=== PATIENT | female | born 1945 | race Caucasian/White ===

== ENCOUNTER → 2020-08-23 13:27 | Outpatient (REF) | payer MEDICARE, SELFPAY ==
--- NOTE | 2020-08-23 13:30 | ECG_ITS ---
Hook-up date: 2020-08-23 13:48:00 Duration: 40:28:00 Test Indications: sinus bradycardia, PAF Medications: 28601 QRS complexes 32 Ventricular ectopics which represent <1 % of total QRS comp. 39 Supraventricular ectopics which represent <1 % of total QRS comp. * Paced QRS complexs which represent % of total QRS comp. VENTRICULAR ECTOPY 32 Isolated 0 Bigeminal Cycles 0 Couplets 0 Runs 0 Beats in Runs * Beats LONGEST at * BPM at :: -- * Beats FASTEST at * BPM at :: -- SUPRAVENTRICULAR ECTOPY 33 Isolated 3 Couplets 0 Runs 0 Beats in Runs * Beats LONGEST at * BPM at :: -- * Beats FASTEST at * BPM at :: -- HEART RATES 42 MIN at 06:53:42 2020-08-24 65 AVG 106 MAX at 13:50:13 2020-08-23 LONGEST RR 1.6560 secs at 05:41:45 2020-08-24 S-T LEVELS Channel 1 - 128 mm at 13:48:00 2020-08-23 - 128 mm at 13:48:00 2020-08-23 Channel 2 - 128 mm at 13:48:00 2020-08-23 - 128 mm at 13:48:00 2020-08-23 Channel 3 - 128 mm at 03:30:71 -- - 128 mm at 03:30:71 Underlying rhythm is sinus; Average ventricular rate 65/min; range 42-106/min; About 43% of the time, ventricular rate <60/min; Rare supraventricular and ventricular ectopy; Chest pressure noted in patient diary correlates with sinus rhythm. Referred By: Ba Calabrese Overread By: ARUNA CROSS
== END ==
LOC: HO.CARD 13:27
PROVIDERS: PCP Internal Medicine; Visit Provider Internal Medicine Cardiovascular Disease
DX: R00.1 Bradycardia, unspecified (principal); I48.0 Paroxysmal atrial fibrillation
CPT/HCPCS: 93225; 93226

== ENCOUNTER → 2020-08-28 07:52 | Outpatient (REF) | payer MEDICARE, SELFPAY ==
--- NOTE | 2020-08-28 08:00 | CA_ITS ---
Acquisition Time: 2020-08-28 08:08:06 Total Exercise Time: 00:02:01 Test Indications: Dyspnea Medications: PANTOPRAZOLE XARELTO Protocol: SHARAD Max HR: 133 BPM 91% of Pred: 145 BPM Max BP: 152/078 mmHG Max Work Load: 3.9 METS Exercis estress test using Sharad protocol, total of 2 min 1 sec. Pt unable to complete the test, became SOB and felt chest pressure and burning. EKG with mild ST depression in leads 2, 3 and aVF. Normotensive response to test. No arrhythmias. Test verified with Dr. Ministerio marquez order pharm stress test Referred By: Ba Calabrese Overread By: Denise Motta
== END ==
LOC: HO.CARD 07:52
PROVIDERS: PCP Internal Medicine; Visit Provider Internal Medicine Cardiovascular Disease
DX: R00.1 Bradycardia, unspecified (principal); I48.0 Paroxysmal atrial fibrillation
CPT/HCPCS: 93017

== ENCOUNTER → 2020-09-11 07:48 | Outpatient (REF) | payer MEDICARE, SELFPAY ==
--- NOTE | 2020-09-11 | NM_ITS ---
Myocardial perfusion study Indication: Chest discomfort and shortness of breath evaluate for myocardial ischemia Technique: The patient was brought in for a Lexiscan perfusion study on 09/11/2020. Patient performed low-level exercise and was injected 0.4 mg of Lexiscan intravenously. Within a minute of injection, 40 mCi of sestamibi was given intravenously. Images were obtained using the SPECT gamma camera interlaced with the gating device. Images were obtained in supine position. Resting perfusion study was performed on 09/12/2020. Patient was administered 40 mCi of sestamibi intravenously at rest. Images were then obtained in supine position. Images obtained with and without CT attenuation. Total DLP 121 MGY-CM. Images were processed with the software and compared side to side in short axis, horizontal long axis and vertical long axis views. Findings: The stress perfusion study showed non attenuated images show minimal thinning of the inferoapical wall of the LV myocardium. Remainder of the LV myocardium is normally perfused. Attenuation corrected images show minimally reduced uptake in the apex of the LV myocardium.. The gated study shows normal LV systolic function with calculated LVEF of 72%. LV cavity is normal in size. The gated study shows normal systolic wall thickening and contraction of segments. Resting study shows attenuation corrected images show minimally reduced uptake in the apex of the LV myocardium. Gating at rest reveals normal systolic wall motion with ejection fraction at 73%. The findings are consistent with likely normal myocardial perfusion. NM/NM christa perf SPECT rest & str Impression: 1. Myocardial perfusion imaging study shows likely normal myocardial perfusion 2. Gated LVEF is 72% 3. Transient ischemic dilatation not present EKG is nondiagnostic for ischemia
--- NOTE | 2020-09-11 07:55 | CA_ITS ---
Acquisition Time: 2020-09-11 08:00:12 Total Exercise Time: 00:02:00 Test Indications: Dyspnea Medications: PANTOPRAZOLE METOPROLOL XARELTO Protocol: LEXISCAN Max HR: 104 BPM 71% of Pred: 145 BPM Max BP: 122/072 mmHG Max Work Load: 1.0 METS Pharmacological stress test using Lexiscan while sitting and kicking her feet, Pt tolerated well, reports to have mild chest pressure, Aminophyline 75 mg IV given and sx resolve. EKG with no arrhythmias, non-diagnostic for ischemia. Nuclear images to follow. Normotensive response to test. Test reviewed with Dr. Scott Referred By: Ángela Hernandez Overread By: Denise Motta
== END ==
LOC: HO.CARD 07:48
PROVIDERS: PCP Internal Medicine; Visit Provider Nurse Practitioner Family
DX: R06.02 Shortness of breath (principal)
CPT/HCPCS: 78452; 93017; A9500; J0280; J2785

== ENCOUNTER → 2020-09-19 13:20 | Outpatient (BNVA) | payer MEDICARE, SELFPAY | PROVIDERS: PCP Internal Medicine; Visit Provider Internal Medicine Cardiovascular Disease | DX: I48.0 Paroxysmal atrial fibrillation (principal); I49.5 Sick sinus syndrome; R06.02 Shortness of breath; Z79.01 Long term (current) use of anticoagulants; Z79.899 Other long term (current) drug therapy | CPT/HCPCS: 93005; 99212 ==

== ENCOUNTER 2020-10-13 12:46 | Outpatient (REF) | payer MEDICARE, SELFPAY ==
--- NOTE | 2020-10-13 13:40 | XR_ITS ---
EXAMINATION: XR CHEST CLINICAL INFORMATION: Dyspnea COMPARISON: January 03, 2020 and April 24, 2019 TECHNIQUE: 2 views of the chest were obtained. FINDINGS: There is no evidence of acute parenchymal disease, pneumothorax, or pleural effusion. Heart normal size. No evidence of pulmonary edema. Patient status post previous left breast surgery. There is scoliosis with spurring seen involving the thoracic spine convex right. There is bilateral shoulder degenerative change. XR/XR chest 2V IMPRESSION: No acute disease
== END 2020-10-13 12:47 | disposition home or self-care (01) ==
LOC: HO.XRAY 12:46
PROVIDERS: PCP Internal Medicine; Visit Provider Internal Medicine Pulmonary Disease
DX: R06.00 Dyspnea, unspecified (principal)
CPT/HCPCS: 71046; 99202

== ENCOUNTER 2020-10-20 09:02 | Outpatient (REF) | payer MEDICARE, SELFPAY ==
--- NOTE | 2020-10-20 13:23 | PFT_ITS ---
Forced vital capacity, slightly decreased. FEV1, [id number], and MVV are normal. Post bronchodilator therapy, no change noted. Total lung capacity and residual volume normal. Diffusion capacity slightly decreased. CONCLUSION: Normal pulmonary function test. Slight decrease in FVC, is probably effort related. Slight decrease in diffusion capacity is a nonspecific finding, probably due to technical reason. Clinical correlation recommended. MD NADIR Fowler/MODL / [id number]
== END 2020-10-20 09:03 | disposition home or self-care (01) ==
LOC: HO.RESP 09:02
PROVIDERS: PCP Internal Medicine; Visit Provider Internal Medicine Pulmonary Disease
DX: R06.00 Dyspnea, unspecified (principal); R06.02 Shortness of breath
CPT/HCPCS: 94060; 94727; 94729; 99212

== ENCOUNTER 2020-11-22 14:21 | Outpatient (REF) | payer MEDICARE, SELFPAY ==
[2020-11-22 17:04] LABS: B Type Natriuretic Peptide 57 pg/mL (<100)
== END 2020-11-22 14:22 | disposition home or self-care (01) ==
LOC: HO.HMGCLDS 14:21
PROVIDERS: PCP Internal Medicine; Visit Provider Internal Medicine Cardiovascular Disease
DX: R06.02 Shortness of breath (principal); R06.00 Dyspnea, unspecified
CPT/HCPCS: 36415; 83880

== ENCOUNTER 2021-02-02 13:43 | Outpatient (REF) | payer MEDICARE, SELFPAY ==
--- NOTE | ~2021-02-02 | US_ITS ---
EXAMINATION: ULTRASOUND EXTREMITY NONVASCULAR CLINICAL INFORMATION: Right lower leg mass. COMPARISON: None TECHNIQUE: Limited ultrasound imaging through the right lower leg posterior to medial patellar was performed. FINDINGS: There is no visible echogenic mass, fluid collection or abnormal vascularity seen in the area where patient points to leg mass. The soft tissues are unremarkable. US/US extremity nonvascular IMPRESSION: Unremarkable ultrasound right lower leg where patient complains of mass along the right medial and posterior to patella.
== END 2021-02-02 13:44 | disposition home or self-care (01) ==
LOC: HO.HMGCX 13:43
PROVIDERS: PCP Internal Medicine; Visit Provider Internal Medicine
DX: R22.41 Localized swelling, mass and lump, right lower limb (principal)
CPT/HCPCS: 76882

== ENCOUNTER → 2021-03-19 10:48 | Outpatient (BNVA) | payer MEDICARE, SELFPAY | PROVIDERS: PCP Internal Medicine; Visit Provider Internal Medicine Cardiovascular Disease | DX: I48.0 Paroxysmal atrial fibrillation (principal); I49.5 Sick sinus syndrome; Z79.899 Other long term (current) drug therapy; Z87.891 Personal history of nicotine dependence | CPT/HCPCS: 93005; 99212 ==

== ENCOUNTER → 2021-04-25 12:42 | Outpatient (REF) | payer MEDICARE, SELFPAY ==
--- NOTE | 2021-04-25 12:50 | CA_ITS ---
Transthoracic Echocardiogram Patient (Last, First, Middle): Dolly Diaz L Gender: Female Date of : 1945 Age: 75 Procedure Date: 04/25/2021 Procedure Type: Transthoracic Echocardiogram Location: OP Height: 177.8 cm Weight: 119.75 kg BSA: 2.35 m2 Heart Rate: bpm BP: 140 / 82 mmHg Kitchen Assistant: PHOEBE Referring MD: Ba Calabrese MD Symptoms: I48.0 - Paroxysmal atrial fibrillation Study Quality: Fair ECG Rhythm: Sinus Conclusions: - The left ventricular systolic function is normal. The calculated ejection fraction is 66% by biplane method. - No obvious valvular pathology seen on this study. - Mild pulmonary hypertension is present. Findings Left Ventricle Normal left ventricular cavity size. There is normal left ventricular wall thickness. The left ventricular systolic function is normal. The calculated ejection fraction is 66% by biplane method. There is no evidence of regional wall motion abnormalities. E/E prime ratio is between 8 and 15 consistent with indeterminate filling pressures. Evidence suggests grade I (mild) diastolic dysfunction. Right Ventricle Mildly increased right ventricular cavity size. There is normal right ventricular systolic function. Atria Both atria are normal in size. Aortic Valve There is a normal trileaflet aortic valve. There is no aortic valve stenosis. There is no aortic valve regurgitation. Mitral Valve The mitral valve appears normal. There is mild mitral valve regurgitation. There is no mitral valve stenosis. Pulmonic Valve The pulmonic valve was not well visualized. Tricuspid Valve Normal tricuspid valve structure. There is mild tricuspid valve regurgitation. The right ventricular systolic pressure is 37 mmHg. Mild pulmonary hypertension is present. Great Vessels The aortic annulus, sinuses of valsalva, and asc aorta are normal in size. Venous The inferior vena cava is normal in size and collapses greater than 50% with inspiration. Pericardium/Pleural There is a trivial pericardial effusion. Prior Study Comparison No significant change compared to prior study dated: 01/04/2020. Recommendations, Care & Conclusions No obvious valvular pathology seen on this study. Measurements 2D Linear Measurements IVSd: 0.99 0.6-0.9/0.6-1.0 cm LVIDd: 4.38 3.9-5.3/4.2-5.9 cm LVIDd Index: 1.86 2.4-3.2/2.2-3.1 cm/m2 LVIDs: 2.62 2.0-3.6 cm LVPWd: 0.96 0.7-1.1 cm Ao Root: 2.90 2.1-3.5 cm LA Diam: 3.70 2.7-3.8/3.0-4.0 cm LAIDs Index: 1.57 1.5-2.3 cm/m2 LV Mass: 175.89 67-162/88-224 g LV Mass Index: 74.85 43-95/49-115 g/m2 LVOT Diam: 2.00 3.0+(-)1.3 cm 2D Systolic Function EF 4C: 63.70 >55% EF 2C: 68.90 >55% EF BiP: 66.20 >55% Mitral Valve MV Pk E: 1.02 MV PK A: 0.48 MV Decel Time: 315.00 E/A: 2.10 E'Lateral: 7.40 E'Medial: 7.83 E/E' Med: 13.00 E/E' Lat: 13.80 PHT: 92.00 MVA PHT: 2.39 Decel [place]: 3.24 Aortic Valve AoV Pk Ruiz: 1.51 AoV Mn Ruiz: 1.03 AoV VTI: 0.34 AoV Pk Grad: 9.00 Aov Mn Grad: 5.00 ELIGIO Cont.VTI: 2.51 LVOT LVOT Pk Ruiz: 1.07 LVOT Mn Ruiz: 0.71 LVOT VTI: 0.27 LVOT Pk Grad: 5.00 LVOT Mn Grad: 2.00 LVOT Diam: 2.00 LVOT Area: 3.14 Diastolic Function MV Pk E: 1.02 MV Pk A: 0.48 E/A: 2.10 E'Medial: 7.83 E/E' Med: 13.00 E' Laterial: 7.40 E/E' Lat: 13.80 Tricuspid Valve TR Pk Ruiz: 2.91 TR Pk Grad: 34.00 RA Press: 3.00 RVSP: 37.00 Great Vessels Aorta Ao Root-2D: 2.90 2.0-3.7 cm Ao Asc: 3.20 2.1-3.4 cm Ao Arch: 3.20 Updated in Other Vendor System with Status of Final Oleg Scott MD electronically signed on 04/27/2021 1:38:15 PM with status of Final
== END ==
LOC: HO.CARD 12:42
PROVIDERS: Visit Provider Internal Medicine
DX: R06.00 Dyspnea, unspecified (principal); I48.0 Paroxysmal atrial fibrillation
CPT/HCPCS: 93306

== ENCOUNTER 2021-08-08 09:28 | Inpatient (IN) | payer MEDICARE, SELFPAY ==
--- NOTE | 2021-08-08 | ECG_ITS ---
Test Reason : CP Blood Pressure : / mmHG Vent. Rate : 061 BPM Atrial Rate : 061 BPM P-R Int : 186 ms QRS Dur : 104 ms QT Int : 436 ms P-R-T Axes : 021 019 027 degrees QTc Int : 438 ms Normal sinus rhythm Possible Anterior infarct , age undetermined Nonspecific T wave abnormality Abnormal ECG When compared with ECG of 05-JAN-2020 14:36, Nonspecific T wave abnormality is now Present Referred By: Kt Shaw Electronically Signed By:STANLEY GRANADOS
--- NOTE | ~2021-08-08 | XR_ITS ---
EXAMINATION: XR CHEST CLINICAL INFORMATION: Chest pain. Possible pneumonia. COMPARISON: Chest radiographs 10/13/2020, 01/03/2020, 04/24/2019 TECHNIQUE: 2 views of the chest were obtained. FINDINGS: The lungs are clear. There is no pneumothorax, pleural reaction, infiltrate, effusion, or groundglass opacity. The heart is normal in size. The vascularity is normal. The hilar and mediastinal contours are unremarkable. No acute bony abnormality. 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 There are postsurgical changes left breast with left axillary clips again seen. XR/XR chest 2V IMPRESSION: No acute intrathoracic disease. Lungs clear.
[2021-08-08 09:45] VITALS: BP 148/73; PULSE 58; RESP 16; TEMP 36.7; O2SAT 99; BMI 39.5
--- NOTE | 2021-08-08 10:40 | ED_ITS ---
HPI - Chest Pain General Chief Complaint: Chest Pain Stated Complaint: CHEST PRESSURE Time Seen by Provider: 08/08/21 10:22 Source: patient Mode of arrival: EMS Limitations: no limitations History of Present Illness HPI narrative: 76-year-old female who presents emergency department for evaluation of chest pain, left arm numbness, diaphoresis. 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 She states she had a bowel movement earlier in the morning and felt like she had gas and her abdomen and went into the bathroom. She states that while she was sitting on the toilet she passed gas and urinated but did not feel lightheaded or dizzy. She then had difficulty standing from the toilet secondary to chronic knee pain. She states that she tried to call for help but the door was locked so she got on her knees and crawled to the door and unlocked the door. She states he then sat up on the floor and developed tightness in her chest. She points to her sternum when asked to localize the tightness. She states that the pain was 8/10. She also had numbness from her left elbow down to her hands. She then developed severe diaphoresis. She was able to get help in ambulance was called. Patient states she was given aspirin and nitroglycerin in the ambulance and she believes that these medications result pain. She believes that the pain lasted a total of 20- 30 minutes. is currently pain-free at the time my evaluation. The patient states that over the last 3 weeks she has noticed similar chest tightness and arm pain with exertion. She states that walking 100-200 feet will cause her to have chest tightness and left arm numbness. She states the symptoms resolved with rest. She has seen her horse exerciser who thought that this could be secondary to her lungs or secondary to heart disease and did start the patient on inhalers. She states she did get some relief with inhalers but still continues to have chest pain with exertion. Patient does have history of paroxysmal atrial fibrillation and does the precision lens grinder apprentice, Dr. Calabrese Related Data Home Medications Medication Instructions Recorded Confirmed pantoprazole 40 mg tablet,delayed 40 mg PO DAILY 09/19/20 08/08/21 release albuterol sulfate 90 mcg/actuation 2 puff INHALATION Q4-6H PRN 08/08/21 08/08/21 aerosol inhaler (ProAir HFA) fluticasone furoate 200 1 puff INHALATION DAILY 08/08/21 08/08/21 mcg-vilanterol 25 mcg/dose inhalation powder (Breo Ellipta) Previous Rx's Medication Instructions Recorded rivaroxaban 20 mg tablet (Xarelto) 20 mg PO DAILY #90 tab 04/23/21 propafenone 150 mg tablet 150 mg PO TID #270 tab 05/22/21 Allergies Allergy/AdvReac Type Severity Reaction Status Date / Time bee pollen [BEE STINGS] Allergy Severe ANAPHYLAXIS Verified 10/20/20 10:13 Penicillins [PENICILLINS] Allergy Intermediate HIVES Verified 10/20/20 10:13 chlorhexidine [CHLORAPREP] Allergy Mild RASH Verified 10/20/20 10:13 sulfamethoxazole Allergy Mild DIARRHEA Verified 10/20/20 10:13 [From BACTRIM] codeine [CODEINE] Allergy Unknown NAUSEA Verified 10/20/20 10:13 latex [LATEX] Allergy Unknown rash/itchy Verified 10/20/20 10:13 Review of Systems Review of Systems: Yes all other systems are reviewed and are negative [facility] Past Medical History [facility] Narrative: Social history: The patient is , she is here with her . She denies tobacco use. She states that she did smoke cigarettes in high school. She rarely drinks alcohol. She denies drug use. Medical History Paroxysmal atrial fibrillation Sick sinus syndrome Surgical History History of back surgery History of cholecystectomy Hx of appendectomy Hx of lumpectomy Family History Family History (Updated 08/08/21 @ 14:46 by Kamila Peters NP) Father Emphysema lung Mother Sudden cardiac arrest Social History Social History Alcohol intake: never Smoked in Last 30 Days: No Use of substances other than those prescribed or required for medical reasons: No Advance Directives: Yes Advance Directives Information Provided: No Advance Directives on File: No Physical Exam Vital Signs: Vital Signs: Last Vital Signs Temp 98.0 F 08/08/21 09:45 Pulse 59 08/08/21 12:00 Resp 16 08/08/21 12:00 BP 150/89 H 08/08/21 12:00 Pulse Ox 99 08/08/21 09:45 Body Mass Index 39.5 Const: General: cooperative and no acute distress Ezekiel entation/consciousness: oriented to person and oriented to place Limitations: no limitations HENMT: Head: Yes normal to inspection, Yes normocephalic and Yes atraumatic Ears: external ears normal General nose exam: Normal external nose present Face and sinus: Yes normal facial exam Mouth: Normal oral and palatal mucosa present Throat: Yes posterior oropharynx normal Eyes: General: appearance normal, both eyes and all related structures Pupils: Equal, round and reactive pupils present Neck: Neck: Yes normal visual inspection, Yes no lymphadenopathy, Yes trachea midline and Yes supple Chest: Chest palpation & inspection: normal inspection of the chest and normal palpation of entire chest wall Resp: Effort & Inspection: normal respiratory effort and able to speak in complete sentences Auscultation: clear to auscultation bilaterally Cardio: Rate: regular rate Rhythm: regular rhythm Heart sounds: S1 normal heart sound present, S2 normal heart sound present and no murmurs GI: Inspection: Yes normal to inspection Palpation (GI): Soft to palpation, nontender and no guarding Auscultation: normal bowel sounds : General: Yes no CVA tenderness Back/Spine/Pelvis: Back: no CVA tenderness Skin: General skin exam: no rashes or lesions noted Neuro: General: oriented to person and oriented to place Cranial nerves: Yes CN's II-XII intact bilaterally and Yes Equal, round and reactive pupils present Cognition (Neuro): normal cognition Motor exam (neuro): 5/5 motor strength present throughout Extrem: General: Yes normal to inspection Psych: Appearance: grossly normal Speech and movement: Normal speech and movement present Affect: normal affect Attitude: cooperative Thought process: Normal thought process present Thought content: Normal thought content present Course Course Course Narrative: 76-year-old female who presents emergency department for evaluation of sternal chest tightness, left arm numbness and diaphoresis that occurred this morning when she was unable to get off the toilet and had to crawl to unlock the door. The patient's symptoms lasted approximately 20-30 minutes and were relieved when the patient received nitroglycerin and aspirin EN route to the hospital. The patient has been experiencing similar symptoms several rafat es a day with exertion of about 100-200 feet. The patient was pain-free at the time my evaluation. Vital signs revealed an elevated blood pressure of 140/73 and bradycardia with a pulse of 58 otherwise were unremarkable. Physical examination was unremarkable. Twelve EKG did reveal Q-waves in lead 3 with poor R-wave progression V1 through V3 but no acute ST segment elevation. I did order a cardiac workup, chest x-ray and urinalysis on the patient. The patient will also be tested for COVID-19. 1222: The patient has had some episodes of lightheadedness but no recurrence of her chest pain patient's laboratory evaluation was unremarkable except for an elevated troponin of 71. This will be repeated at 2:00 p.m.. COVID-19 was negative. The patient's presentation with the covering precision lens grinder apprentice, . He recommended that the patient have a repeat troponin in 3 hours however he felt that the patient should be admitted here for further observation and further treatment. He recommended stopping the patient's Xarelto and propafenone for 48 hours I will discuss admission with the covering hospitalist. 1318: The patient was accepted by Dr. Salazar. The patient will be did to the [facility] [place] for further management. Patient did receive aspirin by the paramedics. 1516: Patient's repeat 3 hour high sensitivity troponin I was increased to 213 which is a greater than 50% increase. This suggests that the patient had myocardial injury. I did discuss this with Dr. Zuñiga and he recommends no change in patient's disposition and that the patient can be managed here at this facility. MDM - Chest Pain Lab Data Result diagrams: 08/08/21 10:53 08/08/21 10:53 Labs: Lab Results 08/08/21 08/08/21 08/08/21 Range/Units 10:53 10:53 10:53 WBC 7.7 (4.8-10.8) X10*3/uL RBC 5.21 (4.20-5.50) X10*6/uL Hgb 15.1 (12.0-16.0) g/dl Hct 46.3 (37-47) % MCV 88.9 (80-98) fL MCH 29.0 (27.0-33.0) pg MCHC 32.6 (31.0-35.0) g/dl RDW 13.3 (11.0-16.0) % Plt Count 205 (160-400) X10*3/uL MPV 10.6 (9.4-12.3) fL Immature Gran % (Auto) 0.5 H (0.0-0.4) % Neut % (Auto) 70.7 (45-73) % Lymph % (Auto) 15.7 L (20-40) % [place] % (Auto) 9.9 (2-11) % Eos % (Auto) 2.3 (0-4) % Baso % (Auto) 0.9 (0-2) % Lymph # (Auto) 1.2 (1.2-4.9) X10*3/uL [place] # (Auto) 0.8 (0.1-1.2) X10*3/uL Eos # (Auto) 0.2 (0.0-0.4) X10*3/uL Baso # (Auto) 0.1 (0.0-0.2) X10*3/uL Abs Immat Gran (auto) 0.04 H (0.00-0.03) X10*3/uL Absolute Neuts (auto) 5.5 (2.0-8.3) X10*3/uL Absolute Nucleated RBC 0.000 (0.0-0.012) X10*3/uL Nucleated RBC % (auto) 0.0 (0.0-0.2) /100WBC Sodium 138 (135-145) mmol/L Potassium 4.4 (3.3-5.1) mmol/L Chloride 106 (96-108) mmol/L Carbon Dioxide 23 (22-29) mmol/L Anion Gap 13 (12-20) BUN 13 (9-16) mg/dL Creatinine 0.72 (0.5-1.4) mg/dL Estim Creat Clear Calc 92.7 Estimated GFR > 60 Random Glucose 105 (60-115) mg/dL Calcium 9.1 (8.4-10.2) mg/dL Total Bilirubin 0.6 (0.0-1.0) mg/dL AST 26 (5-31) U/L ALT 30 (0-31) U/L Alkaline Phosphatase 69 (39-117) U/L Troponin I High Sens (<3.5-17.0) ng/L Total Protein 6.5 (6.5-8.0) g/dL Albumin 4.1 (3.5-5.0) g/dL COVID-19 (LUIS M) Negative (Negative) COVID-19 Clin Com See Note 08/08/21 Range/Units 10:53 WBC (4.8-10.8) X10*3/uL RBC (4.20-5.50) X10*6/uL Hgb (12.0-16.0) g/dl Hct (37-47) % MCV (80-98) fL MCH (27.0-33.0) pg MCHC (31.0-35.0) g/dl RDW (11.0-16.0) % Plt Count (160-400) X10*3/uL MPV (9.4-12.3) fL Immature Gran % (Auto) (0.0-0.4) % Neut % (Auto) (45-73) % Lymph % (Auto) (20-40) % [place] % (Auto) (2-11) % Eos % (Auto) (0-4) % Baso % (Auto) (0-2) % Lymph # (Auto) (1.2-4.9) X10*3/uL [place] # (Auto) (0.1-1.2) X10*3/uL Eos # (Auto) (0.0-0.4) X10*3/uL Baso # (Auto) (0.0-0.2) X10*3/uL Abs Immat Gran (auto) (0.00-0.03) X10*3/uL Absolute Neuts (auto) (2.0-8.3) X10*3/uL Absolute Nucleated RBC (0.0-0.012) X10*3/uL Nucleated RBC % (auto) (0.0-0.2) /100WBC Sodium (135-145) mmol/L Potassium (3.3-5.1) mmol/L Chloride (96-108) mmol/L Carbon Dioxide (22-29) mmol/L Anion Gap (12-20) BUN (9-16) mg/dL Creatinine (0.5-1.4) mg/dL Estim Creat Clear Calc Estimated GFR Random Glucose (60-115) mg/dL Calcium (8.4-10.2) mg/dL Total Bilirubin (0.0-1.0) mg/dL AST (5-31) U/L ALT (0-31) U/L Alkaline Phosphatase (39-117) U/L Troponin I High Sens 71.0 H* (<3.5-17.0) ng/L Total Protein (6.5-8.0) g/dL Albumin (3.5-5.0) g/dL COVID-19 (LUIS M) (Negative) COVID-19 Clin Com Critical Care Time Critical Care Time Critical Care Time: Yes Total Critical Care Time: 30 Attestation: Critical Care: The patient was critically ill with a high probability of imminent or life threatening deterioration. I spent greater than 30 minutes of discontinuous time evaluating the patient,delivering critical care at the bedside, discussing and evaluating pertinent data with consultants. Critical care time does not include time spent performing separately billable procedures or teaching. Total time spent performing critical care was 30 minutes. Discharge Plan Discharge Clinical Impression: Angina pectoris, Elevated troponin I level, Myocardial injury Patient Disposition: Admitted As Inpatient
[2021-08-08 10:56] LABS: MANUAL DIFF FLAG NO
[2021-08-08 11:12] LABS: Basophils Absolute Auto 0.1 X10*3/uL (0.0-0.2); Basophils Percent Auto 0.9 % (0-2); Eosinophils Absolute Auto 0.2 X10*3/uL (0.0-0.4); Eosinophils Percent Auto 2.3 % (0-4); Hematocrit 46.3 % (37-47); Hemoglobin 15.1 g/dl (12.0-16.0); Imm Gran Abs Auto 0.04 X10*3/uL (0.00-0.03); Imm Gran Pct Auto 0.5 % (0.0-0.4); Lymphocytes Absolute Auto 1.2 X10*3/uL (1.2-4.9); Lymphocytes Percent Auto 15.7 % (20-40); Mean Corpuscular HGB Conc 32.6 g/dl (31.0-35.0); Mean Corpuscular Volume 88.9 fL (80-98); Mean Platelet Volume 10.6 fL (9.4-12.3); Monocytes Absolute Auto 0.8 X10*3/uL (0.1-1.2); Monocytes Percent Auto 9.9 % (2-11); Neutrophils Absolute Auto 5.5 X10*3/uL (2.0-8.3); Neutrophils Percent Auto 70.7 % (45-73); Platelet Count 205 X10*3/uL (160-400); Red Blood Count 5.21 X10*6/uL (4.20-5.50); Red Cell Distribution Width 13.3 % (11.0-16.0); White Blood Count 7.7 X10*3/uL (4.8-10.8)
[2021-08-08 11:14] LABS: COVID-19 Test Negative (Negative); IDNOW Serial# 9DD0AD1C
[2021-08-08 11:21] LABS: Alanine Aminotransferase 30 U/L (0-31); Albumin Level 4.1 g/dL (3.5-5.0); Alkaline Phosphatase 69 U/L (39-117); Anion Gap 13 (12-20); Aspartate Amino Transferase 26 U/L (5-31); Bilirubin Total 0.6 mg/dL (0.0-1.0); Blood Urea Nitrogen 13 mg/dL (9-16); Calcium 9.1 mg/dL (8.4-10.2); Carbon Dioxide 23 mmol/L (22-29); Chloride 106 mmol/L (96-108); Creatinine Clr Calc Pharmacy 92.7; Estimated Glomerular Filt Rate > 60; Glucose Random 105 mg/dL (60-115); Potassium 4.4 mmol/L (3.3-5.1); Sodium 138 mmol/L (135-145); Total Protein 6.5 g/dL (6.5-8.0)
[2021-08-08 12:00] VITALS: BP 150/89; PULSE 59; RESP 16
--- NOTE | 2021-08-08 12:00 | CA_ITS ---
Transthoracic Echocardiogram Patient (Last, First, Middle): Dolly Diaz L Gender: Female Date of : 1945 Age: 76 Procedure Date: 08/08/2021 Procedure Type: Transthoracic Echocardiogram Location: ER Height: 175.26 cm Weight: 121.56 kg BSA: 2.34 m2 Heart Rate: bpm BP: 150 / 89 mmHg Client Support Analyst: Referring MD: Oleg Scott MD Symptoms: NSTEMI Study Quality: Fair/Contrast ECG Rhythm: Sinus Conclusions: - The left ventricular systolic function is normal. The visually estimated ejection fraction is between 60-65%. - E/E prime ratio is >15, consistent with elevated filling pressures. Evidence suggests grade II (moderate) diastolic dysfunction. - No obvious valvular pathology seen on this study. Findings Procedure Information Contrast agent, definity, is being given per protocol without apparent complications. Left Ventricle Normal left ventricular cavity size. There is normal left ventricular wall thickness. The left ventricular systolic function is normal. The visually estimated ejection fraction is between 60-65%. There is no evidence of regional wall motion abnormalities. E/E prime ratio is >15, consistent with elevated filling pressures. Evidence suggests grade II (moderate) diastolic dysfunction. Right Ventricle Normal right ventricular cavity size and systolic function. Atria Both atria are normal in size. Aortic Valve There is a normal trileaflet aortic valve. There is no aortic valve stenosis. There is no aortic valve regurgitation. Mitral Valve The mitral valve appears normal. There is no mitral valve regurgitation. There is no mitral valve stenosis. Pulmonic Valve The pulmonic valve was not well visualized. There is trace pulmonic valve regurgitation. Tricuspid Valve Normal tricuspid valve structure. There is no tricuspid valve regurgitation. The pulmonary artery systolic pressure is normal. Great Vessels The aortic annulus, sinuses of valsalva, and asc aorta are normal in size. Venous The inferior vena cava is normal in size and collapses greater than 50% with inspiration. Pericardium/Pleural There is a trivial pericardial effusion. Prior Study Comparison No significant change compared to prior study dated: 04/25/2021. Recommendations, Care & Conclusions No obvious valvular pathology seen on this study. Measurements 2D Linear Measurements IVSd: 0.92 0.6-0.9/0.6-1.0 cm LVIDd: 4.17 3.9-5.3/4.2-5.9 cm LVIDd Index: 1.78 2.4-3.2/2.2-3.1 cm/m2 LVIDs: 2.47 2.0-3.6 cm LVPWd: 0.97 0.7-1.1 cm Ao Root: 3.00 2.1-3.5 cm LA Diam: 3.40 2.7-3.8/3.0-4.0 cm LAIDs Index: 1.45 1.5-2.3 cm/m2 LV Mass: 156.49 67-162/88-224 g LV Mass Index: 66.88 43-95/49-115 g/m2 LVOT Diam: 2.10 3.0+(-)1.3 cm Mitral Valve MV Pk E: 1.04 MV PK A: 0.40 MV Decel Time: 259.00 E/A: 2.60 E'Lateral: 7.94 E'Medial: 5.98 E/E' Med: 17.40 E/E' Lat: 13.10 PHT: 76.00 MVA PHT: 2.89 Decel Jewell: 4.03 Aortic Valve AoV Pk Ruiz: 1.35 AoV Mn Ruiz: 0.87 AoV VTI: 0.36 AoV Pk Grad: 7.00 Aov Mn Grad: 4.00 ELIGIO Cont.VTI: 2.50 LVOT LVOT Pk Ruiz: 1.06 LVOT Mn Ruiz: 0.65 LVOT VTI: 0.26 LVOT Pk Grad: 4.00 LVOT Mn Grad: 2.00 LVOT Diam: 2.10 LVOT Area: 3.46 Diastolic Function MV Pk E: 1.04 MV Pk A: 0.40 E/A: 2.60 E'Medial: 5.98 E/E' Med: 17.40 E' Laterial: 7.94 E/E' Lat: 13.10 Right Ventricle TAPSE (mm): 3.13 Tricuspid Valve TR Pk Ruiz: 2.20 TR Pk Grad: 19.00 Great Vessels Aorta Ao Root-2D: 3.00 2.0-3.7 cm Ao Asc: 3.30 2.1-3.4 cm Pulmonary Valve PV Pk Ruiz: 0.88 Peak PV Grad: 3.00 Updated in Other Vendor System with Status of Final Oleg Scott MD electronically signed on 08/08/2021 4:26:55 PM with status of Final
--- NOTE | 2021-08-08 12:29 | PC.NURSE ---
eddy taken this am at [phone]
--- NOTE | 2021-08-08 13:52 | P.CONCA_ITS ---
History of Present Illness History of Present Illness Date of Service: 08/08/21 Chief complaint: CHEST PRESSURE Narrative: This is a cardiology consultation regarding chest pain and elevated troponins. She has a history of paroxysmal atrial fibrillation and follows up with Dr. Calabrese from Cardiology. She is maintained on propafenone and Xarelto for this reason. She states that she was at the emergency room rn office with her . In that context, she apparently went to the bathroom and sat on the commode but had difficulty getting up due to knee and back pain. Subsequently, she started developing a chest discomfort that felt like intense pressure. She started pouring out in the sweat. She also had some numbness in the left forearm. This led to emergency room visit. No clear-cut EKG findings but elevated high sensitivity troponins in the NSTEMI range. However, she does not have any known coronary disease and has undergone prior noninvasive workup in this regard. We have been asked to see her for further management. Review of Systems Review of Systems: Yes all other systems are reviewed and are negative Cardiovascular: Cardiovascular: Reports as per HPI, Reports no additional cardiovascular complaints, Denies acrocyanosis, Denies cool extremities, Denies painful fingertips, Denies chest pain, Denies chest pain at rest, Denies jc phoresis, Denies syncope, Denies irregular heart rhythm, Denies claudication, Denies leg edema, Denies lightheadedness, Denies palpitations and Denies dyspnea Respiratory: Respiratory: Denies dyspnea Neurologic: Denies syncope Endocrine: Endocrine: Denies palpitations PMFSH Past Medical History Medical History Paroxysmal atrial fibrillation Sick sinus syndrome Family History Family History Father No problems noted. Mother No problems noted. Surgical History Surgical History History of back surgery History of cholecystectomy Hx of appendectomy Hx of lumpectomy Social History Social History Alcohol intake: never Smoked in Last 30 Days: No Use of substances other than those prescribed or required for medical reasons: No Advance Directives: Yes Advance Directives Information Provided: No Advance Directives on File: No Meds Allergies Allergy/AdvReac Type Severity Reaction Status Date / Time bee pollen [BEE STINGS] Allergy Severe ANAPHYLAXIS Verified 10/20/20 10:13 Penicillins [PENICILLINS] Allergy Intermediate HIVES Verified 10/20/20 10:13 chlorhexidine [CHLORAPREP] Allergy Mild RASH Verified 10/20/20 10:13 sulfamethoxazole Allergy Mild DIARRHEA Verified 10/20/20 10:13 [From BACTRIM] codeine [CODEINE] Allergy Unknown NAUSEA Verified 10/20/20 10:13 latex [LATEX] Allergy Unknown rash/itchy Verified 10/20/20 10:13 Home Medications Medication Instructions Recorded Confirmed Last Taken Type pantoprazole 40 mg tablet,delayed 40 mg PO DAILY 09/19/20 03/19/21 Unknown History release fluticasone fur. 100 mcg-umeclid 1 inh INHALATION DAILY 03/19/21 03/19/21 Unknown History 62.5 mcg-vilant 25 mcg inhalat.powder (Trelegy Ellipta) Physical Exam Vital Signs: Vital Signs: Last Vital Signs Temp 98.0 F 08/08/21 09:45 Pulse 59 08/08/21 12:00 Resp 16 08/08/21 12:00 BP 150/89 H 08/08/21 12:00 Pulse Ox 99 08/08/21 09:45 Body Mass Index 39.5 Const: General: cooperative and no acute distress HENMT: Other: Unremarkable Neck: Neck: Yes normal visual inspection Chest: Chest palpation & inspection: normal inspection of the chest Resp: Auscultation: clear to auscultation bilaterally, no crackles and no wheezes Cardio: Jugular venous distension: no JVD Palpation: normal PMI Heart sounds: S1 normal heart sound present, S2 normal heart sound present, no gallops, no murmurs and no rubs GI: Palpation (GI): Soft to palpation Back/Spine/Pelvis: Other: unremarkable Skin: General skin exam: no rashes or lesions noted Neuro: Cranial nerves: Yes Other cranial nerve findings present Extrem: General: Yes no clubbing, cyanosis or edema Psych: Mental Status: other Results Labs and Meds Result diagrams: 08/08/21 10:53 08/08/21 10:53 Lab results: Laboratory Results - last 24 hr 08/08/21 08/08/2108/08/21 10:53 10:53 10:53 WBC 7.7 RBC 5.21 Hgb 15.1 Hct 46.3 MCV 88.9 MCH 29.0 MCHC 32.6 RDW 13.3 Plt Count 205 MPV 10.6 Immature Gran % (Auto) 0.5 H Neut % (Auto) 70.7 Lymph % (Auto) 15.7 L [place] % (Auto) 9.9 Eos % (Auto) 2.3 Baso % (Auto) 0.9 Lymph # (Auto) 1.2 [place] # (Auto) 0.8 Eos # (Auto) 0.2 Baso # (Auto) 0.1 Abs Immat Gran (auto) 0.04 H Absolute Neuts (auto) 5.5 Absolute Nucleated RBC 0.000 Nucleated RBC % (auto) 0.0 Sodium 138 Potassium 4.4 Chloride 106 Carbon Dioxide 23 Anion Gap 13 BUN 13 Creatinine 0.72 Estim Creat Clear Calc 92.7 Estimated GFR > 60 Random Glucose 105 Calcium 9.1 Total Bilirubin 0.6 AST 26 ALT 30 Alkaline Phosphatase 69 Troponin I High Sens Total Protein 6.5 Albumin 4.1 COVID-19 (LUIS M) Negative COVID-19 Clin Com See Note 08/08/21 10:53 WBC RBC Hgb Hct MCV MCH MCHC RDW Plt Count MPV Immature Gran % (Auto) Neut % (Auto) Lymph % (Auto) [place] % (Auto) Eos % (Auto) Baso % (Auto) Lymph # (Auto) [place] # (Auto) Eos # (Auto) Baso # (Auto) Abs Immat Gran (auto) Absolute Neuts (auto) Absolute Nucleated RBC Nucleated RBC % (auto) Sodium Potassium Chloride Carbon Dioxide Anion Gap BUN Creatinine Estim Creat Clear Calc Estimated GFR Random Glucose Calcium Total Bilirubin AST ALT Alkaline Phosphatase Troponin I High Sens 71.0 H* Total Protein Albumin COVID-19 (LUIS M) COVID-19 Clin Com ECG Interpretation: EKG today shows sinus rhythm; nonspecific findings in the inferior leads; poor R-wave progression anteriorly; normal ND/QTc; overall, similar to prior. Imaging Radiologist's impression: Impressions Chest X-Ray 08/08/21 10:39 IMPRESSION: No acute intrathoracic disease. Lungs clear. Assessment and Plan (1) NSTEMI (non-ST elevated myocardial infarction): Status: Acute (2) Paroxysmal atrial fibrillation: Status: Acute High sensitivity troponin elevated to 71. Symptoms are concerning for acute coronary syndrome. However, previous noninvasive workup has been unremarkable. She had a stress perfusion imaging study last year which did not show any significant perfusion abnormalities. Another stress perfusion imaging study from 2019 showed possible distal anterior/apical ischemia. She also had a coronary CTA in 2019. That showed no significant coronary calcification. LAD then described to have no significant stenosis. Circumflex was small but not well seen and there was no definite stenosis. Otherwise unremarkable. Overall, she has symptoms that are consistent with ACS including chest pressure, diaphoresis and arm numbness with elevated high sensitivity troponins but negative ischemia workup in the past. She will need a diagnostic catheterization to assess this further. For now, we can admit her. She took the last dose of Xarelto today and hence this will need to be held for about 48 hours or so before we can proceed with catheterization. Also with ACS, propafenone will need to be held. Will review the echocardiogram that is getting completed and follow up with you. Procedures Date of Service Date of Service: 08/08/21
--- NOTE | 2021-08-08 14:22 | P.HPHOSP_ITS ---
History of Present Illness Date of Service: 08/08/21 Chief Complaint: Chest pressure 76 year old women presenting with left arm numbness and chest pressure with activity. She reports that this has been ongoing for about 4-5 weeks and she has increased chest pressure with activity and with rest relieved. She also m entioned numbness from below her left elbow to her hand that has been off and on. She has a history of afib but no CAD as far as she knows. She denied nausea, vomiting, diarrhea, fever, chills, recent illness. Her initial troponin was 71.0, EKG showed no acute ischemic changes. all other labs within acceptable limits. COVID-19 negative. during the interview she is not experiencing any chest pain. But she will be admitted for further management and treatment of NSTEMI. Review of Systems Review of Systems: Denies any recent fever chills or decrease in appetite respiratory denies any shortness of breath coverage production cardiovascular See HPI gastrointestinal denies any dysphagia abdominal pain nausea vomiting or diarrhea genitourinary denies any dysuria frequency or hematuria musculoskeletal denies any joint pain or swelling neuropsych denies any weakness or seizures all other systems reviewed are negative [facility] Medical History Paroxysmal atrial fibrillation Sick sinus syndrome Family History (Updated 08/08/21 @ 14:45 by Kamila Peters NP) Father Emphysema lung Mother Sudden cardiac arrest Pertinent family history: . Surgical History History of back surgery History of cholecystectomy Hx of appendectomy Hx of lumpectomy Social History Alcohol intake: never Smoked in Last 30 Days: No Use of substances other than those prescribed or required for medical reasons: No Advance Directives: Yes Advance Directives Information Provided: No Advance Directives on File: No Meds Allergies Allergy/AdvReac Type Severity Reaction Status Date / Time bee pollen [BEE STINGS] Allergy Severe ANAPHYLAXIS Verified 10/20/20 10:13 Penicillins [PENICILLINS] Allergy Intermediate HIVES Verified 10/20/20 10:13 chlorhexidine [CHLORAPREP] Allergy Mild RASH Verified 10/20/20 10:13 sulfamethoxazole Allergy Mild DIARRHEA Verified 10/20/20 10:13 [From BACTRIM] codeine [CODEINE] Allergy Unknown NAUSEA Verified 10/20/20 10:13 latex [LATEX] Allergy Unknown rash/itchy Verified 10/20/20 10:13 Active Medications: Current Medications Acetaminophen (Acetaminophen 325 Mg Tablet) 650 mg PO Q6H PRN PRN Reason: Pain, Mild (Pain Scale 1-3) Ondansetron HCl (Ondansetron Hcl 4 Mg/2 Ml Vial) 4 mg IVPUSH Q8H PRN PRN Reason: Nausea and Vomiting Pharmacy Consult (Consult Rx Perform Med Rec) 1 each MISCELLANE ONCE PRN PRN Reason: Consult order Sodium Chloride (0.9 % Sodium Chloride Flush 3 Ml Syringe) 3 ml IVFLUSH [facility] Medications Medication Instructions Recorded Confirmed Last Taken Type pantoprazole 40 mg tablet,delayed 40 mg PO DAILY 09/19/20 03/19/21 Unknown History release albuterol sulfate 90 mcg/actuation 2 puff INHALATION Q4-6H PRN 08/08/21 08/08/21 Unknown History aerosol inhaler (ProAir HFA) fluticasone furoate 200 1 puff INHALATION DAILY 08/08/21 Unknown History mcg-vilanterol 25 mcg/dose inhalation powder (Breo Ellipta) Physical Exam Vital Signs and Narrative: Vital Signs: Last Vital Signs Temp 98.0 F 08/08/21 09:45 Pulse 59 08/08/21 12:00 Resp 16 08/08/21 12:00 BP 150/89 H 08/08/21 12:00 Pulse Ox 99 08/08/21 09:45 Body Mass Index 39.5 Appearing in no acute distress head is normocephalic atraumatic eyes pupils are PERRLA sclera is anicteric mouth throat mucous membranes are intact and moist neck is supple no lymphadenopathy, no JVD noted lung sounds are clear to auscultation heart regular rate rhythm, clear S1, S2 positive bowel sounds, abdomen is soft, nontender neuro patient is alert x3, no focal deficits Results Labs CBC and Chem 7: 08/08/21 10:53 08/08/21 10:53 Labs: Laboratory Results - last 24 hr 08/08/21 08/08/21 08/08/21 10:53 10:53 10:53 MCV 88.9 MCH 29.0 MCHC 32.6 RDW 13.3 Plt Count 205 MPV 10.6 Immature Gran % (Auto) 0.5 H Neut % (Auto) 70.7 Lymph % (Auto) 15.7 L [place] % (Auto) 9.9 Eos % (Auto) 2.3 Baso % (Auto) 0.9 Lymph # (Auto) 1.2 [place] # (Auto) 0.8 Eos # (Auto) 0.2 Baso # (Auto) 0.1 Abs Immat Gran (auto) 0.04 H Absolute Neuts (auto) 5.5 Absolute Nucleated RBC 0.000 Nucleated RBC % (auto) 0.0 Anion Gap 13 Estim Creat Clear Calc 92.7 Estimated GFR > 60 Random Glucose 105 Calcium 9.1 Total Bilirubin 0.6 AST 26 ALT 30 Alkaline Phosphatase 69 Troponin I High Sens Total Protein 6.5 Albumin 4.1 COVID-19 (LUIS M) Negative COVID-19 Clin Com See Note 08/08/21 10:53 MCV MCH MCHC RDW Plt Count MPV Immature Gran % (Auto) Neut % (Auto) Lymph % (Auto) [place] % (Auto) Eos % (Auto) Baso % (Auto) Lymph # (Auto) [place] # (Auto) Eos # (Auto) Baso # (Auto) Abs Immat Gran (auto) Absolute Neuts (auto) Absolute Nucleated RBC Nucleated RBC % (auto) Anion Gap Estim Creat Clear Calc Estimated GFR Random Glucose Calcium Total Bilirubin AST ALT Alkaline Phosphatase Troponin I High Sens 71.0 H* Total Protein Albumin COVID-19 (LUIS M) COVID-19 Clin Com Imaging Radiologist's Impressions: Impressions Chest X-Ray 08/08/21 10:39 IMPRESSION: No acute intrathoracic disease. Lungs clear. Assessment and Plan (1) NSTEMI (non-ST elevated myocardial infarction): Status: Acute (2) Paroxysmal atrial fibrillation: Status: Acute 76 year old women admitted with possible NSTEMI that started 4-5 weeks ago. NSTEMI . Typical symptoms with activity of pressure and left arm numbness hold propafenone and xarelto will need diagnostic cath in 48 hours so likely transfer to [facility] when appropriate Cardiology following Atrial fibrillation hold propafenone and xarelto for possible diagnostic cath DVT prophylaxis with mechanical compression boots Attending Dr. Peterson Quality Stroke Does the patient have a stroke diagnosis?: No VTE Prior VTE?: No VTE Risk Level:: Medical - moderate - high VTE Device Contraindication: N/A - Device Ordered VTE Drug Contraindication: Treatment Not Indicated
--- NOTE | 2021-08-08 14:32 | PM.EVENT ---
Event Note Date of Service: 08/08/21 Event Note: Attending Attestation: Patient seen and examined independently and I was present during neumann portion of E/M service. Agree with Mana Peters NP's history, physical, assessment, and plan. 76 yo F presenting with substernal CP with L arm radiation / numbness. HS trop I elevated. Presentation concerning ACS. On Xarelto/Propafenone. Took Xarelto this AM around 7. Will admit for ACS. Will ultimately need invasive testing.
[2021-08-08 14:59] LABS: Troponin-I High Sensitivity 213.5 ng/L (<3.5-17.0)
[2021-08-08 16:00] VITALS: BP 188/80; PULSE 66; RESP 16; TEMP 36.7; O2SAT 98
--- NOTE | 2021-08-08 16:07 | PC.NURSE ---
awaiting call back from [facility] rn
--- NOTE | 2021-08-08 16:28 | PC.NURSE ---
report given to presley
[2021-08-08] MEDS: 0.9 % Sodium Chloride Flush 3 ML SYRINGE IVFLUSH (18:34)
[2021-08-08 20:00] VITALS: BP 150/74; PULSE 56; RESP 18; TEMP 36.1; O2SAT 97
[2021-08-08 21:37] LABS: Appearance Urine CLEAR; Color Urine YELLOW; Glucose Urine UA NEG (NEG); Leukocyte Esterase Urine 1+ (NEG); Nitrite Urine NEG (NEG); UACC Culture Trigger YES; Urine Blood NEG (NEG); Urine Ketones NEG (NEG); Urine Protein NEG (NEG-TRACE)
[2021-08-08 21:44] LABS: Bacteria Urine 1+ /LPF; RBC Urine 0-2 /HPF (0); Squamous Epithelial Cell Urine 2+ /LPF
[2021-08-08 23:47] VITALS: BP 148/66; PULSE 58; RESP 16; TEMP 36.1; O2SAT 98
[2021-08-09] MEDS: 0.9 % Sodium Chloride Flush 3 ML SYRINGE IVFLUSH ×2 (00:19→08:02)
[2021-08-09 04:00] VITALS: PULSE 62; RESP 16
[2021-08-09 07:00] LABS: MANUAL DIFF FLAG NO
[2021-08-09 07:06] LABS: Basophils Absolute Auto 0.1 X10*3/uL (0.0-0.2); Basophils Percent Auto 0.8 % (0-2); Eosinophils Absolute Auto 0.2 X10*3/uL (0.0-0.4); Eosinophils Percent Auto 2.7 % (0-4); Hematocrit 44.6 % (37-47); Hemoglobin 14.5 g/dl (12.0-16.0); Imm Gran Abs Auto 0.03 X10*3/uL (0.00-0.03); Imm Gran Pct Auto 0.4 % (0.0-0.4); Lymphocytes Absolute Auto 1.5 X10*3/uL (1.2-4.9); Lymphocytes Percent Auto 19.6 % (20-40); Mean Corpuscular HGB Conc 32.5 g/dl (31.0-35.0); Mean Corpuscular Hemoglobin 28.7 pg (27.0-33.0); Mean Corpuscular Volume 88.3 fL (80-98); Mean Platelet Volume 10.7 fL (9.4-12.3); Monocytes Absolute Auto 0.7 X10*3/uL (0.1-1.2); Monocytes Percent Auto 8.5 % (2-11); Neutrophils Absolute Auto 5.2 X10*3/uL (2.0-8.3); Platelet Count 232 X10*3/uL (160-400); Red Blood Count 5.05 X10*6/uL (4.20-5.50); Red Cell Distribution Width 13.4 % (11.0-16.0); White Blood Count 7.7 X10*3/uL (4.8-10.8)
[2021-08-09 07:45] LABS: Anion Gap 14 (12-20); Blood Urea Nitrogen 13 mg/dL (9-16); Calcium 9.1 mg/dL (8.4-10.2); Carbon Dioxide 26 mmol/L (22-29); Chloride 105 mmol/L (96-108); Creatinine Clr Calc Pharmacy 87.8; Estimated Glomerular Filt Rate > 60; Glucose Random 112 mg/dL (60-115); Potassium 4.9 mmol/L (3.3-5.1); Sodium 140 mmol/L (135-145)
[2021-08-09 07:56] VITALS: BP 150/61; PULSE 55; RESP 20; TEMP 36.5; O2SAT 96
--- NOTE | 2021-08-09 09:37 | MHC.CM.PN ---
IMM 08/09/21 Female 76 DX NSTEMI Lives w spouse independent DP [place] [facility] for Cardiac cath via ALS, pending bed availability.
[2021-08-09] MEDS: Omeprazole 20 MG CAPSULE.DR PO (10:11)
[2021-08-09 10:29] LABS: Hematocrit 43.5 % (37-47); Hemoglobin 14.7 g/dl (12.0-16.0); Mean Corpuscular HGB Conc 33.8 g/dl (31.0-35.0); Mean Corpuscular Hemoglobin 29.4 pg (27.0-33.0); Mean Platelet Volume 10.5 fL (9.4-12.3); Platelet Count 237 X10*3/uL (160-400); Red Cell Distribution Width 13.5 % (11.0-16.0)
[2021-08-09 10:36] LABS: INTERNATIONAL NORM RATIO 1.1 (0.9-1.1); Prothrombin Time 12.8 SEC (9.9-13.0)
[2021-08-09 10:39] LABS: PTT Heparin Drip 35.7 SEC (53-77.9)
[2021-08-09] MEDS: Heparin Sodium,Porcine 5,000 UNIT/ML VIAL 4000 UNIT IVPUSH (10:57)
[2021-08-09] MEDS: Heparin Sodium,Porcine/1/2NS 25,000 UNIT/250 ML IV.SOLN 14.59 UNIT IVCONT (10:58)
[2021-08-09] MEDS: Aspirin Enteric Coated 81 MG TABLET.DR PO (11:03)
[2021-08-09 11:20] VITALS: BP 123/54; PULSE 60; RESP 20; TEMP 36.6; O2SAT 97
--- NOTE | 2021-08-09 12:01 | P.PNCA_ITS ---
Subjective Subjective Date of Service: 08/09/21 Interval history: Feels OK. No chest pain. Review of Systems Review of Systems Yes all other systems are reviewed and are negative Cardiovascular: Reports as per HPI, Reports no additional cardiovascular complaints, Denies acrocyanosis, Denies cool extremities, Denies painful fingertips, Denies chest pain, Denies chest pain at rest, Denies diaphoresis, Denies syncope, Denies irregular heart rhythm, Denies claudication, Denies leg edema, Denies lightheadedness, Denies palpitations and Denies dyspnea Respiratory: Denies dyspnea Denies syncope Endocrine: Denies palpitations Physical Exam Vital Signs: Last Vital Signs Temp 97.8 F 08/09/21 11:20 Pulse 60 08/09/21 11:20 Resp 20 08/09/21 11:20 BP 123/54 L 08/09/21 11:20 Pulse Ox 97 08/09/21 11:20 Body Mass Index 39.5 Const General: cooperative and no acute distress HENHI Other: Unremarkable Neck Neck: Yes normal visual inspection Chest Chest palpation & inspection: normal inspection of the chest Resp Auscultation: clear to auscultation bilaterally, no crackles and no wheezes Cardio Jugular venous distension: no JVD Palpation: normal PMI Heart sounds: S1 normal heart sound present, S2 normal heart sound present, no gallops, no murmurs and no rubs GI Palpation (GI): Soft to palpation Back/Spine/Pelvis Other: unremarkable Skin General skin exam: no rashes or lesions noted Neuro Cranial nerves: Yes Other cranial nerve findings present Extrem General: Yes no clubbing, cyanosis or edema Psych Mental Status: other Results Labs and Meds Result diagrams: 08/09/21 10:09 08/09/21 06:19 Lab results: Laboratory Results - last 24 hr 08/08/21 08/08/21 08/08/21 14:26 17:22 21:20 WBC RBC Hgb Hct MCV MCH MCHC RDW Plt Count MPV Immature Gran % (Auto) Neut % (Auto) Lymph % (Auto) [place] % (Auto) Eos % (Auto) Baso % (Auto) Lymph # (Auto) [place] # (Auto) Eos # (Auto) Baso # (Auto) Abs Immat Gran (auto) Absolute Neuts (auto) Absolute Nucleated RBC Nucleated RBC % (auto) PT INR PTT (Heparin Protocol) Sodium Potassium Chloride Carbon Dioxide Anion Gap BUN Creatinine Estim Creat Clear Calc Estimated GFR Random Glucose Calcium Troponin I High Sens 213.5 H* D 259.0 H* Urine Color YELLOW Urine Appearance CLEAR Urine pH 6.0 Ur Specific [place] 1.020 Urine Protein NEG Urine Glucose (UA) NEG Urine Ketones NEG Urine Blood NEG Urine Nitrite NEG Ur Leukocyte Esterase 1+ H Urine RBC 0-2 Urine WBC 10-14 H Ur Squamous Epith Cells 2+ Urine Bacteria 1+ 08/09/21 08/09/21 08/09/21 06:19 06:19 10:09 WBC 7.7 8.0 RBC 5.05 5.00 Hgb 14.5 14.7 Hct 44.6 43.5 MCV 88.3 87.0 MCH 28.7 29.4 MCHC 32.5 33.8 RDW 13.4 13.5 Plt Count 232 237 MPV 10.7 10.5 Immature Gran % (Auto) 0.4 Neut % (Auto) 68.0 Lymph % (Auto) 19.6 L [place] % (Auto) 8.5 Eos % (Auto) 2.7 Baso % (Auto) 0.8 Lymph # (Auto) 1.5 [place] # (Auto) 0.7 Eos # (Auto) 0.2 Baso # (Auto) 0.1 Abs Immat Gran (auto) 0.03 Absolute Neuts (auto) 5.2 Absolute Nucleated RBC 0.000 0.000 Nucleated RBC % (auto) 0.0 0.0 PT INR PTT (Heparin Protocol) Sodium 140 Potassium 4.9 Chloride 105 Carbon Dioxide 26 Anion Gap 14 BUN 13 Creatinine 0.76 Estim Creat Clear Calc 87.8 Estimated GFR > 60 Random Glucose 112 Calcium 9.1 Troponin I High Sens Urine Color Urine Appearance Urine pH Ur Specific [place] Urine Protein Urine Glucose (UA) Urine Ketones Urine Blood Urine Nitrite Ur Leukocyte Esterase Urine RBC Urine WBC Ur Squamous Epith Cells Urine Bacteria 08/09/21 10:09 WBC RBC Hgb Hct MCV MCH MCHC RDW Plt Count MPV Immature Gran % (Auto) Neut % (Auto) Lymph % (Auto) [place] % (Auto) Eos % (Auto) Baso % (Auto) Lymph # (Auto) [place] # (Auto) Eos # (Auto) Baso # (Auto) Abs Immat Gran (auto) Absolute Neuts (auto) Absolute Nucleated RBC Nucleated RBC % (auto) PT 12.8 INR 1.1 PTT (Heparin Protocol) 35.7 L Sodium Potassium Chloride Carbon Dioxide Anion Gap BUN Creatinine Estim Creat Clear Calc Estimated GFR Random Glucose Calcium Troponin I High Sens Urine Color Urine Appearance Urine pH Ur Specific [place] Urine Protein Urine Glucose (UA) Urine Ketones Urine Blood Urine Nitrite Ur Leukocyte Esterase Urine RBC Urine WBC Ur Squamous Epith Cells Urine Bacteria Imaging Radiologist's impression: Impressions Chest X-Ray 08/08/21 10:39 IMPRESSION: No acute intrathoracic disease. Lungs clear. Progress Note: A&P Assessment and plan (1) NSTEMI (non-ST elevated myocardial infarction): Status: Acute (2) Paroxysmal atrial fibrillation: Status: Acute Assessment and Plan: High sensitivity troponin elevated to 71. Symptoms are concerning for acute coronary syndrome. However, previous noninvasive workup has been unremarkable. She had a stress perfusion imaging study last year which did not show any significant perfusion abnormalities. Another stress perfusion imaging study from 2019 showed possible distal anterior/apical ischemia. She also had a coronary CTA in 2019. That showed no significant coronary calcification. LAD then described to have no significant stenosis. Circumflex was small but not well seen and there was no definite stenosis. Otherwise unremarkable. Overall, she has symptoms that are consistent with ACS including chest pressure, diaphoresis and arm numbness with elevated high sensitivity troponins but negative ischemia workup in the past. She will need a diagnostic catheterization to assess this further. Start IV heparin. Last dose Xarelto yesterday. Holding Propafenone. [place] [facility] [place]. Fall Risk Details Current Medications: Current Medications Acetaminophen (Acetaminophen 325 Mg Tablet) 650 mg PO Q6H PRN PRN Reason: Pain, Mild (Pain Scale 1-3) Aspirin (Aspirin Enteric Coated 81 Mg Tablet.) 81 mg PO DAILY [facility] Last Admin: 08/09/21 11:03 Dose: 81 mg Documented by: Atorvastatin Calcium (Atorvastatin Calcium 80 Mg Tablet) 80 mg PO BEDTIME [facility] Fluticasone/Vilanterol (Fluticasone/Vilanterol 200/25 Blst.W.Dev) 1 puff INHALE DAILY [facility] Last Admin: 08/09/21 09:22 Dose: Not Given Documented by: Heparin Sodium (Porcine) (Heparin Sodium,Porcine 5,000 Unit/Ml Vial) 4,900 unit 40 unit/kg (4900 unit) IVPUSH PROTOCOL BOLUS PRN; Protocol PRN Reason: 40 unit/kg - Heparin Protocol Heparin Sodium (Porcine) (Heparin Sodium,Porcine 5,000 Unit/Ml Vial) 9,700 unit 80 unit/kg (9700 unit) IVPUSH PROTOCOL BOLUS PRN; Protocol PRN Reason: 80 unit/kg - Heparin Protocol Heparin Sodium/Sodium Chloride () 25,000 unit in 250 mls @ 0 mls/hr IVCONT .Q0M EVANS; Protocol Last Admin: 08/09/21 10:58 Dose: 12 units/kg/hr, 14.59 mls/hr Documented by: Omeprazole (Omeprazole 20 Mg Capsule.Dr) 20 mg PO DAILY@0630 [facility] Last Admin: 08/09/21 10:11 Dose: 20 mg Documented by: Ondansetron HCl (Ondansetron Hcl 4 Mg/2 Ml Vial) 4 mg IVPUSH Q8H PRN PRN Reason: Nausea and Vomiting Pharmacy Consult (Consult Rx Perform Med Rec) 1 each MISCELLANE ONCE PRN PRN Reason: Consult order Sodium Chloride (0.9 % Sodium Chloride Flush 3 Ml Syringe) 3 ml IVFLUSH QSHIFT [facility] Last Admin: 08/09/21 08:02 Dose: 3 ml Documented by: Time Spent With Patient Time: Total time spent is greater than 50% in coordination of care (as documented) at patient's floor/unit and/or counseling patient: Time with patient: less than 15 minutes Progress Note: Quality Stroke Does the patient have a stroke diagnosis?: No Procedures Date of Service Date of Service: 08/09/21
--- NOTE | 2021-08-09 12:22 | PM.DS ---
DS: Providers Provider Date of Service: 08/09/21 Date of admission: 08/08/21 14:16 Primary care physician: Lamont Garber MD Consults: 08/08/21 14:21 Consult to Cardiology Routine Consulting Provider: Oleg Scott Reason for consultation: nstemi Has provider been notified: No Attending physician on discharge: John Peterson Discharging clinician: Terri Palomares DS: Diagnosis Discharge Diagnosis (1) NSTEMI (non-ST elevated myocardial infarction): Status: Acute (2) Paroxysmal atrial fibrillation: Status: Acute DS: Summary Hospital Course Hospital Course: From H&P on day of admission 76 year old women presenting with left arm numbness and chest pressure with activity. She reports that this has been ongoing for about 4-5 weeks and she has increased chest pressure with activity and with rest relieved. She also mentioned numbness from below her left elbow to her hand that has been off and on. She has a history of afib but no CAD as far as she knows. She denied nausea, vomiting, diarrhea, fever, chills, recent illness.? Her initial troponin was 71.0, EKG showed no acute ischemic changes.? all other labs within acceptable limits.? COVID-19 negative.? during the interview she is not experiencing any chest pain.? But she will be admitted for further management and treatment of NSTEMI. NSTEMI: This is a 76-year-old female with history of atrial fibrillation on Xarelto who presented to the emergency department with chest pressure. She was admitted to the telemetry floor for treatment of NSTEMI. Her initial highly sensitive troponin was 71. Repeat troponin increased to 213.5 followed by 259.0. She underwent echocardiogram, results as below. Her Xarelto was placed on hold and she was started on heparin drip 24 hours after her last Xarelto dose. Her last Xarelto dose was August 08 at 07:00. Additionally she was started on low-dose aspirin and statin. She was seen in Consultation by Cardiology who recommended transfer to [facility] for cardiac catheterization. She is currently chest pain free. Vital signs have remained stable. ECHO done 08/08 Conclusions: - The left ventricular systolic function is normal.? The visually estimated ejection fraction is between 60-65%. ? - E/E prime ratio is >15, consistent with elevated filling ? ? ? pressures.? Evidence suggests grade II (moderate) diastolic? ? ? dysfunction. ? - No obvious valvular pathology seen on this study.? Findings Procedure Information Contrast agent, definity, is being given per protocol without apparent complications. Left Ventricle Normal left ventricular cavity size.? There is normal left ventricular wall thickness.? The left ventricular systolic function is normal.? The visually estimated ejection fraction is between 60-65%.? There is no evidence of regional wall motion abnormalities.? E/E prime ratio is >15, consistent with elevated filling pressures.? Evidence suggests grade II (moderate) diastolic dysfunction. Time Spent with Patient Time attestation: Total time spent providing and/or coordinating discharge services: Discharge coordination time: Greater than 30 minutes Quality: Stroke Does the patient have a stroke diagnosis?: No Physical Exam Vital Signs: Vital Signs: Last Vital Signs Temp 97.8 F 08/09/21 11:20 Pulse 60 08/09/21 11:20 Resp 20 08/09/21 11:20 BP 123/54 L 08/09/21 11:20 Pulse Ox 97 08/09/21 11:20 Body Mass Index 39.5 Const: Nutritional Appearance: well nourished Orientation/consciousness: patient oriented x3 HENMT: Head: Yes normocephalic and Yes atraumatic Eyes: Sclerae: sclerae normal Resp: Effort & Inspection: normal respiratory effort and no respiratory distress Cardio: Rate: regular rate Rhythm: regular rhythm GI: Palpation (GI): Soft to palpation and nontender Neuro: General: patient oriented x3 Cranial nerves: Yes CN's II-XII intact bilaterally and Yes Bilaterally intact EOM present DS: Data Data Completed and Pending Labs on day of discharge: Laboratory Results - last 24 hr 08/08/21 08/08/21 08/08/21 14:26 17:22 21:20 WBC RBC Hgb Hct MCV MCH MCHC RDW Plt Count MPV Immature Gran % (Auto) Neut % (Auto) Lymph % (Auto) [place] % (Auto) Eos % (Auto) Baso % (Auto) Lymph # (Auto) [place] # (Auto) Eos # (Auto) Baso # (Auto) Abs Immat Gran (auto) Absolute Neuts (auto) Absolute Nucleated RBC Nucleated RBC % (auto) PT INR PTT (Heparin Protocol) Sodium Potassium Chloride Carbon Dioxide Anion Gap BUN Creatinine Estim Creat Clear Calc Estimated GFR Random Glucose Calcium Troponin I High Sens 213.5 H* D 259.0 H* Urine Color YELLOW Urine Appearance CLEAR Urine pH 6.0 Ur Specific [place] 1.020 Urine Protein NEG Urine Glucose (UA) NEG Urine Ketones NEG Urine Blood NEG Urine Nitrite NEG Ur Leukocyte Esterase 1+ H Urine RBC 0-2 Urine WBC 10-14 H Ur Squamous Epith Cells 2+ Urine Bacteria 1+ 08/09/21 08/09/21 08/09/21 06:19 06:19 10:09 WBC 7.7 8.0 RBC 5.05 5.00 Hgb 14.5 14.7 Hct 44.6 43.5 MCV 88.3 87.0 MCH 28.7 29.4 MCHC 32.5 33.8 RDW 13.4 13.5 Plt Count 232 237 MPV 10.7 10.5 Immature Gran % (Auto) 0.4 Neut % (Auto) 68.0 Lymph % (Auto) 19.6 L [place] % (Auto) 8.5 Eos % (Auto) 2.7 Baso % (Auto) 0.8 Lymph # (Auto) 1.5 [place] # (Auto) 0.7 Eos # (Auto) 0.2 Baso # (Auto) 0.1 Abs Immat Gran (auto) 0.03 Absolute Neuts (auto) 5.2 Absolute Nucleated RBC 0.000 0.000 Nucleated RBC % (auto) 0.0 0.0 PT INR PTT (Heparin Protocol) Sodium 140 Potassium 4.9 Chloride 105 Carbon Dioxide 26 Anion Gap 14 BUN 13 Creatinine 0.76 Estim Creat Clear Calc 87.8 Estimated GFR > 60 Random Glucose 112 Calcium 9.1 Troponin I High Sens Urine Color Urine Appearance Urine pH Ur Specific [place] Urine Protein Urine Glucose (UA) Urine Ketones Urine Blood Urine Nitrite Ur Leukocyte Esterase Urine RBC Urine WBC Ur Squamous Epith Cells Urine Bacteria 08/09/21 10:09 WBC RBC Hgb Hct MCV MCH MCHC RDW Plt Count MPV Immature Gran % (Auto) Neut % (Auto) Lymph % (Auto) [place] % (Auto) Eos % (Auto) Baso % (Auto) Lymph # (Auto) [place] # (Auto) Eos # (Auto) Baso # (Auto) Abs Immat Gran (auto) Absolute Neuts (auto) Absolute Nucleated RBC Nucleated RBC % (auto) PT 12.8 INR 1.1 PTT (Heparin Protocol) 35.7 L Sodium Potassium Chloride Carbon Dioxide Anion Gap BUN Creatinine Estim Creat Clear Calc Estimated GFR Random Glucose Calcium Troponin I High Sens Urine Color Urine Appearance Urine pH Ur Specific [place] Urine Protein Urine Glucose (UA) Urine Ketones Urine Blood Urine Nitrite Ur Leukocyte Esterase Urine RBC Urine WBC Ur Squamous Epith Cells Urine Bacteria Preliminary micro results at discharge 08/08/21 21:39 Urine Culture - Preliminary Urine clean catch - Urine valdez top No growth to date. Discharge Plan Discharge Patient Disposition: Xfer Acute Care Hospital Discharge Diagnosis: NSTEMI Referrals: Lamont Garber MD [Primary Care Provider] - 1 Week Discharge Medications: New heparin(porcine) in 0.45% NaCl 25,000 unit/250 mL Parenteral Solution 25,000 unit continuous IV infusion .Q0M 1 Days RF: 0 aspirin 81 mg Tablet,Delayed Release (Dr/Ec) 81 mg PO DAILY Qty: 1 RF: 0 atorvastatin 80 mg Tablet 80 mg PO BEDTIME Qty: 1 RF: 0 Continued Breo Ellipta 200-25 mcg/dose blister with device 1 puff inhalation DAILY RF: 0 albuterol sulfate [ProAir HFA] 90 mcg/actuation Hfa Aerosol Inhaler 2 puff INHALATION Q4-6H PRN (Reason: Wheezing) RF: 0 pantoprazole 40 mg tablet,delayed release (DR/EC) 40 mg PO DAILY RF: 0 Held Xarelto 20 mg tablet 20 mg PO DAILY Qty: 90 RF: 1 Hold Instructions: hold until instructed to resume propafenone 150 mg tablet 150 mg PO TID Qty: 270 RF: 3 Hold Instructions: hold until instructed to resume Discharge Orders: Discharge Order (Routine); Ordered 08/09/21 Ordered By: Terri Palomares Activity on Discharge: As tolerated Stand Alone Forms: Patient Portal Discharge page Care Plan Goals: see below Health Concerns: NSTEMI Plan of Treatment: Transfer to [facility] for diagnostic angiogram Assessment: Admitted for NSTEMI being transferred to [facility] [place] for angiogram
--- NOTE | 2021-08-09 12:24 | MHC.CM.PN ---
IMM 08/09/21 Transfer to [facility] via ALS.
[2021-08-09 15:38] VITALS: BP 142/67; PULSE 64; RESP 18; TEMP 37; O2SAT 97
[2021-08-09 16:37] LABS: PTT Heparin Drip 118.5 SEC (53-77.9)
[2021-08-09 18:02] LABS: PTT Heparin Drip 63.3 SEC (53-77.9)
== END 2021-08-09 18:40 | disposition short-term general hospital (02) | DRG 282 ==
LOC: HO.ED 13:23 → HO.EDOVER 14:48 → HO.IMC 16:01
PROVIDERS: Family Medicine; Admitting Provider Nurse Practitioner Acute Care; Emergency Provider Emergency Medicine Emergency Medical Services; PCP Internal Medicine; Visit Provider Physician Assistant Medical
DX: I21.4 Non-ST elevation (NSTEMI) myocardial infarction (principal); I48.0 Paroxysmal atrial fibrillation; Z20.822 Contact with and (suspected) exposure to COVID-19; Z88.0 Allergy status to penicillin; Z88.2 Allergy status to sulfonamides; Z88.5 Allergy status to narcotic agent; Z79.01 Long term (current) use of anticoagulants; Z79.82 Long term (current) use of aspirin; Z79.899 Other long term (current) drug therapy
CPT/HCPCS: 36415; 71046; 80048; 80053; 81001; 84484; 85025; 85027; 85610; 85730; 87086; 87635; 90686; 93005; 93306; 99285; Q9957

== ENCOUNTER → 2021-08-28 14:51 | Outpatient (BNVA) | payer MEDICARE, SELFPAY | PROVIDERS: PCP Internal Medicine; Referring Provider Internal Medicine; Visit Provider Nurse Practitioner Family | DX: I21.4 Non-ST elevation (NSTEMI) myocardial infarction (principal); I10 Essential (primary) hypertension; I48.0 Paroxysmal atrial fibrillation; I49.5 Sick sinus syndrome; R77.8 Other specified abnormalities of plasma proteins; R06.02 Shortness of breath | CPT/HCPCS: 99212 ==

== ENCOUNTER 2021-09-11 13:40 | Outpatient (REF) | payer MEDICARE, SELFPAY ==
--- NOTE | ~2021-09-11 | XR_ITS ---
EXAMINATION: XR BILATERAL HIPS WITH AP PELVIS CLINICAL INFORMATION: Bilateral hip pain COMPARISON: 02/12/2019 TECHNIQUE: 2 views of each hip FINDINGS: Right hip: No fracture or dislocation. The femoral head articulates appropriately with its acetabulum. The joint space is narrowed with mild subchondral sclerosis and small osteophytes. The right hemipelvis is intact. Left hip: No fracture or dislocation. The femoral head articulates appropriately with its acetabulum. Mild narrowing of the joint space with subchondral sclerosis and small osteophytes. The left hemipelvis is intact. 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
== END 2021-09-11 13:41 | disposition home or self-care (01) ==
LOC: HO.XRAY 13:40
PROVIDERS: PCP Internal Medicine; Visit Provider Internal Medicine
DX: M25.551 Pain in right hip (principal); M25.552 Pain in left hip
CPT/HCPCS: 73522

== ENCOUNTER → 2021-10-25 14:12 | Outpatient (BNVA) | payer MEDICARE, SELFPAY | PROVIDERS: PCP Internal Medicine; Referring Provider Internal Medicine; Visit Provider Internal Medicine Cardiovascular Disease | DX: I48.0 Paroxysmal atrial fibrillation (principal); I10 Essential (primary) hypertension | CPT/HCPCS: 99212 ==

== ENCOUNTER 2022-05-02 05:20 | Emergency (ER) | payer MEDICARE, SELFPAY ==
[2022-01-29 07:51] VITALS: BP 106/60; BP 132/56; BP 150/74
--- NOTE | ~2022-05-02 | XR_ITS ---
EXAMINATION: XR CHEST CLINICAL INFORMATION: Cough COMPARISON: August 08, 2021 and October 13, 2020 TECHNIQUE: AP portable view of the chest was obtained. FINDINGS: There is no evidence of acute parenchymal disease, pneumothorax, or pleural effusion. Heart normal size. No evidence of pulmonary edema. There are a few scattered calcified granulomas present. There is scoliosis of the thoracic spine convex right with degenerative marginal spurring. There is prominent degenerative spurring about the left shoulder joint. XR/XR chest 1V IMPRESSION: No acute disease.
[2022-05-02 05:34] VITALS: BP 144/59; BP 172/56; PULSE 72; PULSE 76; RESP 20; TEMP 37.1; O2SAT 95; O2SAT 97; BMI 38.7
--- NOTE | 2022-05-02 06:35 | ECG_ITS ---
Test Reason : DIZZINESS Blood Pressure : / mmHG Vent. Rate : 065 BPM Atrial Rate : 065 BPM P-R Int : 162 ms QRS Dur : 104 ms QT Int : 436 ms P-R-T Axes : 023 040 040 degrees QTc Int : 453 ms Normal sinus rhythm Cannot rule out Anterior infarct (cited on or before 08-AUG-2021) Abnormal ECG When compared with ECG of 08-AUG-2021 09:38, No significant change was found Referred By: Guerda Rossi Electronically Signed By:KRISTINE MICHELLE MD
[2022-05-02 06:59] LABS: MANUAL DIFF FLAG NO
[2022-05-02 07:02] LABS: VBG Base Excess -1.8 mmol/L; VBG HCO3 22 mmol/L (22-26); VBG pCO2 35 mmHg; VBG pH 7.39 (7.32-7.43); VBG pO2 57 mmHg
--- NOTE | 2022-05-02 07:02 | ED_ITS ---
HPI - General Adult General Chief complaint: General Medical Stated complaint: dizziness and cough Time Seen by Provider: 05/02/22 06:35 Source: patient Mode of arrival: EMS History of Present Illness HPI narrative: 76-year-old female with paroxysmal atrial fibrillation, asthma, as well as hypertension who presents with feeling nauseous and having a cough since Friday with subjective fevers and then over the past 2 days feeling lightheaded on position change but otherwise denies shortness of breath, recent travel, chest pain/palpitations and is having regular bowel movements and passing flatus. Related Data Home Medications Medication Instructions Recorded Confirmed pantoprazole 40 mg tablet,delayed 40 mg PO DAILY 09/19/20 10/25/21 release albuterol sulfate 90 mcg/actuation 2 puff inhalation Q4-6H PRN 08/08/21 10/25/21 aerosol inhaler (ProAir HFA) Wheezing fluticasone furoate 200 1 puff inhalation DAILY 08/08/21 10/25/21 mcg-vilanterol 25 mcg/dose inhalation powder (Breo Ellipta) Previous Rx's Medication Instructions Recorded rivaroxaban 20 mg tablet (Xarelto) 20 mg PO DAILY #90 tabs 10/22/21 lisinopril 5 mg tablet 5 mg PO DAILY #30 tabs 02/12/22 cefdinir 300 mg capsule 300 mg PO Q12H 5 days #10 caps 05/02/22 Allergies Allergy/AdvReac Type Severity Reaction Status Date / Time bee pollen [BEE STINGS] Allergy Severe ANAPHYLAXIS Verified 08/28/21 15:13 Penicillins [PENICILLINS] Allergy Intermediate HIVES Verified 08/28/21 15:13 chlorhexidine [CHLORAPREP] Allergy Mild RASH Verified 08/28/21 15:13 sulfamethoxazole Allergy Mild DIARRHEA Verified 08/28/21 15:13 [From BACTRIM] codeine [CODEINE] Allergy Unknown NAUSEA Verified 08/28/21 15:13 latex [LATEX] Allergy Unknown rash/itchy Verified 08/28/21 15:13 Review of Systems Review of Systems: Pertinent positives and negatives as stated in HPI 10 point review of systems is otherwise negative. PMFSH Past Medical History Source: nursing notes reviewed Medical History Myocardial injury Surgical History History of back surgery History of cholecystectomy Hx of appendectomy Hx of lumpectomy Family History Family History Father Emphysema lung Mother Sudden cardiac arrest Social History Social History Household Members: Spouse Housing: House Do you presently have visiting nurse or other home services: No Alcohol intake: never Patient Tobacco Use Status: Never used Tobacco e-Cigarette/Vaping Use: Never Used Advance Directives: No Advance Directives Information Provided: Yes service: No Current occupational status: retired Physical Exam ED Vital Signs: Vital Signs - 24 hr 05/02/22 05:34 05/02/22 08:22 05/02/22 08:25 Temperature 98.8 F Pulse Rate 72 70 76 Respiratory Rate 20 Blood Pressure 144/59 H 146/60 H 132/53 L Pulse Oximetry 97 Oxygen Delivery Method Room Air 05/02/22 08:28 Temperature Pulse Rate 80 Respiratory Rate Blood Pressure 143/70 H Pulse Oximetry Oxygen Delivery Method BMI result Body Mass Index 38.7 VITAL SIGNS: Reviewed. GENERAL: Well developed, well nourished, in no acute distress. HEAD: Normocephalic/atraumatic EYES: PERRLA, EOMI EARS: Ext canals without abnormality, TMs non-bulging and non-erythematous NOSE: Nares patent bilateral OROPHARYNX: no oral lesions noted, posterior pharynx clear and non-erythematous without noted tonsillar enlargement/erythema/exudates NECK: Supple, no adenopathy LUNGS: Good inspiratory effort, with crackles in the right lower base but otherwise no wheeze/rales and no tachypnea. SpO2<97> CARDIOVASCULAR: Regular rate and rhythm without noted murmurs, no JVD or lower extremity edema. ABDOMEN: Soft, non-tender, non-distended with bowel sounds. MUSCULOSKELETAL: No tenderness, deformities, or effusions noted on gross inspection. EXTREMITIES: No cyanosis, clubbing or edema. SKIN: Inspection of the skin reveals no rashes NEUROLOGIC: Alert and oriented x 4. Strength and sensation to light touch were grossly intact x 4. Course Course Course Narrative: 76-year-old female with history and clinical presentation consistent with possible viral syndrome, possible pneumonia with the crackles that were noted and the subjective fevers that she reports. Will evaluate for more concerning e tiology is of the dizziness as well. Review of all investigations otherwise negative for acute findings than a UTI that is likely given the patient her mild nausea and positional change associated lightheadedness. Patient was informed of all investigations, provided with initial antibiotics and discharged home in stable condition. Medical Decision Making Lab Data Result diagrams: 05/02/22 06:53 05/02/22 06:53 Labs: Lab Results 05/02/22 05/02/22 05/02/22 Range/Units 06:53 06:53 06:53 WBC 6.7 (4.8-10.8) X10*3/uL RBC 4.83 (4.20-5.50) X10*6/uL Hgb 13.8 (12.0-16.0) g/dl Hct 41.6 (37.0-47.0) % MCV 86.1 (80.0-98.0) fL MCH 28.6 (27.0-33.0) pg MCHC 33.2 (31.0-35.0) g/dl RDW 13.2 (11.0-16.0) % Plt Count 190 (160-400) X10*3/uL MPV 10.3 (9.4-12.3) fL Immature Gran % (Auto) 0.1 (0.0-0.4) % Neut % (Auto) 80.2 H (45-73) % Lymph % (Auto) 10.0 L (20-40) % [place] % (Auto) 8.8 (2-11) % Eos % (Auto) 0.6 (0-4) % Baso % (Auto) 0.3 (0-2) % Lymph # (Auto) 0.7 L (1.2-4.9) X10*3/uL [place] # (Auto) 0.6 (0.1-1.2) X10*3/uL Eos # (Auto) 0.0 (0.0-0.4) X10*3/uL Baso # (Auto) 0.0 (0.0-0.2) X10*3/uL Abs Immat Gran (auto) 0.01 (0.00-0.03) X10*3/uL Absolute Neuts (auto) 5.4 (2.0-8.3) x10*3/uL Absolute Nucleated RBC 0.000 (0.0-0.012) X10*3/uL Nucleated RBC % (auto) 0.0 (0.0-0.2) /100WBC PT (9.9-13.0) SEC INR (0.9-1.1) VBG pH (7.32-7.43) VBG pCO2 mmHg VBG pO2 mmHg VBG HCO3 (22-26) mmol/L VBG O2 Saturation % VBG Base Excess mmol/L Sodium 134 L (135-145) mmol/L Potassium 4.3 (3.3-5.1) mmol/L Chloride 101 (96-108) mmol/L Carbon Dioxide 26 (22-29) mmol/L Anion Gap 11 L (12-20) BUN 11 (9-16) mg/dL Creatinine 0.75 (0.5-1.4) mg/dL Estim Creat Clear Calc 88.0 Estimated GFR > 60 Random Glucose 125 H (60-115) mg/dL Calcium 8.4 D (8.4-10.2) mg/dL Total Bilirubin 0.7 (0.0-1.0) mg/dL AST 25 (5-31) U/L ALT 30 (0-31) U/L Alkaline Phosphatase 62 (39-117) U/L Troponin I High Sens (<3.5-17.0) ng/L B-Natriuretic Peptide 92 (<100) pg/mL Total Protein 6.2 L (6.5-8.0) g/dL Albumin 4.0 (3.5-5.0) g/dL Influenza Type A (TRACEY) (Negative) Influenza Type B (TRACEY) (Negative) Influenza A & B Note 05/02/22 05/02/22 05/02/22 Range/Units 06:53 06:53 06:57 WBC (4.8-10.8) X10*3/uL RBC (4.20-5.50) X10*6/uL Hgb (12.0-16.0) g/dl Hct (37.0-47.0) % MCV (80.0-98.0) fL MCH (27.0-33.0) pg MCHC (31.0-35.0) g/dl RDW (11.0-16.0) % Plt Count (160-400) X10*3/uL MPV (9.4-12.3) fL Immature Gran % (Auto) (0.0-0.4) % Neut % (Auto) (45-73) % Lymph % (Auto) (20-40) % [place] % (Auto) (2-11) % Eos % (Auto) (0-4) % Baso % (Auto) (0-2) % Lymph # (Auto) (1.2-4.9) X10*3/uL [place] # (Auto) (0.1-1.2) X10*3/uL Eos # (Auto) (0.0-0.4) X10*3/uL Baso # (Auto) (0.0-0.2) X10*3/uL Abs Immat Gran (auto) (0.00-0.03) X10*3/uL Absolute Neuts (auto) (2.0-8.3) x10*3/uL Absolute Nucleated RBC (0.0-0.012) X10*3/uL Nucleated RBC % (auto) (0.0-0.2) /100WBC PT 13.4 H (9.9-13.0) SEC INR 1.2 H (0.9-1.1) VBG pH 7.39 (7.32-7.43) VBG pCO2 35 mmHg VBG pO2 57 mmHg VBG HCO3 22 (22-26) mmol/L VBG O2 Saturation 86.0 % VBG Base Excess -1.8 mmol/L Sodium (135-145) mmol/L Potassium (3.3-5.1) mmol/L Chloride (96-108) mmol/L Carbon Dioxide (22-29) mmol/L Anion Gap (12-20) BUN (9-16) mg/dL Creatinine (0.5-1.4) mg/dL Estim Creat Clear Calc Estimated GFR Random Glucose (60-115) mg/dL Calcium (8.4-10.2) mg/dL Total Bilirubin (0.0-1.0) mg/dL AST (5-31) U/L ALT (0-31) U/L Alkaline Phosphatase (39-117) U/L Troponin I High Sens < 3.5 (<3.5-17.0) ng/L B-Natriuretic Peptide (<100) pg/mL Total Protein (6.5-8.0) g/dL Albumin (3.5-5.0) g/dL Influenza Type A (TRACEY) (Negative) Influenza Type B (TRACEY) (Negative) Influenza A & B Note 05/02/22 Range/Units 08:04 WBC (4.8-10.8) X10*3/uL RBC (4.20-5.50) X10*6/uL Hgb (12.0-16.0) g/dl Hct (37.0-47.0) % MCV (80.0-98.0) fL MCH (27.0-33.0) pg MCHC (31.0-35.0) g/dl RDW (11.0-16.0) % Plt Count (160-400) X10*3/uL MPV (9.4-12.3) fL Immature Gran % (Auto) (0.0-0.4) % Neut % (Auto) (45-73) % Lymph % (Auto) (20-40) % [place] % (Auto) (2-11) % Eos % (Auto) (0-4) % Baso % (Auto) (0-2) % Lymph # (Auto) (1.2-4.9) X10*3/uL [place] # (Auto) (0.1-1.2) X10*3/uL Eos # (Auto) (0.0-0.4) X10*3/uL Baso # (Auto) (0.0-0.2) X10*3/uL Abs Immat Gran (auto) (0.00-0.03) X10*3/uL Absolute Neuts (auto) (2.0-8.3) x10*3/uL Absolute Nucleated RBC (0.0-0.012) X10*3/uL Nucleated RBC % (auto) (0.0-0.2) /100WBC PT (9.9-13.0) SEC INR (0.9-1.1) VBG pH (7.32-7.43) VBG pCO2 mmHg VBG pO2 mmHg VBG HCO3 (22-26) mmol/L VBG O2 Saturation % VBG Base Excess mmol/L Sodium (135-145) mmol/L Potassium (3.3-5.1) mmol/L Chloride (96-108) mmol/L Carbon Dioxide (22-29) mmol/L Anion Gap (12-20) BUN (9-16) mg/dL Creatinine (0.5-1.4) mg/dL Estim Creat Clear Calc Estimated GFR Random Glucose (60-115) mg/dL Calcium (8.4-10.2) mg/dL Total Bilirubin (0.0-1.0) mg/dL AST (5-31) U/L ALT (0-31) U/L Alkaline Phosphatase (39-117) U/L Troponin I High Sens (<3.5-17.0) ng/L B-Natriuretic Peptide (<100) pg/mL Total Protein (6.5-8.0) g/dL Albumin (3.5-5.0) g/dL Influenza Type A (TRACEY) Negative (Negative) Influenza Type B (TRACEY) Negative (Negative) Influenza A & B Note See Note ECG Data Attestation: I personally reviewed and interpreted this ECG as follows: Prior ECG tracings: available for review Interpretation: Normal sinus rhythm, HR-65, no STEMI, [place]/QRS/QTC are within normal limits. Discharge Plan Discharge Clinical Impression: Acute UTI, Cough Patient Disposition: Home, Self-Care Instructions: Urinary Tract Infection in Women (ED), Chronic Cough (ED), Urinary Tract Infection in Older Adults (ED) Additional Instructions: 1. Resume all home medications as prescribed. 2. Complete the entire course of antibiotics, increase your fluid intake and follow-up with your primary care provider. Return to the ER for worsening symptoms. Prescriptions: New cefdinir 300 mg capsule 300 mg PO Q12H 5 Days Qty: 10 0RF No Action Xarelto 20 mg tablet 20 mg PO DAILY Qty: 90 2RF Hold Instructions: hold until instructed to resume lisinopril 5 mg tablet 5 mg PO DAILY Qty: 30 5RF Breo Ellipta 200-25 mcg/dose blister with device 1 puff inhalation DAILY albuterol sulfate [ProAir HFA] 90 mcg/actuation Hfa Aerosol Inhaler 2 puff INHALATION Q4-6H PRN (Reason: Wheezing) pantoprazole 40 mg tablet,delayed release (DR/EC) 40 mg PO DAILY
[2022-05-02 07:03] LABS: Basophils Percent Auto 0.3 % (0-2); Eosinophils Percent Auto 0.6 % (0-4); Hematocrit 41.6 % (37.0-47.0); Hemoglobin 13.8 g/dl (12.0-16.0); Imm Gran Abs Auto 0.01 X10*3/uL (0.00-0.03); Imm Gran Pct Auto 0.1 % (0.0-0.4); Lymphocytes Absolute Auto 0.7 X10*3/uL (1.2-4.9); Mean Corpuscular HGB Conc 33.2 g/dl (31.0-35.0); Mean Corpuscular Hemoglobin 28.6 pg (27.0-33.0); Mean Corpuscular Volume 86.1 fL (80.0-98.0); Mean Platelet Volume 10.3 fL (9.4-12.3); Monocytes Absolute Auto 0.6 X10*3/uL (0.1-1.2); Monocytes Percent Auto 8.8 % (2-11); Neutrophils Absolute Auto 5.4 x10*3/uL (2.0-8.3); Neutrophils Percent Auto 80.2 % (45-73); Platelet Count 190 X10*3/uL (160-400); Red Blood Count 4.83 X10*6/uL (4.20-5.50); Red Cell Distribution Width 13.2 % (11.0-16.0); White Blood Count 6.7 X10*3/uL (4.8-10.8)
[2022-05-02 07:05] LABS: Venous Blood Gas Refer to POC result
[2022-05-02 07:05] LABS: INTERNATIONAL NORM RATIO 1.2 (0.9-1.1); Prothrombin Time 13.4 SEC (9.9-13.0)
[2022-05-02] MEDS: Benzonatate 100 MG CAPSULE 200 MG PO (07:15)
[2022-05-02 07:19] LABS: Alanine Aminotransferase 30 U/L (0-31); Alkaline Phosphatase 62 U/L (39-117); Anion Gap 11 (12-20); Aspartate Amino Transferase 25 U/L (5-31); Bilirubin Total 0.7 mg/dL (0.0-1.0); Blood Urea Nitrogen 11 mg/dL (9-16); Calcium 8.4 mg/dL (8.4-10.2); Carbon Dioxide 26 mmol/L (22-29); Chloride 101 mmol/L (96-108); Estimated Glomerular Filt Rate > 60; Glucose Random 125 mg/dL (60-115); Potassium 4.3 mmol/L (3.3-5.1); Sodium 134 mmol/L (135-145); Total Protein 6.2 g/dL (6.5-8.0)
[2022-05-02 07:23] LABS: B Type Natriuretic Peptide 92 pg/mL (<100); Troponin-I High Sensitivity < 3.5 ng/L (<3.5-17.0)
[2022-05-02 08:22] VITALS: BP 146/60; PULSE 70
[2022-05-02 08:25] VITALS: BP 132/53; PULSE 76
[2022-05-02 08:28] VITALS: BP 143/70; PULSE 80
[2022-05-02 08:28] LABS: Influenza A Negative (Negative); Influenza B2 Negative (Negative)
[2022-05-02] MEDS: cefTRIAXone sodium 1 GM in 0.9 % Sodium Chloride 50 ML IV (09:26)
== END 2022-05-02 10:01 | disposition home or self-care (01) ==
PROVIDERS: Emergency Provider Student in an Organized Health Care Education/Training Program
DX: N39.0 Urinary tract infection, site not specified (principal); R05.9 Cough, unspecified; I48.0 Paroxysmal atrial fibrillation; J45.909 Unspecified asthma, uncomplicated; I10 Essential (primary) hypertension
CPT/HCPCS: 36415; 71045; 80053; 82803; 83880; 84484; 85025; 85610; 87502; 93005; 96365; 99284; J0696

== ENCOUNTER → 2022-05-30 14:38 | Outpatient (BNVA) | payer MEDICARE, SELFPAY ==
[2022-01-29 07:51] VITALS: BP 106/60; BP 132/56; BP 150/74
== END ==
PROVIDERS: PCP Internal Medicine; Referring Provider Internal Medicine; Visit Provider Internal Medicine Cardiovascular Disease
DX: I48.0 Paroxysmal atrial fibrillation (principal); I10 Essential (primary) hypertension; Z79.01 Long term (current) use of anticoagulants; Z79.899 Other long term (current) drug therapy
CPT/HCPCS: 93005; 99212

== ENCOUNTER 2022-06-22 20:39 | Emergency (ER) | payer MEDICARE, SELFPAY ==
[2022-01-29 07:51] VITALS: BP 106/60; BP 132/56; BP 150/74
--- NOTE | ~2022-06-22 | XR_ITS ---
EXAMINATION: XR knee LT 2V, XR knee RT 2V CLINICAL INFORMATION: Reason for Exam fall, pain COMPARISON: Knee radiographs 06/30/2019 TECHNIQUE: AP and lateral views both knees FINDINGS: Right knee: Trace joint fluid. No significant joint effusion. No acute fracture or dislocation. Mild medial and lateral compartment joint space narrowing. Tricompartmental marginal osteophytes compatible with osteoarthritis. No osseous lesion. Minimal enthesophyte formation at the superior patellar pole. Left knee: Trace joint effusion. No acute fracture or dislocation. Mild medial compartment joint space with subchondral sclerosis and tricompartmental osteophytes. Enthesophyte formation at the superior patellar pole. No osseous lesion. XR/XR knee LT 2V IMPRESSION: 1. No acute osseous injury identified at either knee. 2. Trace left knee joint effusion. 3. 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
--- NOTE | ~2022-06-22 | XR_ITS ---
EXAMINATION: XR knee LT 2V, XR knee RT 2V CLINICAL INFORMATION: Reason for Exam fall, pain COMPARISON: Knee radiographs 06/30/2019 TECHNIQUE: AP and lateral views both knees FINDINGS: Right knee: Trace joint fluid. No significant joint effusion. No acute fracture or dislocation. Mild medial and lateral compartment joint space narrowing. Tricompartmental marginal osteophytes compatible with osteoarthritis. No osseous lesion. Minimal enthesophyte formation at the superior patellar pole. Left knee: Trace joint effusion. No acute fracture or dislocation. Mild medial compartment joint space with subchondral sclerosis and tricompartmental osteophytes. Enthesophyte formation at the superior patellar pole. No osseous lesion. XR/XR knee RT 2V IMPRESSION: 1. No acute osseous injury identified at either knee. 2. Trace left knee joint effusion. 3. 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
--- NOTE | ~2022-06-22 | CT_ITS ---
EXAMINATION: NONCONTRAST HEAD CT NONCONTRAST CERVICAL SPINE CT INDICATION INFORMATION: Head strike COMPARISON: CT head dated 03/24/2019 TECHNIQUE: Separate noncontrast CT examinations of the head and cervical spine were performed. Coronal and sagittal images were created for each examination at the technologist workstation. This CT examination was performed using dose optimization techniques as appropriate, variously including the following: *Automated exposure control *Adjustment of mA and/or kV according to patient size (this includes techniques or standardized protocols for targeted exams where dose is matched to indication/reason for exam; i.e. extremities or head) *Use of iterative reconstruction technique DLP: 1138 mGy-cm FINDINGS: Head: There is no evidence of acute intracranial hemorrhage or territorial infarction. No abnormal mass effect or midline shift is seen. Gonzalez to white matter differentiation is well preserved. No extra-axial fluid collections are identified. No hydrocephalus. No significant volume loss. There is no abnormal attenuation within the brain parenchyma. No acute osseous or soft tissue abnormality. The mastoid air cells and visualized portions of the paranasal sinuses are well aerated. Cervical spine: There is anatomic alignment of the vertebral bodies and posterior elements. The atlantoaxial and atlantooccipital articulations are intact. Vertebral body heights maintained. Bulky endplate osteophytes present at C4-C5, C5-C6 and C6-C7 with accompanying loss of disc space height. Facet arthropathy throughout cervical spine with ankylosis of the posterior articular pillar bilaterally from C2 through C4. No evidence of acute fracture. No prevertebral soft tissue swelling. Visualized portions of the lung apices are unremarkable. The thyroid gland is unremarkable. CT/CT cervical spine wo con IMPRESSION: No acute intracranial pathology. No cervical spine fracture or traumatic malalignment.
[2022-06-22 21:34] VITALS: BP 124/72; BP 130/52; PULSE 62; PULSE 68; RESP 18; TEMP 36.9; O2SAT 98; BMI 37.1
--- NOTE | 2022-06-22 23:46 | ED_ITS ---
HPI - Fall General Chief Complaint: Fall Stated Complaint: fall on knees Time Seen by Provider: 06/22/22 21:42 Source: patient and family Mode of arrival: ambulatory Limitations: no limitations History of Present Illness HPI Narrative: Patient comes to the emergency room complaining of bilateral knee pain. Earlier today, patient forgot that she left a small fan on the floor, later on the day, patient tripped over it and landed on her knees. Patient takes Xarelto. Patient slightly bumped her head against a wall, did not lose consciousness, denies headache or neck pain. Patient was able to walk afterwards. Patient states it does hurt to walk but is doable. Related Data Home Medications Medication Instructions Recorded Confirmed pantoprazole 40 mg tablet,delayed 40 mg PO DAILY 09/19/20 05/30/22 release albuterol sulfate 90 mcg/actuation 2 puff inhalation Q4-6H PRN 08/08/21 05/30/22 aerosol inhaler (ProAir HFA) Wheezing fluticasone furoate 200 1 puff inhalation DAILY 08/08/21 05/30/22 mcg-vilanterol 25 mcg/dose inhalation powder (Breo Ellipta) pyridoxine (vitamin B6) 25 mg 25 mg PO DAILY 05/30/22 05/30/22 tablet vitamin E (dl, acetate) 45 mg (100 45 mg PO DAILY 05/30/22 05/30/22 unit) capsule Previous Rx's Medication Instructions Recorded rivaroxaban 20 mg tablet (Xarelto) 20 mg PO DAILY #90 tabs 10/22/21 lisinopril 5 mg tablet 5 mg PO DAILY #30 tabs 02/12/22 propafenone 150 mg tablet 150 mg PO TID #270 tabs 05/17/22 Allergies Allergy/AdvReac Type Severity Reaction Status Date / Time bee pollen [BEE STINGS] Allergy Severe ANAPHYLAXIS Verified 08/28/21 15:13 Penicillins [PENICILLINS] Allergy Intermediate HIVES Verified 08/28/21 15:13 chlorhexidine [CHLORAPREP] Allergy Mild RASH Verified 08/28/21 15:13 sulfamethoxazole Allergy Mild DIARRHEA Verified 08/28/21 15:13 [From BACTRIM] codeine [CODEINE] Allergy Unknown NAUSEA Verified 08/28/21 15:13 latex [LATEX] Allergy Unknown rash/itchy Verified 10/19/21 15:13 Review of Systems Review of Systems: Constitutional : No Weight loss, No Fever, No Chills, No Night Sweats, No Fatigue, No Malaise ENT/Mouth : No Hearing loss, No Ear Pain, No Nasal Congestion, No Sinus Pain, No Hoarseness, No sore throat, No Rhinorrhea, No Swallowing Difficulty Eyes: No Eye Pain, No Swelling, No Redness, No Foreign Body, No Discharge, No Vision Changes Cardiovascular : No Chest Pain, No SOB, No Dyspnea on Exertion, No Orthopnea, No Edema, No Palpitations Respiratory : No Cough, No Sputum, No Wheezing, No Smoke Exposure, No Dyspnea Gastrointestinal : No Nausea, No Vomiting, No Diarrhea, No Constipation, No abdominal Pain, No Hematochezia, No Melena Genitourinary : no irregular bleeding, No Dysuria, No Urinary Frequency, No Hematuria, No Urinary Incontinence, No Urgency, No Flank Pain, No Urinary Flow Changes, No Hesitancy Musculoskeletal : Complaining of bilateral knee pain, mostly on the left. No Myalgias, No Joint Swelling Skin : No Skin Lesions, No rash Neuro : No Weakness, No Numbness, No Paresthesias, No Loss of Consciousness, No Dizziness, No Headache Psych : No Anxiety/Panic, No Depression, No SI/HI/AH/VH, No Social Issues, Heme/Lymph: No Bruising, No Bleeding,No Lymphadenopathy Endocrine : No Polyuria, No Polydipsia, No Temperature Intolerance [facility] Past Medical History Medical History Myocardial injury Paroxysmal atrial fibrillation Sick sinus syndrome Surgical History History of back surgery History of cholecystectomy Hx of appendectomy Hx of lumpectomy Family History Family History Father Emphysema lung Mother Sudden cardiac arrest Social History Social History Household Members: Spouse Housing: House Do you presently have visiting nurse or other home services: No Alcohol intake: never Patient Tobacco Use Status: Never used Tobacco e-Cigarette/Vaping Use: Never Used Advance Directives: No Advance Directives Information Provided: Yes service: No Current occupational status: retired Physical Exam Vital Signs: Vital Signs: Last Vital Signs Temp 98.5 F 06/22/22 21:34 Pulse 62 06/22/22 21:34 Resp 18 06/22/22 21:34 BP 130/52 L 06/22/22 21:34 Pulse Ox 98 06/22/22 21:34 O2 Del Method 06/22/22 21:34 BMI result Body Mass Index 37.1 Const: Other: Appearance: Alert. Oriented X3. No acute distress. Eyes: Pupils equal, round and reactive to light. ENT: Pharynx normal. Neck: Normal inspection. Neck supple. No lymph nodes noted. No crepitus, normal range of motion, no cervical spine tenderness CVS: Normal heart rate and rhythm. Pulses normal. Normal S1 and S2 Respiratory: No respiratory distress. Breath sounds normal. No Wheezing. No rales Abdomen: Soft and nontender. No rigidity. No distention. Skin: Skin warm and dry. Normal skin color. Normal skin turgor. Extremities: No lower extremity edema. Left knee is more swollen than the right 1, no significant effusion. Patient is able to flex and extend both knees with pain but is able to do so. Patient states that she can walk and put weight both legs Neuro: Oriented X 3. No motor deficit. No sensory deficit. Moving all extremities. No slurred speech. CN 2 through 12 grossly intact Psych: calm, cooperative, normal affect Course Course Course Narrative: I discussed the imaging studies with the patient and her daughter, no acute findings. Declined crutches, states she has a walker at home that she can use. Discharge Plan Discharge Clinical Impression: Fall, Contusion of left knee Patient Disposition: Home, Self-Care Instructions: Knee Pain (ED) Additional Instructions: Please take Tylenol for pain. Please follow-up with your primary care physician tomorrow. If you have any worsening or new symptoms, please return to the emergency room or call 911 Prescriptions: No Action Xarelto 20 mg tablet 20 mg PO DAILY Qty: 90 2RF Hold Instructions: hold until instructed to resume lisinopril 5 mg tablet 5 mg PO DAILY Qty: 30 5RF propafenone 150 mg tablet 150 mg PO TID Qty: 270 1RF Breo Ellipta 200-25 mcg/dose blister with device 1 puff inhalation DAILY albuterol sulfate [ProAir HFA] 90 mcg/actuation Hfa Aerosol Inhaler 2 puff INHALATION Q4-6H PRN (Reason: Wheezing) pantoprazole 40 mg tablet,delayed release (DR/EC) 40 mg PO DAILY vitamin E (dl, acetate) 45 mg (100 unit) capsule 45 mg PO DAILY pyridoxine (vitamin B6) 25 mg tablet 25 mg PO DAILY
== END 2022-06-23 00:17 | disposition home or self-care (01) ==
PROVIDERS: Emergency Provider Emergency Medicine; PCP Internal Medicine
DX: S80.02XA Contusion of left knee, initial encounter (principal); W01.0XXA Fall on same level from slipping, tripping and stumbling without subsequent striking against object, initial encounter; M25.561 Pain in right knee; I10 Essential (primary) hypertension; I48.0 Paroxysmal atrial fibrillation; Y93.9 Activity, unspecified; Y92.019 Unspecified place in single-family (private) house as the place of occurrence of the external cause; Y99.9 Unspecified external cause status; Z79.01 Long term (current) use of anticoagulants
CPT/HCPCS: 70450; 72125; 73560; 99282; 99284

== ENCOUNTER 2022-07-22 08:44 | Outpatient (REF) | payer MEDICARE, SELFPAY ==
[2022-01-29 07:51] VITALS: BP 106/60; BP 132/56; BP 150/74
--- NOTE | ~2022-07-22 | XR_ITS ---
EXAMINATION: XR AP BILATERAL KNEE STANDING XR LEFT KNEE 2 VIEWS CLINICAL INFORMATION: Pain COMPARISON: None TECHNIQUE: AP bilateral knee standing 1 view. Left knee 2 views. FINDINGS: AP BILATERAL KNEE: There is moderate reduction in the medial and mild reduction in the lateral compartment joint space both knees. No bony erosive changes. No loose bodies or fracture. LEFT KNEE: There is severe loss of patellofemoral compartment joint space with large superior patellar spurring. Also visualized anterior superior patellar enthesophyte. No acute fracture or loose body seen. No abnormal suprapatellar joint effusion. XR/XR knee LT 2V IMPRESSION: 1. Severe degenerative changes patellofemoral compartment with superior patellar spurring and degenerative changes medial and and lateral compartment left knee. No loose body seen. 2. Mild degenerative changes medial and lateral compartment right knee.
--- NOTE | ~2022-07-22 | XR_ITS ---
EXAMINATION: XR AP BILATERAL KNEE STANDING XR LEFT KNEE 2 VIEWS CLINICAL INFORMATION: Pain COMPARISON: None TECHNIQUE: AP bilateral knee standing 1 view. Left knee 2 views. FINDINGS: AP BILATERAL KNEE: There is moderate reduction in the medial and mild reduction in the lateral compartment joint space both knees. No bony erosive changes. No loose bodies or fracture. LEFT KNEE: There is severe loss of patellofemoral compartment joint space with large superior patellar spurring. Also visualized anterior superior patellar enthesophyte. No acute fracture or loose body seen. No abnormal suprapatellar joint effusion. XR/XR knee standing BI IMPRESSION: 1. Severe degenerative changes patellofemoral compartment with superior patellar spurring and degenerative changes medial and and lateral compartment left knee. No loose body seen. 2. Mild degenerative changes medial and lateral compartment right knee.
== END 2022-07-22 08:45 | disposition home or self-care (01) ==
LOC: HO.HOSX 08:44
PROVIDERS: Visit Provider Orthopaedic Surgery
DX: M17.12 Unilateral primary osteoarthritis, left knee (principal); M25.511 Pain in right shoulder; G89.29 Other chronic pain
CPT/HCPCS: 73560; 73565; 99212

== ENCOUNTER 2022-08-22 12:38 | Outpatient (REF) | payer MEDICARE, SELFPAY ==
[2022-01-29 07:51] VITALS: BP 106/60; BP 132/56; BP 150/74
--- NOTE | ~2022-08-22 | US_ITS ---
EXAMINATION: LEFT LOWER EXTREMITY DEEP VENOUS ULTRASOUND CLINICAL INFORMATION: Left leg pain COMPARISON: Bilateral lower extremity DVT study April 22, 2019 TECHNIQUE: Duplex Doppler imaging with compression maneuvers were performed of the left lower extremity deep venous system. FINDINGS: The visualized common femoral, femoral and popliteal veins demonstrate normal compressibility and color flow without evidence of venous thrombosis. Visualized portions of the calf veins demonstrate normal color fill-in suggesting patency. There is no evidence of a Senior's cyst. US/US venous duplex LE LT IMPRESSION: No evidence of deep venous thrombosis involving the left lower extremity.
== END 2022-08-22 12:39 | disposition home or self-care (01) ==
LOC: HO.US 12:38
PROVIDERS: PCP Internal Medicine; Visit Provider Internal Medicine
DX: M79.605 Pain in left leg (principal)
CPT/HCPCS: 93971

== ENCOUNTER 2022-08-26 08:59 | Outpatient (REF) | payer MEDICARE, SELFPAY ==
[2022-01-29 07:51] VITALS: BP 106/60; BP 132/56; BP 150/74
[2022-08-26 11:20] LABS: MANUAL DIFF FLAG NO
[2022-08-26 11:50] LABS: Basophils Absolute Auto 0.1 X10*3/uL (0.0-0.2); Basophils Percent Auto 1.5 % (0-2); Eosinophils Absolute Auto 0.2 X10*3/uL (0.0-0.4); Eosinophils Percent Auto 3.3 % (0-4); Hematocrit 43.7 % (37.0-47.0); Hemoglobin 14.2 g/dl (12.0-16.0); Imm Gran Abs Auto 0.02 X10*3/uL (0.00-0.03); Imm Gran Pct Auto 0.3 % (0.0-0.4); Lymphocytes Absolute Auto 1.3 X10*3/uL (1.2-4.9); Mean Corpuscular HGB Conc 32.5 g/dl (31.0-35.0); Mean Corpuscular Hemoglobin 28.2 pg (27.0-33.0); Mean Corpuscular Volume 86.9 fL (80.0-98.0); Monocytes Absolute Auto 0.5 X10*3/uL (0.1-1.2); Monocytes Percent Auto 8.1 % (2-11); Neutrophils Absolute Auto 3.7 x10*3/uL (2.0-8.3); Neutrophils Percent Auto 63.8 % (45-73); Platelet Count 237 X10*3/uL (160-400); Red Blood Count 5.03 X10*6/uL (4.20-5.50); Red Cell Distribution Width 13.5 % (11.0-16.0); White Blood Count 5.8 X10*3/uL (4.8-10.8)
[2022-08-26 12:07] LABS: Estimated Average Glucose 105 mg/dL; Hemoglobin A1c % 5.3 %
[2022-08-26 12:30] LABS: Potassium 4.4 mmol/L (3.3-5.1); Sodium 141 mmol/L (135-145); Thyroid Stimulating Hormone 1.77 uIU/mL (0.32-4.0)
[2022-08-26 12:31] LABS: Alanine Aminotransferase 24 U/L (0-31); Albumin Level 4.3 g/dL (3.5-5.0); Alkaline Phosphatase 63 U/L (39-117); Anion Gap 16 (12-20); Aspartate Amino Transferase 22 U/L (5-31); Bilirubin Total 0.7 mg/dL (0.0-1.0); Blood Urea Nitrogen 13 mg/dL (9-16); Calcium 8.9 mg/dL (8.4-10.2); Carbon Dioxide 23 mmol/L (22-29); Chloride 106 mmol/L (96-108); Cholesterol 196 mg/dL; Estimated Glomerular Filt Rate > 60; Glucose Random 94 mg/dL (60-115); HDL Cholesterol 81 mg/dL; LDL Cholesterol Calculated 106 mg/dl; Total Protein 6.6 g/dL (6.5-8.0); Triglycerides 45 mg/dL
== END 2022-08-26 09:00 | disposition home or self-care (01) ==
LOC: HO.HMGCLDS 08:59
PROVIDERS: PCP Internal Medicine; Visit Provider Internal Medicine
DX: R60.0 Localized edema (principal); R53.81 Other malaise; R53.83 Other fatigue; E78.00 Pure hypercholesterolemia, unspecified; R73.01 Impaired fasting glucose; M79.605 Pain in left leg
CPT/HCPCS: 36415; 80053; 80061; 83036; 84439; 84443; 85025

== ENCOUNTER 2022-08-28 08:00 | Outpatient (RCR) | payer MEDICARE, SELFPAY ==
[2022-01-29 07:51] VITALS: BP 106/60; BP 132/56; BP 150/74
--- NOTE | 2022-07-26 08:57 | MHC.PT.EP ---
[facility] [place] Office [place] Office [place] Office [address] Leo Dodson [address] [phone] F: [phone] F: [phone] F: [phone] F: [phone] Physical Therapy Plan of Care Date of Evaluation: Date of Surgery: Diagnosis: R shoulder pain Assessment: Patient is a 77 year old R handed female who presents with s/s consistent with R shoulder pain. She does not work but does like to stay active at home and does take care of her who had brain surgery 2 years ago. She had an CO 1 year ago and is on blood thinners. She also had a trip/fall 1 month ago that may have contributed to the progression of her symptoms. Current impairments include pain, posture, ROM, strength, activity tolerance and functional mobility. Functional limitations include decreased ability to sleep, reach, lift. carry, push and pull. Patient is motivated with good rehab potential. Skilled PT will address impairments and functional limitations in order to achieve goals. Frequency and Duration: The patient will be seen 2x/week for 5 weeks Short Term Goals: I with HEP - 2 weeks AROM c-spine to 30 b/l - 3 weeks AROM flexion of R shoulder to 140 - 3 weeks Magnetic Resonance Technologist Goals: Shoulder strength 4/5 grossly - 5 weeks Sleeping pain free - 5 weeks ER AROM to 45 - 5 weeks SPADI 20/130 or better - 5 weeks Treatment Plan: Modalities to reduce pain, spasms and effusion. Manual therapy to restore motion and function. Therapeutic exercise to improve strength and flexibility. Neuromuscular re-education for posture and balance. Therapeutic activities to return to functional activities of daily living. Electronically signed by: Deshaun Galvan, PT Please sign and return to therapist. Thank you for your referral.
--- NOTE | 2022-10-23 08:32 | MHC.PT.DC ---
[facility] [place] Office [place] Office [place] Office [address] Leo Dodson [address] [phone] F: [phone] F: [phone] F: [phone] F: [phone] Physical Therapy Discharge Report Diagnosis: R shoulder pain Date of Surgery: Date of Evaluation: 07/26/22 Date of Discharge: 10/23/22 Treatments to Date: 7 Cancellations to Date: No Shows to Date: Discharge Status: Improved Function Independent with HEP Discharge Summary: Pt had to hold on PT at this time due to other concerns. 08/28/22: pt with increased discomfort in post shoulder and scap. reduced after manual treatment. will continue to progress overhead activity next visit. 08/26/22: pt has been with less pain since last visit so we continued with same program. responding well. 08/21/22: pt has been feeling better overall except for tender spots along scap. we addressed this today and educated on likely response to manual interventions. 08/12/22: pt progressing with strength with no adverse reactions. notes functional gains and happy with progress. 08/07/22: pt progressed with resistance ex today. no adverse reactions. given TrP cane as well with good results. 07/31/22: progressing well with strength. good carryover with mechanics. fatigues with ER activities. cervical AROM similar to eval. 07/29/22: pt progressing well with skilled PT. added strength ex. we will assess response and progress as tolerated. Patient is a 77 year old R handed female who presents with s/s consistent with R shoulder pain. She does not work but does like to stay active at home and does take care of her who had brain surgery 2 years ago. She had an [place] 1 year ago and is on blood thinners. She also had a trip/fall 1 month ago that may have contributed to the progression of her symptoms. Current impairments include pain, posture, ROM, strength, activity tolerance and functional mobility. Functional limitations include decreased ability to sleep, reach, lift. carry, push and pull. Patient is motivated with good rehab potential. Skilled PT will address impairments and functional limitations in order to achieve goals. Electronically signed by: Deshaun Galvan PT Please sign and return to therapist. Thank you for your referral.
== END 2022-10-23 08:32 | disposition home or self-care (01) ==
LOC: HO.PTCHIC 08:00
PROVIDERS: PCP Internal Medicine; Visit Provider Orthopaedic Surgery
DX: M25.511 Pain in right shoulder (principal); G89.29 Other chronic pain
CPT/HCPCS: 97110; 97140; 97162

== ENCOUNTER → 2022-11-20 08:22 | Outpatient (BNVA) | payer MEDICARE, SELFPAY ==
[2022-01-29 07:51] VITALS: BP 106/60; BP 132/56; BP 150/74
== END ==
PROVIDERS: PCP Internal Medicine; Referring Provider Internal Medicine; Visit Provider Physician Assistant Surgical
DX: E66.9 Obesity, unspecified (principal); Z68.38 Body mass index [BMI] 38.0-38.9, adult
CPT/HCPCS: 99202

== ENCOUNTER → 2022-12-05 09:08 | Outpatient (BNVA) | payer MEDICARE, SELFPAY ==
[2022-01-29 07:51] VITALS: BP 106/60; BP 132/56; BP 150/74
== END ==
PROVIDERS: PCP Internal Medicine; Referring Provider Internal Medicine; Visit Provider Internal Medicine Cardiovascular Disease
DX: Z01.810 Encounter for preprocedural cardiovascular examination (principal); I48.0 Paroxysmal atrial fibrillation; I49.5 Sick sinus syndrome; R06.00 Dyspnea, unspecified
CPT/HCPCS: 93005; 99212

== ENCOUNTER 2022-12-17 18:10 | Emergency (ER) | payer MEDICARE, SELFPAY ==
[2022-01-29 07:51] VITALS: BP 106/60; BP 132/56; BP 150/74
--- NOTE | ~2022-12-17 | XR_ITS ---
EXAMINATION: XR humerus LT, XR shoulder LT min 2V CLINICAL INFORMATION: Shoulder and arm pain. COMPARISON: Left shoulder radiographs 03/24/2019 TECHNIQUE: 4 views left shoulder; AP and lateral views left humerus FINDINGS: Left shoulder: No acute fracture or dislocation. Severe glenohumeral joint space narrowing with [id number] apposition, subchondral sclerosis, and abundant osteophyte formation consistent with advanced osteoarthritis. Joint space narrowing has worsened slightly since prior. Well-corticated bone fragment adjacent to the superior glenoid possibly an intra-articular body. Acromiohumeral interval is maintained. No evidence of calcific tendinopathy of the rotator cuff. AC joint is congruent and intact with minimal marginal osteophyte formation.. Visualized left lung is grossly clear. Surgical clips project over the left axilla. Left humerus: No fracture or malalignment. No osseous lesion. XR/XR humerus LT IMPRESSION: 1. No acute osseous injury at the left shoulder or left humerus. 2. Severe glenohumeral joint osteoarthritis. 3. Mild acromioclavicular arthropathy.
--- NOTE | ~2022-12-17 | XR_ITS ---
EXAMINATION: XR humerus LT, XR shoulder LT min 2V CLINICAL INFORMATION: Shoulder and arm pain. COMPARISON: Left shoulder radiographs 03/24/2019 TECHNIQUE: 4 views left shoulder; AP and lateral views left humerus FINDINGS: Left shoulder: No acute fracture or dislocation. Severe glenohumeral joint space narrowing with [id number] apposition, subchondral sclerosis, and abundant osteophyte formation consistent with advanced osteoarthritis. Joint space narrowing has worsened slightly since prior. Well-corticated bone fragment adjacent to the superior glenoid possibly an intra-articular body. Acromiohumeral interval is maintained. No evidence of calcific tendinopathy of the rotator cuff. AC joint is congruent and intact with minimal marginal osteophyte formation.. Visualized left lung is grossly clear. Surgical clips project over the left axilla. Left humerus: No fracture or malalignment. No osseous lesion. XR/XR shoulder LT min 2V IMPRESSION: 1. No acute osseous injury at the left shoulder or left humerus. 2. Severe glenohumeral joint osteoarthritis. 3. Mild acromioclavicular arthropathy.
[2022-12-17 18:22] VITALS: BP 114/70; PULSE 67; RESP 18; TEMP 36.9; O2SAT 99; BMI 39.4
[2022-12-17 19:00] LABS: MANUAL DIFF FLAG NO
[2022-12-17 19:11] LABS: INTERNATIONAL NORM RATIO 1.4 (0.9-1.1); Prothrombin Time 15.8 SEC (10.0-13.1)
[2022-12-17 19:13] LABS: Basophils Percent Auto 0.4 % (0-2); Eosinophils Absolute Auto 0.6 X10*3/uL (0.0-0.4); Eosinophils Percent Auto 8.3 % (0-4); Hematocrit 40.3 % (37.0-47.0); Hemoglobin 13.2 g/dl (12.0-16.0); Imm Gran Abs Auto 0.03 X10*3/uL (0.00-0.03); Imm Gran Pct Auto 0.4 % (0.0-0.4); Lymphocytes Absolute Auto 1.2 X10*3/uL (1.2-4.9); Lymphocytes Percent Auto 16.6 % (20-40); Mean Corpuscular HGB Conc 32.8 g/dl (31.0-35.0); Mean Corpuscular Hemoglobin 28.8 pg (27.0-33.0); Mean Corpuscular Volume 87.8 fL (80.0-98.0); Mean Platelet Volume 11.1 fL (9.4-12.3); Monocytes Absolute Auto 0.7 X10*3/uL (0.1-1.2); Monocytes Percent Auto 9.1 % (2-11); Neutrophils Absolute Auto 4.7 x10*3/uL (2.0-8.3); Neutrophils Percent Auto 65.2 % (45-73); Platelet Count 155 X10*3/uL (160-400); Red Blood Count 4.59 X10*6/uL (4.20-5.50); Red Cell Distribution Width 13.4 % (11.0-16.0); White Blood Count 7.2 X10*3/uL (4.8-10.8)
[2022-12-17 19:19] LABS: Alanine Aminotransferase 25 U/L (0-31); Albumin Level 3.8 g/dL (3.5-5.0); Alkaline Phosphatase 65 U/L (39-117); Anion Gap 16 (12-20); Aspartate Amino Transferase 28 U/L (5-31); Bilirubin Total 0.5 mg/dL (0.0-1.0); Blood Urea Nitrogen 13 mg/dL (9-16); Calcium 8.9 mg/dL (8.4-10.2); Carbon Dioxide 20 mmol/L (22-29); Chloride 110 mmol/L (96-108); Creatinine Clr Calc Pharmacy 85.1; Estimated Glomerular Filt Rate > 60; Glucose Random 117 mg/dL (60-115); Magnesium 1.8 mg/dL (1.6-2.6); Potassium 4.6 mmol/L (3.3-5.1); Sodium 141 mmol/L (135-145); Total Protein 5.8 g/dL (6.5-8.0)
[2022-12-17 19:20] LABS: COVID-19 Test Negative (Negative); IDNOW Serial# 16C4AD1C
[2022-12-17 20:00] VITALS: BP 134/99; PULSE 70; RESP 16; TEMP 37.1; O2SAT 97
[2022-12-17] MEDS: diphenhydrAMINE HCL 50 MG/ML VIAL 25 MG IVPUSH (20:10)
[2022-12-17] MEDS: dexAMETHasone sod phosphate 10 MG/ML VIAL 6 MG IVPUSH (20:10)
--- NOTE | 2022-12-17 20:23 | ED.SKABFB ---
HPI - Skin/Abscess/Foreign Bdy General Chief complaint: Skin/Abscess/Foreign Body Stated complaint: LEFT ARM PAIN AND RASH Time Seen by Provider: 12/17/22 18:29 Source: patient and EMS Mode of arrival: EMS Limitations: no limitations History of Present Illness HPI narrative: This is a 77-year-old female history of atrial fibrillation, sick sinus syndrome, angina, hypertension, ELAINE of left knee, chronic right shoulder pain presenting to the emergency department with complaints of rash to back time 2 days worsening. Patient tells me she had a procedure done this past Friday 4 days ago at [facility] where she had a lipoma removed to the right scapular region. She tells me that surgery went well without complications. She reports she kept the dressing on as instructed until Friday, after she removed the dressing she broke out in a rash that has been progressively worsening, she tells me the rash is very itchy and uncomfortable. She has been taking Benadryl with little to no relief. Patient also tells me that after surgery she noted she was having difficulties moving her left arm more than usual, she states it is painful with range of motion, denies any trauma to this arm however states she has bad arthritis. She reports that prior to coming to the emergency department she sustained a fall, she tells me that she tripped on her 's blanket falling forward onto both knees patient ambulatory without difficulty afterwards however came in by ambulance. Patient denies head strike, loss of consciousness, patient is on rivaroxaban however there was no head injury or any traumatic injuries to the chest, abdomen or pelvis. Patient's main concern today is a rash. Patient denies fevers, chills, nausea, vomiting, abdominal pain, headache, vision changes, dizziness, weakness, chest pain, shortness of breath. Patient denies recent antibiotic use. GCS of 15 on arrival. NIH stroke scale 0. Related Data Home Medications Medication Instructions Recorded Confirmed pantoprazole 40 mg tablet,delayed 40 mg PO DAILY 09/19/20 12/05/22 release albuterol sulfate 90 mcg/actuation 2 puff inhalation Q4-6H PRN 08/08/21 12/05/22 aerosol inhaler (ProAir HFA) Wheezing pyridoxine (vitamin B6) 25 mg 25 mg PO DAILY 05/30/22 12/05/22 tablet vitamin E (dl, acetate) 45 mg (100 45 mg PO DAILY 05/30/22 12/05/22 unit) capsule fluticasone fur. 100 mcg-umeclid 1 inh inhalation DAILY 11/20/22 12/05/22 62.5 mcg-vilant 25 mcg inhalat.powder (Trelegy Ellipta) cholecalciferol (vitamin D3) 25 25 mcg PO DAILY 12/05/22 12/05/22 mcg (1,000 unit) capsule Previous Rx's Medication Instructions Recorded lisinopril 5 mg tablet 5 mg PO DAILY #90 tabs 08/12/22 rivaroxaban 20 mg tablet (Xarelto) 20 mg PO DAILY #90 tabs 10/28/22 propafenone 150 mg tablet 150 mg PO TID 90 days #270 tabs 11/12/22 diphenhydramine HCl 25 mg capsule 25 mg PO TID PRN allergy symptoms 12/17/22 (Benadryl) #20 caps prednisone 20 mg tablet 40 mg PO DAILY 5 days #10 tabs 12/17/22 Allergies Allergy/AdvReac Type Severity Reaction Status Date / Time bee pollen [BEE STINGS] Allergy Severe ANAPHYLAXIS Verified 11/20/22 08:47 Penicillins [PENICILLINS] Allergy Intermediate HIVES Verified 11/20/22 08:47 chlorhexidine [CHLORAPREP] Allergy Mild RASH Verified 11/20/22 08:47 sulfamethoxazole Allergy Mild DIARRHEA Verified 11/20/22 08:47 [From BACTRIM] codeine [CODEINE] Allergy Unknown NAUSEA Verified 11/20/22 08:47 latex [LATEX] Allergy Unknown rash/itchy Verified 11/20/22 08:47 Review of Systems Review of Systems: Constitutional : No Weight loss, No Fever, No Chills, No Fatigue, No Malaise ENT/Mouth : No sore throat, No Rhinorrhea Eyes: No Eye Pain, No Swelling, No Redness Cardiovascular : No Chest Pain, No SOB, No Dyspnea on Exertion, No Orthopnea, No Edema, No Palpitations Respiratory : No Cough, No Sputum, No Wheezing Gastrointestinal : No Nausea, No Vomiting, No Diarrhea, No Constipation, No abdominal Pain, No Hematochezia, No Melena Genitourinary : No Dysuria, No Urinary Frequency, No Hematuria, Musculoskeletal : + joint pain, No Myalgias, No Joint Swelling Skin : No Skin Lesions, + rash Neuro : No Weakness, No Numbness, No Dizziness, No Headache Psych : No Anxiety/Panic, No Depression All other systems reviewed and are negative Yes all other systems are reviewed and are negative [facility] Past Medical History Attestation statement: The following information was validated with the patient. Source: old records reviewed and nursing notes reviewed Medical History Myocardial injury Paroxysmal atrial fibrillation Sick sinus syndrome Surgical History History of back surgery History of cholecystectomy Hx of appendectomy Hx of colonoscopy Hx of hysterectomy Hx of knee surgery Hx of lumpectomy Hx of oral surgery Family History Family History Father Emphysema lung Mother Sudden cardiac arrest Social History Social History Household Members: Spouse Housing: House Do you presently have visiting nurse or other home services: No Alcohol intake: current Alcohol intake frequency: holidays/special occasions only Alcohol type: wine Patient Tobacco Use Status: Never used Tobacco Smoked in Last 30 Days: No e-Cigarette/Vaping Use: Never Used Use of substances other than those prescribed or required for medical reasons: No Any prior treatment program specific to substance use: No Advance Directives: No Advance Directives Information Provided: No service: No Current occupational status: retired Physical Exam Vital Signs: Vital Signs: Last Vital Signs Temp 98.7 F 12/17/22 20:00 Pulse 70 12/17/22 20:00 Resp 16 12/17/22 20:00 BP 134/99 H 12/17/22 20:00 Pulse Ox 97 12/17/22 20:00 O2 Del Method 12/17/22 20:00 BMI result Body Mass Index 39.4 Vital signs stable Appearance: Alert.? Oriented X3.? No acute distress.? No evidence signs of trauma on my examination. Speaking in full sentences controlling secretions well Head: Normocephalic, atraumatic, no step-offs or deformities Eyes: Pupils equal, round and reactive to light.? ENT: Pharynx normal.? No edema noted to the uvula, soft palate, hard palate, lips. Neck: Normal inspection.? Neck supple.? CVS: Normal heart rate and rhythm.? Pulses normal.? Respiratory: No respiratory distress.? Breath sounds normal.? Abdomen: Soft and nontender.? Skin: Skin warm and dry.? Normal skin color.? Normal skin turgor.? + macular papular rash to patient's back throughout. + nicely healing incision to right scapular region well approximated edges. Extremities: No lower extremity edema.? No calf ttp. 5/5 strength to bilateral upper and lower extremities + Full range of motion to bilateral knees. Normal pulses to lower extremities. Left shoulder with painful range of motion however full range of motion 2+ radial pulses equal bilateral. 2+ dorsalis pedis, posterior tibialis and anterior tibialis pulses equal bilateral. No wrist drop bilaterally. Normal hand rehab physician bilaterally. Back: No midline tenderness, no C-spine tenderness, full range of motion, no CVA tenderness bilaterally Neuro: Oriented X 3.? No motor deficit.? No sensory deficit. CN 2-12 intact . Ambulating with steady gait normal coordination Course Reevaluation(s) Reevaluation #1: CBC appears to be within normal limits. Chemistry with no acute electrolyte abnormalities requiring intervention. Patient is COVID negative. X-ray of left shoulder showing no acute osseous injury at the left shoulder left humerus. Severe glenohumeral joint osteoarthritis. Mild AC arthropathy noted, this could contributing to patient's pain. Upon re-evaluation after Decadron and Benadryl patient reports symptomatic relief, she tells me she is no longer itchy, rash looks slightly better however not resolved. Patient will be discharged home with prednisone, I offered her oxycodone she tells me she has some at home and does not need a refill. I will give her follow-up with the orthopedic team. I advised her to return with any new or worsening symptoms. Educated on worrisome signs and symptoms and when to return. At this time I feel comfortable discharge home Time: 21:19 Medications Administered Discontinued Medications Generic Name Dose Route Start Last Admin Trade Name Patricq PRN Reason Stop Dose Admin Dexamethasone Sodium Phosphate 6 mg 12/17/22 19:05 12/17/22 20:10 Dexamethasone Sod Phosphate 10 Mg/Ml Vial IVPUSH 12/17/22 19:06 6 mg ONCE ONE Administration Diphenhydramine HCl 25 mg 12/17/22 19:05 12/17/22 20:10 Diphenhydramine Hcl 50 Mg/Ml Vial IVPUSH 12/17/22 19:06 25 mg ONCE ONE Administration Medical Decision Making Medical Decision Making [facility] Narrative: 77-year-old female presents to the emergency department for evaluation of rash to back, patient also reports follow-up prior to arrival after tripping on blanket. No head strike, loss of consciousness. Physical exam significant for macular papular rash to patient's back throughout. Full range of motion to bilateral knees. Normal pulses to lower extremities. Left shoulder with painful range of motion however full range of motion 2+ radial pulses equal bilateral. 2+ dorsalis pedis, posterior tibialis and anterior tibialis pulses equal bilateral.. NIH stroke scale 0. GCS of 15. Concerns for contact dermatitis from a dressing after surgery. I do not suspect SJS,TEN or necrotizing infection. Patient did not her head, no other trauma to chest, abdomen or pelvis, low suspicion for internal bleeding, intracranial hemorrhage, stroke, posterior stroke. Patient's knees with full range of motion, pain-free, unlikely fracture, dislocation, no signs of threatened limb or neurovascular compromise. Left arm discomfort likely osteoarthritis. I do not suspect ligament or tendon injury, fracture dislocation. I do not suspect DIC, anaphylactic reaction Plan at this time is basic labs, imaging, will give decadron and Benadryl IV Differential Diagnosis Differential Diagnoses: The differential diagnosis associated with the presentation includes Concerns for contact dermatitis from a dressing after surgery. I do not suspect SJS,TEN or necrotizing infection. Patient did not her head, no other trauma to chest, abdomen or pelvis, low suspicion for internal bleeding, intracranial hemorrhage, stroke, posterior stroke. Patient's knees with full range of motion, pain-free, unlikely fracture, dislocation, no signs of threatened limb or neurovascular compromise. Left arm discomfort likely osteoarthritis. I do not suspect ligament or tendon injury, fracture dislocation. I do not suspect DIC, anaphylactic reaction Admission/Observation Consideration of admission/observation: Escalation of care including admission/observation considered Lab Data 12/17/22 18:53 12/17/22 18:53 Labs: Lab Results 12/17/22 12/17/22 12/17/22 Range/Units 18:53 18:53 18:53 WBC 7.2 (4.8-10.8) X10*3/uL RBC 4.59 (4.20-5.50) X10*6/uL Hgb 13.2 (12.0-16.0) g/dl Hct 40.3 (37.0-47.0) % MCV 87.8 (80.0-98.0) fL MCH 28.8 (27.0-33.0) pg MCHC 32.8 (31.0-35.0) g/dl RDW 13.4 (11.0-16.0) % Plt Count 155 L D (160-400) X10*3/uL MPV 11.1 (9.4-12.3) fL Immature Gran % (Auto) 0.4 (0.0-0.4) % Neut % (Auto) 65.2 (45-73) % Lymph % (Auto) 16.6 L (20-40) % [place]imble % (Auto) 9.1 (2-11) % Eos % (Auto) 8.3 H (0-4) % Baso % (Auto) 0.4 (0-2) % Lymph # (Auto) 1.2 (1.2-4.9) X10*3/uL [place]ble # (Auto) 0.7 (0.1-1.2) X10*3/uL Eos # (Auto) 0.6 H (0.0-0.4) X10*3/uL Baso # (Auto) 0.0 (0.0-0.2) X10*3/uL Abs Immat Gran (auto) 0.03 (0.00-0.03) X10*3/uL Absolute Neuts (auto) 4.7 (2.0-8.3) x10*3/uL Absolute Nucleated RBC 0.000 (0.0-0.012) X10*3/uL Nucleated RBC % (auto) 0.0 (0.0-0.2) /100WBC PT 15.8 H (10.0-13.1) SEC INR 1.4 H (0.9-1.1) Sodium 141 (135-145) mmol/L Potassium 4.6 (3.3-5.1) mmol/L Chloride 110 H (96-108) mmol/L Carbon Dioxide 20 L (22-29) mmol/L Anion Gap 16 (12-20) BUN 13 (9-16) mg/dL Creatinine 0.77 (0.5-1.4) mg/dL Estim Creat Clear Calc 85.1 Estimated GFR > 60 Random Glucose 117 H (60-115) mg/dL Calcium 8.9 (8.4-10.2) mg/dL Magnesium 1.8 (1.6-2.6) mg/dL Total Bilirubin 0.5 (0.0-1.0) mg/dL AST 28 (5-31) U/L ALT 25 (0-31) U/L Alkaline Phosphatase 65 (39-117) U/L Total Protein 5.8 L (6.5-8.0) g/dL Albumin 3.8 (3.5-5.0) g/dL COVID-19 (LUIS M) (Negative) COVID-19 Clin Com 12/17/22 Range/Units 18:53 WBC (4.8-10.8) X10*3/uL RBC (4.20-5.50) X10*6/uL Hgb (12.0-16.0) g/dl Hct (37.0-47.0) % MCV (80.0-98.0) fL MCH (27.0-33.0) pg MCHC (31.0-35.0) g/dl RDW (11.0-16.0) % Plt Count (160-400) X10*3/uL MPV (9.4-12.3) fL Immature Gran % (Auto) (0.0-0.4) % Neut % (Auto) (45-73) % Lymph % (Auto) (20-40) % Tr[place]ble % (Auto) (2-11) % Eos % (Auto) (0-4) % Baso % (Auto) (0-2) % Lymph # (Auto) (1.2-4.9) X10*3/uL [place]ble # (Auto) (0.1-1.2) X10*3/uL Eos # (Auto) (0.0-0.4) X10*3/uL Baso # (Auto) (0.0-0.2) X10*3/uL Abs Immat Gran (auto) (0.00-0.03) X10*3/uL Absolute Neuts (auto) (2.0-8.3) x10*3/uL Absolute Nucleated RBC (0.0-0.012) X10*3/uL Nucleated RBC % (auto) (0.0-0.2) /100WBC PT (10.0-13.1) SEC INR (0.9-1.1) Sodium (135-145) mmol/L Potassium (3.3-5.1) mmol/L Chloride (96-108) mmol/L Carbon Dioxide (22-29) mmol/L Anion Gap (12-20) BUN (9-16) mg/dL Creatinine (0.5-1.4) mg/dL Estim Creat Clear Calc Estimated GFR Random Glucose (60-115) mg/dL Calcium (8.4-10.2) mg/dL Magnesium (1.6-2.6) mg/dL Total Bilirubin (0.0-1.0) mg/dL AST (5-31) U/L ALT (0-31) U/L Alkaline Phosphatase (39-117) U/L Total Protein (6.5-8.0) g/dL Albumin (3.5-5.0) g/dL COVID-19 (LUIS M) Negative (Negative) COVID-19 Clin Com See Note Critical Care Time Critical Care Time Critical Care Time: No Discharge Plan Discharge Clinical Impression: Rash, Osteoarthritis of left shoulder Patient Disposition: Home, Self-Care Instructions: Osteoarthritis (ED), Acute Rash (ED) Additional Instructions: Take your medications as prescribed. If you were prescribed antibiotics today, it is important that you take your medication to their entirety, do not skip any doses, do not finish them early. Follow-up with your primary care provider this week. If left shoulder pain persists please follow-up with orthopedics, I did provide you with follow-up information listed below. Return to the emergency department with new or worsening symptoms. Such as fevers, chills, chest pain, shortness of breath, nausea, vomiting, dizziness, headache, vision changes, lethargy In case of emergency call 911 XR/XR shoulder/humerus LT min 2V IMPRESSION: 1.? No acute osseous injury at the left shoulder or left humerus. 2.? Severe glenohumeral joint osteoarthritis. 3.? Mild acromioclavicular arthropathy. Prescriptions: New diphenhydramine HCl [Benadryl] 25 mg capsule 25 mg PO TID PRN (Reason: allergy symptoms) Qty: 20 0RF prednisone 20 mg tablet 40 mg PO DAILY 5 Days Qty: 10 0RF No Action lisinopril 5 mg tablet 5 mg PO DAILY Qty: 90 3RF Xarelto 20 mg tablet 20 mg PO DAILY Qty: 90 3RF Hold Instructions: hold until instructed to resume propafenone 150 mg tablet 150 mg PO TID 90 Days Qty: 270 3RF albuterol sulfate [ProAir HFA] 90 mcg/actuation Hfa Aerosol Inhaler 2 puff INHALATION Q4-6H PRN (Reason: Wheezing) pantoprazole 40 mg tablet,delayed release (DR/EC) 40 mg PO DAILY vitamin E (dl, acetate) 45 mg (100 unit) capsule 45 mg PO DAILY pyridoxine (vitamin B6) 25 mg tablet 25 mg PO DAILY cholecalciferol (vitamin D3) 25 mcg (1,000 unit) capsule 25 mcg PO DAILY Trelegy Ellipta 100-62.5-25 mcg blister with device 1 inh inhalation DAILY Referrals: [facility] Orthopedic Surgeons [Provider Group] - 2 days Lamont Garber MD [Primary Care Provider] - 2 days Stand Alone Forms: Work/School Release
[2022-12-17 22:00] VITALS: BP 107/69; PULSE 70; RESP 16; TEMP 37.1; O2SAT 98
[2022-12-17] MEDS: oxyCODONE HCl Immed Release 5 MG TABLET PO (22:01)
[2022-12-17] MEDS: Lidocaine 4 % Patch ADH..PATCH 1 PATCH TRANSDERMA (22:01)
== END 2022-12-17 22:20 | disposition home or self-care (01) ==
PROVIDERS: Physician Assistant; Emergency Provider Emergency Medicine Emergency Medical Services; PCP Internal Medicine
DX: L50.0 Allergic urticaria (principal); M25.512 Pain in left shoulder; Z20.822 Contact with and (suspected) exposure to COVID-19; Z20.828 Contact with and (suspected) exposure to other viral communicable diseases; Z79.899 Other long term (current) drug therapy
CPT/HCPCS: 73030; 73060; 80053; 83735; 85025; 85610; 87635; 96374; 96375; 99284; J1100; J1200

== ENCOUNTER → 2023-02-17 11:53 | Outpatient (BNVA) | payer MEDICARE, SELFPAY ==
[2023-01-09 09:05] VITALS: BP 106/60; BP 132/56; BP 150/74
== END ==
PROVIDERS: PCP Internal Medicine; Visit Provider Orthopaedic Surgery
DX: M19.012 Primary osteoarthritis, left shoulder (principal); M54.50 Low back pain, unspecified; M17.12 Unilateral primary osteoarthritis, left knee
CPT/HCPCS: 99212

== ENCOUNTER → 2023-05-12 08:47 | Outpatient (REF) | payer MEDICARE, SELFPAY ==
[2023-01-09 09:05] VITALS: BP 106/60; BP 132/56; BP 150/74
== END ==
LOC: HO.CARD 08:47
PROVIDERS: PCP Internal Medicine; Visit Provider Internal Medicine Cardiovascular Disease
DX: I48.0 Paroxysmal atrial fibrillation (principal)
CPT/HCPCS: 93306; Q9957

== ENCOUNTER 2023-05-28 09:21 | Outpatient (AMB) | payer MEDICARE, SELFPAY ==
[2022-01-29 07:51] VITALS: BP 106/60; BP 132/56; BP 150/74
[2023-01-09 09:05] VITALS: BP 106/60; BP 132/56; BP 150/74
[2023-05-28 09:25] VITALS: BP 146/84; PULSE 57; BMI 39.1
--- NOTE | 2023-05-28 09:25 | A.OFFVIS_ITS ---
Intake Vital Signs 05/28/23 09:25 Height 5 ft 9 in Weight 264 lb 8.875 oz BMI 39.1 BP 146/84 H Blood Pressure Location Lt brachial Position Sitting Pulse 57 Intake Visit Reasons: 6 month f/u Intake Note: 6 month follow-up c/o fatigue and having leg swelling not able to go for a walk get chest tightness and numbness in left arm Computer Security Coordinator Required: No Allergies bee pollen [BEE STINGS] Allergy (Severe, Verified 02/17/23 11:55) ANAPHYLAXIS Penicillins [PENICILLINS] Allergy (Intermediate, Verified 02/17/23 11:55) HIVES chlorhexidine [CHLORAPREP] Allergy (Mild, Verified 02/17/23 11:55) RASH sulfamethoxazole [From BACTRIM] Allergy (Mild, Verified 02/17/23 11:55) DIARRHEA codeine [CODEINE] Allergy (Unknown, Verified 02/17/23 11:55) NAUSEA latex [LATEX] Allergy (Unknown, Verified 02/17/23 11:55) rash/itchy iodine povacrylex [From DuraPrep] Adverse Reaction (Verified 02/17/23 12:00) Rash isopropyl alcohol [From DuraPrep] Adverse Reaction (Verified 02/17/23 12:00) Rash Medication List - Last Reconciled 05/28/23 by Ba Calabrese MD albuterol sulfate 90 mcg/actuation (ProAir HFA) 2 puffs inhalation Q4-6H PRN cholecalciferol (vitamin D3) 25 mcg PO DAILY furosemide 20 mg PO DAILY PRN lisinopril 5 mg PO DAILY pantoprazole 40 mg PO DAILY propafenone 150 mg PO TID 90 days pyridoxine (vitamin B6) 25 mg PO DAILY rivaroxaban (Xarelto) 20 mg PO DAILY vitamin E (dl, acetate) 45 mg PO DAILY HPI HPI Comments History of Present Illness Details Dolly comes for follow-up. He does get episodes of atrial fibrillation that last for couple minutes about 1 to 2 times a week. No prolonged episodes. However her main complaint is exertional shortness of breath associated chest tightness. Recent echocardiogram shows normal LV systolic function with grade 3 diastolic dysfunction with left atrial enlargement. She also notices intermittent leg swelling and about weight gain of over 3 lb. She takes Lasix on a p.r.n. basis. She denies any lightheadedness, syncope. No bleeding issues or neurologic events. [facility] Medical History Myocardial injury Paroxysmal atrial fibrillation Sick sinus syndrome Surgical History History of back surgery History of cholecystectomy Hx of appendectomy Hx of colonoscopy Hx of hysterectomy Hx of knee surgery Hx of lumpectomy Hx of oral surgery Family History Father Emphysema lung Mother Sudden cardiac arrest Social History Household Members: Spouse Housing: House Do you presently have visiting nurse or other home services: No Alcohol intake: current Alcohol intake frequency: holidays/special occasions only Alcohol type: wine Patient Tobacco Use Status: Never used Tobacco e-Cigarette/Vaping Use: Never Used service: No Current occupational status: retired Review of Systems Const Denies chills, Denies fatigue, Denies fever(s), Denies frequent falls, Denies weakness, Denies weight gain and Denies weight loss ENT Denies dizziness Card Denies chest pain, Denies leg edema, Denies lightheadedness, Denies palpitations, Denies dyspnea, Denies dyspnea on exertion, Denies orthopnea and Denies other (loss of consciousness) Resp Denies cough, Denies dyspnea and Denies dyspnea on exertion GI Denies hematochezia and Denies change in stool character Musc Denies abnormal gait, Denies muscle weakness, Denies numbness, Denies radiating pain into limb and Denies tingling Neuro Denies abnormal gait, Denies dizziness, Denies frequent falls, Denies numbness, Denies tingling and Denies weakness Endo Denies fatigue and Denies palpitations Physical Exam Vital Signs: Last Vital Signs Pulse 57 05/28/23 09:25 BP 146/84 H 05/28/23 09:25 BMI result Body Mass Index 39.1 Const General: cooperative, no acute distress, alert, awake and well groomed Nutritional Appearance: obese Orientation/consciousness: patient oriented x3 Limitations: no limitations Neck Neck: Yes trachea midline, Yes supple and Yes no JVD Resp Effort & Inspection: normal respiratory effort Auscultation: clear to auscultation bilaterally Cardio Jugular venous distension: no JVD Palpation: normal PMI Rate: regular rate Rhythm: regular rhythm Heart sounds: S1 normal heart sound present and S2 normal heart sound present GI Auscultation: normal bowel sounds Skin General skin exam: no rashes or lesions noted Neuro General: patient oriented x3 and no focal motor deficits Extrem General: Yes no clubbing, cyanosis or edema Psych Appearance: grossly normal Office Procedures EKG Details: EKG shows sinus bradycardia 57 beats per minute otherwise normal EKG with normal axis and normal intervals [id number], Complete Assessment & Plan Assessment & Plan (1) (HFpEF) heart failure with preserved ejection fraction: Code(s): I50.30 - Unspecified diastolic (congestive) heart failure Plan: Patient with symptoms of exertional chest tightness most likely related to advanced diastolic dysfunction with intermittent weight gain and leg edema most suggestive of in CP and heart failure. Advised to take Lasix on a daily basis. Will also add Jardiance 10 mg to regimen. Continue to pursue rhythm control approach which has helped her significantly. Continue aggressive blood pressure control. She will benefit from aggressive weight loss program and exercise program patient encouraged to participate in slowly increasing activity level. She understands and agrees. Follow-up lab work in 1-2 weeks. (2) Paroxysmal atrial fibrillation: Code(s): I48.0 - Paroxysmal atrial fibrillation Plan: Paroxysmal atrial fibrillation highly symptomatic, currently suppressed on propafenone therapy. Continue the same. Importance of rhythm control was discussed. Avoidance of stimulants was discussed. Continue participate in weight loss program. Blood pressure is currently well optimized. Continue full oral anticoagulation, currently on Xarelto 20 mg daily. Will follow up in the clinic in 6 months time, sooner p.r.n.. Thank you for allowing me to partake in the care Orders: Orders Basic Metabolic Panel Today R06.02 - Shortness of breath B Type Natriuretic Peptide Today R06.02 - Shortness of breath Complete Blood Count no Diff Today R06.02 - Shortness of breath Medications: New furosemide 20 mg PO DAILY R06.02 - Shortness of breath empagliflozin (Jardiance) 10 mg PO DAILY 30 tabs 5RF R06.02 - Shortness of b reath Coding Level of Care Code Est Pt Level 4 (87753) Diagnoses (HFpEF) heart failure with preserved ejection fraction I50.30 Paroxysmal atrial fibrillation I48.0 CPT Codes EKG - CPT: 64015-[id number], Complete ([id number])
== END 2023-05-28 10:07 | disposition home or self-care (01) ==
PROVIDERS: Visit Provider Internal Medicine Cardiovascular Disease
DX: I50.30 Unspecified diastolic (congestive) heart failure (principal); I48.0 Paroxysmal atrial fibrillation
CPT/HCPCS: 93010; 99214

== ENCOUNTER 2023-05-28 09:21 | Outpatient (REF) | payer MEDICARE, SELFPAY ==
[2023-01-09 09:05] VITALS: BP 106/60; BP 132/56; BP 150/74
[2023-05-28 10:58] LABS: Hematocrit 42.9 % (37.0-47.0); Mean Corpuscular HGB Conc 32.6 g/dl (31.0-35.0); Mean Corpuscular Hemoglobin 28.6 pg (27.0-33.0); Mean Corpuscular Volume 87.6 fL (80.0-98.0); Mean Platelet Volume 11.2 fL (9.4-12.3); Platelet Count 224 X10*3/uL (160-400); Red Cell Distribution Width 13.5 % (11.0-16.0); White Blood Count 6.6 X10*3/uL (4.8-10.8)
[2023-05-28 11:31] LABS: Anion Gap 11 (12-20); Blood Urea Nitrogen 16 mg/dL (9-16); Calcium 9.3 mg/dL (8.4-10.2); Carbon Dioxide 26 mmol/L (22-29); Chloride 108 mmol/L (96-108); Estimated Glomerular Filt Rate > 60; Glucose Random 96 mg/dL (60-115); Potassium 4.6 mmol/L (3.3-5.1); Sodium 140 mmol/L (135-145)
[2023-05-28 11:42] LABS: B Type Natriuretic Peptide 53 pg/mL (<100)
== END 2023-05-28 09:22 | disposition home or self-care (01) ==
LOC: HO.LAB 09:21
PROVIDERS: PCP Internal Medicine; Visit Provider Internal Medicine Cardiovascular Disease
DX: R06.02 Shortness of breath (principal); I50.30 Unspecified diastolic (congestive) heart failure; I48.0 Paroxysmal atrial fibrillation; Z79.899 Other long term (current) drug therapy
CPT/HCPCS: 36415; 80048; 83880; 85027; 93005; 99212

== ENCOUNTER 2024-01-13 10:27 | Outpatient (AMB) | payer MEDICARE, SELFPAY ==
[2023-01-09 09:05] VITALS: BP 106/60; BP 132/56; BP 150/74
--- NOTE | 2024-01-13 10:30 | MHC.OFFVIS ---
Intake Vital Signs 01/13/24 10:42 Height 5 ft 9 in Weight 257 lb 15.053 oz BMI 38.1 BP 120/70 Blood Pressure Location Lt brachial Position Sitting Pulse 67 Pulse Source Monitor Intake Visit Reasons: 6 month follow up w/EKG Intake Note: 6 month follow up With EKG PT feels good Allergies bee pollen [BEE STINGS] Allergy (Severe, Verified 02/17/23 11:55) ANAPHYLAXIS Penicillins [PENICILLINS] Allergy (Intermediate, Verified 02/17/23 11:55) HIVES chlorhexidine [CHLORAPREP] Allergy (Mild, Verified 02/17/23 11:55) RASH sulfamethoxazole [From BACTRIM] Allergy (Mild, Verified 02/17/23 11:55) DIARRHEA codeine [CODEINE] Allergy (Unknown, Verified 02/17/23 11:55) NAUSEA latex [LATEX] Allergy (Unknown, Verified 02/17/23 11:55) rash/itchy iodine povacrylex [From DuraPrep] Adverse Reaction (Verified 02/17/23 12:00) Rash isopropyl alcohol [From DuraPrep] Adverse Reaction (Verified 02/17/23 12:00) Rash Medication List - Last Reconciled 01/13/24 by Ba Calabrese MD albuterol sulfate 90 mcg/actuation (ProAir HFA) 2 puffs inhalation Q4-6H PRN cholecalciferol (vitamin D3) 25 mcg PO DAILY empagliflozin (Jardiance) 10 mg PO DAILY furosemide 20 mg PO DAILY lisinopril 5 mg PO DAILY pantoprazole 40 mg PO DAILY propafenone 150 mg PO TID pyridoxine (vitamin B6) 25 mg PO DAILY rivaroxaban (Xarelto) 20 mg PO DAILY vitamin E (dl, acetate) 45 mg PO DAILY HPI HPI Comments History of Present Illness Details Dolly comes for follow-up. She is still grieving passing away of her . Overall she has been doing well. She has couple of small short lasting episodes of atrial fibrillation. They are not very bothersome. She has been trying to exercise and lost about 10 lb. She has not had any heart failure syndrome. She takes Lasix 4 times a week, and has had no heart failure symptoms. Denies any worsening shortness of breath, orthopnea, PND, sudden weight gain, leg edema, abdominal distension. Denies any lightheadedness, syncope now since reduction Lasix dose. No bleeding issues or neurologic events. [facility] Medical History Myocardial injury Paroxysmal atrial fibrillation Sick sinus syndrome Surgical History Hx of knee surgery Hx of oral surgery Hx of colonoscopy Hx of hysterectomy History of back surgery Hx of lumpectomy History of cholecystectomy Hx of appendectomy Family History Father Emphysema lung Mother Sudden cardiac arrest Social History Household Members: Spouse Housing: House Do you presently have visiting nurse or other home services: No Alcohol intake: current Alcohol intake frequency: holidays/special occasions only Alcohol type: wine Patient Tobacco Use Status: Never used Tobacco e-Cigarette/Vaping Use: Never Used service: No Current occupational status: retired Review of Systems Const Denies chills, Denies fatigue, Denies fever(s), Denies frequent falls, Denies weakness, Denies weight gain and Denies weight loss ENT Denies dizziness Card Denies chest pain, Denies leg edema, Denies lightheadedness, Denies palpitations, Denies dyspnea, Denies dyspnea on exertion, Denies orthopnea and Denies other (loss of consciousness) Resp Denies cough, Denies dyspnea and Denies dyspnea on exertion GI Denies hematochezia and Denies change in stool character Musc Denies abnormal gait, Denies muscle weakness, Denies numbness, Denies radiating pain into limb and Denies tingling Neuro Denies abnormal gait, Denies dizziness, Denies frequent falls, Denies numbness, Denies tingling and Denies weakness Endo Denies fatigue and Denies palpitations Physical Exam Vital Signs: Last Vital Signs Pulse 67 01/13/24 10:42 BP 120/70 01/13/24 10:42 BMI result Body Mass Index 38.1 Const General: cooperative, no acute distress, alert, awake and well groomed Nutritional Appearance: obese Orientation/consciousness: patient oriented x3 Limitations: no limitations Neck Neck: Yes trachea midline, Yes supple and Yes no JVD Resp Effort & Inspection: normal respiratory effort Auscultation: clear to auscultation bilaterally Cardio Jugular venous distension: no JVD Palpation: normal PMI Rate: regular rate Rhythm: regular rhythm Heart sounds: S1 normal heart sound present and S2 normal heart sound present GI Auscultation: normal bowel sounds Skin General skin exam: no rashes or lesions noted Neuro General: patient oriented x3 and no focal motor deficits Extrem General: Yes no clubbing, cyanosis or edema Psych Appearance: grossly normal Office Procedures EKG Details: EKG shows normal sinus rhythm with poor R-wave progression [id number], Complete Assessment & Plan Assessment & Plan (1) (HFpEF) heart failure with preserved ejection fraction: Code(s): I50.30 - Unspecified diastolic (congestive) heart failure Plan: Heart failure preserved ejection fraction, clinically euvolemic and well compensated since addition of Jardiance. She is improved with low-dose of Lasix in terms of lightheadedness symptoms. No signs or symptoms of heart failure. Daily weight monitoring avoidance of salt loading was discussed. Advised to further reduce Lasix to 20 mg 3 times a week. Additional Lasix as need be. Continue rhythm control approach which has helped her significantly. Continue to participate in regular physical activity and weight loss program. Blood pressure is currently well optimized. Follow-up in 6 months time after echocardiogram. (2) Paroxysmal atrial fibrillation: Code(s): I48.0 - Paroxysmal atrial fibrillation Plan: Paroxysmal atrial fibrillation has remained suppressed on propafenone therapy. She is done very well with rhythm control approach will continue to pursue the same. Continue aggressive blood pressure control. Continue participate in regular physical activity and weight loss program. Avoidance of stimulants was discussed advised to call me with worsening symptoms. Continue full oral anticoagulation, currently on Xarelto 20 mg daily. Semi annual renal function test should be pursued. Follow up in the clinic in 6 months time, sooner p.r.n.. Thank you for allowing me to partake in her care Orders: Orders Magnesium Today I50.30 - Unspecified diastolic (congestive) heart failure Basic Metabolic Panel Today I50.30 - Unspecified diastolic (congestive) heart failure B Type Natriuretic Peptide Today I50.30 - Unspecified diastolic (congestive) heart failure CA echo transthoracic complete 5 Months I50.30 - Unspecified diastolic (congestive) heart failure Coding Level of Care Code Est Pt Level 4 (44953) Diagnoses (HFpEF) heart failure with preserved ejection fraction I50.30 Paroxysmal atrial fibrillation I48.0 CPT Codes EKG - CPT: 68349-[id number], Complete ([id number])
[2024-01-13 10:42] VITALS: BP 120/70; PULSE 67; BMI 38.1
== END 2024-01-13 11:12 | disposition home or self-care (01) ==
PROVIDERS: PCP Internal Medicine; Visit Provider Internal Medicine Cardiovascular Disease
DX: I50.30 Unspecified diastolic (congestive) heart failure (principal); I48.0 Paroxysmal atrial fibrillation
CPT/HCPCS: 93010; 99214

== ENCOUNTER → 2024-01-13 10:27 | Outpatient (BNVA) | payer MEDICARE, SELFPAY ==
[2023-01-09 09:05] VITALS: BP 106/60; BP 132/56; BP 150/74
== END ==
PROVIDERS: PCP Internal Medicine; Visit Provider Internal Medicine Cardiovascular Disease
DX: I50.30 Unspecified diastolic (congestive) heart failure (principal); I48.0 Paroxysmal atrial fibrillation
CPT/HCPCS: 93005; 99212

== ENCOUNTER 2024-03-10 10:56 | Outpatient (REF) | payer MEDICARE, SELFPAY ==
[2023-01-09 09:05] VITALS: BP 106/60; BP 132/56; BP 150/74
--- NOTE | ~2024-03-10 | XR_ITS ---
EXAMINATION: XR CHEST CLINICAL INFORMATION: Shortness of breath. COMPARISON: 05/02/2022 TECHNIQUE: 3 views of the thoracic spine. FINDINGS: Dextroscoliosis of the thoracic spine with advanced multilevel degenerative changes. There is no gross pneumothorax. Cardiac silhouette upper limits of normal in size. Surgical clips left axilla. Redemonstration of small scattered granulomata. Surgical clips in the upper abdomen. Small, subtle opacity along the peripheral aspect of the lower left lung overlying the posterolateral aspect of the left eighth rib. Differential considerations include a bony lesion versus small pleuroparenchymal focus, possibly related to trace left pleural effusion versus early infectious/inflammatory process. XR/XR chest 2V IMPRESSION: Small, subtle opacity along the peripheral aspect of the lower left lung overlying the posterior lateral aspect of the left eighth rib. Differential considerations include a bony lesion versus small pleuroparenchymal focus, possibly related to trace left pleural effusion versus early infectious/inflammatory process. Correlation with clinical exam recommended to determine further management including possible additional imaging with dedicated views of the ribs/oblique views of the chest.
== END 2024-03-10 10:57 | disposition home or self-care (01) ==
LOC: HO.HMGCX 10:56
PROVIDERS: PCP Internal Medicine; Visit Provider Internal Medicine
DX: R06.00 Dyspnea, unspecified (principal); R06.02 Shortness of breath
CPT/HCPCS: 71046

== ENCOUNTER → 2024-03-25 08:38 | Outpatient (REF) | payer MEDICARE, SELFPAY ==
[2023-01-09 09:05] VITALS: BP 106/60; BP 132/56; BP 150/74
--- NOTE | 2024-03-25 08:42 | HM_ITS ---
Conclusion: 1. Patient was monitored for total period of 1 day and 12 hours 2. Baseline was normal sinus rhythm with average heart of 65 beats per minute 3. No significant pauses noted 4. Rare ectopy noted 5. Patient marked the counter 5 times correlating with mostly sinus rhythm but 1 time with PVCs MTDD
== END ==
LOC: HO.CARD 08:38
PROVIDERS: PCP Internal Medicine; Visit Provider Internal Medicine
DX: R00.2 Palpitations (principal); R06.02 Shortness of breath
CPT/HCPCS: 93225

== ENCOUNTER → 2024-03-25 08:42 | Outpatient (BNV) | payer MEDICARE, SELFPAY ==
[2023-01-09 09:05] VITALS: BP 106/60; BP 132/56; BP 150/74
== END ==
PROVIDERS: PCP Internal Medicine; Visit Provider Internal Medicine Cardiovascular Disease
DX: I49.3 Ventricular premature depolarization (principal)
CPT/HCPCS: 93227

== ENCOUNTER 2024-04-09 16:56 | Emergency (ER) | payer MEDICARE, SELFPAY ==
[2023-01-09 09:05] VITALS: BP 106/60; BP 132/56; BP 150/74
[2024-04-09 17:08] VITALS: BP 156/62; PULSE 78; RESP 16; TEMP 37.1; O2SAT 96; BMI 44.8
--- NOTE | 2024-04-09 17:10 | ED_ITS ---
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 Patient got stung in her right hand and had immediate pain and swelling. in the palm of the hand. She developed flushing and tingling on her face. She took 50 mg of benadryl and her symptoms didn't improve so she came to the ER for evaluation. She reports history of anaphylaxis as a teenager after getting stung on the head with lip swelling, throat swelling and syncope. She has had an EpiPen but has never had to use it. She states she got stung by a different type of bee last week but only had localized swelling. Today she denies any SOB, wheezing, facial or lip swelling, difficulty swallowing. MD complaint: allergic reaction Onset (ago): hour(s) (1) Exposure: insect bite Known history of allergy to: bee sting Symptoms: rash, nausea and other (facial tingling, flushing) Severity: moderate Treatment prior to arrival: benadryl Previous Allergic Reaction History: prior ED visit(s) and anaphylaxis Related Data Home Medications ?Medication ?Instructions ?Recorded ?Confirmed pantoprazole 40 mg tablet,delayed 40 mg PO DAILY 09/19/20 01/13/24 release albuterol sulfate 90 mcg/actuation 2 puff inhalation Q4-6H PRN 08/08/21 01/13/24 aerosol inhaler (ProAir HFA) Wheezing pyridoxine (vitamin B6) 25 mg 25 mg PO DAILY 05/30/22 01/13/24 tablet vitamin E (dl, acetate) 45 mg (100 45 mg PO DAILY 05/30/22 01/13/24 unit) capsule cholecalciferol (vitamin D3) 25 25 mcg PO DAILY 12/05/22 05/28/23 mcg (1,000 unit) capsule furosemide 20 mg tablet 20 mg PO DAILY 05/28/23 01/13/24 Previous Rx's ?Medication ?Instructions ?Recorded lisinopril 5 mg tablet 5 mg PO DAILY #90 tabs 08/14/23 rivaroxaban 20 mg tablet (Xarelto) 20 mg PO DAILY #90 tabs 11/05/23 propafenone 150 mg tablet 150 mg PO TID #270 tabs 11/12/23 empagliflozin 10 mg tablet 10 mg PO DAILY #30 tabs 11/17/23 (Jardiance) epinephrine 0.3 mg/0.3 mL 0.3 mg (0.3 mL) IM Q15M PRN 04/09/24 injection, auto-injector (EpiPen) anaphylaxis #2 ea Allergies Allergy/AdvReac Type Severity Reaction Status Date / Time bee pollen [BEE STINGS] Allergy Severe ANAPHYLAXIS Verified 04/09/24 17:10 Penicillins [PENICILLINS] Allergy Intermediate HIVES Verified 04/09/24 17:10 chlorhexidine [CHLORAPREP] Allergy Mild RASH Verified 04/09/24 17:10 sulfamethoxazole Allergy Mild DIARRHEA Verified 04/09/24 17:10 [From BACTRIM] codeine [CODEINE] Allergy Unknown NAUSEA Verified 04/09/24 17:10 latex [LATEX] Allergy Unknown rash/itchy Verified 04/09/24 17:10 iodine povacrylex AdvReac Rash Verified 04/09/24 17:10 [From DuraPrep] isopropyl alcohol AdvReac Rash Verified 04/09/24 17:10 [From DuraPrep] Review of Systems Review of Systems: Yes all other systems are reviewed and are negative PMFSH Past Medical History Medical History Myocardial injury Paroxysmal atrial fibrillation Sick sinus syndrome Surgical History Hx of knee surgery Hx of oral surgery Hx of colonoscopy Hx of hysterectomy History of back surgery Hx of lumpectomy History of cholecystectomy Hx of appendectomy Family History Family History Father Emphysema lung Mother Sudden cardiac arrest Social History Social History Household Members: Spouse Housing: House Do you presently have visiting nurse or other home services: No Alcohol intake: current Alcohol intake frequency: holidays/special occasions only Alcohol type: wine Patient Tobacco Use Status: Never used Tobacco e-Cigarette/Vaping Use: Never Used Advance Directives: No Advance Directives Information Provided: No service: No Current occupational status: retired Physical Exam ED Vital Signs: Vital Signs - 24 hr 04/09/24 17:08 04/09/24 17:17 04/09/24 18:10 Temperature 98.7 F 97.7 F 98.1 F Pulse Rate 78 81 62 Respiratory Rate 16 13 15 Blood Pressure 156/62 H 144/64 H 126/38 L Pulse Oximetry 96 97 100 Oxygen Delivery Method Room Air Room Air Room Air BMI result Body Mass Index 44.8 Appearance: Alert. Oriented X3. No acute distress. Head: normocephalic, atraumatic. Eyes: Pupils equal, round and reactive to light. ENT: Pharynx normal. No tonsillar swelling or exudate. Neck: Normal inspection. Neck supple. CVS: Normal heart rate and rhythm. Pulses normal. Respiratory: No respiratory distress. Breath sounds normal. Abdomen: Soft and nontender. +BS x4 Skin: Skin warm, flushed. Normal skin turgor. Extremities: No lower extremity edema. No joint swelling. Neuro/psych: Oriented X 3. No motor deficit. No sensory deficit. CN II-XII intact. Normal speech and cognition. Course Reevaluation(s) Reevaluation #1: Pulmonary evaluation patient is starting to feel slightly better. She is still flushed but does not have any evidence of angioedema, no facial swelling, difficulty breathing or swallowing. Will continue to monitor. Hold off on Epi for now. Time: 17:53 Reevaluation #2: continues to show improvement. feeling better. tolerating PO at this time. Time: 18:52 Reevaluation #3: Patient re-evaluated at the bedside. She is feeling much better. Flushing has resolved. No further tingling in the face. No swelling of the face. No hives. She is now stable for discharge home. Return precautions were discussed. Time: 20:08 Medications Administered Discontinued Medications Generic Name Dose Route Start Last Admin Trade Name Freq PRN Reason Stop Dose Admin Diphenhydramine HCl 25 mg 04/09/24 17:09 04/09/24 17:24 Diphenhydramine Hcl 50 Mg/Ml Vial IVPUSH 04/09/24 17:10 25 mg ONCE ONE Administration Famotidine 20 mg 04/09/24 17:09 04/09/24 17:25 Famotidine/Pf 20 Mg/2 Ml Vial IVPUSH 04/09/24 17:10 20 mg ONCE ONE Administration Methylprednisolone Sodium Succinate 125 mg 04/09/24 17:09 04/09/24 17:22 Methylprednisolone Sod Succ 125 Mg/2 Ml Vial IVPUSH 04/09/24 17:10 125 mg ONCE ONE Administration Medical Decision Making Medical Decision Making MDM Narrative: Female presents to the ER for evaluation of allergic reaction to bee sting. History of anaphylaxis in the past. She arrives flushed with some scattered hives. Her airway is patent, no facial swelling, lip swelling, difficulty breat alonso or swallowing. She is speaking in clear sentences. IV was established and patient was given IV Solu-Medrol, IV Benadryl, IV Pepcid with close monitoring. Patient monitored in the ER for 3 hours. She had complete resolution of her symptoms. Comfortable discharge home. Differential Diagnosis Differential Diagnoses: The differential diagnosis associated with the presentation includes allergic reaction, anaphylaxis, localized histamine reaction Admission/Observation Consideration of admission/observation: Escalation of care including admission/observation considered External Record Review External record reviewed: Prior outpatient labs Prescription Management I considered prescription management with: Other (EpiPen) Chronic Conditions Patient?s care impacted by: Diabetes and Other (AFib on Xarelto, history of anaphylaxis) Critical Care Time Critical Care Time Critical Care Time: Yes Total Critical Care Time: 36 Attestation: I have personally provided critical care time exclusive of time spent on separately billable procedures. Time includes review of chart, frequent bedside re-evaluations of evolution of symptoms, cardiopulmonary status, airway protection and monitoring for potential decompensation and anaphylaxis Discharge Plan Discharge Clinical Impression: Allergic reaction Qualifiers: Encounter type: initial encounter Qualified Code(s): T78.40XA - Allergy, unspecified, initial encounter Patient Disposition: Home, Self-Care Instructions: General Allergic Reaction (ED) Additional Instructions: Recommend taking another dose of Benadryl tonight before bed. Carry EpiPen with you. If you develop new or worsening symptoms call 911 or come back to the ER for further evaluation. Prescriptions: New epinephrine [EpiPen] 0.3 mg/0.3 mL auto-injector 0.3 mg IM Q15M PRN (Reason: anaphylaxis) Qty: 2 0RF No Action lisinopril 5 mg tablet 5 mg PO DAILY Qty: 90 3RF Xarelto 20 mg tablet 20 mg PO DAILY Qty: 90 3RF Hold Instructions: hold until instructed to resume propafenone 150 mg tablet 150 mg PO TID Qty: 270 3RF Jardiance 10 mg tablet 10 mg PO DAILY Qty: 30 7RF albuterol sulfate [ProAir HFA] 90 mcg/actuation Hfa Aerosol Inhaler 2 puff INHALATION Q4-6H PRN (Reason: Wheezing) pantoprazole 40 mg tablet,delayed release (DR/EC) 40 mg PO DAILY vitamin E (dl, acetate) 45 mg (100 unit) capsule 45 mg PO DAILY pyridoxine (vitamin B6) 25 mg tablet 25 mg PO DAILY furosemide 20 mg tablet 20 mg PO DAILY cholecalciferol (vitamin D3) 25 mcg (1,000 unit) capsule 25 mcg PO DAILY Referrals: Lamont Garber MD [Primary Care Provider] - Print Language: Danish
[2024-04-09 17:17] VITALS: BP 144/64; PULSE 81; RESP 13; TEMP 36.5; O2SAT 97
[2024-04-09] MEDS: methylPREDNISolone Sod Succ 125 MG/2 ML VIAL IVPUSH (17:22)
[2024-04-09] MEDS: diphenhydrAMINE HCL 50 MG/ML VIAL 25 MG IVPUSH (17:24)
[2024-04-09] MEDS: Famotidine/PF 20 MG/2 ML VIAL IVPUSH (17:25)
[2024-04-09 18:10] VITALS: BP 126/38; PULSE 62; RESP 15; TEMP 36.7; O2SAT 100
--- NOTE | 2024-04-09 18:39 | PC.NURSE ---
patient remains alert and oriented, respirations even and unlabored. no signs/symptoms of distress noted. airway remains intact, speaking in full clear sentences.
[2024-04-09 20:27] VITALS: BP 126/38; PULSE 62; RESP 15; TEMP 36.7; O2SAT 100
== END 2024-04-09 20:28 | disposition home or self-care (01) ==
PROVIDERS: Emergency Provider Emergency Medicine Emergency Medical Services; PCP Internal Medicine
DX: T78.40XA Allergy, unspecified, initial encounter (principal); X58.XXXA Exposure to other specified factors, initial encounter; I11.0 Hypertensive heart disease with heart failure; I50.30 Unspecified diastolic (congestive) heart failure; I48.0 Paroxysmal atrial fibrillation; Z79.01 Long term (current) use of anticoagulants
CPT/HCPCS: 96374; 96375; 99284; J1200; J2919

== ENCOUNTER 2024-04-22 07:08 | Outpatient (REF) | payer MEDICARE, SELFPAY ==
[2023-01-09 09:05] VITALS: BP 106/60; BP 132/56; BP 150/74
--- NOTE | ~2024-04-22 | CT_ITS ---
EXAMINATION: CT CHEST WITHOUT CONTRAST CLINICAL INFORMATION: Abnormal prior imaging. Pleural effusion. COMPARISON: Chest radiographs 03/10/2024 TECHNIQUE: Multidetector volumetric CT imaging of the chest was done. Axial MIP volume rendering provided. Sagittal and coronal reformatted images were obtained. This CT examination was performed using dose optimization techniques as appropriate, variously including the following: *Automated exposure control *Adjustment of mA and/or kV according to patient size (this includes techniques or standardized protocols for targeted exams where dose is matched to indication/reason for exam; i.e. extremities or head) *Use of iterative reconstruction technique DLP: 245 mGy-cm FINDINGS: LUNGS: No suspicious pulmonary nodule. No focal consolidation. Central airways are patent. MEDIASTINUM: Imaged thyroid gland is unremarkable. There are surgical clips in the left axilla. No axillary lymphadenopathy. No bulky mediastinal or hilar lymphadenopathy. Great vessels are of normal caliber. Heart size is normal. Small pericardial effusion. CORONARY ARTERY CALCIFICATION: None visualized on this study. PLEURA: No pleural effusion. CHEST WALL/BREASTS: There are surgical clips in the left breast with architectural distortion. Irregular asymmetric soft tissue in the central left breast measures 4.6 x 3.8 cm on image 31 of series 3. There is left breast skin thickening. UPPER ABDOMEN: Status post cholecystectomy. OSSEOUS STRUCTURES: No destructive bone lesions. CT/CT chest wo IV con IMPRESSION: No suspicious pulmonary nodule. No pleural effusion. There are surgical clips in the left breast with architectural distortion. Irregular asymmetric soft tissue in the central left breast measures 4.6 x 3.8 cm. Left breast skin thickening. Advise correlation with patient mammographic imaging.
== END 2024-04-22 07:09 | disposition home or self-care (01) ==
LOC: HO.CT 07:08
PROVIDERS: Visit Provider Internal Medicine
DX: J90 Pleural effusion, not elsewhere classified (principal)
CPT/HCPCS: 71250

== ENCOUNTER → 2024-05-24 09:34 | Outpatient (REF) | payer MEDICARE, SELFPAY ==
[2023-01-09 09:05] VITALS: BP 106/60; BP 132/56; BP 150/74
--- NOTE | 2024-05-24 09:37 | HM_ITS ---
Conclusion: 1. Patient was monitored for total period of 7 days 2. Baseline was normal sinus rhythm with average heart of 62 beats per minute 3. No significant pauses noted but frequent sinus bradycardia noted with 43% of time heart rate below 60 beats per minute 4. Occasional PACs noted without any episodes of atrial fibrillation 5. No patient reported events MTDD
== END ==
LOC: HO.CARD 09:34
PROVIDERS: Visit Provider Internal Medicine Cardiovascular Disease
DX: I48.0 Paroxysmal atrial fibrillation (principal)
CPT/HCPCS: 93242

== ENCOUNTER → 2024-05-24 09:37 | Outpatient (BNV) | payer MEDICARE, SELFPAY ==
[2023-01-09 09:05] VITALS: BP 106/60; BP 132/56; BP 150/74
== END ==
PROVIDERS: Visit Provider Internal Medicine Cardiovascular Disease
DX: R00.1 Bradycardia, unspecified (principal)
CPT/HCPCS: 93244

== ENCOUNTER → 2024-06-14 07:55 | Outpatient (REF) | payer MEDICARE, SELFPAY ==
[2023-01-09 09:05] VITALS: BP 106/60; BP 132/56; BP 150/74
--- NOTE | 2024-06-14 08:00 | CA_ITS ---
Transthoracic Echocardiogram Patient (Last, First, Middle): Dolly Diaz L Gender: Female Date of : 1945 Age: 78 Procedure Date: 06/14/2024 Procedure Type: Transthoracic Echocardiogram Location: OP Height: 175. cm Weight: 116.58 kg BSA: 2.30 m2 Heart Rate: bpm BP: 120 / 70 mmHg Resident Care Aid: PHOEBE Referring MD: Ba Calabrese MD [employer] Supervisor: Ba Calabrese MD Symptoms: I50.30 - Unspecified diastolic (congestive) heart failure Study Quality: Fair/Contrast ECG Rhythm: Sinus Conclusions: - 1. Normal LV ejection fraction 65-70% with restrictive filling pattern 2. Mild mitral regurgitation 3. No pericardial effusion Findings Procedure Information Contrast agent, definity, is being given per protocol without apparent complications. Left Ventricle Normal left ventricular size, thickness, and systolic function. The visually estimated ejection fraction is between 65-70%. Spectral Doppler is indicative of a restrictive filling pattern. Elevated left ventricular end diastolic pressure. E/E prime ratio is between 8 and 15 consistent with indeterminate filling pressures. Right Ventricle Mildly increased right ventricular cavity size. There is normal right ventricular systolic function. Atria The left atrium is likely dilated. There is no evidence of interatrial shunt. The right atrium is normal in size. Aortic Valve Normal aortic valve structure and function. There is no aortic valve stenosis. There is no aortic valve regurgitation. Mitral Valve Normal mitral valve structure and function. There is mild mitral valve regurgitation. There is no mitral valve stenosis. Pulmonic Valve The pulmonic valve is likely normal. There is trace pulmonic valve regurgitation. Tricuspid Valve Normal tricuspid valve structure. Normal right atrial pressure. Great Vessels All visible segments of the aorta are normal in size. The pulmonary artery was not well visualized. There is no dilatation of the ascending aorta measuring 3.10 cm. Venous The inferior vena cava is normal in size and collapses greater than 50% with inspiration. Pericardium/Pleural There is no evidence of pericardial effusion. Prior Study Comparison No significant change compared to prior study dated: 05/12/2023. Measurements 2D Linear Measurements IVSd: 1.02 0.6-0.9/0.6-1.0 cm LVIDd: 4.37 3.9-5.3/4.2-5.9 cm LVIDd Index: 1.90 2.4-3.2/2.2-3.1 cm/m2 LVIDs: 2.88 2.0-3.6 cm LVPWd: 1.10 0.7-1.1 cm Ao Root: 3.10 2.1-3.5 cm LA Diam: 3.90 2.7-3.8/3.0-4.0 cm LAIDs Index: 1.70 1.5-2.3 cm/m2 LV Mass: 197.50 67-162/88-224 g LV Mass Index: 85.87 43-95/49-115 g/m2 LVOT Diam: 2.00 3.0+(-)1.3 cm 2D Systolic Function EF 4C: 70.40 >55% EF 2C: 57.60 >55% EF BiP: 65.00 >55% Mitral Valve MV Pk E: 0.98 MV PK A: 0.47 MV Decel Time: 248.00 E/A: 2.10 E'Lateral: 5.55 E'Medial: 7.72 E/E' Med: 12.60 E/E' Lat: 17.60 PHT: 73.00 MVA PHT: 3.01 Decel Gregg: 3.93 Aortic Valve AoV Pk Ruiz: 1.34 AoV Mn Ruiz: 0.91 AoV VTI: 0.30 AoV Pk Grad: 7.00 Aov Mn Grad: 4.00 ELIGIO Cont.VTI: 2.71 LVOT LVOT Pk Ruiz: 1.16 LVOT Mn Ruiz: 0.80 LVOT VTI: 0.26 LVOT Pk Grad: 5.00 LVOT Mn Grad: 3.00 LVOT Diam: 2.00 LVOT Area: 3.14 Diastolic Function MV Pk E: 0.98 MV Pk A: 0.47 E/A: 2.10 E'Medial: 7.72 E/E' Med: 12.60 E' Laterial: 5.55 E/E' Lat: 17.60 Right Ventricle TAPSE (mm): 30.10 TVS' Ruiz: 15.20 Tricuspid Valve TR Pk Ruiz: 2.69 TR Pk Grad: 29.00 Great Vessels Aorta Ao Root-2D: 3.10 2.0-3.7 cm Ao Asc: 3.10 2.1-3.4 cm Ao Arch: 3.30 Updated in Other Vendor System with Status of Final Ba Calabrese MD electronically signed on 06/14/2024 12:31:55 PM with status of Final
== END ==
LOC: HO.CARD 07:55
PROVIDERS: PCP Internal Medicine; Visit Provider Internal Medicine Cardiovascular Disease
DX: I50.30 Unspecified diastolic (congestive) heart failure (principal)
CPT/HCPCS: 93306; Q9957

== ENCOUNTER → 2024-06-14 08:00 | Outpatient (BNV) | payer MEDICARE, SELFPAY ==
[2023-01-09 09:05] VITALS: BP 106/60; BP 132/56; BP 150/74
== END ==
PROVIDERS: PCP Internal Medicine; Visit Provider Internal Medicine Cardiovascular Disease
DX: I34.0 Nonrheumatic mitral (valve) insufficiency (principal); I50.30 Unspecified diastolic (congestive) heart failure
CPT/HCPCS: 93306

== ENCOUNTER 2024-07-22 10:59 | Outpatient (AMB) | payer MEDICARE, SELFPAY ==
[2023-01-09 09:05] VITALS: BP 106/60; BP 132/56; BP 150/74
--- NOTE | 2024-07-22 11:16 | MHC.OFFVIS ---
Vital Signs 07/22/24 11:17 Height 5 ft 6 in Weight 255 lb 11.779 oz BMI 41.3 BP 120/64 Blood Pressure Location Lt brachial Position Sitting Pulse 61 Pulse Source Monitor Intake Visit Reasons: 6 mth f/up Allergies bee pollen [BEE STINGS] Allergy (Severe, Verified 04/09/24 17:10) ANAPHYLAXIS Penicillins [PENICILLINS] Allergy (Intermediate, Verified 04/09/24 17:10) HIVES chlorhexidine [CHLORAPREP] Allergy (Mild, Verified 04/09/24 17:10) RASH sulfamethoxazole [From BACTRIM] Allergy (Mild, Verified 04/09/24 17:10) DIARRHEA codeine [CODEINE] Allergy (Unknown, Verified 04/09/24 17:10) NAUSEA latex [LATEX] Allergy (Unknown, Verified 04/09/24 17:10) rash/itchy iodine povacrylex [From DuraPrep] Adverse Reaction (Verified 04/09/24 17:10) Rash isopropyl alcohol [From DuraPrep] Adverse Reaction (Verified 04/09/24 17:10) Rash Medication List - Last Reconciled 07/22/24 by Ba Calabrese MD albuterol sulfate 90 mcg/actuation (ProAir HFA) 2 puffs inhalation Q4-6H PRN cholecalciferol (vitamin D3) 25 mcg PO DAILY empagliflozin (Jardiance) 10 mg PO DAILY epinephrine (EpiPen) 0.3 mg (0.3 mL) IM Q15M PRN furosemide 20 mg PO DAILY lisinopril 5 mg PO DAILY pantoprazole 40 mg PO DAILY propafenone 150 mg PO TID pyridoxine (vitamin B6) 25 mg PO DAILY rivaroxaban (Xarelto) 20 mg PO DAILY vitamin E (dl, acetate) 45 mg PO DAILY HPI Comments Details: Dolly comes for follow-up. Overall she has been doing well from shortness of breath perspective. Denies any significant weight gain or orthopnea or PND. She has notices that when on the days following when she is not taking in her Lasix she does notice leg edema. Usually goes away. She also notices about a 1 lb weight gain at that point time. Has had no sudden other weight gain issues. Complains of symptoms of fatigue. She does not exercise on a regular basis due to that. However she tries to maintain a day-to-day activities without any issues. Still gets episodes of atrial fibrillation longest episode lasting about 10 minutes. She just notices heart rate going up and does not feel well but usually symptoms are not frequent. No lightheadedness, syncope. No exertional chest pain. [facility] Medical History Myocardial injury Paroxysmal atrial fibrillation Sick sinus syndrome Surgical History Hx of knee surgery Hx of oral surgery Hx of colonoscopy Hx of hysterectomy History of back surgery Hx of lumpectomy History of cholecystectomy Hx of appendectomy Family History Father Emphysema lung Mother Sudden cardiac arrest Social History Household Members: Spouse Housing: House Do you presently have visiting nurse or other home services: No Alcohol intake: current Alcohol intake frequency: holidays/special occasions only Alcohol type: wine Patient Tobacco Use Status: Never used Tobacco e-Cigarette/Vaping Use: Never Used service: No Current occupational status: retired Review of Systems Const Denies weakness ENT Denies dizziness Card Denies chest pain, Denies chest pain with activity, Denies syncope, Denies rapid heart rate, Denies pedal edema, Denies edema, Denies leg edema, Denies lightheadedness, Denies palpitations, Denies dyspnea, Denies dyspnea on exertion and Denies orthopnea Resp Denies cough, Denies dyspnea and Denies dyspnea on exertion GI Denies hematochezia and Denies change in stool character Musc Denies abnormal gait, Denies muscle cramps, Denies muscle weakness, Denies numbness, Denies radiating pain into limb and Denies tingling Neuro Denies abnormal gait, Denies dizziness, Denies syncope, Denies numbness, Denies tingling and Denies weakness Endo Denies palpitations Physical Exam Vital Signs: Last Vital Signs Pulse 61 07/22/24 11:17 BP 120/64 07/22/24 11:17 BMI result Body Mass Index 41.3 Const General: cooperative, no acute distress, alert, awake and well groomed Nutritional Appearance: obese Orientation/consciousness: patient oriented x3 Limitations: no limitations Neck Neck: Yes trachea midline, Yes supple and Yes no JVD Resp Effort & Inspection: normal respiratory effort Auscultation: clear to auscultation bilaterally Cardio Jugular venous distension: no JVD Palpation: normal PMI Rate: regular rate Rhythm: regular rhythm Heart sounds: S1 normal heart sound present and S2 normal heart sound present GI Auscultation: normal bowel sounds Skin General skin exam: no rashes or lesions noted Neuro General: patient oriented x3 and no focal motor deficits Extrem General: Yes no clubbing, cyanosis or edema Psych Appearance: grossly normal Office Procedures EKG Details: EKG shows normal sinus rhythm with incomplete right bundle-branch block otherwise normal EKG [id number], Complete Assessment & Plan Assessment & Plan (1) (HFpEF) heart failure with preserved ejection fraction: Code(s): I50.30 - Unspecified diastolic (congestive) heart failure Category: Medical Plan: Heart failure preserved ejection fraction, well controlled on current diuretic therapy low-dose on Lasix 20 mg 4 times a week. Management of heart failure was discussed. Daily weight monitoring avoidance of salt loading was discussed. Additional diuretics as need be. Continue Jardiance 10 mg as neurohormonal modulators which she is tolerating well. Continue rhythm control approach as below. Continue participate in regular physical activity as a important therapeutic intervention was discussed with her. Gradually increase activity level and participate in weight loss program. She understands agrees and she is trying. Advised to call me with worsening symptoms. (2) Paroxysmal atrial fibrillation: Code(s): I48.0 - Paroxysmal atrial fibrillation Category: Medical Plan: Paroxysmal atrial fibrillation, currently suppressed with brief episodes intermittently but without any prolonged episodes. Continue aggressive rhythm control approach which has helped her well. Continue current propafenone therapy which has tolerated well. Continue full oral anticoagulation, currently on Xarelto 20 mg daily. Renal function is being pursue through office should be done every 6 months. Continue participate in weight loss program. Continue aggressive blood pressure control which is currently well optimized. Will follow up in the clinic in 6 months time, sooner p.r.n.. Thank you for allowing me to partake in the care Coding Level of Care Code Est Pt Level 4 (76187) Diagnoses (HFpEF) heart failure with preserved ejection fraction I50.30 Paroxysmal atrial fibrillation I48.0 CPT Codes EKG - CPT: 38023-[id number], Complete ([id number])
[2024-07-22 11:17] VITALS: BP 120/64; PULSE 61; BMI 41.3
== END 2024-07-22 11:40 | disposition home or self-care (01) ==
PROVIDERS: PCP Internal Medicine; Visit Provider Internal Medicine Cardiovascular Disease
DX: I50.30 Unspecified diastolic (congestive) heart failure (principal); I48.0 Paroxysmal atrial fibrillation
CPT/HCPCS: 93010; 99214

== ENCOUNTER → 2024-07-22 10:59 | Outpatient (BNVA) | payer MEDICARE, SELFPAY ==
[2023-01-09 09:05] VITALS: BP 106/60; BP 132/56; BP 150/74
== END ==
PROVIDERS: PCP Internal Medicine; Visit Provider Internal Medicine Cardiovascular Disease
DX: I45.19 Other right bundle-branch block (principal); I48.0 Paroxysmal atrial fibrillation; I49.5 Sick sinus syndrome; I11.0 Hypertensive heart disease with heart failure; I50.30 Unspecified diastolic (congestive) heart failure
CPT/HCPCS: 93005; 99212

== ENCOUNTER 2025-01-24 12:32 | Outpatient (AMB) | payer MEDICARE, SELFPAY ==
[2023-01-09 09:05] VITALS: BP 106/60; BP 132/56; BP 150/74
--- NOTE | 2025-01-24 12:38 | MHC.OFFVIS ---
Vital Signs 01/24/25 12:39 Height 5 ft 6 in Weight 254 lb 6.615 oz BMI 41.1 BP 120/56 L Blood Pressure Location Rt brachial Position Sitting Pulse 58 Intake Visit Reasons: 6 month follow-up with ekg Shoemaking Cutter Required: No Accompanied by: Self / Same As Patient Allergies bee pollen [BEE STINGS] Allergy (Severe, Verified 04/09/24 17:10) ANAPHYLAXIS Penicillins [PENICILLINS] Allergy (Intermediate, Verified 04/09/24 17:10) HIVES chlorhexidine [CHLORAPREP] Allergy (Mild, Verified 04/09/24 17:10) RASH sulfamethoxazole [From BACTRIM] Allergy (Mild, Verified 04/09/24 17:10) DIARRHEA codeine [CODEINE] Allergy (Unknown, Verified 04/09/24 17:10) NAUSEA latex [LATEX] Allergy (Unknown, Verified 04/09/24 17:10) rash/itchy iodine povacrylex [From DuraPrep] Adverse Reaction (Verified 04/09/24 17:10) Rash isopropyl alcohol [From DuraPrep] Adverse Reaction (Verified 04/09/24 17:10) Rash Medication List - Last Reconciled 01/24/25 by Ba Calabrese MD albuterol sulfate 90 mcg/actuation (ProAir HFA) 2 puffs inhalation Q4-6H PRN cholecalciferol (vitamin D3) 25 mcg PO DAILY empagliflozin (Jardiance) 10 mg PO DAILY epinephrine (EpiPen) 0.3 mg (0.3 mL) IM Q15M PRN furosemide 20 mg PO DAILY lisinopril 5 mg PO DAILY pantoprazole 40 mg PO ONCE PRN propafenone 150 mg PO TID pyridoxine (vitamin B6) 25 mg PO DAILY rivaroxaban (Xarelto) 20 mg PO DAILY vitamin E (dl, acetate) 45 mg PO DAILY HPI Comments Details: Juan Jose comes for follow-up. She is noticing some increasing burden of atrial fibrillation. She had 1 episode that lasted 45 minutes which she took extra propafenone. Other episodes have been lasting 2-3 minutes. She was not always symptomatic with it. Occasionally happens at nighttime and feels some chest pressure. No overt heart failure symptoms. Denies any worsening shortness of breath, orthopnea, PND. Taking all her medications. No bleeding issues or neurologic events. No lightheadedness, syncope. No exertional chest pain. [facility] Medical History Myocardial injury Paroxysmal atrial fibrillation Sick sinus syndrome Surgical History Hx of knee surgery Hx of oral surgery Hx of colonoscopy Hx of hysterectomy History of back surgery Hx of lumpectomy History of cholecystectomy Hx of appendectomy Family History Father Emphysema lung Mother Sudden cardiac arrest Social History Household Members: Spouse Housing: House Do you presently have visiting nurse or other home services: No Alcohol intake: current Alcohol intake frequency: holidays/special occasions only Alcohol type: wine Patient Tobacco Use Status: Never used Tobacco e-Cigarette/Vaping Use: Never Used service: No Current occupational status: retired Review of Systems Const Denies chills, Denies fatigue, Denies fever(s), Denies weight gain and Denies weight loss ENT Denies dizziness Card Denies chest pain, Reports irregular heart rhythm, Denies leg edema, Denies lightheadedness, Denies palpitations, Reports dyspnea on exertion, Denies orthopnea and Denies other Resp Denies cough and Reports dyspnea on exertion GI Denies hematochezia and Denies change in stool character Musc Denies abnormal gait, Denies muscle weakness, Denies numbness, Denies radiating pain into limb and Denies tingling Neuro Denies abnormal gait, Denies dizziness, Denies numbness and Denies tingling Endo Denies fatigue and Denies palpitations Physical Exam Vital Signs: Last Vital Signs Pulse 58 01/24/25 12:39 BP 120/56 L 01/24/25 12:39 BMI result Body Mass Index 41.1 Const General: cooperative, no acute distress, alert, awake and well groomed Nutritional Appearance: obese Orientation/consciousness: patient oriented x3 Limitations: no limitations Neck Neck: Yes trachea midline, Yes supple and Yes no JVD Resp Effort & Inspection: normal respiratory effort Auscultation: clear to auscultation bilaterally Cardio Jugular venous distension: no JVD Palpation: normal PMI Rate: regular rate Rhythm: regular rhythm Heart sounds: S1 normal heart sound present and S2 normal heart sound present GI Auscultation: normal bowel sounds Skin General skin exam: no rashes or lesions noted Neuro General: patient oriented x3 and no focal motor deficits Extrem General: Yes no clubbing, cyanosis or edema Psych Appearance: grossly normal Office Procedures EKG Details: EKG shows normal sinus rhythm with poor R-wave progression most likely lead placement with normal QT interval [id number], Complete Assessment & Plan Assessment & Plan (1) (HFpEF) heart failure with preserved ejection fraction: Code(s): I50.30 - Unspecified diastolic (congestive) heart failure Category: Medical Plan: Heart failure preserved ejection fraction, clinically euvolemic well compensated. Currently on low-dose diuretic therapy. Continue rhythm control approach. See below. Continue Jardiance. Continue to participate in regular physical activity and exercise program and gradually increase her exercise capacity. This was discussed with him. Continue participate in weight loss program. Daily weight monitoring avoidance salt loading was discussed additional diuretics as need be. (2) Paroxysmal atrial fibrillation: Code(s): I48.0 - Paroxysmal atrial fibrillation Category: Medical Plan: Paroxysmal atrial fibrillation with intermittent burden of atrial fibrillation still present. We discussed about up it in the pocket approach. Continue current propafenone therapy. Can increase propafenone to the next dose and/or consider ablation. This was discussed with her. Importance of weight loss was discussed which has shown to reduce recurrence of atrial fibrillation. Continue full oral anticoagulation, currently on Xarelto 20 mg daily. Semi annual renal function test should be pursued. Will follow up in the clinic in 6 months time, sooner p.r.n.. Thank you for allowing me to partake in her care Coding Level of Care Code Est Pt Level 4 (17790) Complex EM visit Add On G2211 Diagnoses (HFpEF) heart failure with preserved ejection fraction I50.30 Paroxysmal atrial fibrillation I48.0 CPT Codes EKG - CPT: 46118-[id number], Complete ([id number])
[2025-01-24 12:39] VITALS: BP 120/56; PULSE 58; BMI 41.1
--- OUTSIDE RECORDS SUMMARY | 2025-01-24 14:37 | XMS_ITS | Data Portability ---
Author Organization [facility], [facility] Address [address] [place] [address] Care Team Providers Care Inventory Controller Name Role Phone ANUJA GARBER Primary Care Provider [phone] Assessment Encounter Date Assessment Date Assessment LastModified by Organization Details LastModified Time 07/19/2016 07/19/2016 70yo woman, with a history of breast cancer, status post left lumpectomy, kindly referred by Dr. Garber for fatigue, class II obesity and inability to lose weight. 02/08/16 hgb 14.9g/dL, glc 91mg/dL, creatinine <0.5mg/dL, K 4.3mmol/L, 11/06/15 ft4 0.88ng/dL (ref 0.9, 1.7), ft3 2.7pg/mL (ref 2, 4.4), tsh 2.5mU/L, 10/16/15 tsh 2.4mU/L, lipase 32 (ref 16, 63). Normal tsh suggests adequate thyroid hormone. I doubt a hormonal etiology of weight gain as she has no specific sign of Ara's syndrome, however a possible right mid lobe thyroid nodule is noted on exam, for which I recommend repeating a tsh and performing an US thyroid gland. We reviewed medical weight loss options, and I suggest against phentermine due to age and family history of NV. She declines Rocael due to potential GI upset and Belviq due to cost. Instead, we agreed on trialing added pool exercises and slimfast in the future. [email or web address] Not available 07/19/2016 14:27:42 08/02/2016 08/02/2016 71yo woman, with a history of breast cancer, status post left lumpectomy, kindly referred by Dr. Garber for fatigue, class II obesity and inability to lose weight. Due to a right thyroid nodule on 07/19/16 physical exam, US thyroid was performed today, and this revealed a dominant right mid lobe/right isthmus 2.8cm complex nodule with peripheral greater than central vascularity and a possibly irregular border. 07/19/16 tsh 2 mU/L. Normal tsh suggestss adequate thyroid hormone. I suggest biopsy of the dominant right 2.8cm thyroid nodule and observation of the subcentimeter nodules. Risks, including bleeding, bruising, infection, and inappropriate surgery, as well as benefits, catching cancer early, of thyroid nodule fine needle aspiration biopsy were discussed. Missing cancer if we do not biopsy was also discussed. I spent a total of 15 minutes with the patient, over half of which was spent counseling the patient on the pros and cons of thyroid nodule biopsy. She will consider this and book a biopsy with me if she desires in the future. [email or web address] Not available 08/02/2016 12:50:21 02/07/2017 02/07/2017 71yo woman, with a history of breast cancer, status post left lumpectomy, kindly referred by Dr. Garber for fatigue, class II obesity and inability to lose weight. Due to a right thyroid nodule on 07/19/16 physical exam, US thyroid was performed today, and this revealed a dominant right mid lobe/right isthmus 2.8cm complex nodule with peripheral greater than central vascularity and a possibly irregular border. 07/19/16 tsh 2 mU/L. Normal tsh suggestss adequate thyroid hormone. Today, I performed a biopsy of the right mid lobe/isthmus 2.8cm thyroid nodule. We will review the results in clinic in 2 weeks. I suggest she consider ENT visualization of vocal cords due to hoarseness for three months, which she will consider. [email or web address] Not available 02/07/2017 12:35:45 Plan of Treatment Reminders Order Date Submit Date Provider Last Modified By Organization Details Last Modified Time Details Appointments None recorded. Lab TSH, serum or plasma - cc Dr. Garber 016 016 [facility], [address], [place], [address], 6 04:06:53 Referral None recorded. Procedures None recorded. Surgeries None recorded. Imaging US, thyroid 016 016 [facility] (Imaging), [address] , [place], [address], 04:07:57 Medication Orders None recorded. Patient TargetsNo targets recorded. Patient Instructions Encounter Date Encounter Id Patient Instructions Last Modified By Organization Details Last Modified Time 07/19/2016 [id number] We discussed reducing carbohydrate intake, for example choosing a few slices of cheese, a few nuts, or a yogurt cup instead of cereals, breads, pastas, and other starchy foods. I suggested yogurt or protein shake meal substitution, for example a yogurt or a protein shake (Atkins, slimfast, etc.) instead of lunch. We will discuss how this works for you on follow up. -see a personal loan specialist or technology instructor to learn about pool exercises, start 30min 3x/week 05/19 confident, barrier stress and other commitment; make yourself number one and take dog for walk everyday -reduce/limit rice pilaf, pizza, ice cream, chips [place] Not available 07/19/2016 14:19:19 CCM: The provide r and patient discussed the Chronic Care Management program, including the services provided, and any fees associated with them. She declines. [place] Not available 07/19/2016 14:23:26 08/02/2016 [id number] We discussed the pros and cons of a thyroid biopsy. Risks include bleeding, bruising, infection, and inappropriate surgery. Benefits include providing you with better information about the thyroid nodule and catching cancer early if present. You would like to think this over. [place] Not available 08/02/2016 12:50:29 02/07/2017 [id number] We discussed follow up after a thyroid nodule biopsy. I suggest no heavy lifting or straining for the rest of the day. Some people develop mild bruising or bleeding after the biopsy. I suggest pressure and a cold pack for 20min after the procedure and as needed thereafter. Yrcp-jvz-haykjii tylenol (acetaminophen) is helpful for pain, for example 325 to 650mg by mouth every 4 hours as needed over the next day. Please avoid Non-steroidal Anti-inflammatory Drugs (NSAIDS) or aspirin as this may increase bruising or bleeding. I recommend reviewing the results in person in clinic in 1 to 2 weeks, so please make this overbook appointment. If you have any questions or problems, please call the office ([place] [phone]; [place] [phone]). [facility] Not [facility] 02/07/2017 11:51:25 Reason for Referral None Reported. Results Created Date Observation Date Name Description Value Unit Range Abnormal Flag Note LastModifiedBy Organization Detail LastModifiedTime 08/02/20 16 08/02/2016 US, thyro id OBSERV ATION: [facility], Metabo lism and Nutrit ion [facility] [address] [place] [address] Tel ; Fax Thyroi d Ultras ound Date of exam: 6 Clinic al histor y and indica tion: right thyroi d nodule incide ntally noted on exam Techni que: Multip le transv erse and longit udinal real-t dave images were obtain ed throug h the patien t's thyroi d gland. No images are availa ble for compar maria. All measur ements are sagitt al x geeta -poste rior x transv erse. The right lobe is homoge nous and measur es 3.7 x 1.2 x 2cm, with a volume of 5mL. The right thyroi d lobe includ es 3 nodule s. A domina nt right mid lobe/r ight isthmu s comple x nodule measur es 2.8 x 1.6 x 1.4cm, has periph eral greate r than centra l hyperv ascula rity, a possib ly irregu lar border , and no clear calcif icatio ns. 2 additi onal hypoec hoic nodule s are noted in the right thyroi d, and these nodule s have regula r border s, no increa sed vascul arity and no calcif icatio ns. The right mid lobe nodule measur es 0.6 x 0.3 x 0.5cm and the right upper lobe nodule measur es 0.8 x 0.5 x 0.5cm. No signif icant adenop athy is identi fied on the right. The isthmu s shares the right mid lobe nodule , is homoge nous, and has a depth of 0.3cm. The left lobe is homoge nous and measur es 3.4 x 1.2 x 1.5cm, with a volume of 3mL. The left thyroi d lobe includ es no nodule s. There are no micro- calcif icatio ns. No signif icant adenop athy is identi fied on the left. IMPRES KAMERON: 1. Domina nt right mid lobe/r ight isthmu s 2.8cm comple x nodule with periph eral greate r than centra l vascul arity and possib ly irregu lar border 2. 2 additi onal subcen timete r right thyroi d nodule s, which are not clinic ally signif icant 3. No signif icant adenop athy 4. Recomm end biopsy of the right isthmu s/righ t mid lobe 2.8cm thyroi d nodule Electr onical ly signed Cele Patel bsuhra: Marjan tom [facility] (Imaging) [address], [place], [address], 08/12/2016 11:35:32 Result Notes None recorded. Procedures Surgical History Date Name Laterality Status Provider Name and Address Organization Details Recorded Time 02/08/20 17 Thyroid Biopsy completed Maurisio Trevizo MD [address] [place] [address], [phone], [facility] 02/07/2017 12:34:13 11/10/19 15 Cholecystectomy completed Sarahy Encarnacion RN BSN [address] [place] [address], [phone], [facility] 07/19/2016 13:25:04 11/10/19 12 Unlisted procedure breast completed Maurisio Trevizo MD [address] [place] [address], [phone], [facility] 07/19/2016 13:46:57 11/10/19 00 Other (specify) completed Sarahy Encarnacion RN BSN [address] [place] [address], [phone], [facility] 07/19/2016 13:26:12 11/10/18 59 Appendectomy completed Sarahy Encarnacion RN BSN [address] [place], [address], [facility] 07/19/2016 13:26:24 Imaging Results Imaging Date Name Status LastModified by Organiz ation Details LastModified Time 08/02/2016 US, thyroid active [facility] ([facility]) [address], [place], [address], 08/12/2016 11:35:32 Procedure Notes None recorded. Medical Equipment None Reported. Allergies Allergen ID Allergen Name Allergen Category Reaction Reaction Severity Criticality Documentation Date Start Date Code Code System Note Provider Name and Address Organization Details Recorded Time 19180209 Demerol medicatio n Not available Not available Not available 07/19/2016 97946 1 RxNorm Sarahy Encarnacion RN BSN [address] [place], [address], [facility] 6 13:27:05 866512 Product containin g penicilli n (product) medicatio n Not available Not available Not available 07/19/2016 56634 8001 SNOMED Sarahy Encarnacion RN BSN [address] [place], [address], [facility] 6 13:27:15 Medications Name Sig Start Date Stop Date Status Note LastModified by Organization Details LastModified Time azithromycin 250 mg tablet 07/19 completed Not Available Not Available Not Available sulfamethoxazole 800 mg-trimethoprim 160 mg tablet 07/19 completed Not Available Not Available Not Available oxycodone-acetam inophen 5 mg-325 mg tablet 07/19 completed Not Available Not Available Not Available gabapentin 300 mg capsule 07/19 completed Not Available Not Available Not Available lorazepam 1 mg tablet 07/19 completed Not Available Not Available Not Available fluticasone propionate 50 mcg/actuation nasal spray,suspension 07/19 completed Not Available Not Available Not Available oxycodone 5 mg tablet 07/19 completed Not Available Not Available Not Available peg 3350 240 gram-electrolyte s 22.72 gram-6.72 g-5.84 g powdr for soln 07/19 completed Not Available Not Available Not Available Vitals Date Recorded Body height Body weight Body mass index (BMI) Heart rate Systolic blood pressure Diastolic blood pressure Provider Name and Address Organization Details Last Updated DateTime 7 175.26 cm 396894. 73 g 39.4 kg/m2 66 /min 118 mm[Hg] 62 mm[Hg] Getachew Zhao LPN [facility] 7 11:14:51 Date Recorded Body weight Body height Body mass index (BMI) Heart rate Systolic blood pressure Diastolic blood pressure Provider Name and Address Organization Details Last Updated DateTime 6 189091. 94 g 175.26 cm 39.9 kg/m2 64 /min 122 mm[Hg] 66 mm[Hg] HAILEY Matta [address] [place], [address] [place] [address] 6 13:30:50 Date Recorded Body height Body weight Body mass index (BMI) Heart rate Systolic blood pressure Diastolic blood pressure Provider Name and Address Organization Details Last Updated DateTime 6 175.26 cm 854157. 32 g 39.5 kg/m2 62 /min 122 mm[Hg] 62 mm[Hg] HAILEY Matta [address] [place], [address] [place] [address] 6 11:10:37 Social History Question Answer Notes LastModified by Organizat ion Details LastModified Time Tobacco Smoking Status Never Smoker 08/02/16 HAILEY Matta [address] [place], [address], [facility] 07/19/2016 13:23:54 What Is Your Level Of Alcohol Consumption? Occasional On Special Occasions, 08/02/16 Information not available 07/19/2016 Which Illicit Or Recreational Drugs Have You Used? 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 Mental Status None recorded. Family History Relationship Description Onset Age of this Age Resolved Age Notes LastModified by Organization Details LastModified Time Father Pulmonary emphysema 74 [email or web address] Not available 2015 13:21:58 Mother Myocardial infarction 73 [email or web address] Not available 07/19 13:22:17 Brother Hyperlipidem ia [email or web address] Not available 2015 13:22:26 Brother Myocardial infarction 34 [email or web address] Not available 07/19 13:22:40 Paternal Grandfather Myocardial infarction [email or web address] Not available 07/19 13:22:56 Paternal Grandmother Glaucoma [email or web address] Not available 07/2016 13:23:10 Maternal Grandfather Arthritis [email or web address] Not available 13:23:23 Medical History Condition Response Obesity Y Breast Cancer Y Gynecological HistoryNo gynecological history recorded. Obstetrics History GPAL:G 0 P 0 0 0 0 Past Encounters Encounter ID Performer Location Encounter Start Date Encounter Closed Date Diagnosis/Indication Diagnosis SNOMED-CT Code Diagnosis ICD10 Code Diagnosis Note [id number] Maurisio Trevizo MD [facility], [address] [address] 07/19/2016 13:04:55 07/19/2016 14:34:07 Obese class II 6542991166 67808 E66.9 Abnormal weight gain 161 006594 R63.5 Chronic back pain 440508 002 M54.9 Uninodular goiter 098541 006 E04.1 [id number] Maurisio Trevizo MD [facility], [address] [address] 08/02/2016 11:00:04 08/02/2016 13:28:09 Non-toxic nodular goiter 969822240 E04.9 [id number] Maurisio Trevizo MD [facility]ocr[facility], [address] [address] 02/07/2017 10:51:08 02/07/2017 12:25:50 Non-toxic nodular goiter 856863052 E04.9 Health Concerns Section Related Observation LastModified by Organization Detai ls LastModified Time None Recorded Concern Status LastModified by Organization Details LastModified Time None Recorded Advance Directives Directive None Recorded Payers Encounter Date Sequence Insurance Name Policy Number Policy Fererr Covered Member ID Ferrer Member ID Guarantor Name 07/19/2016 1 [place] [employer] [place] Dolly Diaz [id number] Dolly Joe 07/19/2016 2 [place] [id number] Dolly Becerra Joe [id number] Dolly Joe 08/02/2016 1 [place] Dolly Kim Joe [id number] Dolly Joe 08/02/2016 2 [place] [id number] Dolly L Joe [id number] Dolly Joe 02/07/2017 1 [place] Dolly Julio Joe [id number] Dolly Joe 02/07/2017 2 [place] [id number] Dolly L Joe [id number] Dolly Joe Notes Date Note Type Note Provider Name and Address Organization Details Recorded Time 07/19/2016 text/html 70yo woman, with a history of breast cancer, status post left lumpectomy, kindly referred by Dr. Garber for fatigue, class II obesity and inability to lose weight. 02/08/16 hgb 14.9g/dL, glc 91mg/dL, creatinine <0.5mg/dL, K 4.3mmol/L, 11/06/15 ft4 0.88ng/dL (ref 0.9, 1.7), ft3 2.7pg/mL (ref 2, 4.4), tsh 2.5mU/L, 10/16/15 tsh 2.4mU/L, lipase 32 (ref 16, 63). Normal tsh suggests adequate thyroid hormone. she went to [facility] for 4y, can't get rid of weight; is losing weight fhx mi mom 70y; brother first heart attack 34y, brother high cholesterol when she hit menopause, she started to gain weight lost 25lb on [place], maintain for 3y joined [facility] stress of brain tumor, worsens weight, she stress eats; she tracks nutrition, ie this week she angel floor grinder and chips for bday, up 3lb, then lost this weight again later in the weekshe is unsure if salt and bread contributed most to the weight she eats 20 to 30 chips and 2 scoops ice cream once in the past week, klondike once in the last week brk egg 2 scrambled , quiche cups from the [employer] coushatta diet, no bread tomato juice cup of coffee, cut out artificial creamer; lunch hard boiled egg erickson and relish, coffee no [id number] pizza half of thispork chop each the night before onions peppers mushbroom vegetable broccoli, cucumber no bone breaks or fractures since arm 8yo no large red stretch toscano no difficulty standing or combing hair she sometimes has a weak ankle for a few seconds no falls no exercise, back out for a while, she has spinal stenosis, she use to walk 3mi daily, she now has hip right side when walking, she has given up walking; she used to garden back dr advises no gym -see a personal loan specialist to learn about upper extremity light weight training, avoid exercises involing hip and back -reduce/limit rice pilaf, pizza, ice cream, chips Maurisio Trevizo MD [address] [place] [address], [address], [facility] 07/19/2016 14:28:51 02/07/2017 text/html she has had some hoarseness since the holidays, this is worsening, sometimes she feels a long conversation is a strain Maurisio Trevizo MD [address] [place] [address], [address], [facility] 02/07/2017 12:37:08 OBGyn Episode No OBEpisode recorded.
--- OUTSIDE RECORDS SUMMARY | 2025-01-24 14:37 | XMS_ITS ---
Author Organization [facility] Address [address] [place] [address] Care Team Providers Care Insurance Checker Name Role Phone Lamont Garber MD Primary Care Provider Tash Dan Unavailable [phone] Kiran Nagel [phone] REASON FOR VISIT bought product Encounters Encounter Location Date Provider Diagnosis [address] [address] 06/23/2024 Kiran Nagel Plan Of Treatment Next Appt Details Provider Name:Tash rios, 03/31/2025 01:45:00 PM, [address] [place] [address], [address], Progress Notes * Dolly DIAZ FDOB:1945 (78 yo F)Acc No.[id number]:06/23/2024 Patient:?Dolly Diaz :1945???Age:78 Y???Sex:Female Address:[address] [place] [address] * true * Date:? Generated for Printi ng/Faleong/eTransmitting on:?01/24/2025 02:37 PM EDT
--- OUTSIDE RECORDS SUMMARY | 2025-01-24 14:38 | XMS_ITS ---
Author Organization [facility] Address [address] [place] [address] Care Team Providers Care Machine Bunch Maker Name Role Phone Lamont Garber MD Primary Care Provider Tash Dan Unavailable [phone] Allergies Allergen (clinical drug ingredient) Drug/Non Drug Allergy documented on EMR Reaction Allergy Type Onset Date Status Bactrim Unknown Drug Allergy Active ChloraPrep One Step Unknown Drug Allergy Active meperidine Demerol Unknown Drug Allergy Active Adhesive Tape Unknown Drug Allergy Act ben Latex Latex Unknown Allergy Active Penicillin hives, itching Drug Allergy A ctive REASON FOR VISIT Painful nail(s) aggravated by shoes causing difficulty standing/walking Medications Medication SIG (Take, Route, Frequency, Duration) Notes Start Date End Date Status Voltaren 1 % as directed Externally Active Ammonium Lactate 12 % 1 application to affected area Externally Twice a day to dry areas of skin on feet for 30 days Active Lisinopril Active Physical Therapy . . . 2-3x/week for 3- 4 weeks Not-Taking Jardiance 10 MG 1 tablet Orally Once a day Active Aleve PRN Not-Taking Doxycycline Hyclate 100 MG 1 capsule Orally Once a day for 5 days 04/24/2021 Not-Taking Xarelto 20 MG 1 tablet with food Orally Once a day for 30 day(s) Active Pantoprazole Sodium 40 MG 1 tablet Orall y Once a day for 30 day(s) Active Propafenone HCl 150 MG 1 tablet Orally e very 8 hrs for 30 day(s) Active lasix Active Breo Ellipta Active Social History Tobacco Use: Social History Observation Description Date Details (start date - stop date) Former Smoker NA - NA Tobacco Use/Smoking Question Answer Notes Are you a: former smoker Additional Findings: Tobacco Non-User Current no n-smoker Tobacco use other than smoking: Question Answer Notes Are you an other tobacco user? No Vital Signs Height 5 ft 9in in 09/16/2024 Weight 252 lbs 09/16/2024 BMI 37.21 kg/m2 09/16/2024 Procedures Procedure Date Ordered Date Performed Result [place] e 69750-[id number] NAIL, 6 OR MORE 09/16/2024 N/A Encounters Encounter Location Date Provider Diagnosis [facility] [address] [address] 09/16/2024 Tash Key Onychomycosis B35.1 ; Pain in right toe(s) M79.674 and Pain in left toe(s) M79.675 Assessments Encounter Date Diagnosis (ICD Code) Assessment Notes Treatment Notes Treatment Clinical Notes Section Notes 09/16/2024 Onychomycosis (ICD-10 - B35.1) 09/16/2024 Pain in right toe(s) (ICD-10 - M79.674) 09/16/2024 Pain in left toe(s) (ICD-10 - M79.675) Plan Of Treatment Pending Test Test Name Order Date [id number] NAIL, 6 OR MORE 09/16/2024 Next Appt Details Follow Up: 3 Months, Reason: Provider Name:Tash rios, 03/31/2025 01:45:00 PM, [address] [place] [address], [phone], Procedure Notes * Category Sub-Category Detail Notes Debride Nail 6-10 Nail debridement Performance o f this nail treatment by a nonprofessional would put this patients foot and overall health at risk. Therefore, debridement to affected nail(s) as described in exam was performed extensively to reduce/remove overall nail length, girth, thickness, subungual debris, and necrotic tissue, by manual and/or electrical means through the use of a nail nipper and/or dremel-type horseradish grinder, to a more viable healthy nail plate or bed tissue 6-10. Silver nitrate used for any petechial bleeding as necessary. Definitive antifungal treatment options have been reviewed and discussed with the patient. The patient chooses, no pharmaceutical tx - 27451 Progress Notes * Dolly DIAZ FDOB:1945 (79 yo F)Acc No.[id number]:09/16/2024 Progress Note Patient:Dolly Frederick Provider:?Tash Key DPM :1945???Age:79 Y???Sex:Female D ate:09/16/2024 Address:[address] [place], [place] [id number] Pcp:Lamont Garber MD Subjective: * Chief Complaints: * ???Painful nail(s) aggravate d by shoes causing difficulty standing/walking * HPI: ???Painful Nails:?Pt States Last PCP Visit:?Date:?04/21/2024 * ROS:?General/Constitutional:?Nausea?denies.?Vomiting?denies.?Hunger Thirst?denies.?Loss appetite?denies.?Chills?denies.?Fatigue?denies.?Fever?denies.?Night Sweats?denies.?Unexplained weight loss?denies.?Ophthalmologic:?Blurred vision?denies.?Red eye?denies.?HEENTM:?Dentures?denies.?Dizziness?denies.?Glasses/contacts?admits.?Retinopathy?de nies.?Blurred/double vision?denies.?TMJ?denies.?Discharge/drainage?denies.?Implants?denies.?Hard of hearing denies.?Difficulty chewing/swallowing/speaking?denies.?Nose bleeds?denies.?Sore mouth?denies.?Swollen glands?denies.?Respiratory:?On Oxygen?denies.?Pneumonia/pleurisy?denies.?Bronchitis?denies.?Emphysema?denies.?C oughing?denies.?Cough blood?denies.?Shortness of breath?denies.?Wheezing?denies.?Cardiovascular:?Pacemaker?denies.?MVP?denies.?WPW?denies.?CHF?denies.?Heart attack?denies.?Septal defect?denies.?Rapid beat?denies.?Chest pain ?denies.?Atrial Fib.?denies.?Murmur/Palpitations?denies.?Gastrointestinal:?Hemorrhoids?denies.?Stomach/Abdominal pain?denies.?Dark blood stool?denies.?Irritable bowel ?denies.?Constipation?denies.?Diarrhea?denies.?Vomiting?denies.?Hematology:?Swelling?denies.?Bruising?denies.?Bleeding problem?denies.?Genitourinary:?Blood urine?denies.?Frequent/Painfu/urination/bladder control?denies.?Kidney stones?denies.?Infection (UTI)?denies.?Nephropathy?denies.?Musculoskeletal:?Hammertoes?denies.?Bunions?denies.?Scoliosis/kyphosis?denies.?Muscle cramps / walking?denies.?Generalized aches and pains?denies.?Weakness?denies.?Integ.:?Eldridge?denies.?Scars?denies.?Corns/calluses?denies.?Ingrown nails?denies.?Painful nails?denies.?Rashes?denies.?Neurologic:?Difficulty sleeping?denies.?Bipolar?denies.?Brain disorder?denies.?Balance trouble?denies.?Confusion?denies.?Fainting/blackouts?denies.?Headache?denies.?Tr emors?denies.? * Medical History:? * Surgical History:?Breast can cer surgery. 2009/2011appendectomy 1959gingervecemy 1970left knee surgery, repair tear in [place] 06/09/14removal of gallbladder 08/2014hysterectomy, abdominal 2018 * Hospitalization/Major Diagno stic Procedure:?[facility]- Gallbladder blockage 05/17/15 * Family History:?Mother: dece ased, diagnosed with Unspecified essential hypertension, Unspecified heart disease.?Father: , foot problems.?Daughter(s): alive.?Son(s): alive.?Siblings: heart attack.?Spouse: alive.?1 son(s) , 1 daughter(s) . .? * Social History:?Tobacco Use:?Tobacco Use/Smoking?Are you a:?former smoker ?Additional Findings: Tobacco Non-User?Current non-smoker ?Tobacco use other than smoking?Are you an other tobacco user??No ???Miscellaneous:?Caffeine: yes, 2-3 cups per day. ?Children: yes, two. ?no Exercise. ?Marital status: . ?Occupation: Retired-Realtor. * Medications:?TakingAmmonium Lactate 12 % Cream 1 application to affected area Externally Twice a day to dry areas of skin on feetVoltaren 1 % Gel as directed Externally Lisinopril Jardiance 10 MG Tablet 1 tablet Orally Once a daylasix Breo Ellipta Propafenone HCl 150 MG Tablet 1 tablet Orally every 8 hrsPantoprazole Sodium 40 MG Tablet Delayed Release 1 tablet Orally Once a dayXarelto 20 MG Tablet 1 tablet with food Orally Once a dayTaking Ammonium Lactate 12 % Cream 1 application to affected area Externally Twice a day to dry areas of skin on feetTaking Voltaren 1 % Gel as directed Externally Taking Lisinopril Taking Jardiance 10 MG Tablet 1 tablet Orally Once a dayTaking lasix Taking Breo Ellipta Taking Propafenone HCl 150 MG Tablet 1 tablet Orally every 8 hrsTaking Pantoprazole Sodium 40 MG Tablet Delayed Release 1 tablet Orally Once a dayTaking Xarelto 20 MG Tablet 1 tablet with food Orally Once a dayNot-Taking/PRNPhysical Therapy . . . . 2-3x/weekDoxycycline Hyclate 100 MG Capsule 1 capsule Orally Once a dayAleve , Notes: PRNMedication List reviewed and reconciled with the patientNot-Taking/PRN Physical Therapy . . . . 2-3x/weekNot-Taking/PRN Doxycycline Hyclate 100 MG Capsule 1 capsule Orally Once a dayNot-Taking/PRN Aleve , Notes: PRNMedication List reviewed and reconciled with the patient * Allergies:?DemerolAdhesive T apeBactrimChloraPrep One StepPenicillin: hives, itchingLatexyes[Allergies Verified] Objective: * Vitals:?Ht: 5 ft 9in, Wt: 25 2, BMI: 37.21, Shoe size: 11, Ht-cm: 175.26 cm, Wt- k.31 kg. * Examination: ???General Examination: ?GENERAL APPEARANCE:?pleasant, alert, well nourished, well developed, well hydrated, with good attention to hygene/body habitus, and in no acute distress.?ORIENTED:?person,place, and time.?Neurological: ?SENSORY:?Neurological exam reveals intact sensorium, pain sensation normal, vibration sensation intact, pinprick sensation is normal in the lower extremities, Pt denies, anesthesia, burning, paresthesia, tingling, B/L.?Vascular: ?DP PULSES(B):?2/4, B/L.?PT PULSES(B):?2/4, B/L.?CAPILLARY FILL TIME:?3 secs. per digit. B/L.?TROPHIC CONDITION-TEXTURE/ELASTICITY/TURGOR/HAIR GROWTH(B):?normal, B/L.?TEMPERTURE GRADIENT(C):?normal, B/L.?PIGMENTATION:?normal, B/L.?EDEMA(C):?absent, B/L.?TELANGECTASIA:?absent, B/L.?Dermatologic: ?SKIN FINDINGS:?Skin exam reveals normal texture, elasticity, and tugor. There are no masses. The interspaces are clear.?Nails: ?NAILS are:?Elongated, overgrown, dystrophic, lytic, greater than 3mm thick, discolored and friable with crumbly malodorous subungual debris, with pain on palpation TA, T1, T3, T4, T5, T9 .?Orthopedic: ?MUSCLE STRENGTH:?5/5 all groups in a symmetrical fashion , B/L.? Assessment: * Assessment: 1.?Pain in right toe(s) - M7 9.674?2.?Onychomycosis - B35.1?3.?Pain in left toe(s) - M79.675? Plan: * Treatment: * Procedures:?Debride Nail 6-10:?Nail debridement?Performance of this nail treatment by a nonprofessional would put this patients foot and overall health at risk. Therefore, debridement to affected nail(s) as described in exam was performed extensively to reduce/remove overall nail length, girth, thickness, subungual debris, and necrotic tissue, by manual and/or electrical means through the use of a nail nipper and/or dremel-type horseradish grinder, to a more viable healthy nail plate or bed tissue 6-10. Silver nitrate used for any petechial bleeding as necessary. Definitive antifungal treatment options have been reviewed and discussed with the patient. The patient chooses, no pharmaceutical tx - 89192.? * Procedure Codes:?06177 REFUGIO MIRELES NAIL, 6 OR MORE * Follow Up:?3 Months * Images: * Sign off status: Completed true * Provider:?Tash Key DPM Date:?11/16/2023 Generated for Rusty rabago/Erum/Camacho on:?01/24/2025 02:37 PM EDT History and Physical Notes * HPI (History of Present Illness) Category Sub-Category Detail Notes Category Not es Painful Nails Pt States Last PCP Visit: Date:: 04/21/2024 Examination Category Sub-Category Detail Notes Category Not es Neurological SENSORY: Neurological exa m reveals intact sensorium, pain sensation normal, vibration sensation intact, pinprick sensation is normal in the lower extremities, Pt denies, anesthesia, burning, paresthesia, tingling, B/L Dermatologic SKIN FINDINGS: Skin exam reveal s normal texture, elasticity, and tugor. There are no masses. The interspaces are clear Orthopedic DIGITAL DEFORMITIES: MUSCLE STRENGTH: 5/5 all groups in a symmetrical fashion , B/L General Examination GENERAL APPEARANCE: pleasant , alert, well nourished, well developed, well hydrated, with good attention to hygene/body habitus, and in no acute distress ORIENTED: person,place, and ti me Vascular DP PULSES (B): 2/4, B/L PT PULSES (B): 2/4, B/L CAPILLARY FILL TIME: 3 secs. per digit. B/L TEMPERTURE GRADIENT (C): normal, B/L TROPHIC CONDITION-TEXTURE/ELASTICITY/TUR GOR/HAIR GROWTH (B): normal, B/L EDEMA (C): absent, B/L TELANGECTASIA: absent, B/L PIGMENTATION: normal, B/L Nails NAILS are: Elongated, overg rown, dystrophic, lytic, greater than 3mm thick, discolored and friable with crumbly malodorous subungual debris, with pain on palpation TA, T1, T3, T4, T5, T9
--- OUTSIDE RECORDS SUMMARY | 2025-01-24 14:38 | XMS_ITS | Clinical Summary ---
Author Organization [facility] Address [address] [place] [address] Phone Care Team Providers Care Interior Decorator Name Role Phone Lamont Garber MD Primary Care Provider [phone] Allergies Active Allergy Reactions Criticality Noted Date Comments Bee Venom Protein (Honey Bee) 2017 Chlorhexidine Gluconate 10/19/2018 Latex 10/19/2018 Meperidine 10/19/2018 Penicillins 10/19/2018 Sulfamethazine 10/19/2018 Sulfamethoxazole-Trimethoprim 2017 Medications ascorbic acid (VITAMIN C) 500 mg tablet Take 1 tablet (500 mg total) by mouth daily. Active alpha tocopherol (VITAMIN E) 268 mg (400 unit) capsule Take 1 capsule (400 Units total) by mouth daily. Active empagliflozin (JARDIANCE ORAL) Take by mouth. Active lisinopriL (PRINIVIL,ZESTR IL) 5 mg tablet Take 1 tablet (5 mg total) by mouth 1 (one) time each day. Active pantoprazole (PROTONIX) 40 mg EC tablet Take 1 tablet (40 mg total) by mouth every morning on an empty stomach. Active propafenone (RYTHMOL) 150 mg tablet Take 1 tablet (150 mg total) by mouth every 8 hours. Active pyridoxine (B-6) 100 mg tablet Take 1 tablet (100 mg total) by mouth 1 (one) time each day. Active rivaroxaban (XARELTO) 20 mg tablet Take 1 tablet (20 mg total) by mouth every evening. Active cholecalciferol (VITAMIN D-3) 25 mcg (1,000 unit) tablet Take 1 tablet (1,000 Units total) by mouth daily. Active Active Problems Problem Noted Date Diagnosed Date Malignant neoplasm of overla pping sites of left breast in female, estrogen receptor positive 07/14/2024 Encounters Date Type Department Care Team Description 11/16/2024 10:15 AM EST Office Visit [facility] Hematology Oncology [address] [place] [phone] Alejandro Mead MD Malignant neoplasm of overlapping sites of left breast in female, estrogen receptor positive (CMS/HCC) (Primary Dx) from Last 3 Months Social History Tobacco Use Types Packs/Day Years Used Date Smoking Tobacco: Never Assessed Comments Unknown Sex and Gender Information Value Date Recorded Sex Assigned at Not on file Legal Sex Female 11:24 PM EST Gender Identity Not on file Sexual Orientation Not on file Obstetrics History Last Filed Vital Signs Vital Sign Reading Time Taken Comments Blood Pressure 124/37 11/16/2024 10:15 AM EST Pulse 60 11/16/2024 10:15 AM EST Temperature 36.1 ??C (97 ??F) 11/16/2024 10:15 AM EST Respiratory Rate - - Oxygen Saturation 100% 11/16/2024 10:15 AM EST Inhaled Oxygen Concentration - - Weight 113 kg (250 lb) 11/16/2024 10:15 AM EST Height 175.3 cm (5' 9 ) 04/24/2023 10:18 AM EDT Body Mass Index 36.92 04/24/2023 10:18 AM EDT Plan of Treatment Upcoming Encounters Date Type Department Care Team (Late st Contact Info) Description 08/15/2025 9:30 AM EDT [facility]ointment [facility] [address] [phone] 11/16/2025 9:00 AM EST Office Visit [facility] Hematology Oncology [address] [place] [phone] Alejandro Mead MD [address] [place] [phone] Health Maintenance Due Date Last Done Comments Zoster Vaccines (1 of 2) 1964 DTaP,Tdap,and Td Vaccines (2 - Td or Tdap) 07/11/2016 07/11/2006 RSV Immunization Patients 60+ Years Old (1 - 1-dose 75+ series) 2020 Depression Screening 10/13/2022 Falls Risk Assessment 10/13/2022 Osteoporosis Screening (Bone Density Screening) 10/13/2022 Social Influencers of Health Screening 10/13/2022 Medicare Annual Wellness Visit 03/21/2024 03/21/2023 COVID-19 Vaccine ( season) 2024 03/04/2022, 01/18/2021, 12/21/2020 Hypertension/CHF/CAD Annual BMP Blood Test 10/18/2025 10/18/2024, 03/15/2024, 01/22/2024, Additional history exists Cholesterol Screening (Lipid Panel) 10/18/2029 10/18/2024, 09/10/2023 Pneumococcal Vaccine: 50+ Years Completed 08/03/2015, 01/31/2012, 08/23/2010 Hepatitis C Screening Completed 10/05/2018, 018 Influenza Vaccine Completed 10/11/2024, , 08/22/2022, Additional history exists HIB Vaccines Aged Out No longer eligi ble based on patient's age to complete this topic HPV Vaccines Aged Out No longer eligi ble based on patient's age to complete this topic Hepatitis A Vaccines Aged Out No long er eligible based on patient's age to complete this topic Hepatitis B Vaccines Aged Out No long er eligible based on patient's age to complete this topic IPV Vaccines Aged Out No longer eligi ble based on patient's age to complete this topic MMR Vaccines Aged Out No longer eligi ble based on patient's age to complete this topic Meningococcal ACWY Vaccine Aged Out N o longer eligible based on patient's age to complete this topic Meningococcal B Vacine Aged Out No lo nger eligible based on patient's age to complete this topic RSV Immunization Patients Under 20 months Aged Out No longer eligible based on patient's age to complete this topic Varicella Vaccines Aged Out No longer eligible based on patient's age to complete this topic Procedures Procedure Name Priority Date/Time Associated Diagnosis Comments HISTORICAL IMAGING SCAN RESULT 11/15/2024 ANNUAL BMP BLOOD TEST Routine 09/10/2023 LIPID PANEL Routine 09/10/2023 HEPATITIS C SCREENING Routine 10/05/2018 from Last 3 Months or Most Recently Relevant to Health Maintenance Results * HISTORICAL IMAGING SCAN RESULT (11/15/2024) Anatomical Region Laterality Modality Ultrasound Provider Onbase IMG US PROCEDURES Final Resul t * Annual BMP Blood Test (09/10/2023) Pathologist [facility] Annual BMP Blood Test abstracted Historical Provider HEALTH MAINTENANCE Final Result * Lipid panel (09/10/2023) [facility] Triglycerides 0 mg/dL Comment:abstracted, no inter pretation Cholesterol 0 mg/dL Comment:abstracted, no inter pretation HDL 0 mg/dL Comment:abstracted, no inter pretation LDL Cholesterol 0.0 mg/dL Comment:abstracted, no inter pretation Blood Venous blood specimen / Unknown Historical Provider LAB BLOOD ORDERABLES Eva l Result * Hepatitis C Screening (10/05/2018) [facility] Hepatitis C Screening abstracted Historical Provider HEALTH MAINTENANCE Final Result from Last 3 Months or Most Recently Relevant to Health Maintenance Insurance MEDICARE [facility] Care Teams Interior Decorator Relationship Specialty Start Date End Date Lamont Garber MD [address] [place] [address] PCP - General Internal Medicine 10/19/18
--- OUTSIDE RECORDS SUMMARY | 2025-01-24 14:38 | XMS_ITS | Clinical Summary ---
Author Organization [facility] Address [address] [place] [address] Care Team Providers Care Sole Filler Name Role Phone Lamont Garber MD Primary Care Provider [phone] Allergies Active Allergy Reactions Criticality Noted Date Comments Sulfamethoxazole-Trimethoprim 2017 Bee Sting 10/19/2018 Chlorhexidine Gluconate 10/19/2018 Meperidine 10/19/2018 Latex 10/19/2018 Penicillins 10/19/2018 Sulfamethazine 10/19/2018 Medications Medication Sig Dispensed Refills Start Date End Date Status vitamin E 400 UNIT capsule Take 1 capsule (400 Units total) by mouth daily. 0 Active Pyridoxine HCl (VITAMIN B-6) 100 MG tablet Take 1 tablet (100 mg total) by mouth daily. 0 Active vitamin D3 (VITAMIN D3) 25 MCG (1000 UT) tablet Take 1 tablet (1,000 Units total) by mouth daily. 0 Active rivaroxaban (XARELTO) 20 MG TABS tablet Take 1 tablet (20 mg total) by mouth every evening. 0 Active propafenone (RHTHYMOL) 150 MG tablet Take 1 tablet (150 mg total) by mouth every 8 (eight) hours. 0 Active pantoprazole (PROTONIX) 40 MG tablet Take 1 tablet (40 mg total) by mouth every morning on an empty stomach. 0 Active ascorbic acid (VITAMIN C) 500 MG tablet Take 1 tablet (500 mg total) by mouth daily. 0 Active lisinopril (PRINIVIL,ZESTRIL) tablet 5 mg Take 1 tablet (5 mg total) by mouth daily. 0 Active Empagliflozin (JARDIANCE PO) Take by mouth. 0 Active Active Problems Problem Noted Date Diagnosed Date Malignant neoplasm of overla pping sites of left breast in female, estrogen receptor positive 10/19/2018 Social History Tobacco Use Types Packs/Day Years Used Date Smoking Tobacco: Never Assessed Sex and Gender Information Value Date Recorded Sex Assigned at Not on file Gender Identity Not on file Sexual Orientation Not on file Job Start Date Occupation Industry Not on file Not on file Not on file Last Filed Vital Signs Vital Sign Reading Time Taken Comments Blood Pressure 135/56 11/13/2023 10:42 AM EST Pulse 71 11/13/2023 10:42 AM EST Temperature 37.1 ??C (98.7 ??F) 11/13/2023 10:[address] Respiratory Rate - - Oxygen Saturation 99% 11/13/2023 10:42 AM EST Inhaled Oxygen Concentration - - Weight 116.6 kg (257 lb) 11/13/2023 10:42 AM EST Height 175.3 cm (5' 9 ) 04/24/2023 10:18 AM EDT Body Mass Index 37.95 04/24/2023 10:18 AM EDT Plan of Treatment Health Maintenance Due Date Last Done Comments COVID-19 Vaccine (#1) 1950 Depression Screening 1957 BMI Counseling 1963 Preventative Health Evaluation 1963 Shingrix-Zoster Vaccine (1 of 2) 1964 DTap / Tdap / Td (1 - Tdap) 07/12/2006 07/11/2006 Fall Risk Assessment 2010 Osteoporosis Screening (DEXA Scan) 2010 RSV Adult > 60+ Yrs or (1 - 1-dose 75+ series) 2020 Influenza Vaccine (#1) 2024 3, 08/22/2022, 08/08/2021, Additional history exists Pneumococcal Vaccine Completed 08/03/2015, 01/31/2012, 08/23/2010 Hepatitis C Screening Completed 10/05/2018 Hepatitis B Vaccines Aged Out No long er eligible based on patient's age to complete this topic RSV Ped < 20 months Aged Out No longe r eligible based on patient's age to complete this topic Care Teams Sole Filler Relationship Specialty Start Date End Date Lamont Garber MD [address] [facility] [place] [address] PCP - General Internal Medicine 10/19/18
--- OUTSIDE RECORDS SUMMARY | 2025-01-24 14:38 | XMS_ITS | Patient Health Record ---
Author Organization [facility] Address [address] [place] [address] Care Team Providers Care Assistant Professor Of Theater Name Role Phone Lamont Garber MD Primary Care Provider Tash Dan Unavailable [phone] Kiran Nagel Unavailable [phone] Allergies Allergen (clinical drug ingredient) Drug/Non Drug Allergy documented on EMR Reaction Allergy Type Onset Date Status Bactrim Unknown Drug Allergy Active ChloraPrep One Step Unknown Drug Allergy Active meperidine Demerol Unknown Drug Allergy Active Adhesive Tape Unknown Drug Allergy Act ben Latex Latex Unknown Allergy Active Penicillin hives, itching Drug Allergy A ctive Reason For Referral No Information Medications Medication SIG (Take, Route, Frequency, Duration) Notes Start Date End Date Status Propafenone HCl 150 MG 1 tablet Orally e very 8 hrs for 30 day(s) Active Breo Ellipta Active Lisinopril Active Voltaren 1 % as directed Externally Active lasix Active Jardiance 10 MG 1 tablet Orally Once a day Active Physical Therapy . . . 2-3x/week for 3- 4 weeks Not-Taking Xarelto 20 MG 1 tablet with food Orally Once a day for 30 day(s) Active Ammonium Lactate 12 % 1 application to affected area Externally Twice a day to dry areas of skin on feet for 30 days Active Aleve PRN Not-Taking Doxycycline Hyclate 100 MG 1 capsule Orally Once a day for 5 days 04/24/2021 Not-Taking Pantoprazole Sodium 40 MG 1 tablet Orall y Once a day for 30 day(s) Active Immunizations Vaccine Route Administration Date Status Comme nts COVID-19 Moderna Vaccine Unknown 03/04/2022 Administere d 12/21/20,01/18/21 Social History Tobacco Use: Social History Observation Description Date Details (start date - stop date) Never Smoker NA - NA Tobacco use other than smoking: Question Answer Notes Are you an other tobacco user? No Tobacco Control (Standard) Question Answer Notes Tobacco use: Nonsmoker Additional Findings: Tobacco non-user Current no nsmoker AUDIT-C (Standard) Question Answer Notes Did you have a drink containing alcohol in the p ast year? No Points 0 Interpretation Negative Problems Problem Type SNOMED Code ICD Code Onset Dates Problem Status W/U Status Risk Notes Problem Localized, primary osteoarthritis of the ankle and/or foot (346907375) Primary osteoarthrit is, right ankle and foot (M19.071) Active confirmed Problem Localized, primary osteoarthritis of the ankle and/or foot (845444405) Primary osteoarthrit is, left ankle and foot (M19.072) Active confirmed Problem Acquired hammer toe of right foot (4306315346617355) Other hammer toe(s) (acquired), right foot (M20.41) Active confirmed Problem Acquired hammer toe of left foot (7683416168055932) Other hammer toe(s) (acquired), left foot (M20.42) Active confirmed Vital Signs Blood pressure diastolic 60 mm Hg 12/09/2024 Height 5 ft 9in in 12/09/2024 Blood pressure systolic 136 mm Hg 12/09/2024 Weight 252 lbs 12/09/2024 BMI 37.21 kg/m2 12/09/2024 Procedures Procedure Date Ordered Date Performed Result Body Sit e 67269-ZSYDNCY NAIL, 6 OR MORE 09/16/2024 N/A 60982-QQBJOTR NAIL, 6 OR MORE 12/09/2024 N/A Encounters Encounter Location Date Provider Diagnosis [facility] [place] [address] [place] [address] 03/31/2024 Kiran Nagel Skin disease L98.9 ; Tinea unguium B35.1 ; Pain in right toe(s) M79.674 ; Pain in left toe(s) M79.675 ; Other hammer toe(s) (acquired), left foot M20.42 ; Other hammer toe(s) (acquired), right foot M20.41 ; Xerosis cutis L85.3 ; Metatarsalgia, left foot M77.42 ; Achilles tendinitis, right leg M76.61 and Ingrowing nail L60.[address] [address] 06/23/2024 Kiran Nagel Skin disease L98.9 ; Tinea unguium B35.1 ; Pain in right toe(s) M79.674 ; Pain in left toe(s) M79.675 ; Other hammer toe(s) (acquired), left foot M20.42 ; Other hammer toe(s) (acquired), right foot M20.41 ; Xerosis cutis L85.3 ; Metatarsalgia, left foot M77.42 ; Achilles tendinitis, right leg M76.61 and Ingrowing nail L60.[address] [address] 09/16/2024 Tash Key Onychomycosis B35.1 ; Pain in right toe(s) M79.674 and Pain in left toe(s) M79.[address] [address] 12/09/2024 Tash Key Pain in right toe(s) M79.674 ; Onychomycosis B35.1 and Pain in left toe(s) M79.[address] [address] 06/23/2024 Kiran Nagel Assessments Encounter Date Diagnosis (ICD Code) Assessment Notes Treatment Notes Treatment Clinical Notes Section Notes 03/31/2024 Tinea unguium (ICD-10 - B35.1) 03/31/2024 Skin disease (ICD-10 - L98.9) 06/23/2024 Tinea unguium (ICD-10 - B35.1) 06/23/2024 Skin disease (ICD-10 - L98.9) 09/16/2024 Pain in right toe(s) (ICD-10 - M79.674) 09/16/2024 Onychomycosis (ICD-10 - B35.1) 12/09/2024 Pain in right toe(s) (ICD-10 - M79.674) 12/09/2024 Onychomycosis (ICD-10 - B35.1) 09/16/2024 Pain in left toe(s) (ICD-10 - M79.675) 06/23/2024 Pain in right toe(s) (ICD-10 - M79.674) 03/31/2024 Pain in right toe(s) (ICD-10 - M79.674) 03/31/2024 Pain in left toe(s) (ICD-10 - M79.675) 06/23/2024 Pain in left toe(s) (ICD-10 - M79.675) 12/09/2024 Pain in left toe(s) (ICD-10 - M79.675) 06/23/2024 Other hammer toe(s) (acquired), left foot (ICD-10 - M20.42) 03/31/2024 Other hammer toe(s) (acquired), left foot (ICD-10 - M20.42) 03/31/2024 Other hammer toe(s) (acquired), right foot (ICD-10 - M20.41) 06/23/2024 Other hammer toe(s) (acquired), right foot (ICD-10 - M20.41) 03/31/2024 Xerosis cutis (ICD-10 - L85.3) 06/23/2024 Xerosis cutis (ICD-10 - L85.3) 03/31/2024 Metatarsalgia, left foot (ICD-10 - M77.42) 06/23/2024 Metatarsalgia, left foot (ICD-10 - M77.42) 06/23/2024 Achilles tendinitis, right leg (ICD-10 - M76.61) 03/31/2024 Achilles tendinitis, right leg (ICD-10 - M76.61) 03/31/2024 Ingrowing nail (ICD-10 - L60.0) 06/23/2024 Ingrowing nail (ICD-10 - L60.0) Plan Of Treatment Pending Test Test Name Order Date X ray : Ankle, right 2V 10/27/2018 X ray : Foot, left 3V 06/02/2014 X ray : Foot, right 3V 02/22/2015 X ray : Foot, right 3V 10/27/2018 X ray : Foot, right 3V 09/22/2013 X ray : Foot, right 3V 09/01/2017 X ray : Foot, right 3V 08/05/2017 98889-ZLKYPRA NAIL, 6 OR MORE 09/16/2024 46608-IOTWMGY NAIL, 6 OR MORE 12/09/2024 65177-Dlkhnmhg Plate 05/11/2014 56420- Removal of Foreign Body, Subcut 0 04/24/2021 Next Appt Details Provider Name:Tash Swift gabriel, 03/31/2025 01:45:00 PM, [address] [place], [address], Insurance Providers Payer Name Payer Address Payer Phone Subscriber Number Group Number Insured Name Patient Relationship to Insured Coverage Start Date Coverage End Date Medicare National Govt Svcs Inc [address] [place] [address] [id number] Dolly Diaz Self - patient is the insured [employer] Blue [employer] [address] [place] [address] [id number] Jorge Alberto Diazna Self - patient is the insured Medical (General) History Medical History History ICD Code back, hip, knee pain cancer chicken pox measles mumps Surgical History Surgery Date(Month/Year) Breast cancer surgery. appendectomy 1958 gingervecemy 1970 left knee surgery, repair tear in [place] 06/09/14 removal of gallbladder 08/2014 hysterectomy, abdominal 2018 Hospitalization History Reason Date(Month/Year) [facility]- Gallbladder blockag e 05/17/15
--- OUTSIDE RECORDS SUMMARY | 2025-01-24 14:38 | XMS_ITS | Patient Health Record ---
Author Organization [facility] Address [address] [place] [address] Care Team Providers Care Employment Law Attorney Name Role Phone Lamont Garber MD Primary Care Provider Rashard Rivera Jr Unavailable [phone] Allergies Allergen (clinical drug ingredient) Drug/Non Drug Allergy documented on EMR Reaction Allergy Type Onset Date Status acetaminophen / codeine Acetaminophen-Co dei ne Unknown Drug Allergy Active general anistesia (uncoded) nausea Allergy Active chlora prep (uncoded) Unknown Allergy Active Latex latex (uncoded) Unknown Allergy Acti ve bee stings (uncoded) Unknown Allergy Active Penicillin Unknown Drug Allergy Active sulfamethoxazole / trimethoprim Sulfamethoxazole-Tr imethoprim Unknown Drug Allergy Active meperidine Demerol Unknown Drug Allergy Active Reason For Referral No Information Medications Medication SIG (Take, Route, Frequency, Duration) Notes Start Date End Date Status Vitamin E 100 UNIT 1 capsule Orally Onc e a day for 30 day(s) Active Tylenol PRN Active Breo Ellipta Active Vitamin C Active Vitamin D3 Active Vitamin B6 Active Propafenone HCl 150 MG TK 1 T PO TID Oral for 90 Active Pantoprazole Sodium 40 MG TK 1 T PO D ID N WHEN TAKING ALEVE Oral for 90 Active Xarelto 20 MG TK 1 T PO QD WITH FO OD Oral for 90 Active Immunizations Vaccine Route Administration Date Status Comme nts Flu vaccine no Preserv 3 and > Unknown 08/15/2015 Admin istered Influenza Unknown 07/11/2019 Administered Influenza Unknown 08/23/2020 Administered Problems Problem Type SNOMED Code ICD Code Onset Dates Problem Status W/U Status Risk Notes Problem 007095064 Colon cancer screening (Z12.11) Active confirmed Problem 57301722 Hypertension (I10) Active confirmed Problem 855077148 Gastroesophageal reflux disease without esophagitis (K21.9) Active confirmed Problem 21597484 Gallstone pancreatitis (K85.1) Active confirmed Plan Of Treatment Future Test Test Name Order Date COLONOSCOPY 10/25/2015 Insurance Providers Payer Name Payer Address Payer Phone Subscriber Number Group Number Insured Name Patient Relationship to Insured Coverage Start Date Coverage End Date MEDICARE OF [place] [address] [place] [address] [id number] ANNETTE OREN Self - patient is the insured [employer] ATT[employer] CLAIMS [address] [place] [address] [id number] ANNETTEOREN Self - patient is the insured Medical (General) History Medical History History ICD Code breast cancer colitis, nonspecific, 1997, last colonos copy 03/25 normal. gallstone pancreatitis status post ERCP afib hypertension asthma Surgical History Surgery Date(Month/Year) appendectomy 1958 back surgery 1999 cholecystectomy 2013 gingavectomy x2 lumpectomy, left breast 08/2011 hysterectomy full
--- OUTSIDE RECORDS SUMMARY | 2025-01-24 14:38 | XMS_ITS ---
Author Organization [facility] Address [address] [place] [address] Care Team Providers Care Pedodontist Name Role Phone Lamont Garber MD Primary Care Provider Tash Dan Unavailable [phone] Allergies Allergen (clinical drug ingredient) Drug/Non Drug [...] Duration) Notes Start Date End Date Status Physical Therapy . . . 2-3x/week for 3- 4 weeks Not-Taking Xarelto 20 MG 1 tablet with food Orally Once a day for 30 day(s) Active Aleve PRN Not-Taking Doxycycline Hyclate 100 MG 1 capsule Orally Once a day for 5 days 04/24/2021 Not-Taking Pantoprazole Sodium 40 MG 1 tablet Orall y Once a day for 30 day(s) Active Propafenone HCl 150 MG 1 tablet Orally e very 8 hrs for 30 day(s) Active Breo Ellipta Active Lisinopril Active lasix Active Jardiance 10 MG 1 tablet Orally Once a day Active Voltaren 1 % as directed Externally Active Ammonium Lactate 12 % 1 application to affected area Externally Twice a day to dry areas of skin on feet for 30 days Active Social History Tobacco Use: Social History [...] ast year? No Points 0 Interpretation Negative Vital Signs Height 5 ft 9in in 12/09/2024 Weight 252 lbs 12/09/2024 BMI 37.21 kg/m2 12/09/2024 Blood pressure systolic 136 mm Hg 12/09/19 25 Blood pressure diastolic 60 mm Hg 025 Procedures Procedure Date Ordered Date Performed Result Body Sit e 89008-AHDMSAS NAIL, 6 OR MORE 12/09/2024 N/A Encounters Encounter Location Date Provider Diagnosis [facility] [address] [address] 12/09/2024 Tash Maloneaker Pain in right toe(s) M79.674 ; Onychomycosis B35.1 and Pain in left toe(s) M79.675 Assessments Encounter Date Diagnosis (ICD Code) Assessment Notes Treatment Notes Treatment Clinical Notes Section Notes 12/09/2024 Pain in right toe(s) (ICD-10 - M79.674) 12/09/2024 Onychomycosis (ICD-10 - B35.1) 12/09/2024 Pain in left toe(s) (ICD-10 - M79.675) Plan Of Treatment Pending Test Test Name Order Date 55480-JFQCKAM NAIL, 6 OR MORE 12/09/2024 Next Appt Details Follow Up: 4 Months, Reason: Provider Name:Tash Maloneleilani gabriel, 03/31/2025 01:45:00 PM, [address] [place] [address], [address], Procedure Notes * Category Sub-Category Detail Notes Debride Nail 6-10 Nail debridement Due to the cl inical pathology outlined in the exam findings, performance of this nail treatment is medically necessary as its management by an unskilled/untrained nonprofessional would put this patients foot and overall health at risk. Therefore, debridement to affected nail(s), as described in exam ( TA, T1, T2, T3, T4, T5, T6, T7, T8, T9, ), was performed exclusively by the physician of record to reduce/remove overall nail length, girth, thickness, subungual debris, and necrotic tissue, by manual and/or electrical means through the use of a nail nipper and/or dremel-type bench grinder, to a more viable healthy nail plate or bed tissue 6-10 nails in total. Silver nitrate was used for any petechial bleeding as necessary. Definitive antifungal treatment options, both pharmaceutical and surgical, have been reviewed and discussed with the patient. The patient solely prefers the use of intermittent/as needed professional debridement services for their nail condition and understands the need for additional periodic treatments to maintain effectiveness in symptomatic relief - 52307 Progress Notes * Dolly DIAZ FDOB:1945 (79 yo F)Acc No.[id number]:12/09/2024 Progress Note Patient:?Dolly DIAZ Provider:?Tash Key DPM :1945???Age:79 Y???Sex:Female D ate:12/09/2024 Address:[address] [place], [place] [address] Pcp:Lamont Garber MD Subjective: * Chief Complaints: * ???Painful nail(s) aggravate d by shoes causing difficulty standing/walking * HPI: ???Painful Nails:?Pt States Last PCP Visit:?Date:?10/11/2024 * ROS:?General/Constitutional:?Nausea?denies.?Vomiting?denies.?Hunger Thirst?denies.?Loss appetite?denies.?Chills?denies.?Fatigue?denies.?Fever?denies.?Night Sweats?denies.?Unexplained weight loss?denies.?Ophthalmologic:?Blurred vision?denies.?Red eye?denies.?HEENTM:?Dentures?denies.?Dizziness?denies.?Glasses/contacts?admits.?Retinopathy?de nies.?Blurred/double vision?denies.?TMJ?denies.?Discharge/drainage?denies.?Implants?denies.?Hard of hearing denies.?Difficulty chewing/swallowing/speaking?denies.?Nose bleeds?denies.?Sore mouth?denies.?Swollen glands?denies.?Respiratory:?On Oxygen?denies.?Pneumonia/pleurisy?denies.?Bronchitis?denies.?Emphysema?denies.?C oughing?denies.?Cough blood?denies.?Shortness of breath?denies.?Wheezing?denies.?Cardiovascular:?Pacemaker?denies.?MVP?denies.?WPW?denies.?CHF?denies.?Heart attack?denies.?Septal defect?denies.?Rapid beat?denies.?Chest pain ?denies.?Atrial Fib.?denies.?Murmur/Palpitations?denies.?Gastrointestinal:?Hemorrhoids?denies.?Stomach/Abdominal pain?denies.?Dark blood stool?denies.?Irritable bowel ?denies.?Constipation?denies.?Diarrhea?denies.?Vomiting?denies.?Hematology:?Swelling?denies.?Bruising?denies.?Bleeding problem?denies.?Genitourinary:?Blood urine?denies.?Frequent/Painfu/urination/bladder control?denies.?Kidney stones?denies.?Infection (UTI)?denies.?Nephropathy?denies.?Musculoskeletal:?Hammertoes?denies.?Bunions?denies.?Scoliosis/kyphosis?denies.?Muscle cramps / walking?denies.?Generalized aches and pains?denies.?Weakness?denies.?Integ.:?Eldridge?denies.?Scars?denies.?Corns/calluses?denies.?Ingrown nails?denies.?Painful nails?denies.?Rashes?denies.?Neurologic:?Difficulty sleeping?denies.?Bipolar?denies.?Brain disorder?denies.?Balance trouble?denies.?Confusion?denies.?Fainting/blackouts?denies.?Headache?denies.?Tr emors?denies.? * Medical History:? * Surgical History:?Breast can cer surgery. ppendectomy 195gingervecemy 1970left knee surgery, repair tear in [place] 06/09/14removal of gallbladder 08/2014hysterectomy, abdominal 2018 * Hospitalization/Major Diagno stic Procedure:?[facility]- Gallbladder blockage 05/17/15 * Family History:?Mother: dece ased, diagnosed with Unspecified heart disease, Unspecified essential hypertension.?Father: , foot problems.?Daughter(s): alive.?Son(s): alive.?Siblings: heart attack.?Spouse: alive.?1 son(s) , 1 daughter(s) . .? * Social History:?Tobacco Use:?Tobacco use other than smoking?Are you an other tobacco user??No ?Tobacco Control (Standard)?Tobacco use:?Nonsmoker ?Additional Findings: Tobacco non-user?Current nonsmoker ???Drugs/Alcohol:?Drugs?Have you used drugs other than those for medical reasons in the past 12 months??No ???Miscellaneous:?Caffeine: yes, 2-3 cups per day. ?Children: yes, two. ?Exercise: no. ?Marital status: . ?Occupation: Retired-Realtor. ???Drug/Alcohol:?AUDIT-C (Standard)?Did you have a drink containing alcohol in the past year??No ?Points?0 ?Interpretation?Negative * Medications:?TakingAmmonium Lactate 12 % Cream 1 application to affected area Externally Twice a day to dry areas of skin on feet Voltaren 1 % Gel as directed Externally Lisinopril Jardiance 10 MG Tablet 1 tablet Orally Once a day lasix Breo Ellipta Propafenone HCl 150 MG Tablet 1 tablet Orally every 8 hrs Pantoprazole Sodium 40 MG Tablet Delayed Release 1 tablet Orally Once a day Xarelto 20 MG Tablet 1 tablet with food Orally Once a day Taking Ammonium Lactate 12 % Cream 1 application to affected area Externally Twice a day to dry areas of skin on feet Taking Voltaren 1 % Gel as directed Externally Taking Lisinopril Taking Jardiance 10 MG Tablet 1 tablet Orally Once a day Taking lasix Taking Breo Ellipta Taking Propafenone HCl 150 MG Tablet 1 tablet Orally every 8 hrs Taking Pantoprazole Sodium 40 MG Tablet Delayed Release 1 tablet Orally Once a day Taking Xarelto 20 MG Tablet 1 tablet with food Orally Once a day Not-Taking/PRNPhysical Therapy . . . . 2-3x/week Doxycycline Hyclate 100 MG Capsule 1 capsule Orally Once a day Edilma , Notes to Pharmacist: PRNMedication List reviewed and reconciled with the patientNot-Taking/PRN Physical Therapy . . . . 2-3x/week Not-Taking/PRN Doxycycline Hyclate 100 MG Capsule 1 capsule Orally Once a day Not-Taking/PRN Aleolaf , Notes to Pharmacist: PRNMedication List reviewed and reconciled with the patient * Allergies:?DemerolAdhesive T apeBactrimChloraPrep One StepPenicillin: hives, itchingLatexyes[Allergies Verified] Objective: * Vitals:?Ht: 5 ft 9in, Wt:252 , BMI: 37.21, Shoe size:11, BP:136/60mm Hg, Ht-cm: 175.26 cm, Wt-k.31 kg. * Examination: ???Nails: ?NAILS are:?Elongated, overgrown, dystrophic, lytic, greater than 3mm thick, discolored and friable with crumbly malodorous subungual debris, with pain on palpation, TA, T1, T2, T3, T4, T5, T6, T7, T8, T9.? Assessment: * Assessment: 1.?Pain in right toe(s) - M7 9.674???2.?Onychomycosis - B35.1 (Primary)???3.?Pain in left toe(s) - M79.675??? Plan: * Treatment: * Procedures:?Debride Nail 6-10:?Nail debridement?Due to the clinical pathology outlined in the exam findings, performance of this nail treatment is medically necessary as its management by an unskilled/untrained nonprofessional would put this patients foot and overall health at risk. Therefore, debridement to affected nail(s), as described in exam ( TA, T1, T2, T3, T4, T5, T6, T7, T8, T9, ), was performed exclusively by the physician of record to reduce/remove overall nail length, girth, thickness, subungual debris, and necrotic tissue, by manual and/or electrical means through the use of a nail nipper and/or dremel-type bench grinder, to a more viable healthy nail plate or bed tissue 6- 10 nails in total. Silver nitrate was used for any petechial bleeding as necessary. Definitive antifungal treatment options, both pharmaceutical and surgical, have been reviewed and discussed with the patient. The patient solely prefers the use of intermittent/as needed professional debridement services for their nail condition and understands the need for additional periodic treatments to maintain effectiveness in symptomatic relief - 12038.? * Procedure Codes:?96537 DEBRI DE NAIL, 6 OR MORE * Follow Up:?4 Months * Images: * Sign off status: Completed true * Provider:?Tash Key DPM Date:?0 12/09/2024 Generated for Rusty rabago/Erum/Camacho on:?01/24/2025 02:37 PM EDT History and Physical Notes * HPI (History of Present Illness) Category Sub-Category Detail Notes Category Not es Painful Nails Pt States Last PCP Visit: Date:: 10/11/2024 Examination Category Sub-Category Detail Notes Category Not es Nails NAILS are: Elongated, overg rown, dystrophic, lytic, greater than 3mm thick, discolored and friable with crumbly malodorous subungual debris, with pain on palpation, TA, T1, T2, T3, T4, T5, T6, T7, T8, T9
== END 2025-01-24 13:03 | disposition home or self-care (01) ==
LOC: HO.HCS 12:33
PROVIDERS: PCP Internal Medicine; Visit Provider Internal Medicine Cardiovascular Disease
DX: I50.30 Unspecified diastolic (congestive) heart failure (principal); I48.0 Paroxysmal atrial fibrillation
CPT/HCPCS: 93010; 99214; G2211

== ENCOUNTER → 2025-01-24 12:32 | Outpatient (BNVA) | payer MEDICARE, SELFPAY ==
[2023-01-09 09:05] VITALS: BP 106/60; BP 132/56; BP 150/74
== END ==
PROVIDERS: PCP Internal Medicine; Visit Provider Internal Medicine Cardiovascular Disease
DX: I50.30 Unspecified diastolic (congestive) heart failure (principal); I48.0 Paroxysmal atrial fibrillation; I51.7 Cardiomegaly; R94.31 Abnormal electrocardiogram [ECG] [EKG]
CPT/HCPCS: 93005; 99212

== ENCOUNTER 2025-07-28 12:20 | Outpatient (AMB) | payer MEDICARE, SELFPAY ==
[2023-01-09 09:05] VITALS: BP 106/60; BP 132/56; BP 150/74
--- NOTE | 2025-07-28 12:35 | A.OFFVIS_ITS ---
Vital Signs 07/28/25 12:36 Height 5 ft 6 in Weight 247 lb 5.738 oz BMI 39.9 BP 100/52 L Blood Pressure Location Rt brachial Position Sitting Pulse 55 Pulse Source Monitor Intake Visit Reasons: 6 mth f/up w/ ekg Development Technical Lead Required: No Allergies bee pollen (BEE STINGS) Allergy (Severe, Verified 07/28/25 12:38) ANAPHYLAXIS Penicillins (PENICILLINS) Allergy (Intermediate, Verified 07/28/25 12:38) HIVES chlorhexidine (CHLORAPREP) Allergy (Mild, Verified 07/28/25 12:38) RASH sulfamethoxazole (From BACTRIM) Allergy (Mild, Verified 07/28/25 12:38) DIARRHEA codeine (CODEINE) Allergy (Unknown, Verified 07/28/25 12:38) NAUSEA latex (LATEX) Allergy (Unknown, Verified 07/28/25 12:38) rash/itchy iodine povacrylex (From DuraPrep) Adverse Reaction (Verified 07/28/25 12:38) Rash isopropyl alcohol (From DuraPrep) Adverse Reaction (Verified 07/28/25 12:38) Rash Medication List - Last Reconciled 07/28/25 by Ba Calabrese MD albuterol sulfate 90 mcg/actuation (ProAir HFA) 2 puffs inhalation Q4-6H PRN cholecalciferol (vitamin D3) 25 mcg PO DAILY empagliflozin (Jardiance) 10 mg PO DAILY epinephrine (EpiPen) 0.3 mg (0.3 mL) IM Q15M PRN furosemide 20 mg PO DAILY lisinopril 5 mg PO DAILY pantoprazole 40 mg PO ONCE PRN propafenone 150 mg PO TID pyridoxine (vitamin B6) 25 mg PO DAILY rivaroxaban (Xarelto) 20 mg PO DAILY vitamin E (dl, acetate) 45 mg PO DAILY HPI Comments Details: Juan Jose comes for follow-up. No hospitalization in the last 6 months. She gets intermittent episodes of atrial fibrillation heart rate going up to 90s multiple times but they are not bothersome. Longest episodes lasted about an hour. She has no lightheadedness, syncope. No orthopnea, PND, leg edema. No exertional chest pain. Shortness of breath seems to have improved. She says blood pressure usually is in normal range. [facility] Medical History Myocardial injury Paroxysmal atrial fibrillation Sick sinus syndrome Surgical History Hx of knee surgery Hx of oral surgery Hx of colonoscopy Hx of hysterectomy History of back surgery Hx of lumpectomy History of cholecystectomy Hx of appendectomy Family History Father Emphysema lung Mother Sudden cardiac arrest Social History Household Members: Spouse Housing: House Do you presently have visiting nurse or other home services: No Alcohol intake: current Alcohol intake frequency: holidays/special occasions only Alcohol type: wine Patient Tobacco Use Status: Never used Tobacco e-Cigarette/Vaping Use: Never Used service: No Current occupational status: retired Review of Systems ENT Reports dizziness Card Denies chest pain, Denies chest pain at rest, Denies chest pain with activity, Denies rapid heart rate, Denies pedal edema, Denies edema, Denies leg edema, Denies lightheadedness, Denies palpitations, Denies dyspnea, Denies dyspnea on exertion and Denies orthopnea Resp Denies cough, Denies dyspnea and Denies dyspnea on exertion GI Denies hematochezia and Denies change in stool character Musc Denies abnormal gait, Reports limited range of motion, Reports muscle cramps, Denies muscle weakness, Denies numbness, Denies radiating pain into limb, Denies stiffness and Denies tingling Neuro Denies abnormal gait, Reports dizziness, Denies numbness and Denies tingling Endo Denies palpitations Physical Exam Vital Signs: Last Vital Signs Pulse 55 07/28/25 12:36 BP 100/52 L 07/28/25 12:36 BMI result Body Mass Index 39.9 Const General: cooperative, no acute distress, alert, awake and well groomed Nutritional Appearance: obese Orientation/consciousness: patient oriented x3 Limitations: no limitations Neck Neck: Yes trachea midline, Yes supple and Yes no JVD Resp Effort & Inspection: normal respiratory effort Auscultation: clear to auscultation bilaterally Cardio Jugular venous distension: no JVD Palpation: normal PMI Rate: regular rate Rhythm: regular rhythm Heart sounds: S1 normal heart sound present and S2 normal heart sound present GI Auscultation: normal bowel sounds Skin General skin exam: no rashes or lesions noted Neuro General: patient oriented x3 and no focal motor deficits Extrem General: Yes no clubbing, cyanosis or edema Psych Appearance: grossly normal Office Procedures EKG Details: EKG shows normal sinus rhythm with poor R-wave progression most likely due to body habitus and lead placement [id number], Complete Assessment & Plan Assessment & Plan (1) (HFpEF) heart failure with preserved ejection fraction: Code(s): I50.30 - Unspecified diastolic (congestive) heart failure Category: Medical Plan: Heart failure with preserved ejection fraction, clinically euvolemic and well compensated current diuretic dose and Jardiance therapy. Continue the same. Heart failure management discussed. Daily weight monitoring avoidance salt loading was discussed. Additional diuretics as need be. Continue aggressive blood pressure control which is currently well optimized. Encouraged to maintain activity level as tolerated participate in weight loss program (2) Paroxysmal atrial fibrillation: Code(s): I48.0 - Paroxysmal atrial fibrillation Category: Medical Plan: Paroxysmal atrial fibrillation which has remained without significant symptoms o f life limitations. Continue current propafenone dose. Would avoid uptitration given his slow heart rate. Continue full oral anticoagulation, currently on Xarelto 20 mg daily. Semi annual renal function test to be recommended. Stress mitigation strategies were discussed. Encouraged to participate in aggressive weight loss program. Continue aggressive blood pressure control. Avoidance of stimulants was discussed. Will follow up in the clinic in 6 months time, sooner p.r.n.. Thank you for allowing me to partake in her care Coding Level of Care Code Est Pt Level 4 (28649) Complex EM visit Add On G2211 Diagnoses (HFpEF) heart failure with preserved ejection fraction I50.30 Paroxysmal atrial fibrillation I48.0 CPT Codes EKG - CPT: 78801-[id number], Complete ([id number])
[2025-07-28 12:36] VITALS: BP 100/52; PULSE 55; BMI 39.9
--- OUTSIDE RECORDS SUMMARY | 2025-07-28 14:32 | XMS_ITS | Clinical Summary ---
Author Organization [facility] Address [address] [place] [address] Care Team Providers Care Fashion Editor Name Role Phone Lamont Garber MD Primary Care Provider [phone] Allergies Active Allergy Reactions Criticality Noted Date [...] 71 11/13/2023 10:42 AM EST Temperature 37.1 C (98.7 F) 11/13/2023 10:42 AM EST Respiratory Rate - - Oxygen Saturation 99% [...] 1-dose 75+ series) 2020 Influenza Vaccine (#1) 2025 3, 08/22/2022, 08/08/2021, Additional history exists Pneumococcal Vaccine Completed 08/03/2015, 01/31/2012, 08/23/2010 Hepatitis B Vaccines Aged Out No long er eligible based on patient's age to complete this topic RSV Ped < 20 months Aged Out No longe r eligible based on patient's age to complete this topic Care Teams Fashion Editor Relationship Specialty Start Date End Date Lamont Garber MD [address] [facility] [place] [address] PCP - General Internal Medicine 10/19/18
--- OUTSIDE RECORDS SUMMARY | 2025-07-28 14:32 | XMS_ITS | Clinical Summary ---
Author Organization [facility] Address [address] [place] [address] Phone Care Team Providers Care Haulage Engine Operator Name Role Phone Lamont Garber MD Primary Care Provider [phone] Allergies Active Allergy Reactions Criticality Noted Date [...] left breast in female, estrogen receptor positive ([facility] V24, [facility] V28) 07/14/2024 Social History Tobacco Use Types Packs/Day Years [...] 60 11/16/2024 10:15 AM EST Temperature 36.1 C (97 F) 11/16/2024 10:15 AM EST Respiratory Rate - [...] AM EDT Appointment [facility] [address] [phone] 11/16/2025 9:00 AM EST Office Visit [facility] [address] [place] [phone] Alejandro Mead MD [address] [place] [address] [phone] Health Maintenance Due Date Last Done Comments Zoster Vaccines (1 of 2) 1964 DTaP,Tdap,and Td Vaccines (2 - Td or Tdap) 07/11/2016 07/11/2006 RSV Immunization Adult Patients (1 - 1-dose 75+ series) 2020 Falls Risk Assessment 10/13/2022 Osteoporosis Screening (Bone Density Screening) 10/13/2022 Social Influencers of Health Screening 10/13/2022 Medicare Annual Wellness Visit 03/21/2024 03/21/2023 Depression Screening 11/10/2024 COVID-19 Vaccine ( season) 2025 03/04/2022, 01/18/2021, 12/21/2020 Influenza Vaccine (#1) 2025 , 09/10/2023, 08/22/2022, Additional history exists Hypertension/CHF/CAD Annual BMP Blood Test 10/18/2025 10/18/2024, 03/15/2024, 01/22/2024, Additional history exists Cholesterol Screening (Lipid Panel) 10/18/2029 10/18/2024, 09/10/2023 Pneumococcal Vaccine: 50+ Years Completed 08/03/2015, 01/31/2012, 08/23/2010 HIB Vaccines Aged Out No longer eligi [...] age to complete this topic Meningococcal B Vaccine Aged Out No l onger eligible based on patient's age to complete this topic RSV Immunization Patients Under 20 months Aged Out No longer eligible based on patient's age to complete this topic Varicella Vaccines Aged Out No longer eligible based on patient's age to complete this topic Procedures Procedure Name Priority Date/Time Associated Diagnosis Comments ANNUAL BMP BLOOD TEST Routine 09/10/2023 LIPID PANEL Routine 09/10/2023 from Last 3 Months or Most Recently Relevant to Health Maintenance Results * Annual BMP Blood Test (09/10/2023) Annual BMP Blood Test abstracted us Historical Provider HEALTH MAINTENANCE Final Result * Lipid panel (09/10/2023) Triglycerides 0 mg/dL Comment:abstracted, no inter pretation Cholesterol 0 mg/dL Comment:abstracted, no inter pretation HDL 0 mg/dL Comment:abstracted, no inter pretation LDL Cholesterol 0.0 mg/dL Comment:abstracted, no inter pretation Blood Venous blood specimen / Unknown us Historical Provider LAB BLOOD ORDERABLES Eva l Result from Last 3 Months or Most Recently Relevant to Health Maintenance Insurance MEDICARE [facility] Care Teams Haulage Engine Operator Relationship Specialty Start Date End Date Lamont Garber MD [address] [place] [address] PCP - General Internal Medicine 10/19/18
== END 2025-07-28 12:55 | disposition home or self-care (01) ==
LOC: HO.HCS 12:21
PROVIDERS: PCP Internal Medicine; Visit Provider Internal Medicine Cardiovascular Disease
DX: I50.30 Unspecified diastolic (congestive) heart failure (principal); I48.0 Paroxysmal atrial fibrillation
CPT/HCPCS: 93010; 99214; G2211

== ENCOUNTER → 2025-07-28 12:20 | Outpatient (BNVA) | payer MEDICARE, SELFPAY ==
[2023-01-09 09:05] VITALS: BP 106/60; BP 132/56; BP 150/74
== END ==
PROVIDERS: PCP Internal Medicine; Visit Provider Internal Medicine Cardiovascular Disease
DX: I50.30 Unspecified diastolic (congestive) heart failure (principal); I48.0 Paroxysmal atrial fibrillation; R00.1 Bradycardia, unspecified; I49.8 Other specified cardiac arrhythmias; R94.31 Abnormal electrocardiogram [ECG] [EKG]
CPT/HCPCS: 93005; 99212

== ENCOUNTER 2025-08-02 15:18 | Outpatient (REF) | payer MEDICARE, SELFPAY ==
[2023-01-09 09:05] VITALS: BP 106/60; BP 132/56; BP 150/74
--- NOTE | ~2025-08-02 | US_ITS ---
EXAMINATION: US THYROID CLINICAL INFORMATION: Right neck mass COMPARISON: None available. TECHNIQUE: Linear transducer grayscale and color Doppler examination with attention to the region of the thyroid. FINDINGS: SIZE: Measurements of the thyroid lobes and nodules are given in sagittal, anteroposterior and transverse dimensions respectively. Right Thyroid Lobe: 4.1 x 2.1 x 1.6 cm, volume 7 mL. Parenchyma: The gland echotexture is heterogeneous. Thyroid vascularity is increased. Left Thyroid Lobe: 4.1 x 1.3 x 1.3 cm, volume 4 mL. Parenchyma: The gland echotexture is heterogeneous. Thyroid vascularity is normal. Isthmus: 0.3 cm in maximum AP dimension. Estimated total number of nodules greater than or equal to 1 cm: 1. Senior Specialist nodules are described as follows: 1. Location: [Midportion, right thyroid lobe. Size: 2.3 x 1.2 x 2.5 cm, volume 3.6 mL. Nodule characteristics: Composition: Solid (2). Echogenicity: Hypoechoic (2). Shape: Not taller than wide (0). Margins: Smooth (0). Echogenic Foci: None (0). ACR TI-RADS total points: 4 ACR TI-RADS category: 4 2. Location: Lower pole left thyroid lobe. Size: 0.43 x 0.52 x 0.38 cm, volume 0.04 mL. Nodule characteristics: Composition: Cystic(0). Echogenicity: Anechoic (0). Shape: Not taller than wide (0). Margins: Smooth (0). Echogenic Foci: None (0). ACR TI-RADS total points: 0 ACR TI-RADS category: 1 3. Location: Upper pole left thyroid lobe. Size: 0.61 x 0.43 x 0.75 cm, volume 0.1 mL. Nodule characteristics: Composition: Cystic(0). Echogenicity: Anechoic (0). Shape: Not taller than wide (0). Margins: Smooth (0). Echogenic Foci: None (0). ACR TI-RADS total points: 0 ACR TI-RADS category: 1 NODES: No lymphadenopathy is seen in the tissue surrounding the thyroid gland. US/US thyroid IMPRESSION: ACR TI-RADS category: 4, upper pole midportion right thyroid lobe. ACR TI-RADS RECOMMENDATION REFERENCE: Ultrasound-guided fine-needle aspiration, followup ultrasound, no further follow up. * TR1 (0 point) and TR2 (2 points): No FNA or follow up. * TR3 (3 points): FNA if more than or equal to 2.5 cm in maximum dimension, followup ultrasound in 1, 3 and 5 years if 1.5 to 2.4 cm in maximum dimension. * TR4 (4-6 points): FNA if more than or equal to 1.5 cm in maximum dimension, followup ultrasound in 1, 2, 3 and 5 years if 1 to 1.4 cm in maximum dimension. * TR5 (more than or equal to 7 points): FNA if more than or equal to 1 cm in maximum dimension, followup ultrasound every year for 5 years if 0.5 to 0.9 cm in maximum dimension. * TR3, TR4 or TR5 nodules that are below the size threshold for followup receive no follow up. Electronically signed by: Smith Venegas MD 08/02/2025 03:57 PM EDT
--- OUTSIDE RECORDS SUMMARY | 2025-08-02 18:14 | XMS_ITS | Clinical Summary ---
Author Organization [facility] Address [address] [facility] [address] [place] [address] Phone Care Team Providers Care Tool Designer Apprentice Name Role Phone Lamont Garber MD Unavailable [phone] Lamont Garber MD Primary Care Provider Ba Calabrese MD Unavailable [phone] Samir Hancock MD Unavailable [phone] Ba Calabrese MD Unavailable Rashard Thakkar MD Unavailable Freddy Lua MD Unavailable [phone] Allergies Active Allergy Reactions Criticality Noted Date Comments Adhesive 04/24/2021 Other reaction(s): Unknown Amlodipine Swelling 02/01/2021 Sulfamethoxazole-Trime thoprim Diarrhea,Nausea and/or Vomiting 04/21/2018 Bee Pollen Anaphylaxis High 10/19/2018 Chlorhexidine Rash Low 08/28/2021 Other reaction(s): itching rash Chlorhexidine Gluconate 10/19/2018 Codeine Nausea and/or Vomiting 03/01/2019 Iodine Povacry-Iso Alcohol Rash High 01/27/2023 From neck to waist, itchiness, redness and inflammed Iodine Povacrylex Rash Low 04/09/2024 Latex Rash Low 10/19/2018 Meperidine Other (See Comments) 12/05/2017 Hallucinations Other reaction(s): halucinations Metoprolol Tartrate Dizziness 09/26/2020 Penicillins Hives 12/05/2017 Sulfamethazine 10/19/2018 Venom-Honey Bee 05/08/2022 Allergic to ALL bees Other reaction(s): tongue swells Medications pyridoxine, vitamin B6, (B-6) 100 MG tablet Take 100 mg by mouth daily. Active vitamin E 400 UNIT capsule Take 800 Units by mouth daily. Active propafenone (RYTHMOL) 150 MG tablet Take 150 mg by mouth 3 (three) times a day. Active XARELTO 20 mg Tab Take 20 mg by mouth daily. 0 Active ciclopirox (CICLODAN) 0.77 % cream PRN 0 Active ascorbic acid, vitamin C, (VITAMIN C) 500 MG tablet Take 500 mg by mouth daily. Active EPINEPHrine 0.3 mg/0.3 mL auto-injector Inject 1 each into the muscle as needed. 1 Active lisinopril (ZESTRIL) 5 MG tabletIndication s:NSTEMI (non-ST elevated myocardial infarction),Driss gn essential hypertension Take 1 tablet (5 mg total) by mouth daily. 90 tablet 3 1 Active cholecalciferol (VITAMIN D3) 25 MCG (1,000 unit) tablet Take 1 tablet by mouth daily. Active ketoconazole 2 % creamIndications :Rash and other nonspecific skin eruption Apply 1 application topically daily as needed. 30 g 2 3 Active albuterol 90 mcg/actuation inhaler Inhale 2 puffs into the lungs every 4 (four) hours as needed for wheezing. Active ammonium lactate (AMLACTIN) 12 % cream as needed. Active diclofenac sodium (VOLTAREN) 1 % Gel as needed. 3 Active JARDIANCE 10 mg tablet Take 1 tablet by mouth every morning. 3 Active latanoprost (XALATAN) 0.005 % ophthalmic solution Place 1 drop into the left eye nightly at bedtime. 4 Active clotrimazole-bet amethasone (LOTRISONE) lotion Apply 1 Application topically as needed. To ear canal 4 Active olopatadine HCl (EYE ALLERGY ITCH RELIEF OPHT) Place 1 drop into each eye 2 (two) times a day as needed. 4 Active timolol (TIMOPTIC) 0.25 % ophthalmic solution Place 1 drop into the left eye 2 (two) times a day. Active furosemide (LASIX) 20 MG tabletIndication s:Chronic heart failure with normal ejection fraction Take 1 tablet (20 mg total) by mouth daily. 100 tablet 3 5 Active pantoprazole (PROTONIX) 40 MG tabletIndication s:Gastroesophage al reflux disease, unspecified whether esophagitis present TAKE 1 TABLET BY MOUTH THREE TIMES A WEEK ON FRIDAY, FRIDAY AND FRIDAY 36 tablet 3 5 Active Active Problems Problem Noted Date Diagnosed Date Dysfunction of both eustachian tubes 07/18/2025 Assessment & Plan (07/18/2025 2:38 PM EDT): Eustachian tube dysfunction most likely diagnosis for the patient's muffled hearing, sensation of pressure, and off balance. Probably this is caused by allergies. There was no evidence of a viral infection. Add on to the Flonase twice daily, Afrin nasal spray also twice daily but only 3 to 5 days. Give both treatments about a total 7 days to work whereby the Afrin should only be used maybe 3 to 4 days. If persisting symptoms will switch the Flonase to Nasonex. Mass of right side of neck 06/21/2025 Assessment & Plan (06/21/2025 9:44 PM EDT): Given location, question of cervical lymph node enlargement vs. Thyroid nodule vs. Reactive glandular tissue. Await u/s lymph nodes and thyroid. Will call if any systemic symptoms or change in features of mass in interim. Plan additional lab evaluation as indicated. Diastolic CHF, chronic 04/26/2025 Injury of left knee 07/05/2022 Assessment & Plan (07/05/2022 2:46 PM EDT): Left knee injury question hemarthrosis in the setting of anticoagulation for atrial fibrillation and fall 06/22, would like patient to be seen by orthopedics, advised to [facility] walk-in clinic to have the injury reassessed. Please note x-rays taken at [facility]. In regards to the swelling within the ankle and previously in the forefoot this is all negative now where at least the swelling has subsided significantly and appears to be secondary to the swelling within the knee. Patient assured, ice 20 minutes on tenets off to the left knee and elevation should help furthermore with the small swelling also with the knee. Do not use nonsteroidals. Left ankle swelling 07/05/2022 Urinary tract infection with hematuria Assessment & Plan (05/08/2022 11:35 AM EDT): Now resolved post abx from ER Vaginitis and vulvovaginitis 05/08/2022 Assessment & Plan (05/08/2022 11:36 AM EDT): Probable labial/vaginal yeast infection from abx No fluconazole Trial of Ketoconazole cream as discussed Call if not getting better Acute upper respiratory infection 05/08/2022 Assessment & Plan (05/08/2022 11:35 AM EDT): Post tussive cough Improving with tessalon perls Asthma 11/15/2021 Assessment & Plan (05/08/2022 11:34 AM EDT): Mild Exacerbation - slowly improving Albuterol prn Using breo daily Paroxysmal atrial fibrillation 11/20/2020 Assessment & Plan (05/08/2022 11:34 AM EDT): Currently in Sinus Rhythm No Fluconazole due to Propafenone Malignant neoplasm of female breast 08/28/2018 Class 3 severe obesity with serious comorbidity and body mass index (BMI) of 40.0 to 44.9 in adult 08/28/2018 Osteoarthritis 08/28/2018 Nocturia 04/21/2018 Routine general medical exam ination at a health care facility 02/13/2018 Notalgia 02/13/2018 Overview (02/13/2018): right flank and right lateral iliac crest Pure hypercholesterolemia 02/13/2018 Chronic bilateral low back pain without sciatica 10/03/2017 History of breast cancer 10/03/2017 Right hip pain 10/03/2017 Radiculopathy of lumbosacral region 10/03/2017 History of back surgery 10/03/2017 Primary osteoarthritis involving multiple joints 10/03/2017 Encounters Date Type Department Care Team Description 07/18/2025 2:00 PM EDT Office Visit [facility] Internal Medicine [address] [facility] [place] [address] Lamin Vasquez MD Dysfunction of both eustachian tubes (Primary Dx) 07/16/2025 Nurse Triage [facility] [address] [place] [address] Vicki Avalos PA-C Ear Fullness (After hours call ) 06/21/2025 3:50 PM EDT Office Visit [facility] Internal Medicine [address] [facility] [place] [address] Slime Robin CNP Mass of right side of neck (Primary Dx) 06/10/2025 Refill [facility] Internal Medicine [address] [place] [address] Lamont Garber MD Medication Refill 06/09/2025 Telephone [facility] Internal Medicine [address] [place] [address] Lamont Garber MD request for PT from Last 3 Months Immunizations Immunization Administration Dates Next Due COVID-19 (Pre-09/01) Moderna Vaccine, mRNA, PF 01/18/2021,12/21/2020 INFLUENZA, SPLIT VIRUS, TRIV ALENT W/ PRESERVATIVE IM 08/23/2020,07/11/2019,08/15/2015,09/30 Influenza High-Dose Quadriva lent Preservative Free IM 09/10/2023,08/22/2022 Influenza High-Dose Trivalen t Preservative Free IM 10/11/2024,07/30/2019,08/18/2018,07/22,07/18/2016,09/13/2015,07/28/2014 ,07/22/2013 Influenza Quadrivalent Prese rvative Free IM 08/08/2021,08/18/2020 Pneumococcal conjugate PCV13 08/03/2015 Pneumococcal polysaccharide PPSV23 01/31/2012, Td (adult) 5 Lf Tetanus Toxo id, PF, Adsorbed 07/11/2006 Family History Medical History Relation Comments Heart disease Brother Hyperlipidemia Brother COPD Father Heart attack Mother Relation Status Comments Brother Father Mother Social History Tobacco Use Types Packs/Day Years Used Date Smoking Tobacco: Never Smokeless Tobacco: Never Tobacco Cessation:Counseling Given: Not Answered Alcohol Use Standard Drinks/Week Comments Yes 0 (1 standard drink = 0.6 oz pure alcohol) 1 glass of wine once every 3 months; cocktail every 6 months Education Answer Date Recorded Are you interested in more education? Not on jenifer e 03/06/2023 Are you concerned about learning? Not on file 03/06/2023 No 03/06/2023 No 03/06/2023 Digital Access Answer Date Recorded No 04/01/2023 No 04/01/2023 Reliable internet access at home? Not on file 04/01/2023 Device with a working camera? Not on file Intimate Partner Violence Answer Date R ecorded Denied Basic Needs Not on file 04/26/2025 In the past 12 months have y ou been in a relationship with a person who hurts, threatens, or tries to control you? No 04/26/2025 Worried food would run out Not on file 04/26 In the past 12 months have y ou been in a relationship with a person who hurts, threatens, or tries to control you? No 04/26/2025 Comments No Sex and Gender Information Value Date Recorded Sex Assigned at Female 07/05/2022 2:07 PM EDT Legal Sex Female 10:08 PM EDT Gender Identity Female 07/05/2022 2:07 PM EDT Sexual Orientation Straight 07/05/2022 2: 07 PM EDT Last Filed Vital Signs Vital Sign Reading Time Taken Comments Blood Pressure 120/56 07/18/2025 2:01 PM EDT Pulse 69 07/18/2025 2:01 PM EDT Temperature 36.2 C (97.2 F) 07/18/2025 2:01 PM EDT Respiratory Rate 11 07/18/2025 2:01 PM EDT Oxygen Saturation 96% 07/18/2025 2:01 PM EDT Inhaled Oxygen Concentration - - Weight 110.2 kg (243 lb) 07/18/2025 2:01 PM EDT Height 174.9 cm (5' 8.86 ) 07/18/2025 2:01 PM ED T Body Mass Index 36.03 07/18/2025 2:01 PM EDT Plan of Treatment Upcoming Encounters Date Type Department Care Team (Late st Contact Info) Description 10/10/2025 9:00 AM EST Office Visit [facility] Internal Medicine [address] [place] [address] Lamont Garber MD [address] [place] [address] 04/21/2026 10:00 AM EDT Office Visit [facility] [address] [place] [address] 3rd Floor, [address] [place] [address] [phone] Rafat Wilkerson MD, MS [address] [facility], [address] [place] [phone] jorge 04/24/2026 1:00 PM EDT Office Visit [facility] Internal Medicine [address] [place] [address] Lamont Garber MD [address] [place] [address] Health Maintenance Due Date Last Done Comments ZOSTER VACCINES (1 of 2) 1964 COLOGUARD 1990 FIT TEST 1990 FOBT 1990 SIGMOIDOSCOPY 1990 VIRTUAL COLONOSCOPY 1990 Adult Td,Tdap Booster 07/11/2016 07/11/2006 RSV VACCINE (1 - 1-dose 75+ series) 2020 FOLLOW UP BONE DENSITY TESTING 06/19/2024 06/19/2022, 06/19/2022, 02/26/2022, Additional history exists INFLUENZA VACCINE (#1) 2025 , 09/10/2023, 09/10/2023, Additional history exists COVID-19 VACCINE ( season) 2025 03/04/2022, 01/18/2021, 12/21/2020 BLOOD PRESSURE 01/15/2026 07/18/2025 COLONOSCOPY 04/03/2026 04/03/2016 COLORECTAL CANCER SCREENING 04/03/2026 CREATININE LEVEL 04/26/2026 04/26/2025, 07/2024, 03/15/2024, Additional history exists DEPRESSION SCREENING 04/26/2026 04/26/2025 POTASSIUM LEVEL 04/26/2026 04/26/2025, 12/0 07/2024, 03/15/2024, Additional history exists LIPID PANEL 04/26/2030 04/26/2025, 12/0 07/2024, 01/22/2024, Additional history exists PNEUMOCOCCAL VACCINES (50+ years) Completed 08/03/2015, 01/31/2012, 08/23/2010 OSTEOPOROSIS SCREENING INITIAL (ONE-TIME) Completed 06/19/2022, 06/19/2022, 02/26/2022, Additional history exists SMOKING STATUS SCREENING (Once After 26 Yrs) Completed 07/18/2025 HEPATITIS A VACCINES Aged Out No long er eligible based on patient's age to complete this topic HIB VACCINES Aged Out No longer eligi ble based on patient's age to complete this topic MENINGOCOCCAL VACCINES (ACWY) Aged Out No longer eligible based on patient's age to complete this topic MENINGOCOCCAL VACCINES (B) Aged Out N o longer eligible based on patient's age to complete this topic Medical Devices Not on file Procedures Procedure Name Priority Date/Time Associated Diagnosis Comments US SOFT TISSUES OF HEAD AND NECK (LYMPH NODE SURVEY) Routine 06/21/2025 4:39 PM EDT Mass of right side of neck US THYROID GLAND Routine 06/21/2025 4:39 PM EDT Mass of right side of neck LIPID PANEL Routine 04/26/2025 11:05 AM EDT Pure hypercholesterolemia COMPREHENSIVE METABOLIC PANEL Routine 04/26/2025 11:05 AM EDT Chronic heart failure with normal ejection fraction Pure hypercholesterolemia Essential hypertension HM DEXA SCAN Routine 06/19/2022 from Last 3 Months or Most Recently Relevant to Health Maintenance Results * (ABNORMAL) Comprehensive metabolic panel (04/26/2025 11:05 AM EDT) SODIUM 136 133 - 146 mmol/L [facility] POTASSIUM 4.2 3.3 - 5.1 mmol/L [facility] CHLORIDE 103 96 - 108 mmol/L [facility] CO2 20(L) 21 - 35 mmol/L [facility] BUN 16 6 - 19 mg/dL [facility] CREATININE 0.60 0.5 - 1.5 mg/dL [facility] GLUCOSE 92 70 - 99 mg/dL [facility] ALBUMIN 4.1 3.9 - 4.8 g/dL [facility] TOTAL PROTEIN 6.7 6.5 - 8.0 g/dL [facility] CALCIUM 9.2 8.4 - 10.3 mg/dL [facility] ALKALINE PHOSPHATASE 60 39 - 117 U/L [facility] TOTAL BILIRUBIN 0.7 0.0 - 1.2 mg/dL [facility] AST 24 0 - 37 U/L [facility] ALT 17 0 - 40 U/L [facility] GLOBULIN 2.6 1 - 4.8 g/dL [facility] EGFR 91 >59 mL/min/1.7 3m2 [facility] Comment:Estimated glomerular filtration rate calculated using the CKD-EPI refit equation. ANION GAP 17 10 - 20 mmol/L [facility] Blood 04/26/2025 11:0 5 AM EDT 04/26/2025 11:07 AM EDT us Lamont Garber MD LAB BLOOD ORDERABLES Final Re sult [facility] [address] [place], [place] [phone] * (ABNORMAL) Lipid panel (04/26/2025 11:05 AM EDT) HDL 97 mg/dL [facility] Comment: Interpretation <40 mg/dL: Low HDL cholesterol (major risk factor for CHD) Greater than or equal to 60 mg/dL: High HDL cholesterol ( negative risk factor for CHD) HDL - cholesterol is affected by a number of factors, e.g. smoking, excerise, hormones, sex and age. CHOLESTEROL 191 0 - 240 mg/dL [facility] TRIGLYCERIDES 63 30 - 160 mg/dL [facility] LDL 81 50 - 129 mg/dL [facility] Comment: LDL levels in terms of risk for coronary heart disease: <100 mg/dL: Optimal 100-129 mg/dL: Near or above optimal 130-159 mg/dL: Borderline high 160-189 mg/dL: High >190 mg/dL: Very High CARDIAC RISK RATIO 2.0(L) 3.3 - 4.4 C [facility] Blood 04/26/2025 11:0 5 AM EDT 04/26/2025 11:07 AM EDT Lamont Garber MD LAB [facility]LO[facility] [address] [place] [address] * DEXA SCAN (06/19/2022) Historical Provider HEALTH MAINTENANCE Edited Result - Final from Last 3 Months or Most Recently Relevant to Health Maintenance Insurance MEDICARE PART A & B [employer] MEDEX SUPPLEMENT MEDICARE PART A & [place] [address] [place] [address] MEDEX SUPPLEMENT MEDICARE PART A & B Member Subscriber Plan / Payer (Ef fective 2010-Present) Name:Oren Diaz Member ID:[id number] Relation to Subscriber:Self Name:Oren Diaz Subscriber ID:[id number] Payer ID:[id number] Group ID:Not on file Type:Medicare Address: [employer] [address] [place] [id number] [employer] MEDEX SUPPLEMENT MEDICARE PART A & B [employer] MEDEX SUPPLEMENT MEDICARE PART A & B [employer] MEDEX SUPPLEMENT MEDICARE PART A & B [employer] MEDEX SUPPLEMENT MEDICARE PART A & B [employer] MEDEX SUPPLEMENT MEDICARE PART A & B [employer] MEDEX SUPPLEMENT MEDICARE PART A & B [employer] MEDEX SUPPLEMENT Care Teams Tool Designer Apprentice Relationship Specialty Start Date End Date Lamont Garber MD [address] [place] [address] [email or web address] PCP - General Internal Medicine 09/29/17 Lamont Garber MD [address] [place] [address] [email or web address] Insurance Assigned Provider 02/14/24 Ba Calabrese MD [address] [place] [address] [address] [place] [address] Cardiology 01/12/20 Samir Hancock MD [address] [facility] [address] [place] [address] [email or web address] 01/12/20 Ba Calabrese MD [address] [place] [address] [address] [place] [address] Cardiology 01/14/20 Rashard Thakkar MD [address] [place] [address] [address] [place] [phone] Internal Medicine 02/14/20 Freddy Lua MD [address] [place] [phone] Physical Medicine and Rehabilitation 03/03/20 Additional Source Comments The information contained in this document represents components of the legal health record. It is not the complete legal health record.[facility]
--- OUTSIDE RECORDS SUMMARY | 2025-08-02 18:14 | XMS_ITS | Clinical Summary ---
Author Organization [facility] Address [address] [place] [address] Phone Care Team Providers Care Scallop Binder Name Role Phone Lamont Garber MD Primary Care Provider [phone] Allergies Active Allergy Reactions Criticality Noted Date [...] left breast in female, estrogen receptor positive ([facility] V24, [facility] V28) 07/14/2024 Social History [...] AM EDT [facility]ointment [facility] [address] [phone] 11/16/2025 9:00 AM EST Office Visit [facility] Hematology Oncology [address] [place] [phone] Alejandro Mead MD [address] [place] [phone] Health Maintenance Due Date Last Done Comments [...] Recently Relevant to Health Maintenance Insurance MEDICARE [facility] Care Teams Scallop Binder Relationship Specialty Start Date End Date Lamont Garber MD [address] [place] [address] PCP - General Internal Medicine 10/19/18
--- OUTSIDE RECORDS SUMMARY | 2025-08-02 18:14 | XMS_ITS | Encounter Summary ---
Author Organization [facility] Address [address] [address] Phone Care Team Providers Care Solutions Executive Cloud Sales Name Role Phone Lamont Garber MD Unavailable Lamont Garber MD Primary Care Provider [phone] Ba Calabrese MD Unavailable Samir Hancock MD Unavailable [phone] Ba Calabrese MD Unavailable Rashard Thakkar MD Unavailable Freddy Lua MD Unavailable Elen Triana RN Unavailable [phone] Encounter Details Date Type Department Care Team (Late st Contact Info) Description 09/03/2021 [facility] [address] [place] [address] 3rd Floor, [address] [place], [place] [phone] Shine Rapp MD 22 [facility], [address] [phone] [email or web address] Social History Tobacco Use Types Packs/Day Years Used Date Smoking Tobacco: Never Smokeless Tobacco: Never Alcohol Use Standard Drinks/Week Comments Yes 0 (1 standard drink = 0.6 oz pure alcohol) 1 glass of wine once every 3 months Comments No Sex and Gender Information Value Date Recorded Sex Assigned at Female 07/05/2022 2:07 PM EDT Legal Sex Female 10:08 PM EDT Gender Identity Female 07/05/2022 2:07 PM EDT Sexual Orientation Straight 07/05/2022 2: 07 PM EDT documented as of this encounter Plan of Treatment Upcoming Encounters Date Type Department Care Team (Late st Contact Info) Description 10/10/2025 9:00 AM EST Office Visit [facility] Internal Medicine [address] [place] [address] Lamont Garber MD [address] [place] [address] [phone] 04/21/2026 10:00 AM EDT Office Visit [facility] [address] [facility] 3rd Floor, [address] [place], [place] [phone] Rafat Wilkerson MD, MS 22 [facility], [address] [place] [address] [phone] jorge 04/24/2026 1:00 PM EDT Office Visit [facility] Internal Medicine [address] [place] [address] Lamont Garber MD [address] [place] [address] [phone] documented as of this encounter Visit Diagnoses Not on filedocumented in this encounter Additional Health Concerns Infection Onset Date Last Indicated Resolved Time COVID-19 12/03/2023 12/03/2023 12/24/2023 1:21 AM EST Assessment Noted Time PHQ-2 Depression Total Score: 0 08/14/20 21 10:45 AM EDT documented as of this encounter Care Teams Solutions Executive Cloud Sales Relationship Specialty Start Date End Date Lamont Garber MD [address] [place] [address] [phone] PCP - General Internal Medicine 09/29/17 Lamont Garber MD [address] [place] [address] [email or web address] Insurance Assigned Provider 02/14/24 Ba Calabrese MD [address] [place] [address] Dr [address] [place] [address] Cardiology 01/12/20 Samir Hancock MD [address] [place] [phone] [email or web address] 01/12/20 Ba Calabrese MD [address] [place] [address] Dr [address] [place] [address] Cardiology 01/14/20 Rashard Thakkar MD [address] [place] [address] Dr [address] [place] [phone] Internal Medicine 02/14/20 Freddy Lua MD [address] [place] [address] Physical Medicine and Rehabilitation 03/03/20 Elen Triana, RN [address] [place] [phone] [email or web address] Provider Relations AdvocateAccounts Executive 06/09/23 07/01/23 documented as of this encounter Additional Source Comments The information contained in this document represents components of the legal health record. It is not the complete legal health record.[facility]
--- OUTSIDE RECORDS SUMMARY | 2025-08-02 18:14 | XMS_ITS | Clinical Summary ---
Author Organization [facility] Address [address] [place] [address] Care Team Providers Care Coordinator Hotels Name Role Phone Lamont Garber MD Primary Care Provider [phone] Allergies Active Allergy Reactions Criticality Noted Date [...] age to complete this topic Care Teams Coordinator Hotels Relationship Specialty Start Date End Date Lamont Garber MD [address] [facility] [place] [address] PCP - General Internal Medicine 10/19/18
--- OUTSIDE RECORDS SUMMARY | 2025-08-02 18:14 | XMS_ITS | Encounter Summary ---
Author Organization [facility] Address [address] [address] Phone Care Team Providers Care Security Officer Name Role Phone Lamont Garber MD Unavailable [phone] Lamont Garber MD Primary Care Provider Ba Calabrese MD Unavailable [phone] Samir Hancock MD Unavailable Ba Calabrese MD Unavailable [phone] Rashard Thakkar MD Unavailable Freddy Lua MD Unavailable Elen Triana RN Unavailable Encounter Details Date Type Department Care Team (Late st Contact Info) Description 09/03/2021 [facility] [address] [place] [address] 3rd Floor, [address] [place], [place] [phone] Shine Rapp MD [address] [facility], [address] [phone] [email or web address] Social History Tobacco Use Types Packs/Day Years [...] Description 10/10/2025 9:00 AM EST Office Visit [facility] [address] [place] [address] Lamont Garber MD [address] [place] [address] [phone] 04/21/2026 10:00 AM EDT Office Visit [facility] [address] [facility] 3rd Floor, [address] [place], [place] [phone] Rafat Wilkerson MD, MS [address] [facility], [address] [place] [address] [phone] jorge 04/24/2026 1:00 PM EDT Office Visit [facility] Internal [facility] [address] [place] [address] Lamont Garber MD [address] [place] [address] [phone] documented as of this encounter Visit Diagnoses Not on filedocumented in this encounter Additional Health Concerns Infection Onset Date Last Indicated Resolved Time COVID-19 12/03/2023 12/03/2023 12/24/2023 1:21 AM EST Assessment Noted Time PHQ-2 Depression Total Score: 0 08/14/20 21 10:45 AM EDT documented as of this encounter Care Teams Security Officer Relationship Specialty Start Date End Date Lamont Garber MD [address] [place] [address] [phone] PCP - General Internal Medicine 09/29/17 Lamont Garber MD [address] [place] [address] [email or web address] Insurance Assigned Provider 02/14/24 Ba Calabrese MD [address] [place] [address] Dr [address] [place] [address] Cardiology 01/12/20 Samir Hancock MD [address] [place] [phone] [email or web address] Otolaryngology 01/12/20 Ba Calabrese MD [address] [place] [address] Dr [address] [place] [address] Cardiology 01/14/20 Rashard Thakkar MD [address] [place] [address] Dr [address] [place] [phone] Internal Medicine 02/14/20 Freddy Lua MD [address] [place] [phone] Physical Medicine and Rehabilitation 03/03/20 Elen Triana, RN [address] [place] [phone] [email or web address] Maxillofacial PathologyCommunity Health Navigator 06/09/23 07/01/23 documented as of this encounter Additional Source Comments The information contained in this document represents components of the legal health record. It is not the complete legal health record.[facility]
== END 2025-08-02 15:19 | disposition home or self-care (01) ==
LOC: HO.HMGCX 15:18
PROVIDERS: PCP Internal Medicine; Visit Provider Registered Nurse
DX: R22.1 Localized swelling, mass and lump, neck (principal)
CPT/HCPCS: 76536

== ENCOUNTER → 2025-08-02 15:20 | Outpatient (BNV) | payer MEDICARE, SELFPAY ==
[2023-01-09 09:05] VITALS: BP 106/60; BP 132/56; BP 150/74
== END ==
PROVIDERS: PCP Internal Medicine; Visit Provider Radiology Diagnostic Radiology
DX: R22.1 Localized swelling, mass and lump, neck (principal)
CPT/HCPCS: 76536

== ENCOUNTER 2025-08-17 12:20 | Outpatient (AMB) | payer MEDICARE, SELFPAY ==
[2023-01-09 09:05] VITALS: BP 106/60; BP 132/56; BP 150/74
--- NOTE | 2025-08-17 12:38 | A.OFFVIS_ITS ---
Vital Signs 08/17/25 12:39 Height 5 ft 6 in Weight 247 lb 12.793 oz BMI 40.0 BP 114/60 Blood Pressure Location Lt brachial Position Sitting Pulse 57 Pulse Source Pulse Oximeter Pulse Oximetry (%) 98 Oxygen Delivery Method Room Air Intake Visit Reasons: Thyroid nodule Intake Note: New patient present today for Thyroid nodule. Staff Software Engineer Required: No Accompanied by: Son and daughter Allergies bee pollen (BEE STINGS) Allergy (Severe, Verified 08/17/25 12:43) ANAPHYLAXIS Penicillins (PENICILLINS) Allergy (Intermediate, Verified 08/17/25 12:43) HIVES chlorhexidine (CHLORAPREP) Allergy (Mild, Verified 08/17/25 12:43) RASH sulfamethoxazole (From BACTRIM) Allergy (Mild, Verified 08/17/25 12:43) DIARRHEA codeine (CODEINE) Allergy (Unknown, Verified 08/17/25 12:43) NAUSEA latex (LATEX) Allergy (Unknown, Verified 08/17/25 12:43) rash/itchy iodine povacrylex (From DuraPrep) Adverse Reaction (Verified 08/17/25 12:43) Rash isopropyl alcohol (From DuraPrep) Adverse Reaction (Verified 08/17/25 12:43) Rash Medication List - Last Reconciled 08/17/25 by Viv James MD albuterol sulfate 90 mcg/actuation (ProAir HFA) 2 puffs inhalation Q4-6H PRN ascorbate calcium (vitamin C) 1 g PO Q6H cholecalciferol (vitamin D3) 25 mcg PO DAILY empagliflozin (Jardiance) 10 mg PO DAILY epinephrine (EpiPen) 0.3 mg (0.3 mL) IM Q15M PRN furosemide 20 mg PO DAILY lisinopril 5 mg PO DAILY pantoprazole 40 mg PO ONCE PRN propafenone 150 mg PO TID pyridoxine (vitamin B6) 25 mg PO DAILY rivaroxaban (Xarelto) 20 mg PO DAILY vitamin E (dl, acetate) 45 mg PO DAILY HPI Comments Details: 80 years old female coming in today for initial evaluation of multinodular goiter. Patient felt a mass on the right side of the neck within the last 6 months. She has had a needle biopsy in her 60s , doesnt rememeber name of doctor or facilty and was benign. US thyroid 08/02/25 I reviewed the images myself which showed right mid lobe 2.5 cm solid , hypoechoic TR4 nodule whihc meets criteria of FNA. Left lower 0.5 cm cyst. left superior 0.75cm cyst. Patient currently denies heat or cold intolerance, diarrhea or constipation, hair loss, palpitation, anxiety, weight changes, mood changes, changes in appearance of eyes or vision changes, tremors, increased diaphoresis or dry skin. Reports low energy ? Voice raspiness over the past 6 months that has been worsening. Patient denies any difficulty swallowing, pain on swallowing, difficulty breathing. Rt breast ca 2010 s/p lumpectomy plus radiation. Denies having ever used lithium, amiodarone or biotin supplements. Patient denies any family history of thyroid cancer or thyroid disease. Physical exam General: sitting comfortably in no acute distress HEENT: normocephalic/atraumatic, Neck: supple, palpable 1 cm right-sided nodule Cardiac: normal heart sounds Pulm: normal breath sounds B/L, no added breath sounds Abd: not distended, no tenderness Extremities: no edema, no signs of myxedema Laboratory Tests 08/26/22 09:08 TSH 1.77 Free T4 1.00 EXAMINATION: US THYROID 08/02/25 CLINICAL INFORMATION: Right neck mass COMPARISON: None available. TECHNIQUE: Linear transducer grayscale and color Doppler examination with attention to the region of the thyroid. FINDINGS: SIZE: Measurements of the thyroid lobes and nodules are given in sagittal, anteroposterior and transverse dimensions respectively. Right Thyroid Lobe: 4.1 x 2.1 x 1.6 cm, volume 7 mL. Parenchyma: The gland echotexture is heterogeneous. Thyroid vascularity is increased. Left Thyroid Lobe: 4.1 x 1.3 x 1.3 cm, volume 4 mL. Parenchyma: The gland echotexture is heterogeneous. Thyroid vascularity is normal. Isthmus: 0.3 cm in maximum AP dimension. Estimated total number of nodules greater than or equal to 1 cm: 1. Manager Semiconductor nodules are described as follows: 1. Location: [Midportion, right thyroid lobe. Size: 2.3 x 1.2 x 2.5 cm, volume 3.6 mL. Nodule characteristics: Composition: Solid (2). Echogenicity: Hypoechoic (2). Shape: Not taller than wide (0). Margins: Smooth (0). Echogenic Foci: None (0). ACR TI-RADS total points: 4 ACR TI-RADS category: 4 2. Location: Lower pole left thyroid lobe. Size: 0.43 x 0.52 x 0.38 cm, volume 0.04 mL. Nodule characteristics: Composition: Cystic(0). Echogenicity: Anechoic (0). Shape: Not taller than wide (0). Margins: Smooth (0). Echogenic Foci: None (0). ACR TI-RADS total points: 0 ACR TI-RADS category: 1 3. Location: Upper pole left thyroid lobe. Size: 0.61 x 0.43 x 0.75 cm, volume 0.1 mL. Nodule characteristics: Composition: Cystic(0). Echogenicity: Anechoic (0). Shape: Not taller than wide (0). Margins: Smooth (0). Echogenic Foci: None (0). ACR TI-RADS total points: 0 ACR TI-RADS category: 1 NODES: No lymphadenopathy is seen in the tissue surrounding the thyroid gland. US/US thyroid IMPRESSION: ACR TI-RADS category: 4, upper pole midportion right thyroid lobe. [facility] Medical History (Updated 08/17/25 @ 13:25 by Viv James MD) Multinodular goiter (nontoxic) Myocardial injury Paroxysmal atrial fibrillation Sick sinus syndrome Surgical History Hx of knee surgery Hx of oral surgery Hx of colonoscopy Hx of hysterectomy History of back surgery Hx of lumpectomy History of cholecystectomy Hx of appendectomy Family History Father Emphysema lung Mother Sudden cardiac arrest Social History Household Members: Spouse Housing: House Do you presently have visiting nurse or other home services: No Alcohol intake: current Alcohol intake frequency: holidays/special occasions only Alcohol type: wine Patient Tobacco Use Status: Never used Tobacco e-Cigarette/Vaping Use: Never Used service: No Current occupational status: retired Physical Exam Vital Signs: Last Vital Signs Pulse 57 08/17/25 12:39 BP 114/60 08/17/25 12:39 Pulse Ox 98 08/17/25 12:39 Oxygen Delivery Method Room Air 08/17/25 12:39 BMI result Body Mass Index 40.0 Assessment & Plan Assessment & Plan (1) Multinodular goiter (nontoxic): Code(s): E04.2 - Nontoxic multinodular goiter Category: Medical Plan: 80 years old female coming in today for initial evaluation of multinodular goiter. Patient felt a mass on the right side of the neck within the last 6 months. She has had a needle biopsy in her 60s , doesnt rememeber name of doctor or facilty and was benign. US thyroid 08/02/25 I reviewed the images myself which showed right mid lobe 2.5 cm solid , hypoechoic TR4 nodule whihc meets criteria of FNA. Left lower 0.5 cm cyst. left superior 0.75cm cyst. I explained that it is common to have thyroid nodules. About 95% of the time these nodules are benign. However if the nodule is > 1 cm in size or suspicious on ultrasound then a fine need aspiration biopsy is recommended. We discussed that a FNAB involves 4-5 passes with a small gauge needle and material obtained is sent off for cytology.If the cytopathology is benign then the nodule will be followed annually with repeat ultrasounds. However if it is suspicious or malignant, we will need to discuss further management. Indeterminate cytology can be further investigated with repeat FNA, genetic testing or empiric lobectomy. Malignant cytology is managed with either lobectomy or total thyroidectomy. We discussed briefly that thyroid cancer is, in most patients, an indolent disease that does not affect mortality. We will arrange for FNA of the right mid 2.5 cm thyroid nodule at next available opening and patient will follow up with me in clinic thereafter for results and further decision making. Plan: -scheduled for right mid lobe 2.5 cm thyroid nodule FNA biopsy with me and a follow up 2 weeks after to discuss results -ordered TSH and free T4 to be done now Plan I spent 45 minutes in reviewing the record, seeing the patient and documenting in the medical record. Orders: Orders Thyroid Stimulating Hormone Today E04.2 - Nontoxic multinodular goiter US biopsy thyroid Today E04.2 - Nontoxic multinodular goiter Free T4 (Free Thyroxine) Today E04.2 - Nontoxic multinodular goiter Coding Level of Care Code New Pt Level 4 (06990) Diagnoses Multinodular goiter (nontoxic) E04.2 Time Spent (min) 45
[2025-08-17 12:39] VITALS: BP 114/60; PULSE 57; O2SAT 98; BMI 40.0
== END 2025-08-17 13:37 | disposition home or self-care (01) ==
LOC: HO.ENCR 12:21
PROVIDERS: PCP Internal Medicine; Visit Provider Student in an Organized Health Care Education/Training Program
DX: E04.2 Nontoxic multinodular goiter (principal)
CPT/HCPCS: 99204

== ENCOUNTER → 2025-08-17 12:20 | Outpatient (BNVA) | payer MEDICARE, SELFPAY ==
[2023-01-09 09:05] VITALS: BP 106/60; BP 132/56; BP 150/74
== END ==
PROVIDERS: PCP Internal Medicine; Visit Provider Student in an Organized Health Care Education/Training Program
DX: E04.2 Nontoxic multinodular goiter (principal)
CPT/HCPCS: 99202

== ENCOUNTER 2025-08-19 10:30 | Outpatient (REF) | payer MEDICARE, SELFPAY ==
[2023-01-09 09:05] VITALS: BP 106/60; BP 132/56; BP 150/74
[2025-08-19 13:43] LABS: Free T4 (Free Thyroxine) 0.87 ng/dL (0.71-1.85); Thyroid Stimulating Hormone 1.15 uIU/mL (0.32-4.0)
== END 2025-08-19 10:31 | disposition home or self-care (01) ==
LOC: HO.HMGCLDS 10:30
PROVIDERS: PCP Internal Medicine; Visit Provider Student in an Organized Health Care Education/Training Program
DX: E04.2 Nontoxic multinodular goiter (principal)
CPT/HCPCS: 36415; 84439; 84443

== ENCOUNTER 2025-09-07 07:27 | Outpatient (REF) | payer MEDICARE, SELFPAY ==
[2023-01-09 09:05] VITALS: BP 106/60; BP 132/56; BP 150/74
--- OUTSIDE RECORDS SUMMARY | 2025-09-07 07:29 | XMS_ITS | Data Portability ---
Author Organization [place] [facility] Address [address] [address] Care Team Providers Care Physician Executive Name Role Phone ANUJA CASTILLO Primary Care Provider Assessment Encounter Date Assessment Date Assessment LastModified by Organization Details LastModified Time 07/26/2025 07/26/2025 80-year-old female presents for evaluation of decreased hearing on the right side and intermittent hoarseness for about 2 weeks. Otologic exam is unremarkable and audiometric testing obtained yesterday was reviewed with patient showing essentially normal hearing and tympanometry bilaterally. Her hoarseness is intermittent and only present for the last week or 2. Recommended close observation. If it continues she will call for reevaluation. She does have slight enlargement of the right thyroid lobe without palpable mass. Recommended proceeding with thyroid ultrasound as scheduled. All questions were answered. [email or web address] Not available 07/26/2025 13:37:30 Plan of Treatment Reminders Order Date Submit Date Provider Last Modified By Organization Details Last Modified Time Details Appointments None record ed. Lab None record ed. Referral None record ed. Procedures None record ed. Surgeries None record ed. Imaging None record ed. Medication Orders None record ed. Patient TargetsNo targets recorded. Patient InstructionsNo instructions recorded. Reason for Referral None Reported. Results Created Date Observation Date Name Description Value Unit Range Abnormal Flag Note LastModifiedBy Organization Detail LastModifiedTime 07/26/20 25 audio gram No observ ation record ed. BARCODE Not Available 2024 11:32:54 Result Notes None recorded. Problems Name Problem SNOMED Code Status Onset Date Resolution Date Notes Provider Name and Address Organization Details Recorded Time Dysphonia 40729774 Active 2016 Hoarsenes s; Note: Date Diagnosed : 03/18/2017 1:50 PM (R49.0) Not Available [facility] 4 02:40:39 Abnormal auditory perceptio n 04945100 Active 2020 Other abnormal auditory perceptio ns, left ear; Note: Date Diagnosed : 1 11:23 AM (H93.292) Not Available [facility] 4 02:40:35 Impacted cerumen of bilateral ears 57198055063 52832 Active 2023 Impacted cerumen, bilateral ; Note: Date Diagnosed : 01/26/2024 9:22 AM (H61.23) Not Available [facility] 4 02:40:36 Bilateral diffuse otitis externa 04930241769 Active 2023 Diffuse otitis externa, bilateral ; Note: Date Diagnosed : 01/26/2024 9:22 AM (H60.313) Not Available [facility] 4 02:40:41 Sensorine ural hearing loss of bilateral ears 864625830 Active 2024 NOMAN SEBASTIAN, [place] [address], [facility] [place], [phone] , [facility] - [facility] 5 15:35:07 Problem Notes None recorded. Medical Equipment None Reported. Allergies Allergen ID Allergen Name Allergen Category Reaction Reaction Severity Criticality Documentation Date Start Date Code Code System Note Provider Name and Address Organization Details Recorded Time 460993 penicilli n V potassium medicatio n other Not available Not available 03/23/202417442 5 RxNorm React ion: unkno wn, unspe cifie d;; Not Available [facility] 4 01:10:57 Medications Name Sig Start Date Stop Date Status Note LastModified by Organization Details LastModified Time latanopros t 0.005 % eye drops INSTILL 1 DROP IN LEFT EYE AT BEDTIME active Not Available Not Available No t Available propafenon e 150 mg tablet TAKE 1 TABLET BY MOUTH THREE TIMES DAILY active Not Available Not Available No t Available clotrimazo le-betamet hasone 1 %-0.05 % lotion Apply a small amount three times a day as directed 2023 active Medicatio n ID: [id number] Du ration Value: 14 Brand Name: clotrimaz ole-betam ethasone Send Method: E-Prescri bed Subs Allowed: subs [place] Specia l Instructi on: Apply with finger to ear canal skin. Med icationGe nericName : clotrimaz ole-betam ethasone Not Available Not Available Not Available pantoprazo le 40 mg tablet,del ayed release active Not Available Not Available Not Available omeprazole 20 mg capsule,de layed release 1 capsule by mouth 2016 active Medicatio n ID: [id number] Du ration Value: 30 Prescrib ed By Name: Rafat tom MD Brand Name: omeprazol e Send Method: E-Prescri bed Subs Allowed: subs [place] Medica tionGener icName: omeprazol e Not Available Not Available Not Available lisinopril 5 mg tablet TAKE 1 TABLET BY MOUTH DAILY active Not Available Not Available No t Available furosemide 20 mg tablet active Not Available Not Available Not Available timolol maleate 0.5 % eye drops INSTILL 1 DROP IN LEFT EYE TWICE DAILY active Not Available Not Available No t Available Xarelto 20 mg tablet TAKE 1 TABLET BY MOUTH DAILY active Not Available Not Available No t Available Jardiance 10 mg tablet TAKE 1 TABLET BY MOUTH DAILY active Not Available Not Available No t Available Vitals None Recorded Social History None recorded. Functional Status None recorded. Mental Status None recorded. Family History Nothing Reported. Medical History No medical history recorded. Gynecological HistoryNo gynecological history recorded. Obstetrics History GPAL:G 0 P 0 0 0 0 Past Encounters Encounter ID Performer Location Encounter Start Date Encounter Closed Date Diagnosis/Indication Diagnosis SNOMED-CT Code Diagnosis ICD10 Code Diagnosis IMO Codes Diagnosis Note [id number] JACQUELINE NERI [facility] [address] [address] 07/25/2025 15:24:58 08/05/2025 13:53:36 Sensorineural hearing loss of bilateral ears 789521946 H90.3 [id number] Audiologic al evaluation results: 07/25/2025 Right ear: Normal sloping to a mild sensorineu ral hearing loss with excellent word recognitio n. Left ear: Normal sloping to a mild sensorineu ral hearing loss with excellent word recognitio n. Tympanomet ry: Right Ear:Type A Left Ear:Type A [id number] JOSAFAT CASTELAN PA-C [facility] [address] [place] [address] 07/26/2025 12:47:59 07/26/2025 13:18:54 Dysphonia 12570162 R49.0 Abnormal a uditory perception 24550733 H93.292 Health Concerns Section Related Observation LastModified by Organization Detai ls LastModified Time None Recorded Concern Status LastModified by Organization Details LastModified Time None Recorded Advance Directives Directive None Recorded Payers Insurance Date Sequence Insurance Name Policy Number Policy Ferrer Covered Member ID Ferrer Member ID Guarantor Name 07/26/2025 2 [place] [id number] Dolly Becerra Joe [id number] Dolly F Joe 07/26/2025 1 [place] B[place] [employer] SERVICES Dolly Kim Joe [id number] Dolly Julio Joe Notes Date Note Type Note Provider Name and Address Organization Details Recorded Time 07/26/2025 text/html ROS as noted in the HPI 80-year-old female presents for evaluation of decreased hearing on the right ear. She first noticed this about 1 week ago. She had a hearing test yesterday which showed stable essentially normal hearing. During the last week or so she has also been having some pressure in her head without nasal congestion or rhinorrhea. Has also been having some intermittent hoarseness. No sore throat. Is scheduled for a thyroid ultrasound next month due to concern about an enlarged thyroid lobe. No history of tobacco use or red flag symptoms. JALYN VERA MD [address] [address], [place], [address], [facility] - [facility] 07/27/2025 08:34:33 OBGyn Episode No OBEpisode recorded.
--- OUTSIDE RECORDS SUMMARY | 2025-09-07 07:29 | XMS_ITS | Clinical Summary ---
Author Organization [facility] Address [address] [place] [address] Care Team Providers Care Dermatology Technician Name Role Phone Lamont Garber MD Primary Care Provider [phone] Allergies Active Allergy Reactions Criticality Noted Date [...] age to complete this topic Care Teams Dermatology Technician Relationship Specialty Start Date End Date Lamont Garber MD [address] [facility] [place] [address] PCP - General Internal Medicine 10/19/18
--- OUTSIDE RECORDS SUMMARY | 2025-09-07 07:29 | XMS_ITS | Clinical Summary ---
Author Organization [facility] Address [address] [place] [address] Phone Care Team Providers Care Commercial Intelligence Manager Name Role Phone Lamont Garber MD Primary Care Provider [phone] Allergies Active Allergy Reactions Criticality Noted Date [...] in female, estrogen receptor positive ([facility] V24, [facility] V28) 07/14/2024 Encounters Date Type Department Care Team Description 08/15/2025 9:19 AM EDT - 08/15/2025 11:59 PM EDT [facility] [address] [address] Encounter for screening mammogram for breast cancer Discharge Disposition: Home or Self Care from Last 3 Months Surgical History Surgery Date Site/Laterality Comments STEREOTACTIC CORE BIOPSY 11/10/2010 - 11/09/2011 Left BREAST LUMPECTOMY 11/10/2010 - 11/09/2011 Left HYSTERECTOMY 11/10/1994 - 11/09/1995 Medical History Medical History Date Comments Breast cancer ([facility] V24, [facility] V28) 2010 Left breast Family History Medical History Relation Name Comments Breast cancer Maternal Cousin Breast cancer Paternal Cousin Relation Name Status Comments Maternal Cousin Alive Paternal Cousin Alive Social History Tobacco Use Types Packs/Day Years Used Date Smoking Tobacco: Never Assessed Comments No Sex and Gender Information Value Date Recorded Sex Assigned at Not on file Legal Sex Female 11:24 PM EST Gender Identity Not on file Sexual Orientation Not on file Obstetrics History Para Term AB IAB SAB Ectopic Multiple Livin g Live Births 2 Last Filed Vital Signs Vital Sign Reading Time Taken Comments Blood Pressure 124/37 11/16/2024 10:15 AM EST Pulse 60 11/16/2024 10:15 AM EST Temperature 36.1 C (97 F) 11/16/2024 10:15 AM EST Respiratory Rate - - Oxygen Saturation 100% 11/16/2024 10:15 AM EST Inhaled Oxygen Concentration - - Weight 111 kg (245 lb) 08/15/2025 9:41 AM EDT Height 175.3 cm (5' 9 ) 08/15/2025 9:41 AM EDT Body Mass Index 36.18 08/15/2025 9:41 AM EDT Plan of Treatment Upcoming Encounters Date Type Department Care Team (Late st Contact Info) Description 11/16/2025 9:00 AM EST Office Visit [facility] Hematology Oncology [address] [place] [phone] Alejandro Mead MD [address] [place] [address] 08/16/2026 9:30 AM EDT [facility]ointment [facility] [address] [place] [address] Health Maintenance Due Date Last Done Comments [...] history exists Hypertension/CHF/CAD Annual BMP Blood Test 04/26/2026 04/26/2025, 10/18/2024, 03/15/2024, Additional history exists Cholesterol Screening (Lipid Panel) 04/26/2030 04/26/2025, 10/18/2024, 09/10/2023 Pneumococcal Vaccine: 50+ Years Completed [...] Procedure Name Priority Date/Time Associated Diagnosis Comments MG MAMMO DIGITAL SCREENING W HUA BILAT Routine 08/15/2025 9:55 AM EDT Encounter for screening mammogram for breast cancer HM ANNUAL BMP BLOOD TEST Routine 09/10/2023 LIPID PANEL Routine 09/10/2023 from Last 3 Months or Most Recently Relevant to Health Maintenance Results * MG Mammo Digital Screening w Hua bilat (08/15/2025 9:55 AM EDT) Anatomical Region Laterality Modality Breast Bilateral Mammography 08/15/2025 10:3 1 AM EDT Impressions 08/15/2025 10:39 AM EDT No mammographic evidence of malignancy. Postlumpectomy changes in the left breast are stable. A negative mammogram in the presence of a clinically suspicious palpable abnormality does not preclude the possibility of malignancy or alter the indications for biopsy. PQRI CPT II 3342F Code 77894, 38425 PQRI 225 CPT II 7025F TISSUE DENSITY: There are scattered areas of fibroglandular density. (BI-RADS category B) IMPRESSION: Benign. BI-RADS CATEGORY: 2 - BENIGN RECOMMENDATION: Screening bilateral mammogram is recommended in 1 year. Mammo Location: [facility], [facility], [address] [place] [address] -------- FINAL REPORT -------- Dictated By: Trip Ascencio Dictated Date: 08/15/2025 10:31 ET Assigned Physician: Trip Ascencio Reviewed and Electronically Signed By: Trip Ascencio Signed Date: 08/15/2025 10:39 ET Workstation ID: [id number] Transcribed By: Self Edit Transcribed Date: 08/15/2025 10:31 ET Narrative 08/15/2025 10:39 AM EDT CLINICAL: The patient is a 80 years Female presenting for routine screening mammography. The patient has a personal history of left breast carcinoma treated with lumpectomy in 2010, followed by radiation. COMPARISON: Most recently 08/12/2024 and most remotely 07/29/2017. TECHNIQUE: Full-field digital mammography of the breasts bilaterally consisting of tomosynthesis in MLO and CC projection is performed in the [employer]na[employer] 2000-D unit. Computer aided detection utilizing the iCAD system was utilized. FINDINGS: The breasts are again seen to be composed of a combination of fatty and fibroglandular elements. Spiculated asymmetry is again seen posteriorly in the upper-outer quadrant of the left breast, with associated dystrophic calcifications and overlying skin thickening and retraction, unchanged as compared to prior studies and consequent to lumpectomy. Surgical clips are again seen in the left axilla. Scattered benign punctate calcifications are again seen bilaterally. A benign intramammary lymph node is again noted in the upper outer quadrant of the right breast. There is no suspicious cluster of microcalcifications, mass, or new area of architectural distortion. There is no skin thickening in the right breast and no nipple retraction is seen in either breast. Procedure Note Trip Ascencio MD - 08/15/2025 CLINICAL: The patient is a 80 years Female presenting for routinescreening mammography. The patient has a personal history of left breastcarcinoma treated with lumpectomy in 2010, followed by radiation. COMPARISON: Most recently 08/12/2024 and most remotely 07/29/2017. TECHNIQUE: Full-field digital mammography of the breasts bilaterallyconsisting of tomosynthesis in MLO and CC projection is performed in theMetaStat 2000-D unit. Computer aided detection utilizing the iCADsystem was utilized. FINDINGS: The breasts are again seen to be composed of a combination offatty and fibroglandular elements. Spiculated asymmetry is again seenposteriorly in the upper-outer quadrant of the left breast, withassociated dystrophic calcifications and overlying skin thickening andretraction, unchanged as compared to prior studies and consequent tolumpectomy. Surgical clips are again seen in the left axilla. Scatteredbenign punctate calcifications are again seen bilaterally. A benignintramammary lymph node is again noted in the upper outer quadrant of theright breast. There is no suspicious cluster of microcalcifications,mass, or new area of architectural distortion. There is no skin thickeningin the right breast and no nipple retraction is seen in either breast. IMPRESSION: No mammographic evidence of malignancy. Postlumpectomy changes in theleft breast are stable. A negative mammogram in the presence of a clinically suspicious palpableabnormality does not preclude the possibility of malignancy or alter theindications for biopsy. PQRI CPT II 3342F Code 77788, 50064 PQRI 225 CPT II 7025F TISSUE DENSITY: There are scattered areas of fibroglandular density.(BI-RADS category B) IMPRESSION: Benign. BI-RADS CATEGORY: 2 - BENIGN RECOMMENDATION: Screening bilateral mammogram is recommended in 1 year. Mammo Location: [facility], [facility], [address] [place] [phone] -------- FINAL REPORT -------- Dictated By: Trip Ascencio Dictated Date: 08/15/2025 10:31 ET Assigned Physician: Trip Ascencio Reviewed and Electronically Signed By: Trip Ascencio Signed Date: 08/15/2025 10:39 ET Workstation ID: [id number] Transcribed By: Self Edit Transcribed Date: 08/15/2025 10:31 ET Self Referral Sppl IMG BI PROCEDURES Final Resul t * Annual BMP Blood Test (09/10/2023) Annual BMP Blood Test abstracted Historical Provider [...] Relevant to Health Maintenance Insurance MEDICARE [facility] Care Teams Commercial Intelligence Manager Relationship Specialty Start Date End Date Lamont Garber MD [address] [place] [address] PCP - General Internal Medicine 10/19/18
--- OUTSIDE RECORDS SUMMARY | 2025-09-07 07:30 | XMS_ITS | Encounter Summary ---
Author Organization [facility] Address [address] [address] Phone Care Team Providers Care Wax Blender Name Role Phone Lamont Garber MD Unavailable [phone] Lamont Garber MD Primary Care Provider Ba Calabrese MD Unavailable [phone] Samir Hancock MD Unavailable Ba Calabrese MD Unavailable [phone] Rashard Thakkar MD Unavailable Freddy Lua MD Unavailable Elen Triana RN Unavailable Encounter Details Date Type Department Care Team (Late st Contact Info) Description 09/03/2021 [facility] [address] [place] [address] 3rd Floor, [address] [place], [place] [phone] Shine Rapp MD 22 [facility], [address] [phone] [email or web address] Social History Tobacco Use Types Packs/Day Years [...] Description 10/10/2025 9:00 AM EST Office Visit [facility] Internal Medicine [address] [place] [address] Lamont Garber MD [address] [place] [address] [phone] 04/21/2026 10:00 AM EDT Office Visit [facility] [address] [facility] 3rd Floor, [address] [place], [place] [phone] Rafat Wilkerson MD, MS 22 [facility], [address] [place] [address] [phone] [email or web address] 04/24/2026 1:00 PM EDT Office Visit [facility] Internal Medicine [address] [place] [address] Lamont Garber MD [address] [place] [address] [phone] documented as of this encounter Visit Diagnoses Not on filedocumented in this encounter Additional Health Concerns Infection Onset Date Last Indicated Resolved Time COVID-19 12/03/2023 12/03/2023 12/24/2023 1:21 AM EST Assessment Noted Time PHQ-2 Depression Total Score: 0 08/14/20 21 10:45 AM EDT documented as of this encounter Care Teams Wax Blender Relationship Specialty Start Date End Date Lamont Garber MD [address] [place] [address] [phone] PCP - General Internal Medicine 09/29/17 Lamont Garber MD [address] [place] [address] [email or web address] Insurance Assigned Provider 02/14/24 Ba Calabrese MD [address] [place] [address] [address] [place] [address] Cardiology 01/12/20 Samir Hancock MD [address] [place] [address] [email or web address] 01/12/20 Ba Calabrese MD [address] [place] [address] Dr [address] [place] [address] Cardiology 01/14/20 Rashard Thakkar MD [address] [place] [address] [address] [place] [phone] Internal Medicine 02/14/20 Freddy Lua MD [address] [place] [address] Physical Medicine and Rehabilitation 03/03/20 Elen Triana, RN [address] [place] [phone] [email or web address] PHCM Appliance CounselorMedical Office Assistant 06/09/23 07/01/23 documented as of this encounter Additional Source Comments The information contained in this document represents components of the legal health record. It is not the complete legal health record.[facility]
--- OUTSIDE RECORDS SUMMARY | 2025-09-07 07:30 | XMS_ITS | Encounter Summary ---
Author Organization [facility] Address [address] [facility] [address] [place] [address] Phone Care Team Providers Care Radio Frequency Technician Name Role Phone Lamont Garber MD Unavailable [phone] Lamont Garber MD Primary Care Provider [phone] Ba Calabrese MD Unavailable Samir Hancock MD Unavailable Ba Calabrese MD Unavailable Rashard Thakkar MD Unavailable [phone] Freddy Lua MD Unavailable [phone] Encounter Details Date Type Department Care Team (Late st Contact Info) Description 08/24/2025 Orders Only [facility] Internal Medicine [address] [place] [address] Provider, MD Mulugeta [address] [place] [address] Social History Tobacco Use Types Packs/Day Years [...] Description 10/10/2025 9:00 AM EST Office Visit [facility] Internal Medicine [address] [place], [place] [phone] Lamont Garber MD [address] [place] [address] [phone] 04/21/2026 10:00 AM EDT Office Visit [facility] [address] [place] [address] 3rd Floor, [address] [place] [address] Rafat Wilkerson MD, MS 22 [facility], [address] [phone] jorge 04/24/2026 1:00 PM EDT Office Visit [facility] Internal Medicine [address] [place], [place] [phone] Lamont Garber MD [address] [place], [place] [phone] [email or web address] documented as of this encounter Procedures Procedure Name Priority Date/Time Associated Diagnosis Comments OUTSIDE LAB Routine 08/19/2025 7:54 AM EDT documented in this encounter Results * Outside Lab (08/19/2025 7:54 AM EDT) us Historical Provider LAB BLOOD ORDERABLES Eva l Result documented in this encounter Visit Diagnoses Not on filedocumented in this encounter Additional Health Concerns Assessment Noted Time PHQ-2 Depression Total Score: 0 04/26/20 25 8:59 AM EDT documented as of this encounter Care Teams Radio Frequency Technician Relationship Specialty Start Date End Date Lamont Garber MD [address] [place] [address] [email or web address] PCP - General Internal Medicine 09/29/17 Lamont Garber MD [address] [place] [address] [email or web address] Insurance Assigned Provider 02/14/24 Ba Calabrese MD [address] [place] [address] Dr [address] [place] [address] Cardiology 01/12/20 Samir Hancock MD [address] [place] [address] [email or web address] [email or web address] 01/12/20 Ba Calabrese MD [address] [place] [address] Dr [address] [place] [address] Cardiology 01/14/20 Rashard Thakkar MD [address] [place] [address] Dr [address] [place] [phone] Internal Medicine 02/14/20 Freddy Lua MD [address] [place] [phone] Physical Medicine and Rehabilitation 03/03/20 documented as of this encounter Additional Source Comments The information contained in this document represents components of the legal health record. It is not the complete legal health record.[facility]
--- OUTSIDE RECORDS SUMMARY | 2025-09-07 07:30 | XMS_ITS | Clinical Summary ---
Author Organization [facility] Address [address] [facility] [address] [place] [address] Phone Care Team Providers Care Senior Pricing Analyst Name Role Phone Lamont Garber MD Unavailable [phone] Lamont Garber MD Primary Care Provider Ba Calabrese MD Unavailable [phone] Samir Hancock MD Unavailable Ba Calabrese MD Unavailable [phone] Rashard Thakkar MD Unavailable Freddy Lua MD Unavailable [phone] Allergies Active Allergy Reactions Criticality Noted Date [...] injury reassessed. Please note x-rays taken at [facility]. In regards to the swelling within [...] Encounters Date Type Department Care Team Description 08/24/2025 Orders Only [facility] Internal Medicine 40 [facility] [place] [address] ProviderMulugeta MD 08/08/2025 Telephone [facility] Internal [facility] 40 [facility] [place] [address] Lamont Garber MD Ultrasound 08/03/2025 Orders Only [facility] Internal Medicine 40 [facility] [place] [address] Mulugeta Calderón MD 07/18/2025 2:00 PM EDT Office Visit [facility] Internal [facility] [address] [facility] [place] [address] Lamin Vasquez MD Dysfunction of both eustachian tubes (Primary Dx) 07/16/2025 Nurse Triage [address] [place] [address] Vicki Avalos PA-C Ear Fullness (After hours call ) 06/21/2025 3:50 PM EDT Office Visit [facility] Internal [facility] 40 [facility] [place] [address] Slime Robin, FAM Mass of right side of neck (Primary Dx) 06/10/2025 Refill [facility] Internal [facility] [address] [place] [address] Lamont Garber MD Medication Refill 06/09/2025 Telephone [facility] Internal [facility] [address] [place], [place] [phone] Lamont Garber MD request for PT from [...] Description 10/10/2025 9:00 AM EST Office Visit [facility] Internal Medicine [address] [place], [place] [phone] Lamont Garber MD [address] [place] [address] [phone] [email or web address] 04/21/2026 10:00 AM EDT Office Visit [facility] [address] [place] [address] 3rd [facility], [address] [place] [address] [phone] Rafat Wilkerson MD, MS 22 [facility], [address] [address] jorge 04/24/2026 1:00 PM EDT Office Visit [facility] Internal Medicine [address] [place], [place] [phone] Lamont Garber MD [address] [place], [place] [phone] Health Maintenance Due Date Last Done Comments [...] OUTSIDE LAB Routine 08/19/2025 7:54 AM EDT OUTSIDE US THYROID REPORT ONLY Routine 08/02/2025 1:46 PM EDT OUTSIDE IMAGING Routine 08/02/2025 8:44 AM EDT US SOFT TISSUES OF HEAD AND NECK [...] Recently Relevant to Health Maintenance Results * Outside Lab (08/19/2025 7:54 AM EDT) Historical Provider LAB BLOOD ORDERABLES Eva l Result * Outside US Thyroid Report Only (08/02/2025 1:46 PM EDT) Historical Provider MD FERNANDO US THYROID Final Res ult * Outside Imaging Report Only (08/02/2025 8:44 AM EDT) Historical Provider MD FERNANDO XR CHEST Final Res ult * (ABNORMAL) Comprehensive metabolic panel (04/26/2025 11:05 AM EDT) SODIUM 136 133 - 146 mmol/L [facility] POTASSIUM 4.2 3.3 - 5.1 mmol/L [facility] CHLORIDE 103 96 - 108 mmol/L [facility] CO2 20(L) 21 - 35 mmol/L [facility] BUN 16 6 - 19 mg/dL [facility] CREATININE 0.60 0.5 - 1.5 mg/dL [facility] GLUCOSE 92 70 - 99 mg/dL [facility] ALBUMIN 4.1 3.9 - 4.8 g/dL [facility] TOTAL PROTEIN 6.7 6.5 - 8.0 g/dL [facility] CALCIUM 9.2 8.4 - 10.3 mg/dL [facility] ALKALINE PHOSPHATASE 60 39 - 117 U/L [facility] TOTAL BILIRUBIN 0.7 0.0 - 1.2 mg/dL [facility] AST 24 0 - 37 U/L [facility] ALT 17 0 - 40 U/L [facility] GLOBULIN 2.6 1 - 4.8 g/dL [facility] EGFR 91 >59 mL/min/1.7 3m2 [facility] Comment:Estimated glomerular filtration rate calculated using the CKD-EPI refit equation. ANION GAP 17 10 - 20 mmol/L [facility] Blood 04/26/2025 11:0 5 AM EDT 04/26/2025 11:07 AM EDT us Lamont Garber MD LAB BLOOD ORDERABLES Final Re sult [address] [address] * (ABNORMAL) Lipid panel (04/26/2025 11:05 AM EDT) HDL 97 mg/dL [facility] Comment: Interpretation <40 mg/dL: Low HDL cholesterol (major risk factor for CHD) Greater than or equal to 60 mg/dL: High HDL cholesterol ( negative risk factor for CHD) HDL - cholesterol is affected by a number of factors, e.g. smoking, excerise, hormones, sex and age. CHOLESTEROL 191 0 - 240 mg/dL [facility] TRIGLYCERIDES 63 30 - 160 mg/dL [facility] LDL 81 50 - 129 mg/dL [facility] Comment: LDL levels in terms of risk for coronary heart disease: <100 mg/dL: Optimal 100-129 mg/dL: Near or above optimal 130-159 mg/dL: Borderline high 160-189 mg/dL: High >190 mg/dL: Very High CARDIAC RISK RATIO 2.0(L) 3.3 - 4.4 C [facility] Blood 04/26/2025 11:0 5 AM EDT 04/26/2025 11:07 AM EDT Lamont Garber MD LAB BLOOD ORDERABLES Final Re sult [facility] [address] [place] [address] * DEXA SCAN (06/19/2022) us Historical Provider HEALTH MAINTENANCE Edited Result - Final from Last 3 Months or Most Recently Relevant to Health Maintenance Insurance MEDICARE PART A & B [employer] [place] [employer] SUPPLEMENT MEDICARE PART A & B [employer] [place] SUPPLE[employer] MEDICARE PART A & B [employer] SUPPLEMENT MEDICARE PART A & B [employer] SUPPLEMENT MEDICARE PART A & B [employer] SUPPLEMENT MEDICARE PART A & B [employer] MED[employer] SUPPLEMENT MEDICARE PART A & B [employer] SUPPLEMENT MEDICARE PART A & B [employer] SUPPLEMENT MEDICARE PART A & B [employer] SUPPLEMENT Care Teams Senior Pricing Analyst Relationship Specialty Start Date End Date Lamont Garber MD [address] [place] [address] [email or web address] PCP - General Internal Medicine 09/29/17 Lamont Garber MD [address] [place] [address] [email or web address] Insurance Assigned Provider 02/14/24 Ba Calabrese MD [address] [place] [address] [address] [place] [address] Cardiology 01/12/20 Saimr Hancock MD [address] [place] [address] [email or web address] 01/12/20 Ba Calabrese MD [address] [place] [address] Dr [address] [place] [address] Cardiology 01/14/20 Rashard Thakkar MD [address] [place] [address] Dr [address] [place] [phone] Internal Medicine 02/14/20 Freddy Lua MD [address] [place] [address] Physical Medicine and Rehabilitation 03/03/20 Additional Source Comments The information contained in this document represents components of the legal health record. It is not the complete legal health record.[facility]
--- OUTSIDE RECORDS SUMMARY | 2025-09-07 07:30 | XMS_ITS | Encounter Summary ---
Author Organization [facility] Address [address] [facility] [address] [place] [address] Phone Care Team Providers Care Tail Board Man Name Role Phone Lamont Garber MD Unavailable Lamont Garber MD Primary Care Provider [phone] Ba Calabrese MD Unavailable Samir Hancock MD Unavailable Ba Calabrese MD Unavailable Rashard Thakkar MD Unavailable Freddy Lua MD Unavailable [phone] Encounter Details Date Type Department Care Team (Late st Contact Info) Description 08/03/2025 Orders Only [facility] Internal Medicine [address] [place] [address] Provider, MD Mulugeta [address] [place] [address] Social History Tobacco Use Types Packs/Day [...] Description 10/10/2025 9:00 AM EST Office Visit [facility] Internal Medicine [address] [place], [place] [phone] Lamont Garber MD [address] [place] [address] [phone] 04/21/2026 10:00 AM EDT Office Visit [facility] [address] [place] [address] 3rd Floor, [address] [place] [address] Rafat Wilkerson MD, MS 22 [facility], [address] [phone] jorge 04/24/2026 1:00 PM EDT Office Visit [facility] Internal Medicine [address] [place], [place] [phone] Lamont Garber MD [address] [place], [place] [phone] [email or web address] documented as of this encounter Procedures Procedure Name Priority Date/Time Associated Diagnosis Comments OUTSIDE US THYROID REPORT ONLY Routine 08/02/2025 1:46 PM EDT OUTSIDE IMAGING Routine 08/02/2025 8:44 AM EDT documented in this encounter Results * Outside US Thyroid Report Only (08/02/2025 1:46 PM EDT) us Historical Provider MD FERNANDO US THYROID Final Res ult * Outside Imaging Report Only (08/02/2025 8:44 AM EDT) Historical Provider MD FERNANDO XR CHEST Final Res ult documented in this encounter Visit Diagnoses Not on filedocumented in this encounter Additional Health Concerns Assessment Noted Time PHQ-2 Depression Total Score: 0 04/26/20 25 8:59 AM EDT documented as of this encounter Care Teams Tail Board Man Relationship Specialty Start Date End Date Lamont Garber MD [address] [place] [address] [email or web address] PCP - General Internal Medicine 09/29/17 Lamont Garber MD [address] [place] [address] [email or web address] Insurance Assigned Provider 02/14/24 Ba Calabrese MD [address] [place] [address] [address] [place] [address] Cardiology 01/12/20 Samir Hancock MD [address] [place] [phone] [email or web address] 01/12/20 Ba Calabrese MD [address] [place] [address] Dr [address] [place] [address] Cardiology 01/14/20 Rashard Thakkar MD [address] [place] [address] Dr [address] [place] [phone] Internal Medicine 02/14/20 Freddy Lua MD [address] [place] [address] Physical Medicine and Rehabilitation 03/03/20 documented as of this encounter Additional Source Comments The information contained in this document represents components of the legal health record. It is not the complete legal health record.[facility]
--- OUTSIDE RECORDS SUMMARY | 2025-09-07 07:30 | XMS_ITS | Encounter Summary ---
Author Organization [facility] Address [address] [address] Phone Care Team Providers [employer] Controls Engineer Name Role Phone Lamont Garber MD Unavailable Lamont Garber MD Primary Care Provider [phone] Ba Calabrese MD Unavailable Samir Hancock MD Unavailable Ba Calabrese MD Unavailable Rashard Thakkar MD Unavailable [phone] Freddy Lua MD Unavailable [phone] Elen Triana RN Unavailable [phone] Encounter Details Date Type Department Care Team (Late st Contact Info) Description 09/03/2021 [facility] [address] [place] [address] 3rd Floor, [address] [place], [place] [phone] Shine Rapp MD 22 [facility], [address] [phone] [email or web address] Social History Tobacco Use Types Packs/Day Years [...] Description 10/10/2025 9:00 AM EST Office Visit [facility] Internal Medicine 40 [place] [address] Lamont Garber MD [address] [place] [address] [phone] 04/21/2026 10:00 AM EDT Office Visit [facility] 22 [facility] 3rd Floor, [address] [place], [place] [phone] Rafat Wilkerson MD, MS 22 [facility], [address] [place] [address] [phone] jorge 04/24/2026 1:00 PM EDT Office Visit [facility] Internal Medicine 40 [place] [address] Lamont Garber MD [address] [place] [address] [phone] documented as of this encounter Visit Diagnoses Not on filedocumented in this encounter Additional Health Concerns Infection Onset Date Last Indicated Resolved Time COVID-19 12/03/2023 12/03/2023 12/24/2023 1:21 AM EST Assessment Noted Time PHQ-2 Depression Total Score: 0 08/14/20 21 10:45 AM EDT documented as of this encounter Care Teams Plc Controls Engineer Relationship Specialty Start Date End Date Lamont Garber MD [address] [place] [address] [phone] PCP - General Internal Medicine 09/29/17 Lamont Garber MD 40 [place] [address] [email or web address] Insurance Assigned Provider 02/14/24 Ba Calabrese MD [address] [place] [address] Dr [address] [place] [address] Cardiology 01/12/20 Samir Hancock MD [address] [place] [address] [email or web address] 01/12/20 Ba Calabrese MD [address] [place] [address] Dr [address] [place] [address] Cardiology 01/14/20 Rashard Thakkar MD [address] [place] [address] [address] [place] [phone] Internal Medicine 02/14/20 Freddy Lua MD [address] [place] [address] Physical Medicine and Rehabilitation 03/03/20 Elen Triana, RN [address] [place] [phone] [email or web address] PHCM Roller Coaster OperatorManager Golf 06/09/23 07/01/23 documented as of this encounter Additional Source Comments The information contained in this document represents components of the legal health record. It is not the complete legal health record.[facility]
--- NOTE | 2025-09-07 09:56 | PM.PROC ---
Brief Operative Note Date of procedure: 09/07/25 Pre-op diagnosis: left mid 2.1 cm thyroid nodule Post-op diagnosis: same Procedure: PROCEDURE PERFORMED: Ultrasound-guided FNA of thyroid nodule ? OPERATORS: Dr. Candelario ? INDICATION: left mid 2.1 cm thyroid nodule.; FNA performed to assess for malignancy ? DESCRIPTION OF PROCEDURE: The indications for FNA (to assess for malignancy) were reviewed with the patient in detail. Potential complications (e.g., bleeding, infection, damage to local structures, absence of clear diagnosis after FNA) were reviewed. Alternatives to FNA including conservative observation or surgery were described. The patient understood and agreed to proceed. This was documented by the signing of the written informed consent form. A time-out was performed to confirm the patient's identity and the site of planned FNA. The nodule of interest was identified using ultrasound (14 MHz linear array probe). The site of FNA was then draped in the usual fashion and carefully cleaned and prepared using iodine povidone swabs. The skin at the previously-identified site of needle insertion was iced and sprayed with numbing spray. Under ultrasound guidance, 4 passes were performed using a 1.5-inch, 22-gauge needle, and sample was obtained via capillary action. The needle tip was clearly visualized to be within the nodule at the time of sampling for 4 of 4 passes The patient tolerated the procedure well. There were no immediate complications. A small adhesive bandage was applied, and the patient was advised to take acetaminophen (rather than NSAIDs) for any discomfort and to report any signs of inflammation/infection or marked swelling. IMPRESSION: Technically successful ultrasound-guided fine needle aspiration of left mid 2.1 cm thyroid nodule. PLAN: The patient was advised that I will provide follow-up regarding the cytology result and any subsequent plans. Dr. Kodak MD Endocrinology Attending Anesthesia: local Surgeon: Sukhjinder Humphreys Estimated blood loss (mL): 0 IV fluids (mL): 0 Urine output (mL): 0 Pathology: other (Afirma) Condition: stable Disposition: same day
== END 2025-09-07 07:28 | disposition home or self-care (01) ==
LOC: HO.US 07:27
PROVIDERS: PCP Internal Medicine; Visit Provider Student in an Organized Health Care Education/Training Program
DX: E04.2 Nontoxic multinodular goiter (principal)
CPT/HCPCS: 10005; 88173; 88305

== ENCOUNTER → 2025-09-07 07:27 | Outpatient (BNV) | payer MEDICARE, SELFPAY ==
[2023-01-09 09:05] VITALS: BP 106/60; BP 132/56; BP 150/74
== END ==
PROVIDERS: PCP Internal Medicine; Visit Provider Student in an Organized Health Care Education/Training Program
DX: E04.1 Nontoxic single thyroid nodule (principal)
CPT/HCPCS: 10005

== ENCOUNTER 2025-09-07 17:18 | Emergency (ER) | payer MEDICARE, SELFPAY ==
[2023-01-09 09:05] VITALS: BP 106/60; BP 132/56; BP 150/74
--- NOTE | ~2025-09-07 | XR_ITS ---
CLINICAL HISTORY: shoulder pain Radiographs of the right shoulder, 3 views Comparison: None available Findings: No fracture or dislocation. Narrowed acromiohumeral interval. Moderate to severe degenerative change of the glenohumeral joint. 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 There is calcification at the acromioclavicular joint, degenerative. No soft tissue swelling. Impression: No acute findings. Narrowed acromiohumeral interval may indicate rotator cuff pathology. Moderate to severe glenohumeral degenerative change. This document has been electronically signed by: Kacy Enamorado MD on 09/07/2025 18:41:44
--- NOTE | ~2025-09-07 | XR_ITS ---
CLINICAL HISTORY: arm pain Radiographs of the right humerus, 2 views, 5 images Comparison: CR - XR SHOULDER RT MIN 2V - 09/07/25 18:13 EDT Findings: No fracture or dislocation. Moderate to severe degenerative change of the shoulder. Mild degenerative change of the elbow. Soft tissue swelling. Impression: No fracture. This document has been electronically signed by: Kacy Enamorado MD on 09/07/2025 18:35:03
[2025-09-07 17:21] VITALS: BP 172/73; PULSE 65; RESP 16; TEMP 37.1; O2SAT 96; BMI 36.6
--- NOTE | 2025-09-07 17:22 | ED.GENADULT ---
HPI - General Adult General Chief complaint: Extremity Injury, Upper Stated complaint: rt shoulder/arm pain Time Seen by Provider: 09/07/25 19:28 Source: patient, family (daughter), RN notes reviewed and old records reviewed Mode of arrival: ambulatory Limitations: no limitations History of Present Illness ED Provider: Mikal HPI narrative: 80-year-old female with a past medical history significant for atrial fibrillation on Xarelto, heart failure preserved ejection fraction, multinodular goiter, thyroid biopsy this morning, hypertension presents for evaluation of right shoulder pain. The patient reports that she was seated in her recliner when she was reaching down and somewhat behind her to reach her bottle of water that he fallen to the ground. She felt a pulling sensation while reaching down and had immediate pain to the right shoulder. She has pain globally to the right shoulder but mostly in the front of the right shoulder. She reports that she is no longer able to reach behind her with the right upper extremity. She would not fall during this She is took some Tylenol without any improvement in his symptoms The patient is predominantly right-handed and reports that she is unable to get off the recliner without help and she was unable to dress herself after going to the bathroom Related Data Home Medications ?Medication ?Instructions ?Recorded ?Confirmed albuterol sulfate 90 mcg/actuation 2 puff inhalation Q4-6H PRN 08/08/21 08/17/25 aerosol inhaler (ProAir HFA) Wheezing pyridoxine (vitamin B6) 25 mg 25 mg PO DAILY 05/30/22 08/17/25 tablet vitamin E (dl, acetate) 45 mg (100 45 mg PO DAILY 05/30/22 08/17/25 unit) capsule cholecalciferol (vitamin D3) 25 25 mcg PO DAILY 12/05/22 08/17/25 mcg (1,000 unit) capsule furosemide 20 mg tablet 20 mg PO DAILY 05/28/23 08/17/25 pantoprazole 40 mg tablet,delayed 40 mg PO ONCE PRN 01/24/25 08/17/25 release ascorbate calcium (vitamin C) 500 1 g PO Q6H 08/17/25 08/17/25 mg tablet Previous Rx's ?Medication ?Instructions ?Recorded epinephrine 0.3 mg/0.3 mL 0.3 mg (0.3 mL) IM Q15M PRN 04/09/24 injection, auto-injector (EpiPen) anaphylaxis #2 ea rivaroxaban 20 mg tablet (Xarelto) 20 mg PO DAILY #90 tabs 11/01/24 empagliflozin 10 mg tablet 10 mg PO DAILY #90 tabs 01/14/25 (Jardiance) propafenone 150 mg tablet 150 mg PO TID #270 tabs 07/12/25 lisinopril 5 mg tablet 5 mg PO DAILY #90 tabs 08/05/25 acetaminophen 300 mg-codeine 15 mg 1 tab PO Q8H PRN severe pain 09/07/25 tablet (scale score 7-10) #12 tabs lidocaine 5 % topical patch 1 patch topical DAILY #15 ea 09/07/25 ondansetron 4 mg disintegrating 4 mg PO Q8H PRN nausea and 09/07/25 tablet vomiting #20 tabs Allergies Allergy/AdvReac Type Severity Reaction Status Date / Time bee pollen (BEE STINGS) Allergy Severe ANAPHYLAXIS Verified 09/07/25 17:26 Penicillins (PENICILLINS) Allergy Intermediate HIVES Verified 09/07/25 17:26 chlorhexidine (CHLORAPREP) Allergy Mild RASH Verified 09/07/25 17:26 sulfamethoxazole (From Allergy Mild DIARRHEA Verified 09/07/25 17:26 BACTRIM) codeine (CODEINE) Allergy Unknown NAUSEA Verified 09/07/25 17:26 latex (LATEX) Allergy Unknown rash/itchy Verified 09/07/25 17:26 iodine povacrylex (From AdvReac Rash Verified 09/07/25 17:26 DuraPrep) isopropyl alcohol (From AdvReac Rash Verified 09/07/25 17:26 DuraPrep) Review of Systems Constitutional: Constitutional: Denies body ache(s), Denies chills, Denies fever(s) and Denies headache(s) Eyes: Eyes: Denies blurry vision ENT: Denies vertigo, Denies dizziness, Denies headache(s) and Denies neck pain Cardiovascular: Cardiovascular: Denies chest pain and Denies dyspnea on exertion Respiratory: Respiratory: Denies cough and Denies dyspnea on exertion Gastrointestinal: Gastrointestinal: Denies abdominal pain, Denies nausea and Denies vomiting Musculoskeletal: Musculoskeletal: Denies back pain, Reports arthralgias, Reports joint swelling, Reports limited range of motion, Denies neck pain and Reports radiating pain into limb Neurologic: Denies vertigo, Denies dizziness and Denies headache(s) [facility] Past Medical History Medical History (Updated 09/07/25 @ 20:44 by Kamaljit Ren) Multinodular goiter (nontoxic) Myocardial injury Paroxysmal atrial fibrillation Sick sinus syndrome Surgical History Hx of knee surgery Hx of oral surgery Hx of colonoscopy Hx of hysterectomy History of back surgery Hx of lumpectomy History of cholecystectomy Hx of appendectomy Family History Family History Father Emphysema lung Mother Sudden cardiac arrest Social History Social History Household Members: Spouse Housing: House Do you presently have visiting nurse or other home services: No Alcohol intake: current Alcohol intake frequency: holidays/special occasions only Alcohol type: wine Patient Tobacco Use Status: Never used Tobacco e-Cigarette/Vaping Use: Never Used Advance Directives: No Advance Directives Information Provided: No service: No Current occupational status: retired Physical Exam ED Vital Signs: Vital Signs - 24 hr 09/07/25 17:21 09/07/25 19:34 Temperature 98.7 F 97.7 F Pulse Rate 65 59 Respiratory Rate 16 18 Blood Pressure 172/73 H 126/84 Pulse Oximetry 96 98 Oxygen Delivery Method Room Air Room Air BMI result Body Mass Index 36.6 Const General: healthy appearing, comfortable, no acute distress, alert and awake Nutritional Appearance: well nourished Orientation/consciousness: patient oriented x3 HENMT Head: Yes normocephalic and Yes atraumatic Eyes Eyelids: Yes eyelids normal Conjunctivae: conjunctivae normal Sclerae: sclerae normal Corneas: corneas normal Pupils: Equal, round and reactive pupils present EOM: EOMs intact bilaterally Neck Other: There was no anterior neck edema. There is a dressing to the right anterior neck. No surrounding erythema, no drainage on the dressing. Trachea midline Neck: Yes full ROM Resp Effort & Inspection: normal respiratory effort, able to speak in complete sentences and not labored Skin General skin exam: elasticity normal Neuro General: patient oriented x3 Cranial nerves: Yes Equal, round and reactive pupils present and Yes Bilaterally intact EOM present Cognition (Neuro): normal cognition Extrem Other: The patient is guarding the right upper extremity the shoulder. She is tender globally Desert shoulder but predominantly in the right AC joint. She has some discomfort with ab duction of the right upper extremity above the shoulder. She is unable to reach behind her back with the right arm. She had significant pain with the empty can test. No overlying skin changes including ecchymosis or erythema. Course Course Course Narrative: 80 yo F here for right shoulder pain for trying to reach for a water bottle. She has pain on the proximal humeral area. Able to flex her shoulders without any issues. However have difficulty using her right arm. Rapid medical screening exam was performed. Patient stable at time of evaluation. Raisa Jaimes, DO 09/07/25 1072 Reevaluation(s) Reevaluation #1: Patient tolerated these Zofran with Tylenol and codeine well without any nausea or vomiting. She would like to be discharged home with the same. Return precautions were given, especially if she is unable to perform ADLs Time: 20:42 Medications Administered Discontinued Medications Generic Name Dose Route Start Last Admin Trade Name Jesusita PRN Reason Stop Dose Admin Acetaminophen/Codeine Phosphate 1 tab 09/07/25 20:07 09/07/25 20:27 Acetaminophen/Codeine 300-30mg Tablet PO 09/07/25 20:08 1 tab ONCE ONE Administration Ondansetron HCl 4 mg 09/07/25 20:10 09/07/25 20:23 Ondansetron Odt 4 Mg Tab.Rapdis TRANSLINGU 09/07/25 20:11 4 mg ONCE ONE Administration Medical Decision Making Medical Decision Making [facility] Narrative: [age] old female presents for evaluation of right shoulder pain after reaching down and behind her to grab something off the ground. Her pain is very reproducible and consists a musculoskeletal injury. She had an x-ray ordered in triage which shows moderate to severe glenohumeral degenerative changes. A humerus fracture showed mild arthritis but no fracture. There was some soft tissue swelling noted which could be consistent with a rotator cuff injury. The patient is having some difficulty getting out of the chair and dressing herself earlier. I discussed potential for physical therapy and case management evaluation for possible short-term rehab placement. The patient is fairly adamant she does not want to go to rehab. She would like to go home. Her daughter who is bedside with a reports that she will stay with the patient to help her. They were given return precautions. As far as pain management goes, the patient has an adverse reaction to Tylenol with codeine but reports that she did worse with oxycodone. She states that she has had codeine before with antiemetic. We will try to treat her discomfort with Tylenol with codeine with Zofran as well. If she tolerates this well she will be discharged home with her daughter. The patient is not have any anterior neck edema or trachea deviation to suggest a complication with her thyroid biopsy from this morning. Differential Diagnosis Differential Diagnoses: The differential diagnosis associated with the presentation includes Rotator cuff injury Shoulder sprain Contusion Arthritis Humeral fracture less likely Radiology Impression Discussion of test interpretation with radiology: I have reviewed the radiologist's reading. Radiologist Impression: Findings: No fracture or dislocation. Moderate to severe degenerative change of the shoulder. Mild degenerative change of the elbow. Soft tissue swelling. Impression: No fracture. 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 The findings were also concerning for a possible rotator cuff injury or tear You may use lidocaine patches as needed for your pain. You may use Tylenol with codeine for severe breakthrough pain. This may make you drowsy, do not drink alcohol or drive after taking it. You can take the Zofran with this to prevent nausea or vomiting. Codeine may cause constipation, you may want to take MiraLax or other stool softener to prevent significant constipation Follow up with Orthopedics at the number provided. You may require an outpatient MRI of the shoulder Return for new or worsening symptoms or if you were not doing well at home and unable to perform activities of daily living Prescriptions: New ondansetron 4 mg tablet,disintegrating 4 mg PO Q8H PRN (Reason: nausea and vomiting) Qty: 20 0RF acetaminophen-codeine 300-15 mg tablet 1 tab PO Q8H PRN (Reason: severe pain (scale score 7-10)) Qty: 12 0RF lidocaine 5 % adhesive patch,medicated 1 patch topical DAILY Qty: 15 0RF Rx Instructions: leave on most painful area for up to 12 hrs No Action Xarelto 20 mg tablet 20 mg PO DAILY Qty: 90 3RF Jardiance 10 mg tablet 10 mg PO DAILY Qty: 90 3RF propafenone 150 mg tablet 150 mg PO TID Qty: 270 3RF lisinopril 5 mg tablet 5 mg PO DAILY Qty: 90 3RF albuterol sulfate [ProAir HFA] 90 mcg/actuation Hfa Aerosol Inhaler 2 puff INHALATION Q4-6H PRN (Reason: Wheezing) epinephrine [EpiPen] 0.3 mg/0.3 mL auto-injector 0.3 mg IM Q15M PRN (Reason: anaphylaxis) Qty: 2 0RF pantoprazole 40 mg tablet,delayed release (DR/EC) 40 mg PO ONCE PRN vitamin E (dl, acetate) 45 mg (100 unit) capsule 45 mg PO DAILY pyridoxine (vitamin B6) 25 mg tablet 25 mg PO DAILY furosemide 20 mg tablet 20 mg PO DAILY cholecalciferol (vitamin D3) 25 mcg (1,000 unit) capsule 25 mcg PO DAILY ascorbate calcium (vitamin C) 500 mg tablet 1 g PO Q6H Referrals: [facility] [Provider Group] Referral Note: rotator cuff injury right Print Language: German
[2025-09-07 19:34] VITALS: BP 126/84; PULSE 59; RESP 18; TEMP 36.5; O2SAT 98
--- OUTSIDE RECORDS SUMMARY | 2025-09-07 20:25 | XMS_ITS | Encounter Summary ---
Author Organization [facility] Address [address] [facility] [address] [place] [address] Phone Care Team Providers Care Physical Therapy Instructor Name Role Phone Lamont Garber MD Unavailable [phone] Lamont Garber MD Primary Care Provider [phone] Ba Calabrese MD Unavailable Samir Hancock MD Unavailable Ba Calabrese MD Unavailable Rashard Thakkar MD Unavailable Freddy Lua MD Unavailable [phone] Encounter Details Date Type Department Care Team (Late st Contact Info) Description 08/24/2025 Orders Only [facility] Internal Medicine [address] [place] [address] Provider, MD Mulugeta [address] [place] [address] Social History Tobacco Use Types Packs/Day [...] Description 10/10/2025 9:00 AM EST Office Visit [facility] Internal Medicine [address] [place], [place] [phone] Lamont Garber MD [address] [place] [address] [phone] 04/21/2026 10:00 AM EDT Office Visit [facility] [address] [place] [address] 3rd Floor, [address] [place] [address] Rafat Wilkerson MD, MS 22 [facility], [address] [phone] jorge 04/24/2026 1:00 PM EDT Office Visit [facility] Internal Medicine [address] [place], [place] [phone] Lamont Garber MD 40 [place], [place] [phone] [email or web address] documented as of this encounter Procedures Procedure [...] documented as of this encounter Care Teams Physical Therapy Instructor Relationship Specialty Start Date End Date Lamont Garber MD 40 [place] [address] [email or web address] PCP - General Internal Medicine 09/29/17 Lamont Garber MD 40 [place] [address] [email or web address] Insurance Assigned Provider 02/14/24 Ba Calabrese MD [address] [place] [address] Dr [address] [place] [address] Cardiology 01/12/20 Samir Hancock MD [address] [place] [address] [email or web address] 01/12/20 Ba Calabrese MD [address] [place] [address] Dr [address] [place] [address] Cardiology 01/14/20 Rashard Thakkar MD [address] [place] [address] Dr [address] [place] [phone] Internal Medicine 02/14/20 Freddy Lua MD [address] [place] [address] Physical Medicine and Rehabilitation 03/03/20 documented as of this encounter Additional Source Comments The information contained in this document represents components of the legal health record. It is not the complete legal health record.[facility]
--- OUTSIDE RECORDS SUMMARY | 2025-09-07 20:25 | XMS_ITS | Clinical Summary ---
Author Organization [facility] Address [address] [place] [address] Phone Care Team Providers Care Wheel Setter Name Role Phone Lamont Garber MD Primary Care Provider [phone] Allergies Active Allergy Reactions Criticality Noted Date [...] left breast in female, estrogen receptor positive ([facility] V24, [facility] V28) 07/14/2024 Encounters Date Type Department Care Team Description 08/15/2025 9:19 AM EDT - 08/15/2025 11:59 PM EDT Hospital [facility]counter [facility] [address] [address] Encounter for screening mammogram for breast cancer Discharge Disposition: Home or Self Care from Last 3 Months Surgical History Surgery Date Site/Laterality Comments STEREOTACTIC CORE BIOPSY 11/10/2010 - 11/09/2011 Left BREAST LUMPECTOMY 11/10/2010 - 11/09/2011 Left HYSTERECTOMY 11/10/1994 - 11/09/1995 Medical History Medical History Date Comments Breast cancer ([facility] V24, [facility] V28) 2010 Left breast Family History Medical [...] Description 11/16/2025 9:00 AM EST Office Visit [facility] Hematology Oncology [address] [place] [address] Alejandro Mead MD [address] [place] [address] 08/16/2026 9:30 AM EDT Appointment [facility] [address] [place] [address] Health Maintenance Due Date Last [...] for biopsy. PQRI CPT II 3342F Code 18878, 12637 PQRI 225 CPT II 7025F TISSUE DENSITY: There are scattered areas of fibroglandular density. (BI-RADS category B) IMPRESSION: Benign. BI-RADS CATEGORY: 2 - BENIGN RECOMMENDATION: Screening bilateral mammogram is recommended in 1 year. Mammo Location: [facility], [facility], [address] [place] [address] -------- FINAL REPORT -------- Dictated By: Trip Ascencio Dictated Date: 08/15/2025 10:31 ET Assigned Physician: Trip Ascencio Reviewed and Electronically Signed By: Trip Ascencio Signed Date: 08/15/2025 10:39 ET Workstation ID: [id number] Transcribed By: Self Edit Transcribed Date: 08/15/2025 [...] and CC projection is performed in the [employer] 2000-D unit. Computer aided detection utilizing the [...] MLO and CC projection is performed in the[employer] 2000-D unit. Computer aided detection utilizing the [...] for biopsy. PQRI CPT II 3342F Code 73800, 83511 PQRI 225 CPT II 7025F TISSUE DENSITY: There are scattered areas of fibroglandular density.(BI-RADS category B) IMPRESSION: Benign. BI-RADS CATEGORY: 2 - BENIGN RECOMMENDATION: Screening bilateral mammogram is recommended in 1 year. Mammo Location: [facility], [facility], [address] [place] [address] -------- FINAL REPORT -------- Dictated By: Trip Ascencio Dictated Date: 08/15/2025 10:31 ET Assigned Physician: Trip Ascencio Reviewed and Electronically Signed By: Trip Ascencio Signed Date: 08/15/2025 10:39 ET Workstation ID: [id number] Transcribed By: Self Edit Transcribed Date: 08/15/2025 [...] Recently Relevant to Health Maintenance Insurance MEDICARE [facility] Care Teams Wheel Setter Relationship Specialty Start Date End Date Lamont Garber MD [address] [place] [address] PCP - General Internal Medicine 10/19/18
--- OUTSIDE RECORDS SUMMARY | 2025-09-07 20:25 | XMS_ITS | Encounter Summary ---
Author Organization [facility] Address [address] [facility] [address] [place] [address] Phone Care Team Providers Care Candy Roller Name Role Phone Lamont Garber MD Unavailable Lamont Garber MD Primary Care Provider [phone] Ba Calabrese MD Unavailable Samir Hancock MD Unavailable [phone] Ba Calabrese MD Unavailable Rashard Thakkar MD Unavailable Freddy Lua MD Unavailable [phone] Encounter Details Date Type Department Care Team (Late st Contact Info) Description 08/03/2025 Orders Only [facility] Internal Medicine [address] [place] [address] Provider, MD Mulugeta [address] [place] [address] Social History Tobacco Use Types Packs/Day [...] Description 10/10/2025 9:00 AM EST Office Visit [facility] Internal Medicine [address] [place], [place] [phone] Lamont Garber MD [address] [place] [address] [phone] 04/21/2026 10:00 AM EDT Office Visit [facility] [address] [place] [address] 3rd Floor, [address] [place] [address] Rafat Wilkerson MD, MS 22 [facility], [address] [phone] jorge 04/24/2026 1:00 PM EDT Office Visit [facility] Internal Medicine [address] [place], [place] [phone] Lamont Garber MD [address] [place], [place] [phone] [email or web address] documented as of this encounter Procedures Procedure [...] documented as of this encounter Care Teams Candy Roller Relationship Specialty Start Date End Date Lamont Garber MD [address] [place] [address] [email or web address] PCP - General Internal Medicine 09/29/17 Lamont Garber MD [address] [place] [address] [email or web address] Insurance Assigned Provider 02/14/24 Ba Calabrese MD [address] [place] [address] [address] [place] [address] Cardiology 01/12/20 Samir Hancock MD [address] [place] [phone] [email or web address] Otolaryngology 01/12/20 Ba Calabrese MD [address] [place] [address] Dr [address] [place] [address] Cardiology 01/14/20 Rashard Thakkar MD [address] [place] [address] Dr [address] [place] [phone] Internal Medicine 02/14/20 Freddy Lua MD [address] [place] [address] Physical Medicine and Rehabilitation 03/03/20 documented as of this encounter Additional Source Comments The information contained in this document represents components of the legal health record. It is not the complete legal health record.[facility]
--- OUTSIDE RECORDS SUMMARY | 2025-09-07 20:25 | XMS_ITS | Encounter Summary ---
Author Organization [facility] Address [address] [address] Phone Care Team Providers Care Insurance Claims Assistant Name Role Phone Lamont Garber MD Unavailable Lamont Garber MD Primary Care Provider Ba Calabrese MD Unavailable [phone] Samir Hancock MD Unavailable Ba Calabrese MD Unavailable [phone] Rashard Thakkar MD Unavailable Freddy Lua MD Unavailable Elen Triana RN Unavailable Encounter Details Date Type Department Care Team (Late st Contact Info) Description 09/03/2021 [facility] [address] [place] [address] 3rd Floor, [address] [place], [place] [phone] Shine Rapp MD 22 [facility], [address] [phone] [email or web address] Social History Tobacco Use Types Packs/Day Years [...] Description 10/10/2025 9:00 AM EST Office Visit [facility] Internal Medicine [address] [place] [address] Lamont Garber MD [address] [place] [address] [phone] [email or web address] 04/21/2026 10:00 AM EDT Office Visit [facility] 22 [facility] 3rd Floor, [address] [place], [place] [phone] Rafat Wilkerson MD, MS 22 [facility], [address] [place] [address] [phone] jorge 04/24/2026 1:00 PM EDT Office Visit [facility] Internal Medicine [address] [place] [address] Lamont Garber MD [address] [place] [address] [phone] documented as of this encounter Visit Diagnoses Not on filedocumented in this encounter Additional Health Concerns Infection Onset Date Last Indicated Resolved Time COVID-19 12/03/2023 12/03/2023 12/24/2023 1:21 AM EST Assessment Noted Time PHQ-2 Depression Total Score: 0 08/14/20 21 10:45 AM EDT documented as of this encounter Care Teams Insurance Claims Assistant Relationship Specialty Start Date End Date Lamont Garber MD [address] [place] [address] [phone] PCP - General Internal Medicine 09/29/17 Lamont Garber MD [address] [place] [address] [email or web address] Insurance Assigned Provider 02/14/24 Ba Calabrese MD [address] [place] [address] Dr [address] [place] [address] Cardiology 01/12/20 Samir Hancock MD [address] [place] [address] [email or web address] 01/12/20 Ba Calabrese MD [address] [place] [address] [address] [place] [address] Cardiology 01/14/20 Rashard Thakkar MD [address] [place] [address] [address] [place] [phone] Internal Medicine 02/14/20 Freddy Lua MD [address] [place] [address] Physical Medicine and Rehabilitation 03/03/20 Elen Triana, RN [address] [place] [phone] [email or web address] PHCM Clinical Research PhysicianSoap Boiler 06/09/23 07/01/23 documented as of this encounter Additional Source Comments The information contained in this document represents components of the legal health record. It is not the complete legal health record.[facility]
--- OUTSIDE RECORDS SUMMARY | 2025-09-07 20:25 | XMS_ITS | Clinical Summary ---
Author Organization [facility] Address [address] [place] [address] Care Team Providers Care Cake Froster Name Role Phone Lamont Garber MD Primary Care Provider Allergies Active Allergy Reactions Criticality Noted Date [...] age to complete this topic Care Teams Cake Froster Relationship Specialty Start Date End Date Lamont Garber MD [address] [facility] [place] [address] PCP - General Internal Medicine 10/19/18
--- OUTSIDE RECORDS SUMMARY | 2025-09-07 20:25 | XMS_ITS | Encounter Summary ---
Author Organization [facility] Address [address] [address] Phone Care Team Providers Care Retail Parts Pro Name Role Phone Lamont Garber MD Unavailable Lamont Garber MD Primary Care Provider Ba Calabrese MD Unavailable Samir Hancock MD Unavailable Ba Calabrese MD Unavailable Rashard Thakkar MD Unavailable Freddy Lua MD Unavailable Elen Triana RN Unavailable Encounter Details Date Type Department Care Team (Late st Contact Info) Description 09/03/2021 [facility] [address] [place] [address] 3rd Floor, [address] [place], [place] [phone] Shine Rapp MD 22 [facility], [address] [phone] [email or web address] Social History Tobacco Use Types Packs/Day Years [...] Description 10/10/2025 9:00 AM EST Office Visit [facility] Internal Medicine [address] [place] [address] Lamont Garber MD [address] [place] [address] [phone] [email or web address] 04/21/2026 10:00 AM EDT Office Visit [facility] 22 [facility] 3rd Floor, [address] [place], [place] [phone] Rafat Wilkerson MD, MS 22 [facility], [address] [place] [address] [phone] jorge 04/24/2026 1:00 PM EDT Office Visit [facility] Internal Medicine [address] [place] [address] Lamont Garber MD [address] [place] [address] [phone] documented as of this encounter Visit Diagnoses Not on filedocumented in this encounter Additional Health Concerns Infection Onset Date Last Indicated Resolved Time COVID-19 12/03/2023 12/03/2023 12/24/2023 1:21 AM EST Assessment Noted Time PHQ-2 Depression Total Score: 0 08/14/20 21 10:45 AM EDT documented as of this encounter Care Teams Retail Parts Pro Relationship Specialty Start Date End Date Lamont Garber MD [address] [place] [address] [phone] PCP - General Internal Medicine 09/29/17 Lamont Garber MD [address] [place] [address] [email or web address] Insurance Assigned Provider 02/14/24 Ba Calabrese MD [address] [place] [address] Dr [address] [place] [address] Cardiology 01/12/20 Samir Hancock MD [address] [place] [phone] [email or web address] 01/12/20 Ba Calabrese MD [address] [place] [address] Dr [address] [place] [address] Cardiology 01/14/20 Rashard Thakkar MD [address] [place] [address] [address] [place] [phone] Internal Medicine 02/14/20 Freddy Lua MD [address] [place] [address] Physical Medicine and Rehabilitation 03/03/20 Elen Triana, RN [address] [place] [phone] [email or web address] PHCM Tub ChuckerCassandra Architect 06/09/23 07/01/23 documented as of this encounter Additional Source Comments The information contained in this document represents components of the legal health record. It is not the complete legal health record.[facility]
--- OUTSIDE RECORDS SUMMARY | 2025-09-07 20:25 | XMS_ITS | Clinical Summary ---
Author Organization [facility] Address [address] [facility] [address] [place] [address] Phone Care Team Providers Care University Administrator Name Role Phone Lamont Garber MD Unavailable [phone] Lamont Garber MD Primary Care Provider Ba Calabrese MD Unavailable [phone] Samir Hancock MD Unavailable Ba Calabrese MD Unavailable [phone] Rashard Thakkar MD Unavailable Freddy Lua MD Unavailable Allergies Active Allergy Reactions Criticality Noted Date [...] injury reassessed. Please note x-rays taken at [facility]. In regards to the swelling within [...] Department Care Team Description 08/24/2025 Orders Only [facility] Internal Medicine [address] [facility] [place] [address] ProviderMulugeta MD 08/08/2025 Telephone [facility] Internal [facility] [address] [facility] [place] [address] Lamont Garber MD Ultrasound 08/03/2025 Orders Only [facility] Internal Medicine [address] [facility] [place] [address] Mulugeta Calderón MD 07/18/2025 2:00 PM EDT Office Visit [facility] Internal [facility] [address] [facility] [place] [address] Lamin Vasquez MD Dysfunction of both eustachian tubes (Primary Dx) 07/16/2025 Nurse Triage [address] [place] [address] Vicki Avalos PA-C Ear Fullness (After hours call ) 06/21/2025 3:50 PM EDT Office Visit [facility] Internal [facility] [address] [facility] [place] [address] Slime Robin, FAM Mass of right side of neck (Primary Dx) 06/10/2025 Refill [facility] Internal [facility] [address] [place] [address] Lamont Garber MD Medication Refill 06/09/2025 Telephone [facility] Internal [facility] [address] [place], [place] [phone] Lamont Garber MD request for PT from [...] Description 10/10/2025 9:00 AM EST Office Visit [facility] Internal Medicine [address] [place], [place] [phone] Lamont Garber MD [address] [place] [address] [phone] 04/21/2026 10:00 AM EDT Office Visit [facility] [address] [place] [address] 3rd [facility], [address] [place] [address] [phone] Rafat Wilkerson MD, MS 22 [facility], [address] [address] jorge 04/24/2026 1:00 PM EDT Office Visit [facility] Internal Medicine [address] [place], [place] [phone] Lamont Garber MD [address] [place], [place] [phone] Health Maintenance Due Date Last Done Comments [...] EDT) SODIUM 136 133 - 146 mmol/L [facility] POTASSIUM 4.2 3.3 - 5.1 mmol/L [facility] CHLORIDE 103 96 - 108 mmol/L [facility] CO2 20(L) 21 - 35 mmol/L [facility] BUN 16 6 - 19 mg/dL [facility] CREATININE 0.60 0.5 - 1.5 mg/dL [facility] GLUCOSE 92 70 - 99 mg/dL [facility] ALBUMIN 4.1 3.9 - 4.8 g/dL [facility] TOTAL PROTEIN 6.7 6.5 - 8.0 g/dL [facility] CALCIUM 9.2 8.4 - 10.3 mg/dL [facility] ALKALINE PHOSPHATASE 60 39 - 117 U/L [facility] TOTAL BILIRUBIN 0.7 0.0 - 1.2 mg/dL [facility] AST 24 0 - 37 U/L [facility] ALT 17 0 - 40 U/L [facility] GLOBULIN 2.6 1 - 4.8 g/dL [facility] EGFR 91 >59 mL/min/1.7 3m2 [facility] Comment:Estimated glomerular filtration rate calculated using the CKD-EPI refit equation. ANION GAP 17 10 - 20 mmol/L [facility] Blood 04/26/2025 11:0 5 AM EDT 04/26/2025 11:07 AM EDT us Lamont Garber MD LAB BLOOD ORDERABLES Final Re sult [address] [address] * (ABNORMAL) Lipid panel (04/26/2025 11:05 AM EDT) HDL 97 mg/dL [facility] Comment: Interpretation <40 mg/dL: Low HDL cholesterol (major risk factor for CHD) Greater than or equal to 60 mg/dL: High HDL cholesterol ( negative risk factor for CHD) HDL - cholesterol is affected by a number of factors, e.g. smoking, excerise, hormones, sex and age. CHOLESTEROL 191 0 - 240 mg/dL [facility] TRIGLYCERIDES 63 30 - 160 mg/dL [facility] LDL 81 50 - 129 mg/dL [facility] Comment: LDL levels in terms of risk for coronary heart disease: <100 mg/dL: Optimal 100-129 mg/dL: Near or above optimal 130-159 mg/dL: Borderline high 160-189 mg/dL: High >190 mg/dL: Very High CARDIAC RISK RATIO 2.0(L) 3.3 - 4.4 [facility] Blood 04/26/2025 11:0 5 AM EDT 04/26/2025 11:07 AM EDT Lamont Garber MD LAB BLOOD ORDERABLES Final Re sult [facility] [address] [place] [address] * DEXA SCAN (06/19/2022) us Historical Provider HEALTH MAINTENANCE Edited Result - Final from Last 3 Months or Most Recently Relevant to Health Maintenance Insurance MEDICARE PART A & B [email or web address] DES LACS MEDEX SUPPLEMENT MEDICARE PART A & B [email or web address] CROSS MEDEX SUPPLEMENT MEDICARE PART A & B RF Arrays MEDEX SUPPLEMENT MEDICARE PART A & B [email or web address] CROSS MEDEX SUPPLEMENT MEDICARE PART A & B BLUE CROSS MEDEX SUPPLEMENT MEDICARE PART A & B RF Arrays MEDEX SUPPLEMENT MEDICARE PART A & B RF Arrays MEDEX SUPPLEMENT MEDICARE PART A & B RF Arrays MEDEX SUPPLEMENT MEDICARE PART A & B RF Arrays MEDEX SUPPLEMENT Care Teams University Administrator Relationship Specialty Start Date End Date Lamont Garber MD [address] [place] [address] [email or web address] PCP - General Internal Medicine 09/29/17 Lamont Garber MD [address] [place] [phone] [email or web address] Insurance Assigned Provider 02/14/24 Ba Calabrese MD [address] [place] [address] Dr [address] [place] [address] Cardiology 01/12/20 Samir Hancock MD [address] [place] [phone] [email or web address] 01/12/20 Ba Calabrese MD [address] [place] [address] Dr [address] [place] [address] Cardiology 01/14/20 Rashard Thakkar MD [address] [place] [address] Dr [address] [place] [phone] Internal Medicine 02/14/20 Freddy Lua MD [address] [place] [address] Physical Medicine and Rehabilitation 03/03/20 Additional Source Comments The information contained in this document represents components of the legal health record. It is not the complete legal health record.[facility]
[2025-09-07] MEDS: Acetaminophen/Codeine 300-30mg Tablet 1 TAB PO (20:27)
[2025-09-07 21:02] VITALS: BP 126/84; PULSE 59; RESP 18; TEMP 36.5; O2SAT 98
== END 2025-09-07 21:03 | disposition home or self-care (01) ==
PROVIDERS: Emergency Provider Student in an Organized Health Care Education/Training Program; PCP Internal Medicine
DX: M25.511 Pain in right shoulder (principal); I48.91 Unspecified atrial fibrillation; I50.30 Unspecified diastolic (congestive) heart failure; E04.2 Nontoxic multinodular goiter; Z79.01 Long term (current) use of anticoagulants; Z79.899 Other long term (current) drug therapy
CPT/HCPCS: 10005; 73030; 73060; 88173; 88305; 99283; 99284

== ENCOUNTER → 2025-09-07 17:24 | Outpatient (BNV) | payer MEDICARE, SELFPAY ==
[2023-01-09 09:05] VITALS: BP 106/60; BP 132/56; BP 150/74
== END ==
PROVIDERS: PCP Internal Medicine; Visit Provider Radiology Diagnostic Radiology
DX: M19.011 Primary osteoarthritis, right shoulder (principal); M79.601 Pain in right arm
CPT/HCPCS: 73030; 73060

== ENCOUNTER 2025-09-21 13:43 | Outpatient (AMB) | payer MEDICARE, SELFPAY ==
[2025-09-08 11:50] VITALS: BP 106/60; BP 132/56; BP 150/74
--- NOTE | 2025-09-21 13:44 | A.OFFVIS_ITS ---
Vital Signs 09/21/25 13:45 Height 5 ft 9 in BMI Reason not done Patient refused/unable BP 132/68 Blood Pressure Location Rt brachial Position Sitting Pulse 60 Pulse Source Pulse Oximeter Pulse Oximetry (%) 96 Oxygen Delivery Method Room Air Intake Visit Reasons: F/u Thyroid FNA Intake Note: Patient presents today for FNA Biopsy Results: Thyroid Biopsy Performed on 09/07/2025. Wireless Sales Consultant Required: No Accompanied by: Family/Other Allergies bee pollen (BEE STINGS) Allergy (Severe, Verified 09/21/25 13:51) ANAPHYLAXIS Penicillins (PENICILLINS) Allergy (Intermediate, Verified 09/21/25 13:51) HIVES chlorhexidine (CHLORAPREP) Allergy (Mild, Verified 09/21/25 13:51) RASH sulfamethoxazole (From BACTRIM) Allergy (Mild, Verified 09/21/25 13:51) DIARRHEA codeine (CODEINE) Allergy (Unknown, Verified 09/21/25 13:51) NAUSEA latex (LATEX) Allergy (Unknown, Verified 09/21/25 13:51) rash/itchy iodine povacrylex (From DuraPrep) Adverse Reaction (Verified 09/21/25 13:51) Rash isopropyl alcohol (From DuraPrep) Adverse Reaction (Verified 09/21/25 13:51) Rash HPI Comments Details: 80 years old female coming in today for initial evaluation of multinodular goiter. Patient felt a mass on the right side of the neck within the last 6 months. She has had a needle biopsy in her 60s , doesnt rememeber name of doctor or facilty and was benign. US thyroid 08/02/25 I reviewed the images myself which showed right mid lobe 2.5 cm solid , hypoechoic TR4 nodule whihc meets criteria of FNA. Left lower 0.5 cm cyst. left superior 0.75cm cyst. Patient currently denies heat or cold intolerance, diarrhea or constipation, hair loss, palpitation, anxiety, weight changes, mood changes, changes in appearance of eyes or vision changes, tremors, increased diaphoresis or dry skin. Reports low energy ? Voice raspiness over the past 6 months that has been worsening. Patient denies any difficulty swallowing, pain on swallowing, difficulty breathing. Rt breast ca 2010 s/p lumpectomy plus radiation. Denies having ever used lithium, amiodarone or biotin supplements. Patient denies any family history of thyroid cancer or thyroid disease. Interval history: She reports losing a lot of hear when she brushes She did have a shoulder injury which she is concern would limited her ability to lay down. She denies any dysphagia or neck pain after the FNA Physical exam General: sitting comfortably in no acute distress HEENT: normocephalic/atraumatic, Neck: supple, palpable 1 cm right-sided nodule Cardiac: normal heart sounds Pulm: normal breath sounds B/L, no added breath sounds Abd: not distended, no tenderness Extremities: no edema, no signs of myxedema Laboratory Tests 08/26/22 09:08 TSH 1.77 Free T4 1.00 EXAMINATION: FNA pathology report 09/07/25 Diagnosis Thyroid, right lobe, midportion nodule, fine needle aspiration biopsy (cytology and cell block): -Raleigh System Classification: Non-diagnostic (category 1) -Description: Predominantly blood with rare cyst lining type cells and hemosiderin-laden macrophages US THYROID 08/02/25 CLINICAL INFORMATION: Right neck mass COMPARISON: None available. TECHNIQUE: Linear transducer grayscale and color Doppler examination with attention to the region of the thyroid. FINDINGS: SIZE: Measurements of the thyroid lobes and nodules are given in sagittal, anteroposterior and transverse dimensions respectively. Right Thyroid Lobe: 4.1 x 2.1 x 1.6 cm, volume 7 mL. Parenchyma: The gland echotexture is heterogeneous. Thyroid vascularity is increased. Left Thyroid Lobe: 4.1 x 1.3 x 1.3 cm, volume 4 mL. Parenchyma: The gland echotexture is heterogeneous. Thyroid vascularity is normal. Isthmus: 0.3 cm in maximum AP dimension. Estimated total number of nodules greater than or equal to 1 cm: 1. Shroudman nodules are described as follows: 1. Location: [Midportion, right thyroid lobe. Size: 2.3 x 1.2 x 2.5 cm, volume 3.6 mL. Nodule characteristics: Composition: Solid (2). Echogenicity: Hypoechoic (2). Shape: Not taller than wide (0). Margins: Smooth (0). Echogenic Foci: None (0). ACR TI-RADS total points: 4 ACR TI-RADS category: 4 2. Location: Lower pole left thyroid lobe. Size: 0.43 x 0.52 x 0.38 cm, volume 0.04 mL. Nodule characteristics: Composition: Cystic(0). Echogenicity: Anechoic (0). Shape: Not taller than wide (0). Margins: Smooth (0). Echogenic Foci: None (0). ACR TI-RADS total points: 0 ACR TI-RADS category: 1 3. Location: Upper pole left thyroid lobe. Size: 0.61 x 0.43 x 0.75 cm, volume 0.1 mL. Nodule characteristics: Composition: Cystic(0). Echogenicity: Anechoic (0). Shape: Not taller than wide (0). Margins: Smooth (0). Echogenic Foci: None (0). ACR TI-RADS total points: 0 ACR TI-RADS category: 1 NODES: No lymphadenopathy is seen in the tissue surrounding the thyroid gland. US/US thyroid IMPRESSION: ACR TI-RADS category: 4, upper pole midportion right thyroid lobe. [facility] Medical History (Updated 09/08/25 @ 00:01 by Shyam Rossi) Multinodular goiter (nontoxic) Myocardial injury Paroxysmal atrial fibrillation Sick sinus syndrome Surgical History (Updated 09/15/25 @ 15:58 by EMILIE Couch) Hx of ultrasound guided needle biopsy Hx of knee surgery Hx of oral surgery Hx of colonoscopy Hx of hysterectomy History of back surgery Hx of lumpectomy History of cholecystectomy Hx of appendectomy Family History Father Emphysema lung Mother Sudden cardiac arrest Social History Household Members: Spouse Housing: House Do you presently have visiting nurse or other home services: No Alcohol intake: current Alcohol intake frequency: holidays/special occasions only Alcohol type: wine Patient Tobacco Use Status: Never used Tobacco e-Cigarette/Vaping Use: Never Used service: No Current occupational status: retired Physical Exam Vital Signs: Last Vital Signs Pulse 60 09/21/25 13:45 BP 132/68 09/21/25 13:45 Pulse Ox 96 09/21/25 13:45 Oxygen Delivery Method Room Air 09/21/25 13:45 Assessment & Plan Assessment & Plan (1) Multinodular goiter (nontoxic): Code(s): E04.2 - Nontoxic multinodular goiter Category: Medical Plan: 80 years old female coming in today for initial evaluation of multinodular goiter. Patient felt a mass on the right side of the neck within the last 6 months. She has had a needle biopsy in her 60s , doesnt rememeber name of doctor or facilty and was benign. US thyroid 08/02/25 I reviewed the images myself which showed right mid lobe 2.5 cm solid , hypoechoic TR4 nodule whihc meets criteria of FNA. Left lower 0.5 cm cyst. left superior 0.75cm cyst. We discussed that her result (Raleigh 1), indicates that the sample was not enough to achieve a cytological diagnosis. We explain that at this point there is 2 alternatives: we could repeat the FNA (which likely we will higher yield) or we could repeat ultrasound in 6 months and re-evaluate for thyroid nodule growth. Given that the patient has a shoulder injury, and she is not sure if she is going to be able to lay down, she opted for repeat ultrasound and six- month. Plan: Repeat ultrasound in six-month Based on results with continue to monitor or discussed need to repeat FNA Plan I spent 20 minutes in reviewing the record, seeing the patient and documenting in the medical record. Orders: Orders US thyroid Today E04.2 - Nontoxic multinodular goiter Coding Level of Care Code Est Pt Level 3 (60393) Diagnoses Multinodular goiter (nontoxic) E04.2
[2025-09-21 13:45] VITALS: BP 132/68; PULSE 60; O2SAT 96
--- OUTSIDE RECORDS SUMMARY | 2025-09-21 16:45 | XMS_ITS | Encounter Summary ---
Author Organization [facility] Address [address] [address] Phone Care Team Providers Care Concrete Sculptor Name Role Phone Lamont Garber MD Unavailable [phone] Lamont Garber MD Primary Care Provider Ba Calabrese MD Unavailable Samir Hancock MD Unavailable Ba Calabrese MD Unavailable [phone] Rashard Thakkar MD Unavailable Freddy Lua MD Unavailable Elen Triana RN Unavailable Encounter Details Date Type Department Care Team (Late st Contact Info) Description 09/03/2021 [facility] [address] [place] [address] 3rd Floor, [address] [place], [place] [phone] Shine Rapp MD 22 [facility], [address] [phone] [email or web address] Social History Tobacco Use Types Packs/Day Years [...] Description 10/10/2025 9:00 AM EST Office Visit [facility] [address] [place] [address] Lamont Garber MD [address] [place] [address] [phone] [email or web address] 04/21/2026 10:00 AM EDT Office Visit [facility] [address] [facility] 3rd Floor, [address] [place], [place] [phone] Rafat Wilkerson MD, MS 22 [facility], [address] [place] [address] [phone] jorge 04/24/2026 1:00 PM EDT Office Visit [facility] Internal Medicine [address] [place] [address] Lamont Garber MD [address] [place] [address] [phone] documented as of this encounter Visit Diagnoses Not on filedocumented in this encounter Additional Health Concerns Infection Onset Date Last Indicated Resolved Time COVID-19 12/03/2023 12/03/2023 12/24/2023 1:21 AM EST Assessment Noted Time PHQ-2 Depression Total Score: 0 08/14/20 21 10:45 AM EDT documented as of this encounter Care Teams Concrete Sculptor Relationship Specialty Start Date End Date Lamont Garber MD [address] [place] [address] [phone] PCP - General Internal Medicine 09/29/17 Lamont Garber MD [address] [place] [address] [email or web address] Insurance Assigned Provider 02/14/24 Ba Calabrese MD [address] [place] [address] Dr [address] [place] [address] Cardiology 01/12/20 Samir Hancock MD [address] [place] [address] [email or web address] 01/12/20 Ba Calabrese MD [address] [place] [address] Dr [address] [place] [address] Cardiology 01/14/20 Rashard Thakkar MD [address] [place] [address] Dr [address] [place] [phone] Internal Medicine 02/14/20 Freddy Lua MD [address] [place] [address] Physical Medicine and Rehabilitation 03/03/20 Elen Triana, RN [address] [place] [phone] [email or web address] PHCM Monument ErectorManager Bench 06/09/23 07/01/23 documented as of this encounter Additional Source Comments The information contained in this document represents components of the legal health record. It is not the complete legal health record.[facility]
--- OUTSIDE RECORDS SUMMARY | 2025-09-21 16:45 | XMS_ITS | Continuity of Care Document ---
Author Organization [place] [facility], [facility] Address [address] [place] [address] Care Team Providers Care Community Development Aide Name Role Phone ANUJA CASTILLO Primary Care Provider [phone] Assessment No assessment recorded. Plan of Treatment Reminders Order Date Submit [...] and Address Organization Details Recorded Time Dysphonia 88257657 Active 2016 Hoarsenes s; Note: Date Diagnosed : 03/18/2017 1:50 PM (R49.0) Not Available [facility] 4 02:40:39 Abnormal auditory perceptio n 41224468 Active 2020 Other abnormal auditory perceptio ns, left ear; Note: Date Diagnosed : 1 11:23 AM (H93.292) Not Available [facility] 4 02:40:35 Impacted cerumen of bilateral ears 03531463404 72262 Active 2023 Impacted cerumen, bilateral ; Note: Date Diagnosed : 01/26/2024 9:22 AM (H61.23) Not Available [facility] 4 02:40:36 Bilateral diffuse otitis externa 59427881574 20984 Active 2023 Diffuse otitis externa, bilateral ; Note: Date Diagnosed : 01/26/2024 9:22 AM (H60.313) Not Available [facility] 4 02:40:41 Sensorine ural hearing loss of bilateral ears 834954545 Active 2024 NOMAN SEBASTIAN, AUD 100 [facility] [address], [place], [address] , [facility] - [facility] 5 15:35:07 Problem Notes None recorded. Medical Equipment None Reported. Allergies Allergen ID Allergen Name Allergen Category Reaction Reaction Severity Criticality Documentation Date Start Date Code Code System Note Provider Name and Address Organization Details Recorded Time 081095 penicilli n V potassium medicatio n other Not available Not available 03/23/202444207 5 RxNorm React ion: unkno wn, unspe cifie d;; Not Available [facility] 4 01:10:57 Medications Name Sig Start Date [...] as directed 2023 active Medicatio n ID: [id number] Du ration Value: 14 Brand Name: clotrimaz [...] by mouth 2016 active Medicatio n ID: [id number] Du ration Value: 30 Prescrib ed By [...] ICD10 Code Diagnosis IMO Codes Diagnosis Note [id number] JACQUELINE NERI ENTS of [address] [address] 07/25/2025 15:24:58 08/05/2025 13:53:36 Sensorineural hearing loss of bilateral ears [id number] H90.3 [id number] Audiologic al evaluation results: 07/25/2025 Right ear: Normal sloping to a mild sensorineu ral hearing loss with excellent word recognitio n. Left ear: Normal sloping to a mild sensorineu ral hearing loss with excellent word recognitio n. Tympanomet ry: Right Ear:Type A Left Ear:Type A Health Concerns Section Related Observation LastModified by Organization Detai ls LastModified Time None Recorded Concern Status LastModified by Organization Details LastModified Time None Recorded Payers Encounter Date Sequence Insurance Name Policy Number Policy Ferrer Covered Member ID Ferrer Member ID Guarantor Name 07/25/2025 2 [place] [id number] Dolly Diaz [id number] Dolly Diaz 07/25/2025 1 [place] [employer] Dolly Diaz [id number] Dolly Diaz OBGyn Episode No OBEpisode recorded.
--- OUTSIDE RECORDS SUMMARY | 2025-09-21 16:45 | XMS_ITS | Encounter Summary ---
Author Organization [facility] Address [address] [facility] [address] [place] [address] Phone Care Team Providers Care School Crossing Guard Supervisor Name Role Phone Lamont Garber MD Unavailable Lamont Garber MD Primary Care Provider [phone] Ba Calabrese MD Unavailable [phone] Samir Hancock MD Unavailable [phone] Ba Calabrese MD Unavailable Rashard Thakkar MD Unavailable Freddy Lua MD Unavailable [phone] Encounter Details Date Type Department Care Team (Late st Contact Info) Description 09/08/2025 Orders Only [facility] Internal Medicine [address] [place] [address] Provider, MD Mulugeta [address] [place] [address] Social History Tobacco Use Types Packs/Day [...] Description 10/10/2025 9:00 AM EST Office Visit [facility] Internal Medicine [address] [place], [place] [phone] Lamont Garber MD [address] [place] [address] [phone] 04/21/2026 10:00 AM EDT Office Visit [facility] [address] [place] [address] 3rd Floor, [address] [place] [address] Rafat Wilkerson MD, MS 22 [facility], [address] [phone] jorge 04/24/2026 1:00 PM EDT Office Visit [facility] Internal Medicine [address] [place], [place] [phone] Lamont Garber MD [address] [place], [place] [phone] [email or web address] documented as of this encounter Procedures Procedure Name Priority Date/Time Associated Diagnosis Comments OUTSIDE XR EXTREMITY UPPER REPORT ONLY Routine 09/07/2025 8:40 AM EDT OUTSIDE XR EXTREMITY UPPER REPORT ONLY Routine 09/07/2025 8:20 AM EDT documented in this encounter Results * Outside XR Extremity Upper Report Only (09/07/2025 8:40 AM EDT) us Historical Provider MD FERNANDO XR UPPER EXTREMITY Fi nal Result * Outside XR Extremity Upper Report Only (09/07/2025 8:20 AM EDT) us Historical Provider MD FERNANDO XR UPPER EXTREMITY Fi nal Result documented in this encounter Visit Diagnoses Not on filedocumented in this encounter Additional Health Concerns Assessment Noted Time PHQ-2 Depression Total Score: 0 04/26/20 25 8:59 AM EDT documented as of this encounter Care Teams School Crossing Guard Supervisor Relationship Specialty Start Date End Date Lamont Garber MD [address] [place] [address] [email or web address] PCP - General Internal Medicine 09/29/17 Lamont Garber MD [address] [place] [address] [email or web address] Insurance Assigned Provider 02/14/24 Ba Calabrese MD [address] [place] [address] [address] [place] [address] Cardiology 01/12/20 Samir Hancock MD [address] [place] [address] [email or web address] Otolaryngology 01/12/20 Ba Calabrese MD [address] [place] [address] Dr [address] [place] [address] Cardiology 01/14/20 Rashard Thakkar MD [address] [place] [address] Dr [address] [place] [phone] Internal Medicine 02/14/20 Freddy Lua MD [address] [place] [address] Physical Medicine and Rehabilitation 03/03/20 documented as of this encounter Additional Source Comments The information contained in this document represents components of the legal health record. It is not the complete legal health record.[facility]
--- OUTSIDE RECORDS SUMMARY | 2025-09-21 16:45 | XMS_ITS | Continuity of Care Document ---
Author Organization [place] [facility], [facility] Address [address] [place] [address] Care Team Providers Care Precision Agronomist Name Role Phone ANUJA CASTILLO Primary Care Provider [phone] Assessment Encounter Date Assessment Date Assessment LastModified [...] and Address Organization Details Recorded Time Dysphonia 97183637 Active 2016 Hoarsenes s; Note: Date Diagnosed : 03/18/2017 1:50 PM (R49.0) Not Available [facility] 4 02:40:39 Abnormal auditory perceptio n 14917558 Active 2020 Other abnormal auditory perceptio ns, left ear; Note: Date Diagnosed : 1 11:23 AM (H93.292) Not Available [facility] 4 02:40:35 Impacted cerumen of bilateral ears 91247100695 96024 Active 2023 Impacted cerumen, bilateral ; Note: Date Diagnosed : 01/26/2024 9:22 AM (H61.23) Not Available [facility] 4 02:40:36 Bilateral diffuse otitis externa 85256141335 25486 Active 2023 Diffuse otitis externa, bilateral ; Note: Date Diagnosed : 01/26/2024 9:22 AM (H60.313) Not Available [facility] 4 02:40:41 Sensorine ural hearing loss of bilateral ears 008298894 Active 2024 NOMAN SEBASTIAN, [facility] [address] [address], [place], [address] , [facility] - [facility] 5 15:35:07 Problem Notes None recorded. Medical Equipment None Reported. Allergies Allergen ID Allergen Name Allergen Category Reaction Reaction Severity Criticality Documentation Date Start Date Code Code System Note Provider Name and Address Organization Details Recorded Time 049253 penicilli n V potassium medicatio n other Not available Not available 03/23/202462056 5 RxNorm React ion: unkno wn, unspe cifie d;; Not Available [facility] 4 01:10:57 Medications Name Sig Start Date [...] as directed 2023 active Medicatio n ID: [id number] Du ration Value: 14 Brand Name: clotrimaz [...] by mouth 2016 active Medicatio n ID: [id number] Du ration Value: 30 Prescrib ed By [...] ICD10 Code Diagnosis IMO Codes Diagnosis Note [id number] JACQUELINE NERI [facility] of [address] [address] 07/25/2025 15:24:58 08/05/2025 13:53:36 Sensorineural hearing loss of bilateral ears [id number] H90.3 [id number] Audiologic al evaluation results: 07/25/2025 Right ear: Normal sloping to a mild sensorineu ral hearing loss with excellent word recognitio n. Left ear: Normal sloping to a mild sensorineu ral hearing loss with excellent word recognitio n. Tympanomet ry: Right Ear:Type A Left Ear:Type A [id number] JOSAFAT CASTELAN PA-C [facility] of [facility] [address] [place] [address] 07/26/2025 12:47:59 07/26/2025 13:18:54 Dysphonia 03237854 R49.0 Abnormal a uditory perception 50121451 H93.292 Health Concerns Section Related Observation LastModified by Organization Detai ls LastModified Time None Recorded Concern Status LastModified by Organization Details LastModified Time None Recorded Payers Encounter Date Sequence Insurance Name Policy Number Policy Ferrer Covered Member ID Ferrer Member ID Guarantor Name 07/26/2025 2 [place]) [id number] Dolly Diaz [id number] Dolly Julio Joe 07/26/2025 1 [place] [employer] Dolly Julio Joe [id number] Dolly Diaz Notes Date Note Type Note Provider Name [...] red flag symptoms. JALYN VERA MD 100 [facility],[address] [address], [place], [address], [facility] - [facility] 07/27/2025 08:34:33 OBGyn Episode No OBEpisode recorded.
--- OUTSIDE RECORDS SUMMARY | 2025-09-21 16:45 | XMS_ITS | Clinical Summary ---
Author Organization [facility] Address [address] [place] [address] Care Team Providers Care Logging Specialist Name Role Phone Lamont Garber MD Primary Care Provider [phone] Allergies Active Allergy Reactions Criticality Noted Date [...] age to complete this topic Care Teams Logging Specialist Relationship Specialty Start Date End Date Lamont Garber MD 40 [facility] [place] [address] PCP - General Internal Medicine 10/19/18
--- OUTSIDE RECORDS SUMMARY | 2025-09-21 16:45 | XMS_ITS | Clinical Summary ---
Author Organization [facility] Address [address] [place] [address] Phone Care Team Providers Care Reed Or Wind Instrument Repairer Name Role Phone Lamont Garber MD Primary Care Provider [phone] Allergies Active Allergy Reactions Criticality Noted Date [...] left breast in female, estrogen receptor positive ([facility] V24, [facility] V28) 07/14/2024 Encounters Date Type Department Care Team Description 08/15/2025 9:19 AM EDT - 08/15/2025 11:59 PM EDT Hospital [facility] [address] [address] Encounter for screening mammogram for breast cancer Discharge Disposition: Home or Self Care from Last 3 Months Surgical History Surgery Date Site/Laterality Comments STEREOTACTIC CORE BIOPSY 11/10/2010 - 11/09/2011 Left BREAST LUMPECTOMY 11/10/2010 - 11/09/2011 Left HYSTERECTOMY 11/10/1994 - 11/09/1995 Medical History Medical History Date Comments Breast cancer ([facility] V24, [facility] V28) 2010 Left breast Family History [...] Description 11/16/2025 9:00 AM EST Office Visit [facility] Hematology Oncology [address] [place] [address] Alejandro Mead MD [address] [place] [address] 08/16/2026 9:30 AM EDT [facility]ointment [facility] [address] [place] [address] Health Maintenance Due Date Last [...] for biopsy. PQRI CPT II 3342F Code 42377, 15896 PQRI 225 CPT II 7025F TISSUE DENSITY: There are scattered areas of fibroglandular density. (BI-RADS category B) IMPRESSION: Benign. BI-RADS CATEGORY: 2 - BENIGN RECOMMENDATION: Screening bilateral mammogram is recommended in 1 year. Mammo Location: [facility], [facility], [address] [place] [address] -------- FINAL REPORT -------- Dictated By: Trip Ascencio Dictated Date: 08/15/2025 10:31 ET Assigned Physician: Trip Ascencio Reviewed and Electronically Signed By: Trip Ascencio Signed Date: 08/15/2025 10:39 ET Workstation ID: [id number] Transcribed By: Self Edit Transcribed Date: 08/15/2025 [...] and CC projection is performed in the [employer] 2000-D unit. Computer aided detection utilizing the [...] MLO and CC projection is performed in the[employer] 2000-D unit. Computer aided detection utilizing the [...] for biopsy. PQRI CPT II 3342F Code 34818, 34461 PQRI 225 CPT II 7025F TISSUE DENSITY: There are scattered areas of fibroglandular density.(BI-RADS category B) IMPRESSION: Benign. BI-RADS CATEGORY: 2 - BENIGN RECOMMENDATION: Screening bilateral mammogram is recommended in 1 year. Mammo Location: [facility], [facility], [address] [place] [address] -------- FINAL REPORT -------- Dictated By: Trip Ascencio Dictated Date: 08/15/2025 10:31 ET Assigned Physician: Trip Ascencio Reviewed and Electronically Signed By: Trip Ascencio Signed Date: 08/15/2025 10:39 ET Workstation ID: [id number] Transcribed By: Self Edit Transcribed Date: 08/15/2025 [...] Recently Relevant to Health Maintenance Insurance MEDICARE [facility] Care Teams Reed Or Wind Instrument Repairer Relationship Specialty Start Date End Date Lamont Garber MD [address] [place] [address] PCP - General Internal Medicine 10/19/18
--- OUTSIDE RECORDS SUMMARY | 2025-09-21 16:45 | XMS_ITS | Encounter Summary ---
Author Organization [facility] Address [address] [address] Phone Care Team Providers Care Insurance Counsel Name Role Phone Lamont Garber MD Unavailable Lamont Garber MD Primary Care Provider Ba Calabrese MD Unavailable [phone] Samir Hancock MD Unavailable [phone] Ba Calabrese MD Unavailable [phone] Rashard Thakkar MD Unavailable Freddy Lua MD Unavailable Elen Triana RN Unavailable Encounter Details Date Type Department Care Team (Late st Contact Info) Description 09/03/2021 [facility] [address] [place] [address] 3rd Floor, [address] [place], [place] [phone] Shine Rapp MD [address] [facility], [address] [phone] [email or web address] Social History Tobacco Use Types Packs/Day Years [...] Description 10/10/2025 9:00 AM EST Office Visit [facility] Internal Medicine [address] [place] [address] Lamont Garber MD [address] [place] [address] [phone] 04/21/2026 10:00 AM EDT Office Visit [facility] 22 [facility] 3rd Floor, [address] [place], [place] [phone] Rafat Wilkerson MD, MS 22 [facility], [address] [place] [phone] jorge 04/24/2026 1:00 PM EDT Office Visit [facility] Internal Medicine [address] [place] [address] Lamont Garber MD [address] [place] [address] [phone] documented as of this encounter Visit Diagnoses Not on filedocumented in this encounter Additional Health Concerns Infection Onset Date Last Indicated Resolved Time COVID-19 12/03/2023 12/03/2023 12/24/2023 1:21 AM EST Assessment Noted Time PHQ-2 Depression Total Score: 0 08/14/20 21 10:45 AM EDT documented as of this encounter Care Teams Insurance Counsel Relationship Specialty Start Date End Date Lamont Garber MD [address] [place] [address] [phone] PCP - General Internal Medicine 09/29/17 Lamont Garber MD [address] [place] [address] [email or web address] Insurance Assigned Provider 02/14/24 Ba Calabrese MD [address] [place] [address] Dr [address] [place] [address] Cardiology 01/12/20 Samir Hancock MD [address] [place] [address] [email or web address] Otolaryngology 01/12/20 Ba Calabrese MD [address] [place] [address] Dr [address] [place] [address] Cardiology 01/14/20 Rashard Thakkar MD [address] [place] [address] [address] [place] [phone] Internal Medicine 02/14/20 Freddy Lua MD [address] [place] [address] Physical Medicine and Rehabilitation 03/03/20 Elen Triana, RN [address] [place] [address] [email or web address] PHCM Sales SecretaryStores Clerk 06/09/23 07/01/23 documented as of this encounter Additional Source Comments The information contained in this document represents components of the legal health record. It is not the complete legal health record.[facility]
--- OUTSIDE RECORDS SUMMARY | 2025-09-21 16:45 | XMS_ITS | Encounter Summary ---
Author Organization [facility] Address [address] [facility] [address] [place] [address] Phone Care Team Providers Care Data Integrity Consultant Name Role Phone Lamont Garber MD Unavailable Lamont Garber MD Primary Care Provider Ba Calabrese MD Unavailable [phone] Samir Hancock MD Unavailable Ba Calabrese MD Unavailable Rashard Thakkar MD Unavailable Freddy Lua MD Unavailable [phone] Encounter Details Date Type Department Care Team (Late st Contact Info) Description 08/24/2025 Orders Only [facility] Internal Medicine [address] [place] [address] Provider, MD Mulugeta [address] [place] [address] Social History Tobacco Use Types Packs/Day [...] Description 10/10/2025 9:00 AM EST Office Visit [facility] Internal Medicine [address] [place], [place] [phone] Lamont Garber MD [address] [place] [address] [phone] 04/21/2026 10:00 AM EDT Office Visit [facility] [address] [place] [address] 3rd Floor, [address] [place] [address] Rafat Wilkerson MD, MS 22 [facility], [address] [phone] jorge 04/24/2026 1:00 PM EDT Office Visit [facility] Internal Medicine [address] [place], [place] [phone] Lamont Garber MD [address] [place], [place] [phone] [email or web address] documented as of this encounter Procedures Procedure Name Priority Date/Time Associated Diagnosis Comments OUTSIDE LAB Routine 08/19/2025 7:54 AM EDT documented in this encounter Results * Outside Lab (08/19/2025 7:54 AM EDT) us Historical Provider LAB BLOOD BKR ORDERABLES Final Result documented in this encounter Visit Diagnoses Not on filedocumented in this encounter Additional Health Concerns Assessment Noted Time PHQ-2 Depression Total Score: 0 04/26/20 25 8:59 AM EDT documented as of this encounter Care Teams Data Integrity Consultant Relationship Specialty Start Date End Date Lamont Garber MD [address] [place] [address] [email or web address] PCP - General Internal Medicine 09/29/17 Lamont Garber MD [address] [place] [address] [email or web address] Insurance Assigned Provider 02/14/24 Ba Calabrese MD [address] [place] [address] Dr [address] [place] [address] Cardiology 01/12/20 Samir Hancock MD [address] [place] [address] [email or web address] 01/12/20 Ba Calabrese MD [address] [place] [address] Dr [address] [place] [address] Cardiology 01/14/20 Rashard Thakkar MD [address] [place] [address] Dr [address] [place] [phone] Internal Medicine 02/14/20 Freddy Lua MD [address] [place] [address] Physical Medicine and Rehabilitation 03/03/20 documented as of this encounter Additional Source Comments The information contained in this document represents components of the legal health record. It is not the complete legal health record.[facility]
--- OUTSIDE RECORDS SUMMARY | 2025-09-21 16:46 | XMS_ITS | Data Portability ---
Author Organization [place] [facility], Allergy Address [address] [address] Care Team Providers Care Home Appliance Technician Name Role Phone ANUJA CASTILLO Primary Care Provider [phone] Assessment Encounter Date Assessment Date Assessment LastModified [...] and Address Organization Details Recorded Time Dysphonia 29069772 Active 2016 Hoarsenes s; Note: Date Diagnosed : 03/18/2017 1:50 PM (R49.0) Not Available [facility] 4 02:40:39 Abnormal auditory perceptio n 03404089 Active 2020 Other abnormal auditory perceptio ns, left ear; Note: Date Diagnosed : 1 11:23 AM (H93.292) Not Available [facility] 4 02:40:35 Impacted cerumen of bilateral ears [id number] 62778 Active 2023 Impacted cerumen, bilateral ; Note: Date Diagnosed : 01/26/2024 9:22 AM (H61.23) Not Available [facility] 4 02:40:36 Bilateral diffuse otitis externa 39835168987 Active 2023 Diffuse otitis externa, bilateral ; Note: Date Diagnosed : 01/26/2024 9:22 AM (H60.313) Not Available [facility] 4 02:40:41 Sensorine ural hearing loss of bilateral ears 720471023 Active 2024 NOMAN SEBASTIAN, [place] [address], [facility] [place], [address] , [facility] - [facility] 5 15:35:07 Problem Notes None recorded. Medical Equipment None Reported. Allergies Allergen ID Allergen Name Allergen Category Reaction Reaction Severity Criticality Documentation Date Start Date Code Code System Note Provider Name and Address Organization Details Recorded Time 353371 penicilli n V potassium medicatio n other Not available Not available 03/23/202444815 5 RxNorm React ion: unkno wn, unspe cifie d;; Not Available [facility] 4 01:10:57 Medications Name Sig Start Date [...] as directed 2023 active Medicatio n ID: [id number] Du ration Value: 14 Brand Name: clotrimaz [...] by mouth 2016 active Medicatio n ID: [id number] Du ration Value: 30 Prescrib ed By [...] ICD10 Code Diagnosis IMO Codes Diagnosis Note [id number] JACQUELINE NERI [facility] of [address] [address] 07/25/2025 15:24:58 08/05/2025 13:53:36 Sensorineural hearing loss of bilateral ears [id number] H90.3 [id number] Audiologic al evaluation results: 07/25/2025 Right ear: Normal sloping to a mild sensorineu ral hearing loss with excellent word recognitio n. Left ear: Normal sloping to a mild sensorineu ral hearing loss with excellent word recognitio n. Tympanomet ry: Right Ear:Type A Left Ear:Type A 10175 JOSAFAT CASTELAN PA-C [facility] of [facility] [address] [place] [address] 07/26/2025 12:47:59 07/26/2025 13:18:54 Dysphonia 89164369 R49.0 Abnormal a uditory perception 36884189 H93.292 Health Concerns Section Related Observation LastModified by Organization Detai ls LastModified Time None Recorded Concern Status LastModified by Organization Details LastModified Time None Recorded Advance Directives Directive None Recorded Payers Insurance Date Sequence Insurance Name Policy Number Policy Ferrer Covered Member ID Ferrer Member ID Guarantor Name 07/26/2025 2 [place] [id number] Dolly Becerra Joe [id number] Dolly F Joe 07/26/2025 1 [place] [employer] Dolly Kim Joe [id number] Dolly Julio Joe Notes Date Note [...] red flag symptoms. JALYN VERA MD [address] [address], [place], [address], [facility] - [facility] 07/27/2025 08:34:33 OBGyn Episode No OBEpisode recorded.
--- OUTSIDE RECORDS SUMMARY | 2025-09-21 16:46 | XMS_ITS | Clinical Summary ---
Author Organization [facility] Address [address] [facility] [address] [place] [address] Phone Care Team Providers Care Pharmaceutical Specialty Representative Name Role Phone Lamont Garber MD Unavailable [phone] Lamont Garber MD Primary Care Provider [phone] Ba Calabrese MD Unavailable [phone] Samir Hancock MD Unavailable [phone] Ba Calabrese MD Unavailable Rashard Thakkar MD [...] injury reassessed. Please note x-rays taken at [facility]. In regards to the swelling within [...] Encounters Date Type Department Care Team Description 09/14/2025 Telephone [facility] Internal Medicine [address] [place] [address] Lamont Garber MD Numbness 09/08/2025 Orders Only [facility] Internal Medicine [address] [address] Mulugeta Calderón MD 08/24/2025 Orders Only [facility] Internal Medicine 40 [facility] [place] [address] Mulugeta Calderón MD 08/08/2025 Telephone [facility] Internal Medicine [address] [place], [place] [address] Lamont Garber MD Ultrasound 08/03/2025 Orders Only [facility] Internal Medicine 40 [facility] [place] [address] ProviderMulugeta MD 07/18/2025 2:00 PM EDT Office Visit [facility] Internal Medicine [address] [place] [phone] Lamin Vasquez MD Dysfunction of both eustachian tubes (Primary Dx) 07/16/2025 Nurse Triage [place] [address] [place] [address] Vicki Avalos, YECENIA Ear Fullness (After hours call ) 06/21/2025 3:50 PM EDT Office Visit [facility] Internal Medicine 40 [place] [address] Slime Robin, FAM Mass of right side of neck (Primary Dx) from Last 3 Months Immunizations Immunization Administration [...] Description 10/10/2025 9:00 AM EST Office Visit [facility] Internal Medicine [address] [place], [place] [phone] Lamont Garber MD [address] [place] [address] [phone] 04/21/2026 10:00 AM EDT Office Visit [facility] [address] [place] [address] 3rd Floor, [address] [place] [address] Rafat Wilkerson MD, MS 22 [facility], [address] [address] jorge 04/24/2026 1:00 PM EDT Office Visit [facility] Internal Medicine [address] [place], [place] [phone] Lamont Garber MD [address] [place] [address] [phone] Health Maintenance Due Date Last Done Comments [...] REPORT ONLY Routine 09/07/2025 8:20 AM EDT OUTSIDE LAB Routine 08/19/2025 7:54 AM EDT [...] AM EDT Pure hypercholesterolemia COMPREHENSIVE METABOLIC PANEL (CMP) Routine 04/26/2025 11:05 AM EDT Chronic heart failure with normal ejection fraction Pure hypercholesterolemia Essential hypertension HM DEXA SCAN Routine 06/19/2022 from Last 3 Months or Most Recently Relevant to Health Maintenance Results * Outside XR Extremity Upper Report Only (09/07/2025 8:40 AM EDT) Historical Provider MD FERNANDO XR UPPER EXTREMITY Fi nal Result * Outside XR Extremity Upper Report Only (09/07/2025 8:20 AM EDT) Historical Provider MD FERNANDO XR UPPER EXTREMITY Fi nal Result * Outside Lab (08/19/2025 7:54 AM EDT) Historical Provider LAB BLOOD BKR ORDERABLES Final Result * Outside US Thyroid Report Only (08/02/2025 1:46 PM EDT) Historical Provider MD FERNANDO US THYROID Final Res ult * Outside Imaging Report Only (08/02/2025 8:44 AM EDT) Historical Provider MD FERNANDO XR CHEST Final Res ult * (ABNORMAL) Comprehensive metabolic panel (04/26/2025 11:05 AM EDT) SODIUM 136 133 - 146 mmol/L [facility] POTASSIUM 4.2 3.3 - 5.1 mmol/L [facility] CHLORIDE 103 96 - 108 mmol/L [facility] CO2 20(L) 21 - 35 mmol/L [facility] BUN 16 6 - 19 mg/dL [facility] CREATININE 0.60 0.5 - 1.5 mg/dL [facility] GLUCOSE 92 70 - 99 mg/dL [facility] ALBUMIN 4.1 3.9 - 4.8 g/dL [facility] TOTAL PROTEIN 6.7 6.5 - 8.0 g/dL [facility] CALCIUM 9.2 8.4 - 10.3 mg/dL [facility] ALKALINE PHOSPHATASE 60 39 - 117 U/L [facility] TOTAL BILIRUBIN 0.7 0.0 - 1.2 mg/dL [facility] AST 24 0 - 37 U/L [facility] ALT 17 0 - 40 U/L [facility] GLOBULIN 2.6 1 - 4.8 g/dL [facility] EGFR 91 >59 mL/min/1.7 3m2 [facility] Comment:Estimated glomerular filtration rate calculated using the CKD-EPI refit equation. ANION GAP 17 10 - 20 mmol/L [facility] Blood 04/26/2025 11:0 5 AM EDT 04/26/2025 11:07 AM EDT us Lamont Garber MD LAB BLOOD BKR ORDERABLES Eva kaiser Result [facility] [address] [place] [address] * (ABNORMAL) Lipid panel (04/26/2025 11:05 AM EDT) HDL 97 mg/dL [facility] Comment: Interpretation <40 mg/dL: Low HDL cholesterol (major risk factor for CHD) Greater than or equal to 60 mg/dL: High HDL cholesterol ( negative risk factor for CHD) HDL - cholesterol is affected by a number of factors, e.g. smoking, excerise, hormones, sex and age. CHOLESTEROL 191 0 - 240 mg/dL [facility] TRIGLYCERIDES 63 30 - 160 mg/dL [facility] LDL 81 50 - 129 mg/dL [facility] Comment: LDL levels in terms of risk for coronary heart disease: <100 mg/dL: Optimal 100-129 mg/dL: Near or above optimal 130-159 mg/dL: Borderline high 160-189 mg/dL: High >190 mg/dL: Very High CARDIAC RISK RATIO 2.0(L) 3.3 - 4.4 C [facility] Blood 04/26/2025 11:0 5 AM EDT 04/26/2025 11:07 AM EDT us Lamont Garber MD LAB BLOOD BKR ORDERABLES Eva [facility] Result [facility] [address] [place] [address] * DEXA SCAN (06/19/2022) us Historical Provider HEALTH MAINTENANCE Edited Result - Final from Last 3 Months or Most Recently Relevant to Health Maintenance Insurance MEDICARE PART A & B [employer] MED[employer] SUPPLEMENT MEDICARE PART A & B [employer] SUPPLEMENT MEDICARE PART A & B [employer] MEDEX SUPPLEMENT MEDICARE PART A & B [facility] MEDEX SUPPLEMENT MEDICARE PART A & B [employer] MEDEX SUPPLEMENT [employer] MEDEX SUPPLEMENT MEDICARE PART A & B [employer] MEDEX SUPPLEMENT MEDICARE PART A & B [employer] SUPPLEMENT MEDICARE PART A & B [employer] MEDEX SUPPLEMENT Care Teams Pharmaceutical Specialty Representative Relationship Specialty Start Date End Date Lamont Garber MD [address] [place] [address] [email or web address] PCP - General Internal Medicine 09/29/17 Lamont Garber MD [address] [place] [address] [email or web address] Insurance Assigned Provider 02/14/24 Ba Calabrese MD [address] [place] [address] [address] [place] [address] Cardiology 01/12/20 Samir Hancock MD [address] [place] [address] [email or web address] Otolaryngology 01/12/20 Ba Calabrese MD [address] [place] [address] Dr [address] [place] [address] Cardiology 01/14/20 Rashard Thakkar MD [address] [place] [address] Dr [address] [place] [phone] Internal Medicine 02/14/20 Freddy Lua MD [address] [place] [address] Physical Medicine and Rehabilitation 03/03/20 Additional Source Comments The information contained in this document represents components of the legal health record. It is not the complete legal health record.[facility]
== END 2025-09-21 14:16 | disposition home or self-care (01) ==
LOC: HO.ENCR 13:43
PROVIDERS: PCP Internal Medicine; Visit Provider Student in an Organized Health Care Education/Training Program
DX: E04.2 Nontoxic multinodular goiter (principal)
CPT/HCPCS: 99213

== ENCOUNTER → 2025-09-21 13:43 | Outpatient (BNVA) | payer MEDICARE, SELFPAY ==
[2025-09-08 11:50] VITALS: BP 106/60; BP 132/56; BP 150/74
== END ==
PROVIDERS: PCP Internal Medicine; Visit Provider Student in an Organized Health Care Education/Training Program
DX: E04.2 Nontoxic multinodular goiter (principal)
CPT/HCPCS: 99212